=== PATIENT | male | born 1945 | race Caucasian/White ===

== ENCOUNTER 2022-04-01 12:40 | Outpatient (CLI) | payer MEDICARE, BC, SELFPAY ==
--- NOTE | 2022-04-01 13:00 | CRLHL7_ITS ---
For Patients: As a result of the Century Cures Act, medical imaging exams and procedure reports are released immediately into your electronic medical record. You may view this report before your referring provider. If you have questions, please contact your health care provider. 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 Coronary artery calcification. Heart size normal no pericardial effusion calcified mediastinal hilar lymph nodes. Numerous predominantly small mediastinal lymph nodes could be reactive. Lungs appear clear. No effusion. Anterior left upper lobe and basilar mild atelectasis. The gallbladder appears slightly distended there may be some wall thickening The adrenal glands are unremarkable. Splenic granulomas. Fatty appearance of the liver. No suspicious bony lesions. Impression: 1. No acute pulmonary findings. Prominent predominantly small mediastinal nodes could be reactive. 2. Gallbladder appears slightly distended with some possible wall thickening. If the patient has right upper quadrant pain could consider right upper quadrant ultrasound. Please note that all CT scans at this facility use dose modulation, iterative reconstruction, and/or weight-based dosing when appropriate to reduce radiation dose to as low as reasonably achievable. Dictated by Patria Cervantes MD @ 04/01/2022 2:42:25 PM (Electronically Signed)
--- NOTE | 2022-04-01 13:15 | CRLHL7_ITS ---
For Patients: As a result of the Cures Act, medical imaging exams and procedure reports are released immediately into your electronic medical record. You may view this report before your referring provider. If you have questions, please contact your health care provider. Indication: Abnormal weight loss Technique: Contrast and noncontrast head CT Comparison: No comparison neck is Findings: Axial noncontrast images through the brain parenchyma demonstrates generalized parenchymal volume loss. No acute intracranial hemorrhage or mass. No midline shift. No acute extra-axial air or fluid collections are seen. Polypoid soft tissue densities in mucosal thickening of both maxillary sinuses these could represent mucous retention cysts or polyps. Partial opacification of ethmoid air cells. Mucosal thickening of sphenoid sinuses. Mucosal thickening of the frontal sinuses. Skull and scalp otherwise appears unremarkable. No abnormal enhancement visualized. Hence may intracranial vessels are unremarkable Impression: 1. No acute intracranial hemorrhage or mass 2. Pansinus disease with possible polyps or mucous retention cyst in the maxillary sinuses. Please note that all CT scans at this facility use dose modulation, iterative reconstruction, and/or weight-based dosing when appropriate to reduce radiation dose to as low as reasonably achievable. Dictated by Patria Cervantes MD @ 04/01/2022 2:21:53 PM (Electronically Signed)
== END 2022-04-01 12:41 | disposition home or self-care (01) ==
LOC: CT 12:41
PROVIDERS: PCP Physician Assistant Medical; Visit Provider Physician Assistant Medical
DX: R63.4 Abnormal weight loss (principal); J32.0 Chronic maxillary sinusitis
CPT/HCPCS: 70470; 71260; Q9967

== ENCOUNTER 2022-05-03 07:23 | Outpatient (CLI) | payer MEDICARE, BC, SELFPAY ==
--- NOTE | 2022-05-03 07:15 | CRLHL7_ITS ---
For Patients: As a result of the Century Cures Act, medical imaging exams and procedure reports are released immediately into your electronic medical record. You may view this report before your referring provider. If you have questions, please contact your health care provider. INDICATION: GB wall thickening on CT COMPARISON: CT 04/01/2022 TECHNIQUE: Real time dominguez scale imaging and color Doppler analysis was performed of the right upper quadrant. FINDINGS: The patient`s liver is of normal size and has coarsened/increased echogenicity. There is a normal appearance of the hepatic IVC and proximal abdominal aorta. There is no evidence of ascites. The gallbladder is of normal size and there are echogenic and shadowing gallstones within the gallbladder lumen measuring 1.6 cm and 1.8 cm. Echogenic foci are also associated with the nondependent gallbladder wall with dirty acoustic shadowing. The gallbladder wall measures 5 mm in thickness. The common bile duct is of normal size and measures 6 mm in diameter at the level of the pernell hepatis. The pancreas is not well-visualized. There is no evidence of a stone or hydronephrosis within the right kidney. The right kidney measures 14.2 cm in length. Exophytic simple cyst arises from the lower pole of the right kidney measuring 8.9 x 4.8 x 8.6 cm. IMPRESSION: Diffuse gallbladder wall thickening with non dependent echogenic foci likely representing adenomyomatosis. Associated gallstones measuring up to 1.8 cm consistent with cholelithiasis. Correlate with LFTs. Fatty infiltration of the liver. Large simple cyst lower pole right kidney. Dictated by Júnior Austin MD @ 05/03/2022 8:27:44 AM (Electronically Signed)
== END 2022-05-03 07:24 | disposition home or self-care (01) ==
PROVIDERS: PCP Physician Assistant Medical; Visit Provider Physician Assistant Medical
DX: R93.2 Abnormal findings on diagnostic imaging of liver and biliary tract (principal); K80.20 Calculus of gallbladder without cholecystitis without obstruction; K76.0 Fatty (change of) liver, not elsewhere classified; N28.1 Cyst of kidney, acquired
CPT/HCPCS: 76705

== ENCOUNTER 2022-05-10 06:19 | Day surgery (SDC) | payer MEDICARE, BC, SELFPAY ==
[2022-05-10] VITALS (11 sets, daily range): BP systolic 136–179; BP diastolic 78–95; PULSE 62–83; RESP 15–16; TEMP 36.7–36.8; O2SAT 95–98; BMI 30.7
--- NOTE | 2022-05-10 07:01 | SUR.PREOP ---
Patient checked blood glucose at 0530 at home, result 260. Pt states it's been getting higher and higher this past week, and I don't know why.
[2022-05-10] MEDS: LIDOCAINE 1% 20 ML VIAL 3 ML INJECTION (07:51)
[2022-05-10] MEDS: BUPIVACAINE 0.25% 30 ML INJECTION (07:51)
--- NOTE | 2022-05-10 07:55 | SUR.OPER ---
PATIENT QUESTIONS ANSWERED SATISFACTORILY PREOPERATIVELY.? PATIENT BROUGHT TO OR #4 PER WHEELCHAIR.? Patient positioned supine on OR #4 bed.?The perioperative?team supported arms bilaterally on arm boards.? Final approval of positioning by surgeon.?
--- NOTE | 2022-05-10 08:54 | PM.GSPRC ---
Operative Note Date of procedure: 05/10/22 Type of Procedure: Right temporal artery biopsy Procedure Description: After discussing the risks and benefits of the procedure, the patient signed informed consent.? The operative site was marked and the patient was brought to the operating room and placed on the operating table in supine position.? Care was taken to pad the patient's pressure points.??The operative site was then prepped and draped in the usual sterile fashion.? A time-out was then performed. Local anesthetic was injected into the skin and subcutaneous tissue overlying the temporal artery on the right. An incision was then created. Dissection was taken down into the subcutaneous fat using cautery. The artery was encountered and confirmed using the Doppler. This was carefully dissected out circumferentially for segment of 2 cm. This was ligated proximally and distally with Vicryl suture and a segment was removed and sent to pathology. Hemostasis appeared excellent. The wound was then closed in layers with 3 0 Vicryl dermal and 5 0 Monocryl running subcuticular suture. ? Sterile dressings were then applied. ? The patient was then transported to the recovery area in stable condition. ? The patient tolerated the procedure well. Anesthesia: local Surgeon: Pari Davies MD Estimated blood loss (mL): 1 Condition: stable Disposition: same day
--- NOTE | 2022-05-17 09:46 | ONC.NURNOTE ---
Addendum entered by Ann Lovelace RN 06/04/22 15:21: Dr. Lino went through all the information: peripheral smear, and notes from surgery and primary care. She notes that she would not see patient as a consult unless the pathology from colon surgery came back malignant. This was looked at and found to be negative, therefore patient and spouse were notified that appointment will be cancelled. LM with front end mechanic staff at [facility] of the cancellation, and to call with any questions about this. Addendum entered and electronically signed by Paige Lutz, JOLLY 05/19/22 13:51: Addendum: Clarification, Mr. Retana was seen by Dr. Smyth, Surgeon with plan for cholecystectomy, possible hemicolectomy in the near future. He is on the schedule for the [facility] for new consult with Dr. Swati Lino on 06/17/22. Pt's will call to confirm with Stephanie Clark if he should still be seen in consult here at the [facility]. Peripheral blood smear result is pending and may influence this determination as well. He remains on the [facility] schedule for 06/17/22 at this time. Addendum entered and electronically signed by Paige Lutz, JOLLY 05/19/22 13:43: Mr. Retana's called to report that he is going to have surgery per Dr. Smyth on his colon. She wonders if he needs to still be seen here in the [facility] with Dr. Swati Lino on 05/17/22 - 2 days prior to surgery. Director Of Academic recommended that she call Stephanie Clark, PCP, to ask this question about the urgency to be seen. It appears that there is also a request for a peripheral smear on his blood to help determine cause for his blood dyscrasia before seen by hematology at the [facility] Ms. Retana agreed to this plan and will call us back at the [facility] after speaking with PCP team. Mr. Retana remains on our schedule at this time. Original Note: Received referral for patient to be seen by hem/onc. Clinic nurse talked with provider last week and it was determined that patient is appropriate to be seen, but request the primary care order a CBC smear first. Director Of Academic checked with clinic and the messageis back with provider. Once this is ordered, patient to be scheduled with Dr. Lino.
== END 2022-05-10 15:41 | disposition home or self-care (01) ==
PROVIDERS: PCP Physician Assistant Medical; Visit Provider Surgery
PROC: (CPT 37609; principal; 2022-05-10 07:30)
DX: R51.9 Headache, unspecified (principal); R70.0 Elevated erythrocyte sedimentation rate
CPT/HCPCS: 37609; 88305; J3490

== ENCOUNTER 2022-05-19 11:22 | Outpatient (CLI) | payer MEDICARE, BC, SELFPAY | END 2022-05-19 11:23 | disposition home or self-care (01) | LOC: NFLDREF 05-21 14:07 | PROVIDERS: PCP Physician Assistant Medical; Visit Provider Surgery | DX: R58 Hemorrhage, not elsewhere classified (principal) | CPT/HCPCS: 82040 ==

== ENCOUNTER 2022-05-27 09:43 | Outpatient (CLI) | payer MEDICARE, BC, SELFPAY ==
[2022-05-27 13:29] LABS: Chloride* 107 mmol/L (96-114); Sodium* 141 mmol/L (135-149)
[2022-05-27 13:29] LABS: Albumin* 3.6 g/dL (3.3-5.0)
[2022-05-27 13:30] LABS: Potassium* 4.8 mmol/L (3.6-5.1)
[2022-05-27 13:32] LABS: Estimated Glomerular Filt Rate 78 ml/min
[2022-05-27 13:33] LABS: Blood Urea Nitrogen* 28 mg/dL (7-30); Calcium* 8.8 mg/dL (8.4-10.6); Carbon Dioxide* 23 mmol/L (20-32); Glucose* 173 mg/dL (60-115)
== END 2022-05-27 09:44 | disposition home or self-care (01) ==
PROVIDERS: PCP Physician Assistant Medical; Visit Provider Emergency Medicine
DX: Z01.818 Encounter for other preprocedural examination (principal); R77.0 Abnormality of albumin; E78.5 Hyperlipidemia, unspecified
CPT/HCPCS: 80048; 82040

== ENCOUNTER 2022-05-31 06:06 | Inpatient (IN) | payer MEDICARE, BC, SELFPAY ==
[2022-05-31] VITALS (24 sets, daily range): BP systolic 103–133; BP diastolic 52–80; PULSE 69–92; RESP 14–18; TEMP 36.2–37.3; O2SAT 90–99; BMI 29.9
[2022-05-31] MEDS: LACTATED RINGERS 1000 ML 1,000 ML 100 ML IV ×3 (06:30→23:04)
[2022-05-31] MEDS: SODIUM CHLORIDE 0.9 % (FLUSH) 10 ML SYRINGE IVF (06:55)
[2022-05-31] MEDS: ERTAPENEM 1 GM inj IVPB (07:40)
--- NOTE | 2022-05-31 07:53 | W.PM.NB ---
Nerve Block Nerve Block Time Seen by Provider: 07:30 Date Seen: 05/31/22 Type of block requested by surgeon for post-operative analgesia: TAP Side: bilateral Time out performed: Yes Verification of patient name: Yes Verification of date of : Yes Site marking: site marked Name of person performing procedure: Maciej Continuous monitoring Was continuous monitoring of O2 sat, B/P, residential monitor, recorded every 15 minutes?: Yes Procedure Checklist: sterile prep, needles and gloves Ultrasound guided. Images saved: Yes Medications given in 5ml increments after negative aspiration: Marcaine %: 0.25 mL: 30 Needle gauge: 20 and Exparel mL: 10 Patient tolerated procedure well: Yes Additional comments: Needle noted adjacent to nerve Block Charges Block Charge (with Pro Fee): TAP Bilateral Use of Ultrasound Machine for Block: Yes- US Guidance/pain block
--- NOTE | 2022-05-31 12:26 | PM.GSPRC ---
Operative Note Date of procedure: 06/01/22 Type of Procedure: Laparoscopic right hemicolectomy Procedure Description: I arrived to the OR after Dr. Smyth had removed the patient's gallbladder. The ports were already in place and the patient was in slight Trendelenburg with the right side up. I grasped the omentum and retracted out of the way well Dr. Smyth identified the ileocolic pedicle in the mesentery by lifting the cecum. She then dissected out the pedicle using Harmonic scalpel and once the vessels were identified divided them with a vascular load Endo-SYDNEY stapler. The staple line was examined and no bleeding was noted. I then retracted the mesentery and right colon while Dr. Smyth dissected the retroperitoneum in the avascular plane in a medial to lateral approach. Once she reached the lateral abdominal wall, she took her dissection cephalad toward the hepatic flexure. Once this was done the omentum was grasped and the transverse colon was pulled inferiorly. I retracted the omentum superiorly and Dr. Smyth retracted the transverse colon inferiorly and then began to divide the omentum using the Harmonic scalpel. There were some adhesions here, however the correct plane was identified and she mobilized the hepatic flexure, joining with her retroperitoneal dissection. The duodenum was identified deep to our dissection plane during this process and care was taken to avoid injuring it. The colon on the right side was adherent to the abdominal wall and there were some adhesions here. Dr. Smyth then took these adhesions down using Harmonic scalpel. I then provided lateral retraction and she completed the lateral peritoneal dissection, dividing the white line of Toldt with the Harmonic scalpel. This was taken down to the terminal ileum. I then retracted the colon by grasping the appendix and pulling it cephalad. Dr. Smyth then divided the retroperitoneal attachments using the Harmonic scalpel thereby allowing the cecum and terminal ileum to be freely mobilized. Once this was done we examined the wound wound bed for hemostasis. This appeared adequate. We then ensured that the colon and terminal ileum were completely mobilized. There was some mesenteric peritoneum medially which Dr. Smyth divided as I provided retraction of the colon. Care was taken to of avoid the duodenum during this process. Now that the specimen was completely mobilized, Dr. Smyth grasped the appendix with a locking grasper and identified an area on the abdominal wall to make an incision. Dr. Smyth then created a right upper quadrant transverse incision using her right upper quadrant port site. Dissection was taken down to the subcutaneous tissue. She then incised the fascia. I help provide retraction during this process. I retracted the rectus muscle fibers medially and laterally well she then incised the posterior rectus fascia. We were able to avoid dividing any rectus muscle fibers. An Chase wound retractor was then brought into the field and placed in the wound. The specimen was then extracorporealized. It was freely mobile. Dr. Smyth then, using clamps and ties cleared the fat off of the transverse colon in the area of the planned anastomosis. She identified a well perfused section and ensure that there was mesenteric flow. She then divided a small area of mesentery that was providing flow to the specimen side. She then identified a well perfused area of the distal ileum and created a mesenteric window. She then divided the mesentery up to the area of planned resection. She then fired to blue load Endo-SYDNEY staplers across each end of the colon and small bowel. She sent the specimen to pathology after confirming that the lesion was contained within the specimen. She then created an enterotomy and a colotomy just away from the staple line on each end of bowel and through this passed a blue load Endo-SYDNEY stapler and fired, creating the anastomosis. No bleeding was seen on the staple line. I then provided retraction while she closed the common enterotomy with interrupted Lembert sutures. Once this was done she placed the anastomosis back into the abdomen. We then changed our gloves and instruments for a clean closure. I provided retraction while she closed the layers of the fascia. The abdomen was then insufflated in a he briefly surveyed for hemostasis. It appeared excellent. Dr. Smyth then closed the right lower quadrant 12 mm port site with a Xu-Mario stitch with 0 Vicryl. At this point I left the OR and left Dr. Smyth to finish the skin closure. Findings: Unresectable ascending colon polyp Anesthesia: GETA Surgeon: Gualberto Smyth MD Co-Surgeon: Pari Davies MD Estimated blood loss (mL): 40 Condition: stable Disposition: PACU
--- NOTE | 2022-05-31 12:56 | W.ANESCHARGE ---
Anesthesia Charges Start Date/Time Anesthesia Start Date: 05/31/22 Anesthesia Start Time: 07:29 Stop Date/Time Anesthesia Stop Date: 05/31/22 Anesthesia Stop Time: 12:45 Summary Emergency: No Extremes of Age: Over 71-CPT 59502
--- NOTE | 2022-05-31 13:41 | PM.GSPRC ---
Operative Note Date of procedure: 05/31/22 Type of Procedure: 1. Laparoscopically cholecystectomy. 2. Laparoscopic lysis of adhesions. 3. Laparoscopic right hemicolectomy with primary anastomosis. Procedure Description: After discussing the risks and benefits of the procedure, the patient signed informed consent.? The operative site was marked and the patient was brought to the operating room and placed on the operating table in supine position.? Care was taken to pad the patient's pressure points.?? The patient was then intubated by anesthesia.? A TAP block was administered by anesthesia. Petty catheter was placed under sterile conditions.? The operative site was then prepped and draped in the usual sterile fashion.? A time-out was then performed. A 5-mm laparoscopy port was placed in the left upper quadrant guided by a 5-mm laparoscope placed into a translucent trochar.~ Passage through the layers of the abdominal wall was visualized with the laparoscope.~ A pneumoperitoneum was established. A 0-degree 5-mm laparoscope was advanced into the abdomen. The abdomen was briefly surveyed, and omental adhesions to the umbilical abdominal wall were noted. A 5-mm port were placed supraumbilically superior to patient's prior umbilical hernia repair. And two more 5 mm ports were placed on the right under direct visualization by laparoscope. The camera was then changed to 10 mm 30-degree scope and placed into the abdomen through the 10 mm port. The left upper quadrant port entrance was examined and no injury to intra-abdominal organs was identified. The gallbladder was identified. Omentum was adherent to the fundus and it was difficult to grasp the gallbladder due to gallbladder wall thickening. The adhesions were taken down with hook cautery and Harmonic scalpel. The fundus grasped and retracted cephalad. I continued with taking down omentum from the anterior surface of the gallbladder with care taken to avoid injury to the duodenum. The infundibulum was grasped and retracted laterally, exposing the peritoneum overlying the triangle of Calot. This was then divided and exposed in a blunt fashion and with hook cautery. Common bile duct was not identified but care was taken not to injure it. Small veins were identified in the triangle of Calot and those were clipped with 5 mm clips to avoid bleeding during the dissection. The cystic duct was clearly identified and bluntly dissected circumferentially. A small cystic artery was identified posterior medial to the cystic duct and tissues around it were dissected off. The cystic artery and the cystic duct were clearly going into the gallbladder. The cystic duct was then doubly ligated with surgical clips on the patient's side and singly clipped on the gallbladder side and divided. The 5 mm clips didn't go all the way across the cystic duct most likely because we were high up on the infundibulum. I used 0-0 PDS Endoloop to tie the cystic duct stump just proximal to the clips. The cystic artery was then similarly ligated with clips and divided as well. The gallbladder was dissected from the liver bed in retrograde fashion using hookcautery. This dissection was difficult because of the thickness of the gallbladder wall and the gallbladder being intrahepatic. During this dissection, the gallbladder was entered and clear bile was spilled into the abdomen. When the gallbladder was free, it was placed into an Endo-Catch bag. I placed a 12 mm port in the LLQ under direct visualization. Omental adhesions to the umbilical hernia repair were taken down with Harmonic scalpel. There was evidence of hernia recurrence. The gallbladder in the endocatch bag was then removed through the Left lower quadrant incision. Surgical site was examined for bleeding. No bleeding was seen in the surgical field. I then proceeded with right hemicolectomy. The patient was placed in the Trendelenburg position with the right side up. Peritoneum near the appendix was divided with Harmonic scalpel and appendix was mobilized off of the abdominal wall. I then proceeded with a medial to lateral dissection of the right colon mesentery. There ascending colon was adherent to the anterior abdominal wall with adhesions. This was helpful for visualization and retraction. I then identified the location of the vascular pedicle and dissected the ileocolic vasculature circumferentially with a Harmonic scalpel. The vascular pedicle was easily visualized. This was divided with a vascular staple load. The staple line was examined and no bleeding was noted from the staple line. Dissection was carried further towards the hepatic flexure. The colon mesentery was divided with Harmonic scalpel laterally and towards the hepatic flexure. The duodenum was not visualized in this field of dissection. Once the posterior wall of the ascending colon was freely mobile, we proceeded with mobilization of the omentum of the proximal transverse colon. This was done with the Harmonic scalpel. The omentum was retracted cephalad and the transverse colon was retracted caudad. This dissection was carried towards the lateral abdominal wall to make the hepatic flexure mobile. The duodenum was visualized in this field of dissection and care was taken not to injure it. The colonic mesentery was mobilized posteriorly and inferiorly in a relatively avascular plane between the Gerota's fascia and the colon mesentery. We then proceeded with taking down the adhesions of the ascending colon from the lateral abdominal wall. This was taken down with Harmonic scalpel. Our dissection then was carried down further along the lateral abdominal wall by dividing the White line of Toldt with Harmonic scalpel. The colonic mesentery was freely mobile and the right colon was mobile as well. Minimal dissection of peritoneum was done near the terminal ileum. The gonadal vessels were identified but were not divided since they were not in the field of dissection. At this time since the right colon and terminal ileum were mobile, we proceeded with extracorporeal portion of this procedure. A right paramedian / right upper quadrant horizontal skin incision was made with a scalpel incorporating one of the 5 mm port skin incisions into this new incision afterh the 5 mm port was removed. Subcutaneous fat and anterior fascia were divided with cautery. Rectus muscles were retracted with Any clamps and posterior fascia and peritoneum were incised with cautery. This incision was then extended medially and laterally. A small Chase retractor was placed into the incision. A previously grasped appendix was then exteriorized and the right colon was eviscerated. A well-perfused segment of proximal transverse colon was identified. Epiploic fat was excised with cautery to have the antimesenteric wall of the colon ready for anastomosis. A small segment of omentum was clamped, tied with Vicryl, and excised. This was sent to pathology with the right colon specimen. The small intestine was examined and terminal ileal mesentery was divided with clamps and Vicryl ties near the IC valve. The terminal ileum was then divided with a blue load of the SYDNEY stapler. The transverse colon was also divided with a blue load of SYDNEY stapler in the proximal transverse colon. We then proceeded with ileocolic [id number] functional end-to-end anastomosis. A colotomy was made 1 cm away from the staple line with cautery. An enterotomy was made with cautery approximately 1 cm from the newly created staple line in the terminal ileum. The hands of SYDNEY stapler were inserted into the colotomy and enterotomy, and the transverse colon and terminal ileum were lined up to create a staple line on the antimesenteric side. The stapler was then fired and removed. The staple line was examined intraluminally and no bleeding was seen. The common enterotomy was then closed with interrupted Lembert sutures using 3-0 silk pop-offs. A crotch stitch was placed with 3-0 silk suture. The anastomosis was palpated and was patent. The anastomosis was well-perfused. The mesenteric defect was examined and I was not able to see the most inferior portion of the mesenteric defect. This was left not closed. The anastomosis was placed into the abdomen. At this time all previously placed green towels and dirty instruments were removed. The surgeons and assistants changed gloves. The Chase retractor was also removed. The specimen was opened on the back table and I was able to identify cecal polyp. We proceeded with closure of the paramedian incision. The peritoneum and posterior sheath of the paramedian incision were closed with running 0-0 Vicryl sutures. Hemostasis was achieved with cautery. The anterior fascia was then closed with 2 running 0-0 Maxon sutures. The abdomen was insufflated with carbon dioxide again and surgical field was examined. No bleeding was identified in the right paracolic gutter or subhepatic space. Anastomosis appeared perfused. Omentum was placed over the anastomosis. The left lower quadrant port was removed. The anterior fascia at the site of this incision was closed with an interrupted 0-0 Vicryl suture using Xu-Mario. All other ports were removed under direct visualization after the carbon dioxide was evacuated. The dermis of paramedian incision was reapproximated with interrupted 3-0 Vicryl sutures. Additional local anesthetic was injected at all incisions. Skin of all incisions was closed with 4-0 Monocryl stitch. Steri-Strips and sterile dressings were placed over all incisions. Instrument, sponge, and needle counts were correct at closure and at the conclusion of the case. The patient was transferred to PACU in stable condition. ? Findings: Hydrops gallbladder. The cecal polyp was identified in the specimen. Anesthesia: GETA Surgeon: Gualberto Smyth MD Co-Surgeon: Pari Davies MD Estimated blood loss (mL): 40 Condition: stable Disposition: PACU
--- NOTE | 2022-05-31 13:50 | SUR.PHASEI ---
patient met anesthesia criteria for discharge
--- NOTE | 2022-05-31 14:01 | W.ANESCHARGE ---
Anesthesia Charges Start Date/Time Anesthesia Start Date: 05/31/22 Anesthesia Start Time: 07:29 Stop Date/Time Anesthesia Stop Date: 05/31/22 Anesthesia Stop Time: 12:45 Summary Emergency: No Extremes of Age: Over 71-CPT 84165
--- NOTE | 2022-05-31 14:51 | PC.NURSE ---
End of Shift Note: Patient arrived to the floor around 1400 from PACU. He was pretty sleepy upon arrival did check his BS 203. Asked patient how often he checks his BS at home and his response was just once a day. Asked if he can tell when his blood sugar gets low his response was no. Has not complained of any nausea or pain since his arrival to the floor only complaint is the blanco cath. Says it feels like he needs to urinate. Explain that just maybe pressure from the tube in his bladder as he is putting out urine as evidence by urine in blanco bag. Have offered him clear liquids ex: jello, broth but at this time is declining. Is drinking some water without ice. Will continue to monitor.
--- NOTE | 2022-05-31 15:59 | P.IMCN_ITS ---
Date of Consult Consult date: 05/31/22 Primary Care Provider: Stephanie Clark PA-C Consult Narrative Reason for consult: Perioperative management of chronic medical conditions Narrative: HOSPITALIST CONSULT Hospital Day #1 Postop day 0 Date of procedure: 05/31/22 Type of Procedure: 1.? Laparoscopically cholecystectomy. 2.? Laparoscopic lysis of adhesions. 3.? Laparoscopic right hemicolectomy with primary anastomosis. The hospital medicine team was asked by general surgery team team to manage the patient's type 2 insulin-requiring diabetes. Alfredo underwent a successful laparoscopic cholecystectomy and right hemicolectomy this morning. Pathology is pending. He is evaluated postoperatively in his hospital room. Bedside is his significant other. He is on 2 L of nasal cannula oxygen. He reports his pain is well controlled. He is taking ice chips without nausea. He is alert and making jokes. There have been no perioperative concerns or complications. PAST MEDICAL HISTORY: COVID January 2022 - chronic cough noted. Previously vaccinated x4 B12 deficiency Type 2 diabetes, insulin dependent Hyperlipidemia Gout History of acalculous cholecystitis History of segmental colonic wall thickening, hemicolectomy recommended Recent pelvic lymphadenopathy, concern for prostate cancer spurred PSA, prostate MRI and biopsy. 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 PHYSICAL EXAM: CODE STATUS: Full code CONSTITUTIONAL: Conversive, good historian. A/O. Knows setting and context. VITAL SIGNS: see record. HEENT: Normocephalic, atraumatic. PERRL, EOMI, conjunctivae pink, no scleral icterus. Ears and nose externally normal. Pharynx normal. NECK: No JVD. No carotid bruit, no thyromegaly, no adenopathy. CHEST: Clear to auscultation bilaterally HEART: No harsh murmurs. S1/S2. ABDOMEN: Surgical wounds are dry, intact. No seepage. Moderately obese. EXTREMITIES: No edema. NEURO: Cranial nerves intact. Normal affect. No gross deficits. Speech intelligible. SKIN: No rashes, petechiae, concerning changes PSYCHIATRIC: Euthymic. INVESTIGATIONS: EMR Reviewed DISPOSITION: DVT: Per surgery team, SCDs in place GI: Ice chips, ppi, advance diet when appropriate [facility] Medical History (Updated 05/31/22 @ 18:40 by Nicole Law MD) Anemia (01/2022) Asthma B12 deficiency Basal cell carcinoma COVID-19 (~01/27/22) Elevated erythrocyte sedimentation rate Elevated PSA Gallbladder disease Gout History of basal cell carcinoma (BCC) Hyperlipidemia Insulin dependent diabetes mellitus Insulin dependent type 2 diabetes mellitus Lymphadenopathy Never smoker Polyp of ascending colon Pre-op exam Prostate cancer Right temporal headache Tubular adenoma Surgical History (Updated 05/31/22 @ 18:22 by Nicole Law MD) History of hernia repair Status post laparoscopic cholecystectomy Status post left hemicolectomy Social History (Updated 04/21/22 @ 08:20 by Chase Shaw) Narrative: non-smoker Highest level of school completed/degree received: high school graduate Smoking Status: Never smoker How often do you have a drink containing alcohol: never How often do you have six or more drinks on one occasion: Never AUDIT-C Alcohol total score: 0 Non-prescribed substance use: denies use Caffeine: No service: Yes Meds Home Medications and Allergies Home Medications Medication Instructions Recorded Confirmed Type albuterol sulfate 90 mcg/actuation 2 inh inhalation Q4H PRN 04/27/22 05/31/22 History aerosol inhaler diabetic supplies, miscellan. 04/27/22 05/27/22 History fluticasone propionate [24 Hour intranasal 04/27/22 05/27/22 History Allergy Relief] indomethacin 50 mg capsule 50 mg PO PRN 04/27/22 05/27/22 History insulin glargine 100 unit/mL (3 22 unit subcut HS 04/27/22 05/31/22 History mL) subcutaneous pen metformin 1,000 mg tablet 1,000 mg PO BID 04/27/22 05/31/22 History pravastatin 10 mg tablet 10 mg PO HS 04/27/22 05/31/22 History Allergies Allergy/AdvReac Type Severity Reaction Status Date / Time pollen extracts Allergy Intermediate Congested Verified 05/27/22 08:59 Exam Const: Vital Signs, click to edit/add: Vital Signs - 24 hr 05/31/22 06:50 05/31/22 12:59 05/31/22 12:42 Temperature 98.9 F 99 F Pulse Rate 69 92 92 Pulse Rate [Pulse Oximeter] Respiratory Rate 16 14 14 Blood Pressure 124/76 120/71 122/71 Blood Pressure [Ri ght Arm] Pulse Oximetry 94 99 99 Oxygen Delivery Me thod Room Air OxyMask OxyMask Oxygen Flow Rate 10 10 05/31/22 12:45 05/31/22 12:50 05/31/22 12:55 Temperature Pulse Rate 72 81 92 Pulse Rate [Pulse Oximeter] Respiratory Rate 14 14 14 Blood Pressure 114/55 L 117/65 104/58 L Blood Pressure [Ri ght Arm] Pulse Oximetry 99 99 99 Oxygen Delivery Me thod OxyMask OxyMask OxyMask Oxygen Flow Rate 10 10 10 05/31/22 13:00 05/31/22 13:05 05/31/22 13:10 Temperature Pulse Rate 92 92 92 Pulse Rate [Pulse Oximeter] Respiratory Rate 14 14 14 Blood Pressure 107/63 108/66 105/58 L Blood Pressure [Ri ght Arm] Pulse Oximetry 99 99 99 Oxygen Delivery Me thod OxyMask OxyMask OxyMask Oxygen Flow Rate 10 10 10 05/31/22 13:15 05/31/22 13:25 05/31/22 13:20 Temperature Pulse Rate 71 85 81 Pulse Rate [Pulse Oximeter] Respiratory Rate 16 16 14 Blood Pressure 106/63 117/67 115/71 Blood Pressure [Ri ght Arm] Pulse Oximetry 90 92 91 Oxygen Delivery Me thod OxyMask Nasal Cannula Nasal Cannula Oxygen Flow Rate 6 2 2 05/31/22 13:46 05/31/22 13:30 05/31/22 14:05 Temperature 97.2 F L 97.8 F Pulse Rate 77 70 Pulse Rate [Pulse Oximeter] 77 Respiratory Rate 16 15 18 Blood Pressure 115/66 Blood Pressure [Ri ght Arm] 103/52 L 111/68 Pulse Oximetry 91 92 Oxygen Delivery Me thod Nasal Cannula Nasal Cannula Nasal Cannula Oxygen Flow Rate 2 2 2 05/31/22 14:16 05/31/22 14:30 Temperature 97.6 F 97.8 F Pulse Rate Pulse Rate [Pulse Oximeter] 77 81 Respiratory Rate 18 18 Blood Pressure Blood Pressure [Ri ght Arm] 110/71 118/71 Pulse Oximetry 92 94 Oxygen Delivery Me thod Nasal Cannula Nasal Cannula Oxygen Flow Rate 2 2 Assessment and Plan Assessment and plan (1) Status post left hemicolectomy: Status: Acute Assessment and Plan: Postop day 0. Petty in. IV running. Patient is awake and alert. Pain is well controlled. Hospital medicine team is happy to follow this patient through to discharge. Routine postoperative course is expected. There have been no perioperative complications. (2) Status post laparoscopic cholecystectomy: Status: Acute Assessment and Plan: As above (3) Colon wall thickening: Problem comment: colonoscopy 02/25/2022 consulted with General surgery 03/03/2022 Status: Acute Assessment and Plan: Awaiting pathology (4) Insulin dependent type 2 diabetes mellitus: Status: Acute Assessment and Plan: While he is not eating I will hold on his Lantus and metformin. Will cover him with sliding scale insulin as needed. (5) Gout: Status: Acute Assessment and Plan: No current symptoms (6) B12 deficiency: Problem comment: 02/05/2022- started B12 supplement Status: Acute Assessment and Plan: Replaced. Following. (7) Hyperlipidemia: Status: Acute Assessment and Plan: Noted. I will hold his statin until he is tolerating p.o. diet (8) Tubular adenoma: Problem comment: right colon Status: Acute Assessment and Plan: Noted. Colonoscopy pathology reviewed (9) Asthma: Problem comment: stopped using Advair 2020 Status: Acute Assessment and Plan: Never smoked. Uses prednisone and or Advair intermittently based on seasonal symptoms. (10) Prostate cancer: Status: Acute Assessment and Plan: Seems to be some discrepancy in with the patient understands the diagnosis and what I see in the notes. Patient thinks his biopsy was negative and will see the urologist in 1 year. I see documentation to the contrary. Will discuss further with patient
--- NOTE | 2022-05-31 19:36 | PC.NURSE ---
shift note: pt denies pain. pt denies passing flatus. pt has active BS x4 and is tolerating clear diet. LS clr. IS to 1500. IV patent.
[2022-06-01] VITALS (7 sets, daily range): BP systolic 121–153; BP diastolic 66–82; PULSE 71–87; RESP 16–18; TEMP 36.8–37.6; O2SAT 92–96
[2022-06-01] MEDS: HYDROmorphone 0.5 mg/0.5 ml inj IVP (03:01)
[2022-06-01] MEDS: ACETAMINOPHEN 325 MG TABLET 650 MG PO (03:01)
--- NOTE | 2022-06-01 05:46 | PC.NURSE ---
Shift 7p-7a: Pt. AOx4 but intermittently forgetful, following commands, VSS on RA. Pt. has Petty catheter in place with adequate output. Pt. dangled on side of bed, stood up, and walked to room sink during shift, denies N/V, headaches, or dizziness. Pt. tolerating clear liquids with no episodes of N/V. Abdominal lap sites x3 covered with steri strips, RT upper abdominal dressing C/D/I, bowel sounds active but no BM during shift. Pt. c/o of pain around surgical site, PRN dilauded administered x1. Pt. receiving LR infusion at 100mL/hr. SCD's in place, pt. doing incentive spirometer independently. Plan for mobility today, sitting up in recliner and ambulating as tolerated
[2022-06-01 06:46] LABS: Ionized Calcium* 1.11 mmol/L (1.11-1.30); Lactate* 0.8 mmol/L (0.5-1.9)
[2022-06-01 06:47] LABS: Hemoglobin* 11.5 gm/dL (13.5-17.5)
[2022-06-01 07:15] LABS: Chloride* 105 mmol/L (96-114); Potassium* 4.7 mmol/L (3.6-5.1); Sodium* 135 mmol/L (135-149)
[2022-06-01 07:17] LABS: Creatinine* 1.1 mg/dL (0.5-1.5); Est. Creatinine Clearance* 59.91; Estimated Glomerular Filt Rate 70 ml/min
[2022-06-01 07:18] LABS: Blood Urea Nitrogen* 19 mg/dL (7-30); Calcium* 7.8 mg/dL (8.4-10.6); Carbon Dioxide* 24 mmol/L (20-32); Glucose* 161 mg/dL (60-115)
[2022-06-01 07:19] LABS: Magnesium* 1.9 mg/dL (1.5-2.6)
[2022-06-01 07:20] LABS: Hemoglobin A1C* 8.53 % (0-5.6)
[2022-06-01 07:26] LABS: NT Pro B Type NatriureticPept* 405 PG/mL (0-450)
--- NOTE | 2022-06-01 08:43 | PM.GSPN ---
Subjective Subjective Date Seen: 06/01/22 Interval history: Patient is doing well postoperatively. He denies any nausea vomiting. He is not passing gas. He did not ambulate because it was painful when he tried. He had good urine output overnight. Exam Narrative: Exam Narrative: Abdomen: Soft, not distended, tender to palpation in epigastrium and right paramedian incision, surgical incisions are covered with clean dressings. Const: Vital Signs, click to edit/add: Vital Signs - 24 hr 05/31/22 12:59 05/31/22 12:42 05/31/22 12:45 Temperature 99 F Pulse Rate 92 92 72 Pulse Rate [Pulse Oximeter] Respiratory Rate 14 14 14 Blood Pressure 120/71 122/71 114/55 L Blood Pressure [Ri ght Arm] Pulse Oximetry 99 99 99 Oxygen Delivery Me thod OxyMask OxyMask OxyMask Oxygen Flow Rate 10 10 10 05/31/22 12:50 05/31/22 12:55 05/31/22 13:00 Temperature Pulse Rate 81 92 92 Pulse Rate [Pulse Oximeter] Respiratory Rate 14 14 14 Blood Pressure 117/65 104/58 L 107/63 Blood Pressure [Ri ght Arm] Pulse Oximetry 99 99 99 Oxygen Delivery Me thod OxyMask OxyMask OxyMask Oxygen Flow Rate 10 10 10 05/31/22 13:05 05/31/22 13:10 05/31/22 13:15 Temperature Pulse Rate 92 92 71 Pulse Rate [Pulse Oximeter] Respiratory Rate 14 14 16 Blood Pressure 108/66 105/58 L 106/63 Blood Pressure [Ri ght Arm] Pulse Oximetry 99 99 90 Oxygen Delivery Me thod OxyMask OxyMask OxyMask Oxygen Flow Rate 10 10 6 05/31/22 13:25 05/31/22 13:20 05/31/22 13:46 Temperature 97.2 F L Pulse Rate 85 81 77 Pulse Rate [Pulse Oximeter] Respiratory Rate 16 14 16 Blood Pressure 117/67 115/71 Blood Pressure [Ri ght Arm] 103/52 L Pulse Oximetry 92 91 Oxygen Delivery Me thod Nasal Cannula Nasal Cannula Nasal Cannula Oxygen Flow Rate 2 2 2 05/31/22 13:30 05/31/22 14:05 05/31/22 14:16 Temperature 97.8 F 97.6 F Pulse Rate 70 Pulse Rate [Pulse Oximeter] 77 77 Respiratory Rate 15 18 18 Blood Pressure 115/66 Blood Pressure [Ri ght Arm] 111/68 110/71 Pulse Oximetry 91 92 92 Oxygen Delivery Me thod Nasal Cannula Nasal Cannula Nasal Cannula Oxygen Flow Rate 2 2 2 05/31/22 14:30 05/31/22 15:00 05/31/22 16:30 Temperature 97.8 F 98.4 F 98.4 F Pulse Rate Pulse Rate [Pulse Oximeter] 81 82 83 Respiratory Rate 18 18 18 Blood Pressure Blood Pressure [Ri ght Arm] 118/71 124/75 119/70 Pulse Oximetry 94 96 96 Oxygen Delivery Me thod Nasal Cannula Nasal Cannula Nasal Cannula Oxygen Flow Rate 2 2 2 05/31/22 15:30 05/31/22 17:30 05/31/22 18:30 Temperature 98.4 F 98.2 F 98.2 F Pulse Rate Pulse Rate [Pulse Oximeter] 83 87 87 Respiratory Rate 18 18 18 Blood Pressure Blood Pressure [Ri ght Arm] 127/77 127/71 133/80 Pulse Oximetry 96 96 95 Oxygen Delivery Me thod Nasal Cannula Nasal Cannula Nasal Cannula Oxygen Flow Rate 2 2 2 05/31/22 19:30 05/31/22 19:30 05/31/22 23:00 Temperature 99 F 99 F Pulse Rate Pulse Rate [Pulse Oximeter] 87 87 88 Respiratory Rate 18 18 18 Blood Pressure Blood Pressure [Ri ght Arm] 130/70 130/70 Pulse Oximetry 97 97 Oxygen Delivery Me thod Nasal Cannula Nasal Cannula Oxygen Flow Rate 1 1 05/31/22 23:00 06/01/22 03:01 06/01/22 03:00 Temperature 99.2 F 98.7 F 99.7 F H Pulse Rate Pulse Rate [Pulse Oximeter] 88 76 Respiratory Rate 18 18 Blood Pressure Blood Pressure [Ri ght Arm] 130/69 135/70 Pulse Oximetry 95 96 Oxygen Delivery Me thod Room Air Room Air Oxygen Flow Rate 06/01/22 08:22 Temperature 98.2 F Pulse Rate Pulse Rate [Pulse Oximeter] 71 Respiratory Rate 16 Blood Pressure Blood Pressure [Ri ght Arm] 121/66 Pulse Oximetry 92 Oxygen Delivery Me thod Room Air Oxygen Flow Rate Progress Note: A&P Assessment and plan (1) Status post laparoscopic cholecystectomy: Status: Acute (2) S/P right hemicolectomy: Problem details: Patient will remain on clear liquid diet until he is passing gas. Will remove his Petty today. I discussed with the patient's nurse to ambulate several times today. Patient's hemoglobin went down by 2 g today. This is most likely because he came in hemoconcentrated due to colonoscopy prep. Patient had minimal blood loss intraoperatively and is vitally stable so I do not think that he has an active intra-abdominal bleeding. However I will hold his Lovenox for today. Status: Acute
[2022-06-01] MEDS: LACTATED RINGERS 1000 ML 1,000 ML 100 ML IV ×2 (09:21→19:25)
--- NOTE | 2022-06-01 09:35 | PM.GSPN ---
Exam Narrative: Exam Narrative: Abdomen: Soft, not distended, not tender to palpation, surgical incisions are covered with dry sterile dressings. Const: Vital Signs, click to edit/add: Vital Signs - 24 hr 05/31/22 12:59 05/31/22 12:42 05/31/22 12:45 Temperature 99 F Pulse Rate 92 92 72 Pulse Rate [Pulse Oximeter] Respiratory Rate 14 14 14 Blood Pressure 120/71 122/71 114/55 L Blood Pressure [Ri ght Arm] Pulse Oximetry 99 99 99 Oxygen Delivery Me thod OxyMask OxyMask OxyMask Oxygen Flow Rate 10 10 10 05/31/22 12:50 05/31/22 12:55 05/31/22 13:00 Temperature Pulse Rate 81 92 92 Pulse Rate [Pulse Oximeter] Respiratory Rate 14 14 14 Blood Pressure 117/65 104/58 L 107/63 Blood Pressure [Ri ght Arm] Pulse Oximetry 99 99 99 Oxygen Delivery Me thod OxyMask OxyMask OxyMask Oxygen Flow Rate 10 10 10 05/31/22 13:05 05/31/22 13:10 05/31/22 13:15 Temperature Pulse Rate 92 92 71 Pulse Rate [Pulse Oximeter] Respiratory Rate 14 14 16 Blood Pressure 108/66 105/58 L 106/63 Blood Pressure [Ri ght Arm] Pulse Oximetry 99 99 90 Oxygen Delivery Me thod OxyMask OxyMask OxyMask Oxygen Flow Rate 10 10 6 05/31/22 13:25 05/31/22 13:20 05/31/22 13:46 Temperature 97.2 F L Pulse Rate 85 81 77 Pulse Rate [Pulse Oximeter] Respiratory Rate 16 14 16 Blood Pressure 117/67 115/71 Blood Pressure [Ri ght Arm] 103/52 L Pulse Oximetry 92 91 Oxygen Delivery Me thod Nasal Cannula Nasal Cannula Nasal Cannula Oxygen Flow Rate 2 2 2 05/31/22 13:30 05/31/22 14:05 05/31/22 14:16 Temperature 97.8 F 97.6 F Pulse Rate 70 Pulse Rate [Pulse Oximeter] 77 77 Respiratory Rate 15 18 18 Blood Pressure 115/66 Blood Pressure [Ri ght Arm] 111/68 110/71 Pulse Oximetry 91 92 92 Oxygen Delivery Me thod Nasal Cannula Nasal Cannula Nasal Cannula Oxygen Flow Rate 2 2 2 05/31/22 14:30 05/31/22 15:00 08/29/22 16:30 Temperature 97.8 F 98.4 F 98.4 F Pulse Rate Pulse Rate [Pulse Oximeter] 81 82 83 Respiratory Rate 18 18 18 Blood Pressure Blood Pressure [Ri ght Arm] 118/71 124/75 119/70 Pulse Oximetry 94 96 96 Oxygen Delivery Me thod Nasal Cannula Nasal Cannula Nasal Cannula Oxygen Flow Rate 2 2 2 05/31/22 15:30 05/31/22 17:30 05/31/22 18:30 Temperature 98.4 F 98.2 F 98.2 F Pulse Rate Pulse Rate [Pulse Oximeter] 83 87 87 Respiratory Rate 18 18 18 Blood Pressure Blood Pressure [Ri ght Arm] 127/77 127/71 133/80 Pulse Oximetry 96 96 95 Oxygen Delivery Me thod Nasal Cannula Nasal Cannula Nasal Cannula Oxygen Flow Rate 2 2 2 05/31/22 19:30 05/31/22 19:30 05/31/22 23:00 Temperature 99 F 99 F Pulse Rate Pulse Rate [Pulse Oximeter] 87 87 88 Respiratory Rate 18 18 18 Blood Pressure Blood Pressure [Ri ght Arm] 130/70 130/70 Pulse Oximetry 97 97 Oxygen Delivery Me thod Nasal Cannula Nasal Cannula Oxygen Flow Rate 1 1 05/31/22 23:00 06/01/22 03:01 06/01/22 03:00 Temperature 99.2 F 98.7 F 99.7 F H Pulse Rate Pulse Rate [Pulse Oximeter] 88 76 Respiratory Rate 18 18 Blood Pressure Blood Pressure [Ri ght Arm] 130/69 135/70 Pulse Oximetry 95 96 Oxygen Delivery Me thod Room Air Room Air Oxygen Flow Rate 06/01/22 08:22 Temperature 98.2 F Pulse Rate Pulse Rate [Pulse Oximeter] 71 Respiratory Rate 16 Blood Pressure Blood Pressure [Ri ght Arm] 121/66 Pulse Oximetry 92 Oxygen Delivery Me thod Room Air Oxygen Flow Rate
[2022-06-01] MEDS: HYDROCODONE-ACETAMIN 5-325 MG 1 TAB PO ×2 (11:54→17:38)
--- NOTE | 2022-06-01 18:01 | PC.NURSE ---
Shift Summary: Patient pleasant and cooperative, some forgetfulness this AM, has improved throughout day. Continues on clears, tolerating well, denies nausea. Pain well controlled with PRN medication. Encouraged to ambulate in halls, has walked with staff x4 with SBA. Using call light appropriately. Incision sites C/D/I with steristrips intact. No BM however is passing gas.
--- NOTE | 2022-06-01 18:06 | PM.IMPN1 ---
Progress Note: A&P Assessment and plan (1) S/P right hemicolectomy: Problem details: Patient will remain on clear liquid diet until he is passing gas. Will remove his Petty today. I discussed with the patient's nurse to ambulate several times today. Patient's hemoglobin went down by 2 g today. This is most likely because he came in hemoconcentrated due to colonoscopy prep. Patient had minimal blood loss intraoperatively and is vitally stable so I do not think that he has an active intra-abdominal bleeding. However I will hold his Lovenox for today. Status: Acute (2) Status post laparoscopic cholecystectomy: Status: Acute (3) Insulin dependent diabetes mellitus: Problem details: Lantus metformin Status: Acute (4) Gout: Status: Acute (5) Asthma: Problem details: stopped using Advair 2020 Status: Acute Plan 1. Blood sugars are well controlled. Continue with sliding scale. 2. Will continue to follow with surgery for now. Time Spent With Patient Total time spent: 15 minutes Subjective Time Seen by Provider: 11:00 Date Seen: 06/01/22 Interval history: Postop day 1 for a 76-year-old man status post elective laparoscopic right hemicolectomy and laparoscopic cholecystectomy. He states he generally feeling well. Tolerating increased activities. Tolerating clear liquids. Still not passing flatus or stool. Denies nausea or vomiting. Denies chest heaviness, pressure, tightness, or pain. Denies dyspnea at rest, paroxysmal nocturnal dyspnea or orthopnea. Denies dyspnea with exertion. Denies orthostasis. Denies palpitations or fluttering. Exam Narrative: Exam Narrative: Alert, oriented to self, place, time, situation. Articulate, cooperative, friendly. Mood and affect are congruent. Lungs are clear to auscultation. Heart tones with regular rhythm. Abdomen with occasional bowel sounds. Extremities with out edema. Independent transfer, station, and gait. Const: Vital Signs, click to edit/add: Vital Signs - 24 hr 05/31/22 18:30 05/31/22 19:30 05/31/22 19:30 Temperature 98.2 F 99 F 99 F Pulse Rate [Pulse Oximeter] 87 87 87 Respiratory Rate 18 18 18 Blood Pressure [Ri ght Arm] 133/80 130/70 130/70 Pulse Oximetry 95 97 97 Oxygen Delivery Me thod Nasal Cannula Nasal Cannula Nasal Cannula Oxygen Flow Rate 2 1 1 05/31/22 23:00 05/31/22 23:00 06/01/22 03:01 Temperature 99.2 F 98.7 F Pulse Rate [Pulse Oximeter] 88 88 Respiratory Rate 18 18 Blood Pressure [La ght Arm] 130/69 Pulse Oximetry 95 Oxygen Delivery Me thod Room Air Oxygen Flow Rate 06/01/22 03:00 06/01/22 08:22 06/01/22 11:32 Temperature 99.7 F H 98.2 F 98.3 F Pulse Rate [Pulse Oximeter] 76 71 72 Respiratory Rate 18 16 18 Blood Pressure [La ght Arm] 135/70 121/66 133/75 Pulse Oximetry 96 92 94 Oxygen Delivery Me thod Room Air Room Air Room Air Oxygen Flow Rate 06/01/22 15:13 Temperature 98.5 F Pulse Rate [Pulse Oximeter] 73 Respiratory Rate 16 [facility] 126/70 Pulse Oximetry 95 Oxygen Delivery Me thod Room Air Oxygen Flow Rate Documenting provider has reviewed patient's vital signs: yes Labs Labs: Laboratory Results - last 24 hr 06/01/22 06/01/22 06/01/22 06:28 06:28 06:28 Hgb 11.5 L Sodium 135 Potassium 4.7 Chloride 105 Carbon Dioxide 24 BUN 19 Creatinine 1.1 Estimated Creat Clear 59.91 Estimated GFR 70 Glucose 161 H Hemoglobin A1c Lactate 0.8 Calcium 7.8 L Ionized Calcium Erick 1.11 Magnesium 1.9 NT-Pro-B Natriuret Pep 405 06/01/22 06:28 Hgb Sodium Potassium Chloride Carbon Dioxide BUN Creatinine Estimated Creat Clear Estimated GFR Glucose Hemoglobin A1c 8.53 H Lactate Calcium Ionized Calcium Erick Magnesium NT-Pro-B Natriuret Pep
[2022-06-02] MEDS: HYDROCODONE-ACETAMIN 5-325 MG 1 TAB PO ×3 (02:39→15:29)
[2022-06-02 02:52] VITALS: BP 150/88; PULSE 84; RESP 16; TEMP 37; O2SAT 94
[2022-06-02] MEDS: LACTATED RINGERS 1000 ML 1,000 ML 100 ML IV ×2 (05:19→15:30)
--- NOTE | 2022-06-02 05:29 | PC.NURSE ---
Shift 7p-7a: Pt. AOx4, following commands, VSS on RA. Pt. ambulating to toilet independently, voiding w/o difficulty. Pt.'s abdomen soft but tender, lap sites x3 steri strips intact, and RT upper Abd dressing C/D/I. Pt. receiving LR at 100mL/hr, advance diet as tolerated per Dr. Smyth. Pt. reports passing gas but no BM during shift. PRN norco administered x1 for pain 03/12. Pt. stated he will wait to eat food later today
[2022-06-02 07:30] VITALS: BP 132/74; PULSE 77; RESP 18; TEMP 37.1; O2SAT 95
--- NOTE | 2022-06-02 09:48 | PM.DS1 ---
DS: Providers Provider Date Seen: 06/02/22 Date of admission: 05/31/22 06:06 Primary care physician: Stephanie Clark PA-C Admitting Clinician: Gualberto Smyth MD Attending Physician on discharge: Gualberto Smyth MD DS: Diagnosis Discharge Diagnosis (1) S/P right hemicolectomy: Status: Acute (2) Status post laparoscopic cholecystectomy: Status: Acute DS: Summary Hospital Course Hospital Course: Patient was admitted after laparoscopic cholecystectomy and laparoscopic right hemicolectomy. Patient was doing great postoperatively. He was passing gas. His diet was advanced to regular diet. His pain was controlled with pain medication. He was ambulating and urinating with no trouble. Time Spent with Patient Time attestation: Total time spent providing and/or coordinating discharge services: Exam Narrative: Exam Narrative: Had: In the right superior inner lip there is a small ulceration with no drainage. This is suspicious for trauma from the ET tube. Abdomen: Soft, not distended, not tender to palpation, surgical incisions are healing well with no erythema. Const: Vital Signs, click to edit/add: Vital Signs - 24 hr 06/01/22 11:32 06/01/22 15:13 06/01/22 19:00 Temperature 98.3 F 98.5 F 98.5 F Pulse Rate [Pulse Oximeter] 72 73 87 Respiratory Rate 18 16 16 Blood Pressure [Ri ght Arm] 133/75 126/70 129/72 Pulse Oximetry 94 95 95 Oxygen Delivery Me thod Room Air Room Air Room Air 06/01/22 23:00 06/01/22 23:00 06/02/22 02:52 Temperature 98.5 F 98.6 F Pulse Rate [Pulse Oximeter] 83 83 84 Respiratory Rate 16 16 16 Blood Pressure [Ri ght Arm] 153/82 H 150/88 H Pulse Oximetry 94 94 Oxygen Delivery Me thod Room Air Room Air Discharge Plan Discharge Disposition: Home, Self-Care Date of Admission: 05/31/22 06:06 Attending Provider on Discharge: Gualberto Smyth Primary Care Provider: Stephanie Clark Condition: Stable Anticipated Discharge Date/Time: 06/02/22 18:34 Discharge Medications: New hydrocodone-acetaminophen 5-325 mg tablet 1 tab PO Q6H PRN (Reason: pain) Qty: 20 0RF Continued albuterol sulfate 90 mcg/actuation HFA aerosol inhaler 2 inh inhalation Q4H PRN metformin 1,000 mg tablet 1,000 mg PO BID pravastatin 10 mg tablet 10 mg PO HS cyanocobalamin (vitamin B-12) 1,000 mcg tablet extended release 1,000 mcg PO DAILY Qty: 90 3RF Held insulin glargine 100 unit/mL (3 mL) insulin pen 22 unit subcut HS Hold Instructions: Resume on 06/05/22. Hold until oral intake is closer to normal. Discharge Orders: Discharge Order (Routine); Ordered 06/02/22 Ordered By: Gualberto Smyth Patient Education: Hydrocodone/Acetaminophen (By mouth), General Anesthesia (DC), Laparoscopic Cholecystectomy (DC), Post-Operative Instructions: Laparoscopic Cholecystectomy Activity Level: No strenuous activity Activity Detail: No lifting more than 15-20 lbs for 6 weeks. Discharge Diet: Regular Follow Up Appointments: Catalina Muñoz MD [Staff Physician] - 06/16/22 1:30 pm Gualberto Smyth MD [Staff Physician] - Stephanie Clark PA-C [Primary Care Provider] - Forms: MyHealth Info Instructions Discharge Comments: d/c in the evening if doing well
[2022-06-02 12:38] VITALS: BP 126/79; PULSE 68; RESP 18; TEMP 37.1; O2SAT 95
--- NOTE | 2022-06-02 15:59 | PC.NURSE ---
Pt evaluated by Dr. Smyth this morning after Full Liquid bkfst. No worsening pain or nausea. UAL in room and hallway. Pt advanced to regular diet for lunch. No increase in pain or nausea. Pt states he is having very little discomfort, passing flatus. [place] one tab given for pain 3 out of 10 with am med pass. Carmen supportive at bedside. Eupneic and in NAD. IS 2500 times 6 Qhr while awake. Maintenance IVF continues. BG 144 at bkfst no SS insulin required. BG 214 at lunch time, 2 units of SS insulin given. Plan possible d/c later this evening if pt continues to tolerate regular diet and meet post op goals. Pt took 560 cc in orally and 5 voids on day shift. (one incontinent pad included). Report to Yary Jose RN for evening shift.
[2022-06-02 16:10] VITALS: BP 133/73; PULSE 72; RESP 16; TEMP 37.3; O2SAT 94
--- NOTE | 2022-06-02 18:29 | PC.NURSE ---
Dishcharge: Patient tolerates diet without increased pain or nausea. Bowel sounds are active. Steri strips with scant old blood. He is ambulating independently. IV removed with catheter intact. Discharge instructions given verbally and in print and all questions answered. Patient leaves via wheelchair with all belongings with at 1820.
--- NOTE | 2022-06-08 08:47 | P.DS_ITS ---
DS: Providers Provider Time Seen by Provider: 11:00 Date Seen: 06/02/22 Date of admission: 05/31/22 06:06 Primary care physician: Stephanie Clark PA-C Admitting Clinician: Gualberto Smyth MD Attending Physician on discharge: Gualberto Smyth MD Date of Discharge: 06/02/22 DS: Diagnosis Discharge Diagnosis (1) Polyp of ascending colon: Status: Acute (2) Gallbladder disease: Status: Acute (3) Status post right hemicolectomy: Status: Acute (4) Status post laparoscopic cholecystectomy: Status: Acute (5) Insulin dependent type 2 diabetes mellitus: Status: Acute (6) Asthma: Status: Acute Problem details: stopped using Advair 2020 (7) B12 deficiency: Status: Acute Problem details: 02/05/2022- started B12 supplement (8) Anemia: Status: Acute (9) Hyperlipidemia: Status: Acute DS: Summary Hospital Course Hospital Course: Patient was admitted after laparoscopic cholecystectomy and laparoscopic right hemicolectomy. Patient was doing great postoperatively. He was passing gas. His diet was advanced to regular diet. His pain was controlled with pain medic ation. He was ambulating and urinating with no trouble. Status at Discharge Functional status at discharge: independent ambulation Overall status at discharge: patient is progressing back to baseline Time Spent with Patient Time attestation: Total time spent providing and/or coordinating discharge services: Time spent: Less than 30 minutes Exam Narrative: Exam Narrative: Alert, oriented to self, place, time, situation.? Articulate, cooperative, friendly.? Mood and affect are congruent.? Lungs are clear to auscultation.? Heart tones with regular rhythm.? Abdomen with occasional bowel sounds. Extremities with out edema. Independent transfer, station, and gait. Const: Documenting provider has reviewed patient's vital signs: yes Discharge Plan Discharge Disposition: Home, Self-Care Date of Admission: 05/31/22 06:06 Attending Provider on Discharge: Gualberto Smyth Primary Care Provider: Stephanie Clark Condition: Stable Anticipated Discharge Date/Time: 06/02/22 18:34 Discharge Medications: New hydrocodone-acetaminophen 5-325 mg tablet 1 tab PO Q6H PRN (Reason: pain) Qty: 20 0RF Continued albuterol sulfate 90 mcg/actuation HFA aerosol inhaler 2 inh inhalation Q4H PRN metformin 1,000 mg tablet 1,000 mg PO BID pravastatin 10 mg tablet 10 mg PO HS cyanocobalamin (vitamin B-12) 1,000 mcg tablet extended release 1,000 mcg PO DAILY Qty: 90 3RF Held insulin glargine 100 unit/mL (3 mL) insulin pen 22 unit subcut HS Hold Instructions: Resume on 06/05/22. Hold until oral intake is closer to normal. Discharge Orders: Discharge Order (Routine); Ordered 06/02/22 Ordered By: Gualberto Smyth Patient Education: Hydrocodone/Acetaminophen (By mouth) (Vicodin, [place], Lortab), Hydrocodone/Acetaminophen (By mouth), General Anesthesia (DC), Laparoscopic Cholecystectomy (DC), Post-Operative Instructions: Laparoscopic Cholecystectomy Activity Level: No strenuous activity Activity Detail: No lifting more than 15-20 lbs for 6 weeks. Discharge Diet: Regular Follow Up Appointments: Catalina Muñoz MD [Staff Physician] - 06/16/22 1:30 pm Gualberto Smyth MD [Staff Physician] - Stephanie Clark PA-C [Primary Care Provider] - Forms: MyHealth Info Instructions Discharge Comments: d/c in the evening if doing well
== END 2022-06-02 18:20 | disposition home or self-care (01) | DRG 418 ==
PROVIDERS: Family Medicine; Admitting Provider Surgery; PCP Physician Assistant Medical; Visit Provider Surgery
PROC: 0FT44ZZ Resection of Gallbladder, Percutaneous Endoscopic Approach (ICD-10-PCS; principal; 2022-05-31 07:30)
PROC: 0FT44ZZ Resection of Gallbladder, Percutaneous Endoscopic Approach (ICD-10-PCS; CPT 47562; 2022-05-31 07:30)
DX: K80.10 Calculus of gallbladder with chronic cholecystitis without obstruction (principal); K82.1 Hydrops of gallbladder; K82.8 Other specified diseases of gallbladder; D12.2 Benign neoplasm of ascending colon; K66.0 Peritoneal adhesions (postprocedural) (postinfection); E11.9 Type 2 diabetes mellitus without complications; Z79.4 Long term (current) use of insulin; J45.909 Unspecified asthma, uncomplicated; D51.9 Vitamin B12 deficiency anemia, unspecified; E78.5 Hyperlipidemia, unspecified; M10.9 Gout, unspecified
CPT/HCPCS: 00790; 00840; 36415; 64488; 76942; 80048; 82330; 82947; 83036; 83605; 83735; 83880; 85018; 88304; 88309; 99100; A9270; C9290; J0131; J0330; J1100; J1170; J1335; J2405; J2704; J2710; J3010; J3490; J7120

== ENCOUNTER 2022-06-21 14:05 | Outpatient (CLI) | payer MEDICARE, BC, SELFPAY ==
--- OUTSIDE RECORDS SUMMARY | 2022-06-21 14:18 | XMS_ITS ---
:1945 Author Care Team Providers Name Role Phone LORNA RYAN Referring Provider [phone] LORNA RYAN Primary Care Provider [phone] Allergies Code Code System Name Reaction Severity Status Onset NKDA ? Medications Name Status Start Date Stop Date ? ? Accu-Chek Fastclix Lancet Drum Active ? N ot available USE 1 TO CHECK GLUCOSE TWICE DAILY Accu-Chek Guide test strips Active ? Not available USE 1 TO 3 STRIPS TO CHECK GLUCOSE DAILY amoxicillin 875 mg-potassium clavulanate 125 mg tablet Active ? Not available TAKE 1 TABLET BY MOUTH TWICE DAILY FOR 10 DAYS azithromycin 250 mg tablet Active ? Not a vailable TAKE 2 TABLETS BY MOUTH ON DAY 1, AND T HEN TAKE 1 TABLET BY MOUTH ONCE A DAY ON DAY 2 THROUGH DAY 5 ceftriaxone 1 gram solution for injection Active ? Not available 1gram injected prior to procedure ciprofloxacin 500 mg tablet Active ? Not available cyanocobalamin (vit B-12) ER 1,000 mcg tablet,extended release A ctive ? Not available TAKE 1 TABLET BY MOUTH ONCE DAILY fluticasone 250 mcg-salmeterol 50 mcg/dose blistr powdr Complete d ? 11/10/2021 for inhalation indomethacin 50 mg capsule Completed ? 01/12 Lantus Solostar U-100 Insulin 100 unit/mL (3 mL) subcutaneous pe n Active ? Not available INJECT 22 UNITS SUBCUTANEOUSLY AT BEDTIME lidocaine (PF) 10 mg/mL (1 %) injection solution Active ? Not available 2.1mL reconstituted with ceftriaxone metformin 1,000 mg tablet Active ? Not av ailable TAKE 1 TABLET BY MOUTH TWICE DAILY WITH MEALS metformin 500 mg tablet Active ? Not avai lable pravastatin 10 mg tablet Active ? Not melinda ilable TAKE 1 TABLET BY MOUTH AT BEDTIME prednisone 20 mg tablet Active ? Not avai lable TAKE 2 TABLETS BY MOUTH ONCE DAILY TAKE WITH FOOD Ventolin HFA 90 mcg/actuation aerosol inhaler Active ? Not available INHALE 2 PUFFS BY MOUTH EVERY 4 HOURS NEEDED Problems Name Status Onset Date Source ? Type 2 Diabetes Mellitus Active ? ? Procedures Date Name Performed by ? 01/05/2012 Diagnostic Colonoscopy Information not a vailable Notes: Colonoscopy ? Hernia Repair W/mesh Information not melinda ilable Notes: Hernia Repair ? Removal of Sperm Duct(s) Information not available Notes: vasectomy ? Vasectomy Information not avai lable ? Hernia Repair Information not avai lable 11/10/2021 MRI, Prostate, W/wo Contrast [facility] [address] [place], [place] [address] (Work Place) Notes: Other surgeries: Cancer on nose and and skin moles Results Lab Results Date Name Specimen Result Interpretation Description Value Range Status Address ? 03/11/2022 Biopsy, Prostateuronav ? No ? ? ? [place] Prostate observation Uro logy - recorded. [place] [facility]: [address] [place] [address] 11/10/2021 Urinalysi UR ? Color yellow yellow Final [place], -[facility]: [address] ? ? UR ABNORMA Appearance cloudy clear Final [place] -[facility]: [address] [place] [address] ? ? UR ? Glucose negativ negati Final [place] [facility] mg/dL ve Urolog y - mg/dL [facility]: [address] ? ? UR ? Bilirubin negativ negati Final [place] [facility] - [facility]: [address] ? ? UR ? Ketones negativ negati Final [place] [facility] mg/dL ve Urolog y - mg/dL [facility]: [address] ? ? UR ? Sp. [place] >=1.030 1.010- Final [place] [facility]025 [facility]: [address] [place] [address] ? ? UR ? pH -[facility] 5.0 5.0-8. Final [place] 0 [facility] - [facility]: [address] [place] [address] ? ? UR ? Protein negativ negati Final [place] [facility] mg/dL ve Urolog y - mg/dL [facility]: [address] [address], [place] ? ? UR ? Urobilinogen 0.2 normal Final [place] -[facility]: 60[address] [facility] 200, [place] ? ? UR ? Nitrites negativ negati Final [place] -[facility] - [facility]: [address] [address], [place] ? ? UR ? Blood negativ negati Final [place] [facility] - [facility]: [address] [facility] 200, [place] ? ? UR ? Leukocytes negativ negati Final [place] [facility]: [address] [address], [place] ? ? UR ? Performed by va X ? Final [place] [facility]: [address] [address], [place] ? ? UR ? Total Urine 35 /mL ? Final [place] Volume (mL) Urolo gy - [facility]: [address] [address], [place] Past Encounters 03/11/2022 Raised Prostate Specific Antigen Kemar Lujan MD: [address] [address], Ph. 03/11/2022 Raised Prostate Specific Antigen Kemar Lujan MD: [address] [address], Ph. 11/10/2021 Raised Prostate Specific Antigen Kemar Lujan MD: [id number] [place] [address], Ph. Social History Tobacco Smoking Status Never Smoker Vaccine List Vaccine Type COVID-19 (SARS-COV-2) vaccine, unspecifi ed 07/16/2021 influenza, unspecified formulation 07/20/2021 Plan of Care Reminders Provider Appointments None recorded. ? ? Lab None recorded. ? ? Referral None recorded. ? ? Procedures None recorded. ? ? Surgeries None recorded. ? ? Imaging None recorded. ? ? Vitals Blood Pressure 158/87 mm[Hg]
[2022-06-21 22:07] LABS: Albumin* 3.6 g/dL (3.3-5.0); Chloride* 104 mmol/L (96-114); Potassium* 5.2 mmol/L (3.6-5.1); Sodium* 141 mmol/L (135-149)
[2022-06-21 22:09] LABS: Bilirubin Total* 0.3 mg/dL (0.1-1.5); Carbon Dioxide* 26 mmol/L (20-32); Creatinine* 1.2 mg/dL (0.5-1.5); Estimated Glomerular Filt Rate 63 ml/min
[2022-06-21 22:10] LABS: Alanine Aminotransferase* 19 U/L (4-50); Alkaline Phosphatase* 127 U/L (40-150); Aspartate Amino Transferase* 26 U/L (12-35); Blood Urea Nitrogen* 24 mg/dL (7-30); Calcium* 8.8 mg/dL (8.4-10.6); Glucose* 153 mg/dL (60-115); Lipase* 27 U/L (23-300); Total Protein* 8.3 g/dL (6.0-8.3)
[2022-06-21 23:01] LABS: Vitamin B12* 626 pg/mL (243-894)
[2022-06-22 00:20] LABS: Iron* 40 ug/dL (49-181)
[2022-06-22 00:29] LABS: Percent Iron Saturation 17 % (20-50); Total Iron Binding Capacity 234 ug/dL (261-462)
== END 2022-06-21 14:06 | disposition home or self-care (01) ==
PROVIDERS: PCP Physician Assistant Medical; Visit Provider Physician Assistant Medical
DX: D64.9 Anemia, unspecified (principal); E53.8 Deficiency of other specified B group vitamins; R10.9 Unspecified abdominal pain; Z90.49 Acquired absence of other specified parts of digestive tract
CPT/HCPCS: 80053; 82607; 83540; 83550; 83690; 84443

== ENCOUNTER 2022-07-15 12:50 | Outpatient (CLI) | payer MEDICARE, BC, SELFPAY ==
--- OUTSIDE RECORDS SUMMARY | 2022-07-15 13:00 | XMS_ITS ---
:1945 Author Care Team Providers Name Role Phone LORNA RYAN Referring Provider [phone] LORNA RYAN Primary Care Provider [phone] Allergies Code Code System Name Reaction Severity [...] lable 11/10/2021 MRI, Prostate, W/wo Contrast [facility] [address] [place], [place] [address] (Work Place) Notes: Other surgeries: Cancer on nose and and skin moles Results Lab Results Date Name Specimen Result Interpretation Description Value Range Status Address ? 03/11/2022 Biopsy, Prostateuronav ? No ? ? ? [place] Prostate observation Uro logy - recorded. [place] [facility]: [address] [place] [address] 11/10/2021 Urinalysi UR ? Color yellow yellow Final [place], -[facility]: [address] ? ? UR ABNORMA Appearance cloudy clear Final [place] -[facility]: [address] [place] [address] ? ? UR ? Glucose negativ negati Final [place] [facility] mg/dL ve Urolog y - mg/dL [facility]: [address] ? ? UR ? Bilirubin negativ negati Final [place] [facility] - [facility]: [address] ? ? UR ? Ketones negativ negati Final [place] [facility] mg/dL ve Urolog y - mg/dL [facility]: [address] ? ? UR ? Sp. [place] >=1.030 1.010- Final [place] [facility] 1.025 [facility]: [address] [place] [address] ? ? UR ? pH -[facility] 5.0 5.0-8. Final [place] 0 [facility] - [facility]: [address] [place] [address] ? ? UR ? Protein negativ negati Final [place] -[facility] mg/dL ve Urolog y - mg/dL [facility]: [address] [address], [place] ? ? UR ? Urobilinogen 0.2 normal Final [place] -[facility]: [address] [facility] 200, [place] ? ? UR ? Nitrites negativ negati Final [place] -[facility] - [facility]: [address] [address], [place] ? ? UR ? Blood negativ negati Final [place] -[facility] - [facility]: [address] [facility] 200, [place] ? ? UR ? Leukocytes negativ negati Final [place] -[facility] - [facility]: [address] [address], [place] ? ? UR ? Performed by va X ? Final [place] [facility]: [address] [address], [place] ? ? UR ? Total Urine 35 /mL ? Final [place] Volume (mL) Urolo [facility] - [facility]: [address] [address], [place] Past Encounters 03/11/2022 Raised Prostate Specific Antigen Kemar Lujan MD: [address] [address], Ph. 03/11/2022 Raised Prostate Specific Antigen Kemar Lujan MD: [address] [address], Ph. 11/10/2021 Raised Prostate Specific Antigen Kemar Lujan MD: [id number] [place] [address], Ph. Social History Tobacco Smoking Status Never [...]
--- NOTE | 2022-07-15 14:00 | CRLHL7_ITS ---
For Patients: As a result of the Century Cures Act, medical imaging exams and procedure reports are released immediately into your electronic medical record. You may view this report before your referring provider. If you have questions, please contact your health care provider. Indication: ASTHMA, ABNORMAL CXR, EVAL FOR MASS Eosinophilia Technique: Noncontrast CT chest Please note that all CT scans at this facility use dose modulation, iterative reconstruction, and/or weight-based dosing when appropriate to reduce radiation dose to as low as reasonably achievable. Comparison: Chest x-ray June 21, [address] chest April 01, 2022 Findings: Developing area curvilinear density in the periphery of the right middle lobe accounts for the recent radiographic findings, series 3, images 70-72. Stable linear subsegmental scarring in both lower lobes. Stable pleural-based scarring associated with the right-sided fissure. Stable appearance of the thyroid with small subcentimeter nodules. Mild right subareolar gynecomastia stable. Stable calcified left hilar and precarinal lymph nodes representing sequela of granulomatous disease. Mildly prominent mediastinal lymph nodes also noted measuring up to 1.3 cm are similar. Dense calcifications in the coronary arteries. Calcified splenic granulomas. Partial visualization of a cyst arising from the posterior right kidney. The gallbladder is absent. No hiatal hernia. No fracture. The ribcage is intact. Impression: Developing peripheral density within the right middle lobe has the appearance of round atelectasis, however, recommend follow-up CT scan in 3 months for further assessment. Stable linear subsegmental scarring in both lower lobes. No pulmonary fibrosis. Stable mildly prominent mediastinal lymph nodes. Sequela of old granulomatous disease. Please note that all CT scans at this facility use dose modulation, iterative reconstruction, and/or weight-based dosing when appropriate to reduce radiation dose to as low as reasonably achievable. Dictated by Júnior Austin MD @ 07/16/2022 9:00:59 AM (Electronically Signed)
== END 2022-07-15 12:51 | disposition home or self-care (01) ==
LOC: CT 12:51
PROVIDERS: PCP Physician Assistant Medical; Visit Provider Physician Assistant Medical
DX: J45.909 Unspecified asthma, uncomplicated (principal); D72.10 Eosinophilia, unspecified
CPT/HCPCS: 71250; 87338

== ENCOUNTER 2022-08-23 08:46 | Outpatient (CLI) | payer MEDICARE, BC, SELFPAY ==
--- OUTSIDE RECORDS SUMMARY | 2022-08-23 08:48 | XMS_ITS ---
:1945 Author Care Team Providers Name Role Phone LORNA RYAN Referring Provider [phone] LORNA RYAN Primary Care Provider [phone] Allergies Code Code System Name Reaction Severity [...] lable 11/10/2021 MRI, Prostate, W/wo Contrast [facility] [address] [place], [place] [address] (Work Place) Notes: Other surgeries: Cancer on nose and and skin moles Results Lab Results Date Name Specimen Result Interpretation Description Value Range Status Address ? 03/11/2022 Biopsy, Prostateuronav ? No ? ? ? [place] Prostate observation Uro logy - recorded. [place] [facility]: [address] [place] [address] 11/10/2021 Urinalysi UR ? Color yellow yellow Final [place], -[facility]: [address] ? ? UR ABNORMA Appearance cloudy clear Final [place] -[facility]: [address] [place] [address] ? ? UR ? Glucose negativ negati Final [place] -[facility] mg/dL ve Urolog y - mg/dL [facility]: [address] ? ? UR ? Bilirubin negativ negati Final [place] [facility]: [address] ? ? UR ? Ketones negativ negati Final [place] [facility] mg/dL ve Urolog y - mg/dL [facility]: [address] ? ? UR ? Sp. [place] >=1.030 1.010- Final [place] -[facility] 1.025 [facility]: [address] [place] [address] ? ? UR ? pH -[facility] 5.0 5.0-8. Final [place] 0 [facility] - [facility]: [address] [place] [address] ? ? UR ? Protein negativ negati Final [place] -[facility] mg/dL ve Urolog y - mg/dL [facility]: [address] [address], [place] ? ? UR ? Urobilinogen 0.2 normal Final [place] -[facility]: 60[address] [facility] 200, [place] ? ? UR ? Nitrites negativ negati Final [place] machine [place] -[facility] - [facility]: [address] [address], [place] ? ? UR ? Blood negativ negati Final [place] -[facility] - [facility]: [address] [facility] 200, [place] ? ? UR ? Leukocytes negativ negati Final [place] -[facility]: [address] [address], [place] ? ? UR ? Performed by va X ? Final [place] [facility]: [address] [address], [place] ? ? UR ? Total Urine 35 /mL ? Final [place] Volume (mL) Urolo gy - [facility]: [address] [address], [place] Past Encounters 03/11/2022 Raised Prostate Specific Antigen Kemar Lujan MD: [address] [address], Ph. 03/11/2022 Raised Prostate Specific Antigen Kemar Lujan MD: [address] [address], Ph. 11/10/2021 Raised Prostate Specific Antigen Kemar Lujan MD: [address] [place] [address], Ph. Social History Tobacco Smoking Status Never [...]
[2022-08-23 22:05] LABS: Iron* 67 ug/dL (49-181)
[2022-08-23 22:58] LABS: Vitamin B12* 772 pg/mL (243-894)
== END 2022-08-23 08:47 | disposition home or self-care (01) ==
PROVIDERS: PCP Physician Assistant Medical; Visit Provider Physician Assistant Medical
DX: D64.9 Anemia, unspecified (principal); E53.8 Deficiency of other specified B group vitamins
CPT/HCPCS: 82607; 83540

== ENCOUNTER 2022-10-08 13:32 | Outpatient (CLI) | payer MEDICARE, BC, SELFPAY ==
--- NOTE | 2022-10-08 14:00 | CRLHL7_ITS ---
For Patients: As a result of the Century Cures Act, medical imaging exams and procedure reports are released immediately into your electronic medical record. You may view this report before your referring provider. If you have questions, please contact your health care provider. Indication: Follow-up nodular density Technique: Noncontrast CT chest Please note that all CT scans at this facility use dose modulation, iterative reconstruction, and/or weight-based dosing when appropriate to reduce radiation dose to as low as reasonably achievable. Comparison: 07/15/2022 Findings: Peripheral atelectasis noted at the right middle lobe with associated mild linear subsegmental scarring. Similar scarring adjacent to the minor fissure, series 3, image 55. No suspicious pulmonary nodule. Mild dependent linear subsegmental scarring within the left lower lobe. No acute infiltrate. Chronic calcified subcarinal lymph nodes. Dense calcifications in the coronary arteries. Similar mildly prominent noncalcified mediastinal lymph nodes. No pleural effusion. Calcified granulomas in the spleen. Adrenal glands normal. Gallbladder absent. No fracture. Impression: Bilateral areas of atelectasis/scarring. No suspicious pulmonary nodule. Please note that all CT scans at this facility use dose modulation, iterative reconstruction, and/or weight-based dosing when appropriate to reduce radiation dose to as low as reasonably achievable. Dictated by Júnior Austin MD @ 10/10/2022 10:03:50 AM (Electronically Signed)
== END 2022-10-08 13:33 | disposition home or self-care (01) ==
LOC: CT 13:35
PROVIDERS: PCP Physician Assistant Medical; Visit Provider Physician Assistant Medical
DX: R91.1 Solitary pulmonary nodule (principal); R70.0 Elevated erythrocyte sedimentation rate
CPT/HCPCS: 71250

== ENCOUNTER 2022-10-28 09:27 | Outpatient (CLI) | payer MEDICARE, BC, SELFPAY | END 2022-10-28 09:28 | disposition home or self-care (01) | LOC: OP CLINIC 09:29 | PROVIDERS: PCP Physician Assistant Medical; Visit Provider Surgery | DX: R58 Hemorrhage, not elsewhere classified (principal) | CPT/HCPCS: 43239; 88305; J2250; J3010 ==

== ENCOUNTER 2022-11-17 09:06 | Outpatient (CLI) | payer MEDICARE, BC, SELFPAY ==
[2022-11-17 21:35] LABS: Albumin* 3.5 g/dL (3.3-5.0)
[2022-11-17 21:36] LABS: Chloride* 108 mmol/L (96-114); Potassium* 5.2 mmol/L (3.6-5.1); Sodium* 140 mmol/L (135-149)
[2022-11-17 21:38] LABS: Aspartate Amino Transferase* 27 U/L (12-35); Bilirubin Total* 0.6 mg/dL (0.1-1.5); Carbon Dioxide* 26 mmol/L (20-32); Cholesterol* 144 mg/dL (90-199); Creatinine* 1.1 mg/dL (0.5-1.5); Estimated Glomerular Filt Rate 70 ml/min
[2022-11-17 21:39] LABS: Alanine Aminotransferase* 20 U/L (4-50); Alkaline Phosphatase* 65 U/L (40-150); Blood Urea Nitrogen* 19 mg/dL (7-30); Calcium* 8.5 mg/dL (8.4-10.6); Glucose* 88 mg/dL (60-115); HDL Cholesterol* 50 mg/dL (>=40); LDL Cholesterol Calculated 73 mg/dL (<100); Triglycerides* 106 mg/dL (40-149)
[2022-11-17 21:41] LABS: Creatinine Urine 102.8 mg/dL
[2022-11-17 21:46] LABS: Microalbumin Creatinine Ratio 0 mg/g (0-30); Microalbumin Urine 1 mg/dL
[2022-11-17 22:07] LABS: PSA Screen* 2.66 ng/mL (0.10-4.00)
== END 2022-11-17 09:07 | disposition home or self-care (01) ==
PROVIDERS: PCP Physician Assistant Medical; Visit Provider Physician Assistant Medical
DX: D64.9 Anemia, unspecified (principal); D72.10 Eosinophilia, unspecified; E11.9 Type 2 diabetes mellitus without complications; E53.8 Deficiency of other specified B group vitamins; E78.5 Hyperlipidemia, unspecified; K21.9 Gastro-esophageal reflux disease without esophagitis; R70.0 Elevated erythrocyte sedimentation rate; R91.1 Solitary pulmonary nodule; Z79.4 Long term (current) use of insulin; Z12.9 Encounter for screening for malignant neoplasm, site unspecified
CPT/HCPCS: 80053; 80061; 82043; 82570; 84153

== ENCOUNTER 2023-04-18 13:15 | Outpatient (CLI) | payer MEDICARE, BC, SELFPAY | END 2023-04-18 13:16 | disposition home or self-care (01) | PROVIDERS: PCP Physician Assistant Medical; Visit Provider Physician Assistant Medical | DX: Z01.818 Encounter for other preprocedural examination (principal); E87.5 Hyperkalemia; R79.89 Other specified abnormal findings of blood chemistry | CPT/HCPCS: 83735 ==

== ENCOUNTER 2023-04-20 08:34 | Outpatient (CLI) | payer MEDICARE, BC, SELFPAY | END 2023-04-20 08:35 | disposition home or self-care (01) | LOC: NFLDREF 04-21 07:35 | PROVIDERS: PCP Physician Assistant Medical; Referring Provider Physician Assistant Medical; Visit Provider Physician Assistant Medical | DX: D47.2 Monoclonal gammopathy (principal); E87.5 Hyperkalemia; R79.89 Other specified abnormal findings of blood chemistry; D64.9 Anemia, unspecified; E11.9 Type 2 diabetes mellitus without complications; Z79.4 Long term (current) use of insulin; M10.9 Gout, unspecified; M54.50 Low back pain, unspecified; C90.00 Multiple myeloma not having achieved remission; R80.9 Proteinuria, unspecified | CPT/HCPCS: 82570; 84156; 87086 ==

== ENCOUNTER 2023-04-21 14:45 | Outpatient (CLI) | payer MEDICARE, BC, SELFPAY ==
--- NOTE | 2023-04-21 15:30 | CRLHL7_ITS ---
For Patients: As a result of the 21st Century Cures Act, medical imaging exams and procedure reports are released immediately into your electronic medical record. You may view this report before your referring provider. If you have questions, please contact your health care provider. EXAM: PET-CT Vertex to feet CLINICAL INFORMATION: 77-yo male with multiple myeloma. Patient is referred for further characterization. TECHNIQUE: Radiopharmaceutical: 14.15 mCi of 18F-FDG Intravenous injection site: LAC Uptake time: 63 minutes Blood glucose level at the time of injection: 95 mg/dL Field of view: Skull vertex to feet Intravenous contrast: Not administered Oral contrast: Not administered CT protocol: The low-dose, free-breathing, noncontrast CT performed as part of this study is designed for the purposes of attenuation correction and lesion localization, and it is neither sufficient, nor it should be substituted for diagnostic purposes. COMPARISON: CT chest 10/08/2022. CT abdomen pelvis 02/17/2022 FINDINGS: Physiologic background liver standardized uptake value (SUV mean and SUV max) reported for comparison between PET studies: 2.4 and 3.3. Visualized head and neck: Motion artifact with misregistration in the head and neck. Physiologic uptake in the visualized portions of the brain and salivary glands. Mild paranasal sinus inflammatory change. Small retention cyst or polyp right maxillary sinus. -small low-density cysts/nodules in the superior and inferior pole of the left thyroid lobe with uptake. For example: Lower pole low-density cyst/nodule, 1.0 cm, SUV max 3.2 (fused image 107). Tiny focus of uptake upper pole without a discrete nodule, SUV max 4.2 (fused image 101). Head and neck lymph nodes: No abnormal uptake. Lungs: No hypermetabolic lung nodules or abnormal pulmonary uptake. Strand-like areas of atelectasis or scarring in the periphery of the right middle lobe, annular inferior lingula and both lung bases. No consolidation. Right lung micro nodules without change or suspicious uptake considered too small to definitively characterize. Thoracic lymph nodes: Calcified mediastinal and hilar nodes. No enlarged mediastinal lymph nodes. Variable uptake within small multi station mediastinal and hilar lymph nodes is nonspecific. No suspicious axillary lymphadenopathy. For example: Lower left paratracheal lymph node, 0.8 cm, SUV max 2.7 (fused image 132). Right subcarinal lymph node, 0.6 cm short axis, SUV max 2.8 (fused image 142). Left anterior perihilar nery uptake, not measurable, SUV max 3.8 (fused image 132). Right anterior perihilar nery uptake, not measurable, SUV max 3.2 (fused image 141). Other chest findings: Diffuse coronary vascular calcifications. Nodular right chest subareolar density may represent asymmetric gynecomastia. Attention on exam. Hepatobiliary: No abnormal uptake. Hepatic steatosis. Prior cholecystectomy. Spleen: No abnormal uptake. Benign parenchymal calcifications. Pancreas: No abnormal uptake. Adrenals: No abnormal uptake. Kidneys and bladder: Bilateral perinephric stranding. No abnormal uptake or obstruction. Similar hypodense lesion posterior cortical margin right kidney without suspicious uptake. Likely a cyst. Tracer activity within a partially distended urinary bladder. Prostate mass effect. Bowel and peritoneum: Relatively decompressed body and fundus of the stomach with generalized uptake is nonspecific, possibly reactive/inflammatory or related to gastritis, SUV max 4.9. No suspicious small bowel uptake. Prior right-sided partial colectomy with a patent anastomosis. Scattered areas of uptake throughout the length of the colon without obvious noncontrast CT abnormality. Colonic diverticulosis without inflammatory change. Pelvic organs: Similar moderate prostate enlargement. No abnormal uptake. Abdominopelvic lymph nodes: Variable uptake within small to mildly enlarged upper abdominal, retroperitoneal and pelvic lymph nodes. For example: -periportal lymph node, 1.0 cm short axis, SUV max 3.8 (fused image 192). -precaval lymph node, 0.5 cm short axis, SUV max 3.6 (fused image 195). -right common iliac lymph node, 0.7 cm short axis, SUV max 3.7 (fused image 262). -right pelvic sidewall lymph node, 0.6 cm short axis, SUV max 3.1 (fused image 287). -left external iliac lymph node, 0.8 cm short axis, SUV max 3.6 (fused image 279). Musculoskeletal, soft tissues, skin: Heterogeneous background marrow activity in the spine and pelvis. No aggressive, lytic or expansile osseous lesions with uptake. Degenerative type uptake within the spine. Other: Scattered aortoiliac atherosclerotic vascular calcifications. Bilateral fat containing inguinal hernias or lipomas of the spermatic cord. IMPRESSION: 1. Background heterogeneous marrow activity in the spine and pelvis with no aggressive, lytic or expansile osseous lesions with uptake suspicious for active multiple myeloma or solitary osseous plasmacytoma. 2. Variable uptake within small to mildly enlarged thoracic, abdominal, retroperitoneal and pelvic lymph nodes as detailed in the findings. Overall considered nonspecific, possibly reactive/ inflammatory. Evolving lymphoproliferative process or lymphoma not entirely excluded. 3. Misregistration in the head and neck. Low-density left thyroid lobe cysts/nodules with variable uptake. Attention on follow-up or further characterization with ultrasound. 4. No abnormal pulmonary or solid organ uptake in the upper abdomen. Scattered areas of uptake throughout the colon demonstrate no obvious noncontrast CT abnormality. Findings are nonspecific though possibly reactive/inflammatory or related to medication use (i.e. Metformin). 5. Small subareolar nodular density right chest soft tissues without suspicious uptake. Possibly asymmetric gynecomastia. Attention on exam. 6. Other nonacute findings as detailed in the body of the report. Dictated by Terrence Orta MD @ 04/26/2023 8:29:42 AM (Electronically Signed)
== END 2023-04-21 14:46 | disposition home or self-care (01) ==
LOC: RAD 14:46
PROVIDERS: PCP Physician Assistant Medical; Visit Provider Internal Medicine Hematology & Oncology
DX: D47.2 Monoclonal gammopathy (principal); E04.1 Nontoxic single thyroid nodule
CPT/HCPCS: 78816; A9552

== ENCOUNTER 2023-04-26 12:00 | Outpatient (CLI) | payer MEDICARE, BC, SELFPAY ==
[2023-04-26 12:21] VITALS: BMI 29.4
[2023-04-26 12:50] VITALS: BP 127/77; PULSE 59; RESP 18; O2SAT 97
--- NOTE | 2023-04-26 13:07 | W.ANESCHARGE ---
Anesthesia Charges Start Date/Time Anesthesia Start Date: 04/26/23 Anesthesia Start Time: 13:10 Stop Date/Time Anesthesia Stop Date: 04/26/23 Anesthesia Stop Time: 13:32 Summary Extremes of Age - Over 70 or under 1: MDA
[2023-04-26 13:35] VITALS: BP 114/71; PULSE 58; RESP 16; O2SAT 98
--- NOTE | 2023-04-26 13:35 | W.ANESCHARGE ---
Anesthesia Charges Start Date/Time Anesthesia Start Date: 04/26/23 Anesthesia Start Time: 13:10 Stop Date/Time Anesthesia Stop Date: 04/26/23 Anesthesia Stop Time: 13:32
[2023-04-26 13:45] VITALS: BP 146/81; PULSE 61; RESP 16; O2SAT 98
[2023-04-26 13:48] LABS: Basophils Absolute Auto 0.04 K/uL (0.00-0.30); Basophils Percent Auto 0.6 % (0.0-3.0); Eosinophils Absolute Auto 0.24 K/uL (0.00-0.50); Eosinophils Percent Auto 3.3 % (0.0-7.0); Hematocrit 42.2 % (37.0-53.0); Hemoglobin* 13.6 gm/dL (13.5-17.5); Immature Granulocytes Abs Auto 0.02 K/uL (0.00-0.30); Immature Granulocytes Pct Auto 0.3 %; Immature Reticulocyte Fraction 5.3 % (2.3-13.4); Lymphocytes Absolute Auto 2.54 K/uL (0.90-2.90); Lymphocytes Percent Auto 35.1 % (20-44); Mean Corpuscular HGB Conc 32 gm/dL (32-36); Mean Corpuscular Hemoglobin 28 pg (26-34); Mean Corpuscular Volume 86 fL (80-100); Monocytes Percent Auto 7.7 % (0.0-11.0); Neutrophils Absolute Auto 3.83 K/uL (1.7-7.0); Platelet Count* 165 K/uL (140-440); RDW Coefficient of Variation % 14.4 % (11.5-15.5); Reticulocyte Hemoglobin Equivi 27.4 pg (29.0-35.0); Reticulocyte Percent 0.5 % (0.5-2.0); Reticulocytes Absolute 0.02 # (0.03-0.08); White Blood Count* 7.23 K/uL (4.50-11.00)
[2023-04-26 13:52] LABS: Slide Review Reflex No
[2023-04-26 13:55] VITALS: BP 146/86; PULSE 59; RESP 16; O2SAT 98
== END 2023-04-26 14:12 | disposition home or self-care (01) ==
LOC: OP CLINIC 12:00
PROVIDERS: PCP Physician Assistant Medical; Visit Provider Internal Medicine Hematology & Oncology
DX: D64.9 Anemia, unspecified (principal)
CPT/HCPCS: 1112; 36415; 38222; 81261; 85025; 85045; 88184; 88185; 88237; 88264; 88271; 88275; 88299; 88305; 88311; 88313; 88341; 88342; 88360; 99100; J1644; J2001; J2704

== ENCOUNTER 2023-05-04 09:16 | Outpatient (CLI) | payer MEDICARE, BC, SELFPAY | END 2023-05-04 09:17 | disposition home or self-care (01) | LOC: NFLDREF 05-08 06:04 | PROVIDERS: PCP Physician Assistant Medical; Referring Provider Physician Assistant Medical; Visit Provider Physician Assistant Medical | DX: D47.2 Monoclonal gammopathy (principal) | CPT/HCPCS: 83520; 84156; 86335 ==

== ENCOUNTER 2023-09-19 12:30 | Outpatient (RCR) | payer MEDICARE, BC, SELFPAY ==
[2023-03-29 14:01] LABS: Appearance Urine Clear (Clear); Bilirubin Urine Negative (Negative); Blood Urine Trace-intact (Negative); Color Urine Yellow (Yellow); Glucose Urine Trace (Negative); Ketones Urine Negative (Negative); Leukocyte Esterase Urine Negative (Negative); Nitrite Urine Negative (Negative); Protein Urine 1+ (Negative); Specific Gravity Urine 1.025 (1.000-1.030)
[2023-03-29 14:14] LABS: Bacteria Urine Few; RBC Urine 0-2 (0-2); WBC Urine 0-2 (0-5)
[2023-03-31 10:01] LABS: Hours Collected Random hr; Total Volume Random mL
[2023-04-01 03:16] LABS: Albumin 2.97 g/dL (3.75-5.01); Alpha 1 Globulin 0.26 g/dL (0.19-0.46); Alpha 2 Globulin 0.63 g/dL (0.48-1.05); Monoclonal Protein 4.46 g/dL; Total Protein, Serum 9.2 g/dL (6.3-8.2)
[2023-04-15 09:01] LABS: Eosinophils Percent Auto 0.1 % (0.0-7.0); Hematocrit 45.1 % (37.0-53.0); Hemoglobin* 14.7 gm/dL (13.5-17.5); Immature Granulocytes Pct Auto 1.3 %; Lymphocytes Percent Auto 14.5 % (20-44); Mean Corpuscular HGB Conc 33 gm/dL (32-36); Mean Corpuscular Hemoglobin 28 pg (26-34); Mean Corpuscular Volume 86 fL (80-100); Monocytes Percent Auto 4.4 % (0.0-11.0); Neutrophils Percent Auto 79.7 % (42.0-72.0); Platelet Count* 197 K/uL (140-440); RDW Coefficient of Variation % 14.2 % (11.5-15.5); Red Blood Count 5.25 m/uL (4.30-5.90)
[2023-04-15 09:06] LABS: Slide Review Reflex No
[2023-04-15 09:14] LABS: Albumin* 3.3 g/dL (3.3-5.0); Chloride* 99 mmol/L (96-114); Potassium* 5.6 mmol/L (3.6-5.1); Sodium* 135 mmol/L (135-149)
[2023-04-15 09:17] LABS: Alanine Aminotransferase* 27 U/L (4-50); Alkaline Phosphatase* 86 U/L (40-150); Aspartate Amino Transferase* 20 U/L (12-35); Bilirubin Total* 0.5 mg/dL (0.1-1.5); Blood Urea Nitrogen* 38 mg/dL (7-30); Carbon Dioxide* 26 mmol/L (20-32); Creatinine* 1.2 mg/dL (0.5-1.5); Est. Creatinine Clearance* 52.37; Estimated Glomerular Filt Rate 63 ml/min; Total Protein* 7.5 g/dL (6.0-8.3)
[2023-04-15 09:18] LABS: Calcium* 8.5 mg/dL (8.4-10.6)
[2023-04-15 09:28] LABS: Glucose* 410 mg/dL (60-115)
[2023-04-15 10:25] LABS: Lactate Dehydrogenase* 155 U/L (120-246); Uric Acid* 6.2 mg/dL (2.2-8.4)
[2023-04-16 12:00] LABS: Beta-2-Microglob Serum/Plasma 2.8 mg/L (<=3.0)
[2023-04-16 23:41] LABS: Immunoglobulin A 100 mg/dL (68-408); Immunoglobulin G 2402 mg/dL (768-1632); Immunoglobulin M 35 mg/dL (35-263)
[2023-05-02 14:55] LABS: Basophils Absolute Auto 0.03 K/uL (0.00-0.30); Basophils Percent Auto 0.6 % (0.0-3.0); Eosinophils Absolute Auto 0.18 K/uL (0.00-0.50); Eosinophils Percent Auto 3.6 % (0.0-7.0); Hematocrit 40.8 % (37.0-53.0); Hemoglobin* 13.2 gm/dL (13.5-17.5); Immature Granulocytes Abs Auto 0.01 K/uL (0.00-0.30); Immature Granulocytes Pct Auto 0.2 %; Lymphocytes Percent Auto 30.1 % (20-44); Mean Corpuscular HGB Conc 32 gm/dL (32-36); Mean Corpuscular Hemoglobin 28 pg (26-34); Mean Corpuscular Volume 86 fL (80-100); Neutrophils Absolute Auto 2.87 K/uL (1.7-7.0); Neutrophils Percent Auto 57.5 % (42.0-72.0); Platelet Count* 175 K/uL (140-440); RDW Coefficient of Variation % 14.2 % (11.5-15.5); Red Blood Count 4.74 m/uL (4.30-5.90); White Blood Count* 4.99 K/uL (4.50-11.00)
[2023-05-02 15:03] LABS: Slide Review Reflex No
[2023-05-02 15:13] LABS: Albumin* 3.2 g/dL (3.3-5.0); Chloride* 106 mmol/L (96-114)
[2023-05-02 15:14] LABS: Potassium* 4.9 mmol/L (3.6-5.1); Sodium* 139 mmol/L (135-149)
[2023-05-02 15:16] LABS: Alkaline Phosphatase* 63 U/L (40-150); Aspartate Amino Transferase* 25 U/L (12-35); Bilirubin Total* 0.3 mg/dL (0.1-1.5); Carbon Dioxide* 28 mmol/L (20-32); Creatinine* 1.3 mg/dL (0.5-1.5); Est. Creatinine Clearance* 49.91; Estimated Glomerular Filt Rate 57 ml/min; Total Protein* 7.2 g/dL (6.0-8.3)
[2023-05-02 15:17] LABS: Alanine Aminotransferase* 24 U/L (4-50); Blood Urea Nitrogen* 21 mg/dL (7-30); Calcium* 8.1 mg/dL (8.4-10.6); Glucose* 305 mg/dL (60-115); Lactate Dehydrogenase* 142 U/L (120-246)
[2023-05-04 18:55] LABS: Beta-2-Microglob Serum/Plasma 4.1 mg/L (<=3.0)
[2023-05-05 21:45] LABS: Alpha 1 Globulin 0.28 g/dL (0.19-0.46); Immunofixation IFE Done; Immunoglobulin A 98 mg/dL (68-408); Immunoglobulin G 1992 mg/dL (768-1632); Immunoglobulin M 34 mg/dL (35-263); Kappa Qnt Free Light Chains 140.03 mg/L (3.30-19.40); Kappa/Lambda Light Chain Ratio 0.96 (0.26-1.65); Lambda Qnt Free Light Chains 146.54 mg/L (5.71-26.30); Total Protein, Serum 6.9 g/dL (6.3-8.2)
[2023-06-02 15:54] LABS: Albumin* 3.7 g/dL (3.3-5.0); Chloride* 106 mmol/L (96-114); Sodium* 140 mmol/L (135-149)
[2023-06-02 15:55] LABS: Potassium* 4.6 mmol/L (3.6-5.1)
[2023-06-02 15:56] LABS: Creatinine* 1.2 mg/dL (0.5-1.5); Est. Creatinine Clearance* 54.07; Estimated Glomerular Filt Rate 63 ml/min
[2023-06-02 15:57] LABS: Alanine Aminotransferase* 22 U/L (4-50); Alkaline Phosphatase* 62 U/L (40-150); Anion Gap 7 mEq/L (7-15); Aspartate Amino Transferase* 28 U/L (12-35); Bilirubin Total* 0.6 mg/dL (0.1-1.5); Blood Urea Nitrogen* 24 mg/dL (7-30); Carbon Dioxide* 27 mmol/L (20-32); Glucose* 154 mg/dL (60-115); Lactate Dehydrogenase* 136 U/L (120-246); Total Protein* 8.9 g/dL (6.0-8.3)
[2023-06-02 15:58] LABS: Calcium* 8.8 mg/dL (8.4-10.6)
[2023-06-02 16:16] LABS: Hematocrit 40.9 % (37.0-53.0); Hemoglobin* 13.1 gm/dL (13.5-17.5); Lymphocytes Percent Auto 33.4 % (20-44); Mean Corpuscular HGB Conc 32 gm/dL (32-36); Mean Corpuscular Hemoglobin 28 pg (26-34); Mean Corpuscular Volume 87 fL (80-100); Monocytes Percent Auto 9.1 % (0.0-11.0); Neutrophils Percent Auto 45.9 % (42.0-72.0); Platelet Count* 225 K/uL (140-440); RDW Coefficient of Variation % 14.7 % (11.5-15.5); Red Blood Count 4.69 m/uL (4.30-5.90); White Blood Count* 6.58 K/uL (4.50-11.00)
[2023-06-02 16:17] LABS: Basophils Absolute Auto 0.05 K/uL (0.00-0.30); Basophils Percent Auto 0.8 % (0.0-3.0); Eosinophils Percent Auto 10.8 % (0.0-7.0); Neutrophils Absolute Auto 3.02 K/uL (1.7-7.0)
[2023-06-02 16:18] LABS: Slide Review Reflex No
[2023-06-06 10:44] LABS: Albumin 3.17 g/dL (3.75-5.01); Alpha 1 Globulin 0.26 g/dL (0.19-0.46); Alpha 2 Globulin 0.67 g/dL (0.48-1.05); Immunofixation IFE Done; Immunoglobulin A 87 mg/dL (68-408); Immunoglobulin G 3278 mg/dL (768-1632); Immunoglobulin M 40 mg/dL (35-263); Kappa Qnt Free Light Chains 201.09 mg/L (3.30-19.40); Kappa/Lambda Light Chain Ratio 0.98 (0.26-1.65); Lambda Qnt Free Light Chains 205.38 mg/L (5.71-26.30); Total Protein, Serum 8.5 g/dL (6.3-8.2)
[2023-07-04 11:44] LABS: Basophils Absolute Auto 0.05 K/uL (0.00-0.30); Basophils Percent Auto 0.8 % (0.0-3.0); Eosinophils Percent Auto 9.8 % (0.0-7.0); Hematocrit 40.5 % (37.0-53.0); Hemoglobin* 13.1 gm/dL (13.5-17.5); Immature Granulocytes Abs Auto 0.01 K/uL (0.00-0.30); Immature Granulocytes Pct Auto 0.2 %; Lymphocytes Absolute Auto 1.75 K/uL (0.90-2.90); Lymphocytes Percent Auto 29.7 % (20-44); Mean Corpuscular HGB Conc 32 gm/dL (32-36); Mean Corpuscular Hemoglobin 28 pg (26-34); Mean Corpuscular Volume 88 fL (80-100); Monocytes Percent Auto 8.3 % (0.0-11.0); Neutrophils Absolute Auto 3.02 K/uL (1.7-7.0); Neutrophils Percent Auto 51.2 % (42.0-72.0); Platelet Count* 207 K/uL (140-440); Red Blood Count 4.62 m/uL (4.30-5.90)
[2023-07-04 11:45] LABS: Slide Review Reflex No
[2023-07-04 12:07] LABS: Albumin* 3.5 g/dL (3.3-5.0); Chloride* 108 mmol/L (96-114); Potassium* 4.7 mmol/L (3.6-5.1); Sodium* 139 mmol/L (135-149)
[2023-07-04 12:09] LABS: Creatinine* 1.2 mg/dL (0.5-1.5); Est. Creatinine Clearance* 54.07; Estimated Glomerular Filt Rate 63 ml/min
[2023-07-04 12:10] LABS: Alanine Aminotransferase* 48 U/L (4-50); Alkaline Phosphatase* 121 U/L (40-150); Anion Gap 8 mEq/L (7-15); Aspartate Amino Transferase* 67 U/L (12-35); Bilirubin Total* 0.5 mg/dL (0.1-1.5); Blood Urea Nitrogen* 17 mg/dL (7-30); Calcium* 8.7 mg/dL (8.4-10.6); Carbon Dioxide* 23 mmol/L (20-32); Glucose* 237 mg/dL (60-115); Lactate Dehydrogenase* 165 U/L (120-246); Total Protein* 8.8 g/dL (6.0-8.3)
[2023-07-06 10:42] LABS: Beta-2-Microglob Serum/Plasma 4.5 mg/L (<=3.0)
[2023-07-07 03:42] LABS: Albumin 3.04 g/dL (3.75-5.01); Alpha 1 Globulin 0.27 g/dL (0.19-0.46); Alpha 2 Globulin 0.63 g/dL (0.48-1.05); Immunofixation IFE Done; Immunoglobulin A 83 mg/dL (68-408); Immunoglobulin G 3569 mg/dL (768-1632); Immunoglobulin M 42 mg/dL (35-263); Kappa Qnt Free Light Chains 238.89 mg/L (3.30-19.40); Kappa/Lambda Light Chain Ratio 0.83 (0.26-1.65); Lambda Qnt Free Light Chains 287.93 mg/L (5.71-26.30); Total Protein, Serum 8.6 g/dL (6.3-8.2)
--- NOTE | 2023-07-18 16:43 | URNOTE ---
Request received for authorization for Velcade ([id number]). Prior authorization is not required as services are based on medical necessity and follow Medicare guidelines.
--- NOTE | 2023-07-19 12:09 | ONC.NURNOTE ---
Addendum entered by Milana Vela RN 07/21/23 11:09: SHELBY approved for cyclophosphomide through 10/02/2024 [employer] [phone] [facility] at [facility] $18.43 Original Note: New RX Cytoxan ERx to Dorian RYAN initiated via covermymeds
--- NOTE | 2023-07-19 12:10 | ONC.NURNOTE ---
New treatment start planned patient handouts given on Cytoxan, and Velcade with information about PA and possible specialty pharmacy dispensing cytoxan plan for teaching on start date appts pending when cytoxan is received
--- NOTE | 2023-07-21 11:04 | ONC.NURNOTE ---
Addendum entered and electronically signed by Paige Lutz APRN 07/22/23 13:06: Received call from Josy Alonzo, life friend of Mr. Retana. They would like to come into the infusion center on Tuesday and review lab work, and talk with Milana Vela. Mr. Retana is still not agreeable to treatment, but willing to see labs and hear about his treatment information. I have put him back on the schedule for 1pm per their request. Addendum entered by Milana Vela RN 07/21/23 15:42: Juan phoned back He has canceled all appts and states he does not wish to start these medications will let Dr Pruitt know Original Note: [employer] phoned patient to set up appts to start treatment patient states he has decided to forego treatment after reading the information about possible side effects communications writer offered chemo teaching appointment as an opportunity to address concerns and further discuss possible side effects of treatment and then he let us know what he wants to do life partner supportive of patient getting treatment patient agreeable to teaching appt appt made for 07/25/23
--- NOTE | 2023-07-25 15:57 | ONC.NURNOTE ---
Informational teaching for patient and today reviewed most common side effects of treatment, after hours management, management of temp over 100.4, self care at home, calling with any concerns or changes, reviewed patient treatment binder, reviewed drug handouts, questions and concerns expressed, questions addressed by this advertising writer patient plans to proceed with treatment, wants to start next week after he finishes osvaldo, consents and PARTH reviewed and signed treatments, labs and appt with Dr Pruitt all set up
--- NOTE | 2023-07-25 16:02 | ONC.NURNOTE ---
PSDS = 0 no problems checked no referral to SS indicated
[2023-08-01 13:15] LABS: Basophils Absolute Auto 0.04 K/uL (0.00-0.30); Basophils Percent Auto 0.6 % (0.0-3.0); Eosinophils Percent Auto 1.6 % (0.0-7.0); Hematocrit 43.7 % (37.0-53.0); Hemoglobin* 13.7 gm/dL (13.5-17.5); Immature Granulocytes Abs Auto 0.01 K/uL (0.00-0.30); Immature Granulocytes Pct Auto 0.2 %; Lymphocytes Percent Auto 16.6 % (20-44); Mean Corpuscular HGB Conc 31 gm/dL (32-36); Mean Corpuscular Hemoglobin 29 pg (26-34); Mean Corpuscular Volume 91 fL (80-100); Monocytes Percent Auto 2.3 % (0.0-11.0); Neutrophils Percent Auto 78.7 % (42.0-72.0); Platelet Count* 232 K/uL (140-440); RDW Coefficient of Variation % 14.5 % (11.5-15.5); White Blood Count* 6.16 K/uL (4.50-11.00)
[2023-08-01 13:17] VITALS: BP 144/86; PULSE 72; RESP 17; TEMP 36.8; O2SAT 97
[2023-08-01 13:34] LABS: Albumin* 3.8 g/dL (3.3-5.0); Chloride* 103 mmol/L (96-114)
[2023-08-01 13:35] LABS: Potassium* 5.2 mmol/L (3.6-5.1); Slide Review Reflex No; Sodium* 141 mmol/L (135-149)
[2023-08-01 13:37] LABS: Anion Gap 13 mEq/L (7-15); Aspartate Amino Transferase* 71 U/L (12-35); Bilirubin Total* 0.5 mg/dL (0.1-1.5); Blood Urea Nitrogen* 19 mg/dL (7-30); Carbon Dioxide* 25 mmol/L (20-32); Creatinine* 1.2 mg/dL (0.5-1.5); Est. Creatinine Clearance* 54.07; Estimated Glomerular Filt Rate 63 ml/min; Total Protein* 9.4 g/dL (6.0-8.3)
[2023-08-01 13:38] LABS: Alanine Aminotransferase* 46 U/L (4-50); Alkaline Phosphatase* 191 U/L (40-150); Calcium* 8.6 mg/dL (8.4-10.6); Glucose* 198 mg/dL (60-115)
[2023-08-01] MEDS: BORTEZOMIB SUBQ 2.5 mg/ml 2.9 MG SUBCUT (14:25)
--- NOTE | 2023-08-02 10:03 | PC.NURSE ---
Called pt today to check in after his first Velcade injection yesterday. Pt's answered and shared that Juan was outside shoveling. She states that he is doing fine and had no complaints that she is aware of. Asked that Juan call should any concerns arise. Wished him a happy birthday. He's back next week.
--- NOTE | 2023-08-04 14:51 | ONC.NURNOTE ---
Follow up of new medication start: per phone call- reports no nausea, sleeping well, no site reaction from his injection feeling well, offers no concerns has next appts set up
[2023-08-05 02:36] LABS: Albumin 3.14 g/dL (3.75-5.01); Alpha 1 Globulin 0.29 g/dL (0.19-0.46); Alpha 2 Globulin 0.71 g/dL (0.48-1.05); Immunofixation IFE Done; Immunoglobulin A 91 mg/dL (68-408); Immunoglobulin G 4068 mg/dL (768-1632); Immunoglobulin M 41 mg/dL (35-263); Kappa/Lambda Light Chain Ratio 0.83 (0.26-1.65); Lambda Qnt Free Light Chains 282.12 mg/L (5.71-26.30); Monoclonal Protein 3.85 g/dL; Total Protein, Serum 9.2 g/dL (6.3-8.2)
[2023-08-08 13:03] VITALS: BP 143/84; PULSE 72; RESP 18; TEMP 36.8; O2SAT 95
[2023-08-08 13:08] LABS: Basophils Absolute Auto 0.02 K/uL (0.00-0.30); Basophils Percent Auto 0.2 % (0.0-3.0); Eosinophils Absolute Auto 0.02 K/uL (0.00-0.50); Eosinophils Percent Auto 0.2 % (0.0-7.0); Hematocrit 44.1 % (37.0-53.0); Hemoglobin* 14.2 gm/dL (13.5-17.5); Immature Granulocytes Abs Auto 0.04 K/uL (0.00-0.30); Immature Granulocytes Pct Auto 0.4 %; Lymphocytes Percent Auto 13.1 % (20-44); Mean Corpuscular HGB Conc 32 gm/dL (32-36); Mean Corpuscular Hemoglobin 29 pg (26-34); Mean Corpuscular Volume 89 fL (80-100); Monocytes Percent Auto 3.5 % (0.0-11.0); Neutrophils Percent Auto 82.6 % (42.0-72.0); Platelet Count* 248 K/uL (140-440); Red Blood Count 4.95 m/uL (4.30-5.90); White Blood Count* 9.94 K/uL (4.50-11.00)
[2023-08-08 13:17] LABS: Slide Review Reflex No
[2023-08-08 13:19] LABS: Albumin* 3.7 g/dL (3.3-5.0)
[2023-08-08 13:20] LABS: Chloride* 102 mmol/L (96-114); Potassium* 5.7 mmol/L (3.6-5.1); Sodium* 135 mmol/L (135-149)
[2023-08-08 13:22] LABS: Anion Gap 9 mEq/L (7-15); Aspartate Amino Transferase* 55 U/L (12-35); Bilirubin Total* 0.4 mg/dL (0.1-1.5); Carbon Dioxide* 24 mmol/L (20-32); Creatinine* 1.2 mg/dL (0.5-1.5); Est. Creatinine Clearance* 53.23; Estimated Glomerular Filt Rate 62 ml/min; Total Protein* 8.6 g/dL (6.0-8.3)
[2023-08-08 13:23] LABS: Alanine Aminotransferase* 53 U/L (4-50); Alkaline Phosphatase* 130 U/L (40-150); Blood Urea Nitrogen* 31 mg/dL (7-30); Calcium* 8.7 mg/dL (8.4-10.6)
[2023-08-08 13:33] LABS: Glucose* 411 mg/dL (60-115)
[2023-08-08] MEDS: 0.9 % SODIUM CHLORIDE 1000 ml 1,000 ML IV (15:00)
[2023-08-08 15:53] LABS: SARS PCR* Negative SARS-CoV-2 (Negative)
[2023-08-08] MEDS: BORTEZOMIB SUBQ 2.5 mg/ml 2.9 MG SUBCUT (16:08)
--- NOTE | 2023-08-08 16:56 | ONC.NURNOTE ---
Addendum entered by Marge Trevino RN 08/08/23 17:02: ok to give Velcade today per Paige Saab APRN Original Note: states had diarrhea for 2-3 days. none today. states decrease appetite. denies N/V. states taking po. and voiding in good amt. vague with answers. denies pain. labs show elevated blood sugar and potassium. Paige Saab APRN saw pt and !L NS given. Pt apt made to he his primary Stephanie at [facility] to manage his insulin and blood sugars. Pt. returning wedn am for CMP. then seeing his primary this wedn 2pm. pt denies fever. productive cough. covid neg.
[2023-08-10 11:07] LABS: Chloride* 107 mmol/L (96-114); Potassium* 4.5 mmol/L (3.6-5.1); Sodium* 139 mmol/L (135-149)
[2023-08-10 11:10] LABS: Anion Gap 4 mEq/L (7-15); Blood Urea Nitrogen* 31 mg/dL (7-30); Calcium* 8.8 mg/dL (8.4-10.6); Carbon Dioxide* 28 mmol/L (20-32); Creatinine* 1.1 mg/dL (0.5-1.5); Est. Creatinine Clearance* 58.07; Estimated Glomerular Filt Rate 69 ml/min; Glucose* 198 mg/dL (60-115)
--- NOTE | 2023-08-10 11:28 | ONC.NURNOTE ---
BMP results reviewed and called to Josy- noted normal K, and blood sugar under 200 no further action needed today patient is seeing his PCP at 2 pm today for diabetes management Juan to continue with daily Dex and Cytoxan Discussed option of using 1-2 imodium after loose stool- they have some at home which Josy uses no loose stools today, 1 yesterday- reported as large reminded to drink 8-10 cups of non sugared drinks/day appts for next week
[2023-08-10 22:58] LABS: Hemoglobin A1C* 8.3 % (0-5.6)
[2023-08-15 12:59] VITALS: BP 117/72; PULSE 61; RESP 16; TEMP 36.8; O2SAT 99
[2023-08-15 13:20] LABS: Basophils Absolute Auto 0.01 K/uL (0.00-0.30); Basophils Percent Auto 0.1 % (0.0-3.0); Eosinophils Absolute Auto 0.01 K/uL (0.00-0.50); Eosinophils Percent Auto 0.1 % (0.0-7.0); Hematocrit 41.8 % (37.0-53.0); Hemoglobin* 13.6 gm/dL (13.5-17.5); Immature Granulocytes Abs Auto 0.04 K/uL (0.00-0.30); Immature Granulocytes Pct Auto 0.4 %; Lymphocytes Percent Auto 15.3 % (20-44); Mean Corpuscular HGB Conc 33 gm/dL (32-36); Mean Corpuscular Hemoglobin 29 pg (26-34); Mean Corpuscular Volume 88 fL (80-100); Monocytes Percent Auto 3.2 % (0.0-11.0); Neutrophils Percent Auto 80.9 % (42.0-72.0); Platelet Count* 218 K/uL (140-440); RDW Coefficient of Variation % 14.1 % (11.5-15.5); Red Blood Count 4.75 m/uL (4.30-5.90); White Blood Count* 10.09 K/uL (4.50-11.00)
[2023-08-15 13:22] LABS: Slide Review Reflex No
[2023-08-15 13:32] LABS: Albumin* 3.4 g/dL (3.3-5.0); Chloride* 102 mmol/L (96-114); Potassium* 5.1 mmol/L (3.6-5.1); Sodium* 138 mmol/L (135-149)
[2023-08-15 13:34] LABS: Bilirubin Total* 0.3 mg/dL (0.1-1.5); Creatinine* 1.1 mg/dL (0.5-1.5); Est. Creatinine Clearance* 58.07; Estimated Glomerular Filt Rate 69 ml/min
[2023-08-15 13:35] LABS: Alanine Aminotransferase* 32 U/L (4-50); Alkaline Phosphatase* 87 U/L (40-150); Anion Gap 8 mEq/L (7-15); Aspartate Amino Transferase* 39 U/L (12-35); Blood Urea Nitrogen* 25 mg/dL (7-30); Calcium* 8.5 mg/dL (8.4-10.6); Carbon Dioxide* 28 mmol/L (20-32); Glucose* 261 mg/dL (60-115); Total Protein* 7.4 g/dL (6.0-8.3)
[2023-08-15] MEDS: BORTEZOMIB SUBQ 2.5 mg/ml 2.9 MG SUBCUT (14:36)
[2023-08-22 12:44] LABS: Basophils Absolute Auto 0.02 K/uL (0.00-0.30); Basophils Percent Auto 0.3 % (0.0-3.0); Eosinophils Absolute Auto 0.01 K/uL (0.00-0.50); Eosinophils Percent Auto 0.1 % (0.0-7.0); Hemoglobin* 13.5 gm/dL (13.5-17.5); Immature Granulocytes Abs Auto 0.01 K/uL (0.00-0.30); Immature Granulocytes Pct Auto 0.1 %; Lymphocytes Percent Auto 16.8 % (20-44); Mean Corpuscular HGB Conc 32 gm/dL (32-36); Mean Corpuscular Hemoglobin 29 pg (26-34); Mean Corpuscular Volume 90 fL (80-100); Monocytes Percent Auto 2.6 % (0.0-11.0); Neutrophils Percent Auto 80.1 % (42.0-72.0); Platelet Count* 193 K/uL (140-440); RDW Coefficient of Variation % 14.7 % (11.5-15.5); Red Blood Count 4.66 m/uL (4.30-5.90); White Blood Count* 7.57 K/uL (4.50-11.00)
[2023-08-22 12:46] LABS: Slide Review Reflex No
[2023-08-22 12:58] LABS: Albumin* 3.7 g/dL (3.3-5.0); Chloride* 104 mmol/L (96-114)
[2023-08-22 12:59] LABS: Potassium* 5.5 mmol/L (3.6-5.1); Sodium* 137 mmol/L (135-149)
[2023-08-22 13:01] LABS: Alkaline Phosphatase* 77 U/L (40-150); Anion Gap 7 mEq/L (7-15); Aspartate Amino Transferase* 27 U/L (12-35); Bilirubin Total* 0.3 mg/dL (0.1-1.5); Blood Urea Nitrogen* 25 mg/dL (7-30); Carbon Dioxide* 26 mmol/L (20-32); Est. Creatinine Clearance* 63.88; Estimated Glomerular Filt Rate 78 ml/min; Total Protein* 7.4 g/dL (6.0-8.3)
[2023-08-22 13:02] LABS: Alanine Aminotransferase* 31 U/L (4-50); Calcium* 8.6 mg/dL (8.4-10.6); Glucose* 183 mg/dL (60-115)
[2023-08-22 14:05] VITALS: BP 154/84; PULSE 68; RESP 16; TEMP 36.8; O2SAT 98
[2023-08-22] MEDS: BORTEZOMIB SUBQ 2.5 mg/ml 2.9 MG SUBCUT (15:03)
[2023-08-29 13:16] LABS: Basophils Absolute Auto 0.01 K/uL (0.00-0.30); Basophils Percent Auto 0.1 % (0.0-3.0); Eosinophils Absolute Auto 0.03 K/uL (0.00-0.50); Eosinophils Percent Auto 0.3 % (0.0-7.0); Hematocrit 43.6 % (37.0-53.0); Immature Granulocytes Abs Auto 0.03 K/uL (0.00-0.30); Immature Granulocytes Pct Auto 0.3 %; Lymphocytes Percent Auto 15.4 % (20-44); Mean Corpuscular HGB Conc 32 gm/dL (32-36); Mean Corpuscular Hemoglobin 29 pg (26-34); Mean Corpuscular Volume 91 fL (80-100); Monocytes Percent Auto 4.6 % (0.0-11.0); Neutrophils Percent Auto 79.3 % (42.0-72.0); Platelet Count* 171 K/uL (140-440); RDW Coefficient of Variation % 14.8 % (11.5-15.5); White Blood Count* 9.18 K/uL (4.50-11.00)
[2023-08-29 13:18] LABS: Slide Review Reflex No
[2023-08-29 13:40] LABS: Chloride* 105 mmol/L (96-114)
[2023-08-29 13:41] LABS: Albumin* 3.8 g/dL (3.3-5.0); Potassium* 5.1 mmol/L (3.6-5.1); Sodium* 141 mmol/L (135-149)
[2023-08-29 13:43] LABS: Aspartate Amino Transferase* 27 U/L (12-35); Bilirubin Total* 0.3 mg/dL (0.1-1.5); Creatinine* 1.1 mg/dL (0.5-1.5); Est. Creatinine Clearance* 58.07; Estimated Glomerular Filt Rate 69 ml/min
[2023-08-29 13:44] LABS: Alanine Aminotransferase* 33 U/L (4-50); Alkaline Phosphatase* 69 U/L (40-150); Anion Gap 10 mEq/L (7-15); Blood Urea Nitrogen* 32 mg/dL (7-30); Calcium* 8.9 mg/dL (8.4-10.6); Carbon Dioxide* 26 mmol/L (20-32); Glucose* 124 mg/dL (60-115); Total Protein* 7.3 g/dL (6.0-8.3)
[2023-08-29 14:48] VITALS: BP 129/80; PULSE 83; RESP 16; TEMP 36.8; O2SAT 95
[2023-08-29] MEDS: BORTEZOMIB SUBQ 2.5 mg/ml 2.9 MG SUBCUT (15:24)
[2023-09-05 13:27] LABS: Eosinophils Absolute Auto 0.01 K/uL (0.00-0.50); Eosinophils Percent Auto 0.1 % (0.0-7.0); Hematocrit 42.7 % (37.0-53.0); Hemoglobin* 13.7 gm/dL (13.5-17.5); Immature Granulocytes Abs Auto 0.04 K/uL (0.00-0.30); Immature Granulocytes Pct Auto 0.5 %; Lymphocytes Percent Auto 12.4 % (20-44); Mean Corpuscular HGB Conc 32 gm/dL (32-36); Mean Corpuscular Hemoglobin 29 pg (26-34); Mean Corpuscular Volume 91 fL (80-100); Monocytes Percent Auto 3.1 % (0.0-11.0); Neutrophils Percent Auto 83.9 % (42.0-72.0); Platelet Count* 186 K/uL (140-440); RDW Coefficient of Variation % 15.2 % (11.5-15.5); Red Blood Count 4.72 m/uL (4.30-5.90); White Blood Count* 8.14 K/uL (4.50-11.00)
[2023-09-05 13:32] LABS: Slide Review Reflex No
[2023-09-05 13:37] LABS: Albumin* 3.8 g/dL (3.3-5.0); Chloride* 104 mmol/L (96-114)
[2023-09-05 13:38] LABS: Sodium* 136 mmol/L (135-149)
[2023-09-05 13:40] LABS: Anion Gap 5 mEq/L (7-15); Aspartate Amino Transferase* 31 U/L (12-35); Bilirubin Total* 0.4 mg/dL (0.1-1.5); Carbon Dioxide* 27 mmol/L (20-32); Creatinine* 1.1 mg/dL (0.5-1.5); Est. Creatinine Clearance* 58.07; Estimated Glomerular Filt Rate 69 ml/min; Potassium* 5.2 mmol/L (3.6-5.1)
[2023-09-05 13:41] LABS: Alanine Aminotransferase* 33 U/L (4-50); Alkaline Phosphatase* 72 U/L (40-150); Blood Urea Nitrogen* 31 mg/dL (7-30); Calcium* 8.5 mg/dL (8.4-10.6); Glucose* 259 mg/dL (60-115)
[2023-09-05 14:41] VITALS: BP 152/84; PULSE 75; RESP 16; TEMP 36.8; O2SAT 96
[2023-09-05] MEDS: BORTEZOMIB SUBQ 2.5 mg/ml 2.9 MG SUBCUT (15:13)
[2023-09-07 12:10] LABS: Beta-2-Microglob Serum/Plasma 2.6 mg/L (<=3.0)
[2023-09-08 10:54] LABS: Albumin 3.43 g/dL (3.75-5.01); Alpha 1 Globulin 0.27 g/dL (0.19-0.46); Alpha 2 Globulin 0.69 g/dL (0.48-1.05); Immunofixation IFE Done; Immunoglobulin A 85 mg/dL (68-408); Immunoglobulin G 1371 mg/dL (768-1632); Immunoglobulin M 30 mg/dL (35-263); Kappa Qnt Free Light Chains 41.15 mg/L (3.30-19.40); Kappa/Lambda Light Chain Ratio 1.01 (0.26-1.65); Lambda Qnt Free Light Chains 40.89 mg/L (5.71-26.30); Total Protein, Serum 6.6 g/dL (6.3-8.2)
[2023-09-12 12:21] LABS: Basophils Absolute Auto 0.01 K/uL (0.00-0.30); Basophils Percent Auto 0.1 % (0.0-3.0); Eosinophils Absolute Auto 0.05 K/uL (0.00-0.50); Eosinophils Percent Auto 0.5 % (0.0-7.0); Hematocrit 43.2 % (37.0-53.0); Hemoglobin* 13.7 gm/dL (13.5-17.5); Immature Granulocytes Abs Auto 0.07 K/uL (0.00-0.30); Immature Granulocytes Pct Auto 0.8 %; Lymphocytes Percent Auto 19.6 % (20-44); Mean Corpuscular HGB Conc 32 gm/dL (32-36); Mean Corpuscular Hemoglobin 29 pg (26-34); Mean Corpuscular Volume 91 fL (80-100); Monocytes Percent Auto 5.2 % (0.0-11.0); Neutrophils Percent Auto 73.8 % (42.0-72.0); Platelet Count* 177 K/uL (140-440); RDW Coefficient of Variation % 15.4 % (11.5-15.5); Red Blood Count 4.73 m/uL (4.30-5.90); White Blood Count* 9.32 K/uL (4.50-11.00)
[2023-09-12 12:23] LABS: Slide Review Reflex No
[2023-09-12 12:30] LABS: Albumin* 3.7 g/dL (3.3-5.0); Chloride* 106 mmol/L (96-114)
[2023-09-12 12:31] LABS: Potassium* 4.9 mmol/L (3.6-5.1); Sodium* 139 mmol/L (135-149)
[2023-09-12 12:33] LABS: Alkaline Phosphatase* 59 U/L (40-150); Anion Gap 7 mEq/L (7-15); Aspartate Amino Transferase* 26 U/L (12-35); Bilirubin Total* 0.4 mg/dL (0.1-1.5); Blood Urea Nitrogen* 26 mg/dL (7-30); Carbon Dioxide* 26 mmol/L (20-32); Creatinine* 1.1 mg/dL (0.5-1.5); Est. Creatinine Clearance* 58.07; Estimated Glomerular Filt Rate 69 ml/min; Total Protein* 6.9 g/dL (6.0-8.3)
[2023-09-12 12:34] LABS: Alanine Aminotransferase* 31 U/L (4-50); Calcium* 8.5 mg/dL (8.4-10.6); Glucose* 213 mg/dL (60-115)
[2023-09-12] MEDS: BORTEZOMIB SUBQ 2.5 mg/ml 2.9 MG SUBCUT (14:37)
--- NOTE | 2023-09-15 10:06 | ONC.NURNOTE ---
Juan thinks he will need cataract surgery- although this may now be delayed for [address] Pruitt- treatment may be held the week of the surgery- patient/ aware
[2023-09-19 12:49] LABS: Basophils Absolute Auto 0.01 K/uL (0.00-0.30); Basophils Percent Auto 0.1 % (0.0-3.0); Eosinophils Absolute Auto 0.01 K/uL (0.00-0.50); Eosinophils Percent Auto 0.1 % (0.0-7.0); Hematocrit 43.6 % (37.0-53.0); Hemoglobin* 14.1 gm/dL (13.5-17.5); Immature Granulocytes Abs Auto 0.13 K/uL (0.00-0.30); Immature Granulocytes Pct Auto 1.4 %; Lymphocytes Percent Auto 13.4 % (20-44); Mean Corpuscular HGB Conc 32 gm/dL (32-36); Mean Corpuscular Hemoglobin 29 pg (26-34); Mean Corpuscular Volume 90 fL (80-100); Monocytes Percent Auto 3.2 % (0.0-11.0); Neutrophils Percent Auto 81.8 % (42.0-72.0); Platelet Count* 171 K/uL (140-440); RDW Coefficient of Variation % 15.3 % (11.5-15.5); Red Blood Count 4.85 m/uL (4.30-5.90); White Blood Count* 9.15 K/uL (4.50-11.00)
[2023-09-19 12:50] LABS: Slide Review Reflex No
[2023-09-19 13:03] LABS: Albumin* 3.8 g/dL (3.3-5.0); Chloride* 99 mmol/L (96-114); Sodium* 135 mmol/L (135-149)
[2023-09-19 13:05] LABS: Creatinine* 1.1 mg/dL (0.5-1.5); Est. Creatinine Clearance* 58.07; Estimated Glomerular Filt Rate 69 ml/min
[2023-09-19 13:06] LABS: Alanine Aminotransferase* 34 U/L (4-50); Alkaline Phosphatase* 76 U/L (40-150); Anion Gap 10 mEq/L (7-15); Aspartate Amino Transferase* 29 U/L (12-35); Bilirubin Total* 0.3 mg/dL (0.1-1.5); Blood Urea Nitrogen* 33 mg/dL (7-30); Carbon Dioxide* 26 mmol/L (20-32); Glucose* 278 mg/dL (60-115); Total Protein* 6.8 g/dL (6.0-8.3)
[2023-09-19 13:07] LABS: Calcium* 9.2 mg/dL (8.4-10.6)
[2023-09-19 14:04] VITALS: BP 138/76; PULSE 60; RESP 16; TEMP 37; O2SAT 94
[2023-09-19] MEDS: BORTEZOMIB SUBQ 2.5 mg/ml 2.9 MG SUBCUT (14:40)
[2023-09-19 15:31] LABS: PSA Diagnostic* 0.84 ng/mL (0.10-4.00)
[2023-09-20 20:03] LABS: Beta-2-Microglob Serum/Plasma 2.6 mg/L (<=3.0)
[2023-09-21 21:35] LABS: Albumin 3.41 g/dL (3.75-5.01); Alpha 1 Globulin 0.26 g/dL (0.19-0.46); Alpha 2 Globulin 0.81 g/dL (0.48-1.05); Immunofixation IFE Done; Immunoglobulin A 78 mg/dL (68-408); Immunoglobulin G 1000 mg/dL (768-1632); Immunoglobulin M 25 mg/dL (35-263); Kappa Qnt Free Light Chains 34.35 mg/L (3.30-19.40); Lambda Qnt Free Light Chains 31.23 mg/L (5.71-26.30); Total Protein, Serum 6.4 g/dL (6.3-8.2)
== END 2023-09-25 23:59 | disposition home or self-care (01) ==
LOC: CCIC 12:30
PROVIDERS: Clinical Nurse Specialist; PCP Physician Assistant Medical; Referring Provider Physician Assistant Medical; Visit Provider Internal Medicine Hematology & Oncology
DX: Z51.11 Encounter for antineoplastic chemotherapy (principal); D47.2 Monoclonal gammopathy; R77.9 Abnormality of plasma protein, unspecified; R97.21 Rising PSA following treatment for malignant neoplasm of prostate
CPT/HCPCS: 36415; 80048; 80053; 81003; 81015; 82232; 82784; 83036; 83520; 83615; 84153; 84155; 84156; 84165; 84550; 85025; 86334; 86335; 87086; 87635; 96360; 96401; 99202; 99205; 99211; 99212; 99213; 99214; 99215; J7030; J9041

== ENCOUNTER 2023-10-19 10:25 | Outpatient (CLI) | payer MEDICARE, BC, SELFPAY ==
--- OUTSIDE RECORDS SUMMARY | 2023-10-19 10:28 | XMS_ITS | Data Portability ---
Author Name Unknown Address [address] [place] [address] Phone [phone] Organization [facility], [facility] Address [address] [place] [address] Care Team Providers Care Paper Rewinder Operator Name Role Phone STANLEY CARDOSO Primary Care Provider [phone] Assessment Encounter Date Assessment Date Assessment LastModified by Organization Details LastModified Time 11/10/2021 11/10/2021 76 year old male with an elevated PSA Not available 11/10/2021 11:27:12 03/11/2022 03/11/2022 76 male with an elevated prostate specific antigen here for Uronav biopsy Not available 03/11/2022 14:05:23 Plan of Treatment Reminders Order Date Submit Date Provider Last Modified By Organization Details Last Modified Time Details Appointments None recorded. Lab biopsy, prostate 2021 [facility], [address], [place] [address], [address], 15:36:13 urinalysis, dipstick 2021 022 [facility], [address], [address], [place], [address], 16:57:47 Referral None recorded. Procedures None recorded. Surgeries None recorded. Imaging MRI, prostate, w/wo contrast - Please call patient to schedule 2021 022 [facility], [address] [place], [address], 18:08:46 Medication Orders finasteride 5 mg tablet [facility] [address] [place], [address], 3 12:07:55 ceftriaxone 1 gram solution for injection 2021 022 [email or web address] 9 Count Includes [facility] [address], [address] [place], [address], 4 10:47:48 lidocaine (PF) 10 mg/mL (1 %) injection solution 2021 022 [email or web address] 9 Count Includes [facility] [address], [address] [place], [address], 4 10:47:45 Patient TargetsNo targets recorded. Patient Instructions Encounter Date Encounter Id Patient Instructions Last Modified By Organization Details Last Modified Time 10/11/2023 [id number] continue on finasteride and plan rtc in April with PSA for PARKER and med refill. [email or web address] Not available 10/11/2023 10:54:16 04/07/2023 [id number] will start on finasteride and plan get PSA done in about 6 months at PCP clinic. [email or web address] Not available 04/07/2023 12:06:55 03/11/2022 [id number] The patient tolerated the procedure well. We discussed that he can expect to have blood coating the stool for a few days, pink or reddish urine which may be normal, and rust colored ejaculate for up to one month. We discussed important warning signs such as fevers >100.4 which may be indicative of sepsis, worsening blood in the urine with clots and urinary retention, or worsening blood per rectum. In each other these circumstances he should contact the office immediately or go to the Emergency Department. He will be contacted with the results of his biopsy. If he does not receive these results within 5-7 business days he should contact our office. Not available 03/11/2022 14:05:30 Reason for Referral None Reported. Results Created Date Observation Date Name Description Value Unit Range Abnormal Flag LastModifiedBy Organization Detail LastModifiedTime 11/10/19 22 11/10/2021 UA DIP CS ADVAN TUS color -advantus yellow yellow Not Available [facility] [address] [facility] [address], [place], [address], 11/10/2021 16:57:47 11/10/19 22 11/10/2021 UA DIP CS ADVAN TUS appearance -advantus cloudy clear abnormal Not Available [facility] [address] [facility] [address], [place], [address], 11/10/2021 16:57:47 11/10/19 22 11/10/2021 UA DIP CS ADVAN TUS glucose -advantus negati ve mg/dL negati ve Not Available [facility] [address] [place] [address], [place], [address], 11/10/2021 16:57:47 11/10/19 22 11/10/2021 UA DIP CS ADVAN TUS bilirubin -advantus negati ve negati ve Not Available [facility] [address] [place] [address] [address], [place], [address], 11/10/2021 16:57:47 11/10/19 22 11/10/2021 UA DIP CS ADVAN TUS ketones -advantus negati ve mg/dL negati ve Not Available [facility] [address] [facility] [address], [place], [address], 11/10/2021 16:57:47 11/10/19 22 11/10/2021 UA DIP CS ADVAN TUS sp. gravity -advantus >=1.03 0 1.010- 1.025 Not Available [facility] [address] [place] [address] [address], [place], [address], 11/10/2021 16:57:47 11/10/19 22 11/10/2021 UA DIP CS ADVAN TUS pH -advantus 5.0 5.0-8. 0 Not Available [facility] [address] [facility] [address], [place], [address], 11/10/2021 16:57:47 11/10/19 22 11/10/2021 UA DIP CS ADVAN TUS protein -advantus negati ve mg/dL negati ve Not Available [facility] [address] [place] [address] [address], [place], [address], 11/10/2021 16:57:47 11/10/19 22 11/10/2021 UA DIP CS ADVAN TUS urobilinogen -advantus 0.2 normal Not Available [facility] [address] [place] [address] [address], [place], [address], 11/10/2021 16:57:47 11/10/19 22 11/10/2021 UA DIP CS ADVAN TUS nitrites -advantus negati ve negati ve Not Available [facility] [address] [place] [address] [address], [place], [address], 11/10/2021 16:57:47 11/10/19 22 11/10/2021 UA DIP CS ADVAN TUS blood -advantus negati ve negati ve Not Available [facility] [address] [place] [address] [address], [place], [address], 11/10/2021 16:57:47 11/10/19 22 11/10/2021 UA DIP CS ADVAN TUS leukocytes -advantus negati ve negati ve Not Available [facility] [address] [place] [address] [address], [place], [address], 11/10/2021 16:57:47 11/10/19 22 11/10/2021 UA DIP CS ADVAN TUS performed by va X Not Available [facility] [address] [place] [address] [address], [place], [address], 11/10/2021 16:57:47 11/10/19 22 11/10/2021 UA DIP CS ADVAN TUS total urine volume (mL) 35 /mL Not Available [facility] [address] [facility] [address], [place], [address], 11/10/2021 16:57:47 11/10/19 22 11/10/2021 PSA, total , serum or plasm a PSA 1.94 Not Available [facility] [address] [place], [address], 11/12/2021 09:12:23 11/20/19 22 11/20/2021 MRI, prost ate, w/wo contr ast No observ ation record ed. Jamshid Ramírez MD [address] [place], [address], 11/20/2021 18:19:36 11/24/19 22 11/20/2021 MRI, abdom en + pelvi s, w/wo contr ast No observ ation record ed. Not Available 11/24/2021 12:08:20 04/22/20 23 04/07/2023 bladd er scan (PROC ) No observ ation record ed. BARCODE Not Available 04/22/2023 12:26:10 Result Notes None recorded. Problems Name Status Onset Date Resolution Date Notes Provider Name and Address Organization Details Recorded Time Type 2 diabetes mellitus Active Ele marie [facility] 11/10/2021 10:51:10 Prostate specific antigen above reference range Active 3 Jamshid Mann MD [address] [place] [address],[address] [place] [address], [address], [facility] 04/07/2023 12:06:20 Problem Notes None recorded. Procedures Surgical History Date Name Laterality Status Provider Name and Address Organization Details Recorded Time 04/07/20 23 Bladder Scan completed Jamshid Mann MD [address] [place] [address],[address], [address], [facility] 04/07/2023 11:53:31 03/11/20 22 Prostate Biopsy Procedure completed Kemar Lujan MD [address] [place] [address],[address], [place], [address], [facility] 03/11/2022 14:05:02 03/11/20 22 URONAV completed Kemar Lujan MD [address] [facility],[address], [place], [address], [facility] 03/11/2022 14:04:59 03/11/20 22 Rocephin/Ceftri axone completed Meena Fontaine null, [facility] 03/11/2022 12:50:39 11/10/19 22 Bladder Scan completed Ele Mcclelland null, [facility] 11/10/2021 10:54:52 01/05/20 12 Diagnostic colonoscopy completed Not Available Health Note 01/11/2022 11:59:25 Hernia Repair completed Not Available Health Not e 01/11/2022 11:59:25 vasectomy completed Not Available Health Note 11:59:25 Removal of sperm duct(s) completed Not Available Health Note 01/11/2022 11:59:25 Hernia repair w/mesh completed Not Available Health Note 01/11/2022 11:59:25 Imaging Results Imaging Date Name Status LastModified by Organiz ation Details LastModified Time 11/20/2021 MRI, prostate, w/wo contrast completed Jamshid Ramírez MD [address] [place] [address], [address], 11/20/2021 18:19:36 11/20/2021 MRI, abdomen + pelvis, w/wo contrast completed Information not available 11/24/2021 12:08:20 04/07/2023 bladder scan (PROC) completed BARCODE Information not available 04/22/2023 12:26:10 Procedure Notes None recorded. Medical Equipment None Reported. Allergies No known drug allergies Medications Name Sig Start Date Stop Date Status Note LastModified by Organization Details LastModified Time vitamin b12 1000mcg tr tab TAKE 1 TABLET BY MOUTH ONCE DAILY active Not Available Not Available No t Available metformin 500 mg tablet 10/11 completed Not Available Not Available Not Available cyanocobala min (vit B-12) ER 1,000 mcg tablet,exte nded release TAKE 1 TABLET BY MOUTH ONCE DAILY 10/11 completed Not Available Not Available Not Available fluticasone 250 mcg-salmete rol 50 mcg/dose blistr powdr for inhalation 11/10 completed Not Available Not Available Not Available prednisone 10 mg tablet TAKE 4 TABLETS BY MOUTH ONCE DAILY FOR 2 DAYS AND THEN 3 ONCE DAILY FOR 3 DAYS AND THEN 2 ONCE DAILY FOR 3 DAYS AND THEN 1 ONCE DAILY FOR 2 DAYS 10/11 completed Not Available Not Available Not Available cyclophosph amide 50 mg tablet TAKE 1 TABLET BY MOUTH ONCE DAILY active Not Available Not Available No t Available sildenafil 50 mg tablet TAKE 1 TABLET BY MOUTH ONCE DAILY NEEDED FOR SEXUAL ACTIVITY, ADMINISTE R 30 MINUTES TO 4 HOURS BEFORE ACTIVITY. 10/11 completed Not Available Not Available Not Available azithromyci n 250 mg tablet TAKE 2 TABLETS BY MOUTH ON DAY 1, AND THEN TAKE 1 TABLET BY MOUTH ONCE A DAY ON DAY 2 THROUGH DAY 5 10/11 completed Not Available Not Available Not Available benzonatate 200 mg capsule TAKE 1 CAPSULE BY MOUTH 2-3 TIMES DAILY NEEDED FOR COUGH. 10/11 completed Not Available Not Available Not Available sulfamethox azole 400 mg-trimetho prim 80 mg tablet TAKE 1 TABLET BY MOUTH THREE TIMES A WEEK ON Tuesday AND TUESDAY active Not Available Not Available No t Available hydrocodone 5 mg-acetamin ophen 325 mg tablet TAKE 1 TABLET BY MOUTH EVERY 6 HOURS NEEDED FOR PAIN 10/11 completed Not Available Not Available Not Available prednisone 20 mg tablet TAKE 2 TABLETS BY MOUTH EVERY DAY 10/11 completed Not Available Not Available Not Available amlodipine 5 mg tablet TAKE 1 TABLET BY MOUTH ONCE DAILY FOR BLOOD PRESSURE 10/11 completed Not Available Not Available Not Available acyclovir 400 mg tablet TAKE 1 TABLET BY MOUTH TWICE DAILY active Not Available Not Available No t Available ciprofloxac in 500 mg tablet Take 1 tablet as needed by oral route. 10/11 completed Not Available Not Available Not Available sildenafil 100 mg tablet TAKE 1 TABLET BY MOUTH ONCE DAILY NEEDED FOR SEXUAL ACTIVITY. ADMINISTE R 30 MINUTES TO 4 HOURS BEFORE SEXUAL ACTIVITY. 10/11 completed Not Available Not Available Not Available ceftriaxone 1 gram solution for injection 1gram injected prior to procedure 10/11 completed Not Available Not Available Not Available pravastatin 10 mg tablet TAKE 1 TABLET BY MOUTH ONCE DAILY AT BEDTIME FOR CHOLESTER OL active Not Available Not Available No t Available benzonatate 100 mg capsule TAKE 1 CAPSULE BY MOUTH 2 TO 3 TIMES DAILY NEEDED FOR COUGH 10/11 completed Not Available Not Available Not Available ferrous sulfate 325 mg (65 mg iron) tablet TAKE 1 TABLET BY MOUTH ONCE DAILY FOR ANEMIA 10/11 completed Not Available Not Available Not Available metformin 1,000 mg tablet TAKE 1 TABLET BY MOUTH ONCE DAILY active Not Available Not Available No t Available dexamethaso ne 4 mg tablet TAKE 1 TABLET BY MOUTH IN THE MORNING active Not Available Not Available No t Available fluorometho lone 0.1 % eye drops,suspe nsion INSTILL 1 DROP INTO EACH EYE THREE TIMES DAILY 10/11 completed Not Available Not Available Not Available indomethaci n 50 mg capsule 10/11 completed Not Available Not Available Not Available omeprazole 20 mg capsule,del ayed release TAKE 1 CAPSULE BY MOUTH ONCE DAILY ABOUT 30 MINUTES PRIOR TO BREAKFAST 10/11 completed Not Available Not Available Not Available aspirin 81 mg chewable tablet CHEW AND SWALLOW 1 TABLET BY MOUTH EVERY DAY 10/11 completed Not Available Not Available Not Available finasteride 5 mg tablet TAKE 1 TABLET BY MOUTH ONCE DAILY FOR 90 DAYS active Not Available Not Available No t Available amoxicillin 875 mg-potassiu m clavulanate 125 mg tablet TAKE 1 TABLET BY MOUTH TWICE DAILY FOR 10 DAYS 10/11 completed Not Available Not Available Not Available Ventolin HFA 90 mcg/actuati on aerosol inhaler INHALE 2 PUFFS BY MOUTH EVERY 4 HOURS NEEDED 10/11 completed Not Available Not Available Not Available tobramycin 0.3 %-dexametha sone 0.1 % eye drops,suspe nsion INSTILL 1 DROP INTO EACH EYE 4 TIMES DAILY 10/11 completed Not Available Not Available Not Available lidocaine (PF) 10 mg/mL (1 %) injection solution 2.1mL reconstit uted with ceftriaxo ne 10/11 completed Not Available Not Available Not Available calcium carb-vit D3-minerals 600 mg calcium-400 unit tablet TAKE 1 TABLET BY MOUTH TWICE A DAY. active Not Available Not Available No t Available olopatadine 0.2 % eye drops INSTILL 1 DROP INTO EACH EYE ONCE DAILY 10/11 completed Not Available Not Available Not Available Lantus Solostar U-100 Insulin 100 unit/mL (3 mL) subcutaneou s pen INJECT 25 UNITS SUBCUTANE OUSLY ONCE DAILY AT BEDTIME active Not Available Not Available No t Available Ferretts 325 mg (106 mg iron) tablet TAKE 1 TABLET BY MOUTH ONCE DAILY FOR ANEMIA active Not Available Not Available No t Available Accu-Chek Guide test strips USE 1 TO 3 STRIPS TO CHECK GLUCOSE DAILY active Not Available Not Available No t Available BD Ultra-Fine Micro Pen Needle 32 gauge x 1/4 USE DIRECTED THREE TIMES DAILY WITH MEAL TIME INSULIN active Not Available Not Available No t Available Dexcom G6 Sensor device DIRECTED CONTINUOU S FOR DIABETES active Not Available Not Available No t Available Dexcom G6 Fire Protection Designer DIRECTED FOR CONTINUOU S GLUCOSE MONITORIN G. active Not Available Not Available No t Available Dexcom G6 Transmitter device DIRECTED CONTINUOS FOR DIABETES. active Not Available Not Available No t Available Accu-Chek Fastclix Lancet Drum USE 1 TO CHECK GLUCOSE TWICE DAILY active Not Available Not Available No t Available Novolin R FlexPen 100 unit/mL (3 mL) subcutaneou s insulin pen INJECT 3 UNITS SUBCUTANE OUSLY THREE TIMES DAILY 15-30 MINUTES BEFORE A MEAL IF BLOOD SUGAR IS >70 active Not Available Not Available No t Available BinaxNOW COVID-19 Ag Self Test kit Use as Directed on the Package 10/11 completed Not Available Not Available Not Available Paxlovid 300 mg (150 mg x 2)-100 mg tablets in a dose pack TAKE 3 TABLETS TOGETHER (TWO 150 MG NIRMATREL VIR TABLETS AND ONE 100 MG RITONAVIR TABLET) BY MOUTH TWICE DAILY FOR 5 DAYS. 10/11 completed Not Available Not Available Not Available Vitals Date Recorded Body height Body mass index (BMI) Body weight Provider Name and Address Organization Details Last Updated DateTime 04/07/2023 177.8 cm 33 kg/m2 793420.25 g Jamshid Mann MD [address] [place] [address],[address], [address], [place] [facility] 04/07/2023 11:54:14 Date Recorded Body height Body mass index (BMI) Body weight Provider Name and Address Organization Details Last Updated DateTime 10/11/2023 177.8 cm 21.5 kg/m2 66402.86 g Jamshid Mann MD [address] [place] [address],[address], [address] 10/11/2023 10:44:48 Date Recorded Body weight Body height Body mass index (BMI) Provider Name and Address Organization Details Last Updated DateTime 01/12/2022 22472.47489 15232 g 180.34 cm 29.3 kg/m2 Not Available Health Note 01/12/2022 09:05:37 Date Recorded Heart rate Systolic blood pressure Diastolic blood pressure Provider Name and Address Organization Details Last Updated DateTime 03/11/2022 63 /min 158 mm[Hg] 87 mm[Hg] Meena Zhen [facility] 03/11/2022 12:50:55 Social History Question Answer Notes LastModified by Organizat ion Details LastModified Time Tobacco Smoking Status Never Smoker Not Available Health Note 01/11/2022 11:59:26 What Is Your Level Of Alcohol Consumption? None Information not available 01/12/2022 What Is Your Level Of Caffeine Consumption? None [email or web address] Information not available 01/11/2022 How Much Tobacco Do You Chew? None [email or web address] Information not available 01/11/2022 Are You Currently Employed? No Information not available 11/10/2021 Do You Or Have You Ever Used E-cigarettes Or Vape? Never Used Electronic Cigarettes [email or web address] Information not available 01/11/2022 What Was The Date Of Your Most Recent Tobacco Screening? 01/12/2022 [email or web address] Information not available 01/11/2022 What Is Your Relationship Status? Domestic Partner Information not available 11/10/2021 Do You Or Have You Ever Used Smokeless Tobacco? Never Used Smokeless Tobacco [email or web address] Information not available 01/11/2022 Do You Use Any Illicit Or Recreational Drugs? No [email or web address] Information not available 01/11/2022 Has Tobacco Cessation Counseling Been Provided? Yes Information not available 01/12/2022 On What Date Was Tobacco Cessation Counseling Provided? 01/12/2022 Information not available 01/12/2022 Do You Or Have You Ever Used Any Other Forms Of Tobacco Or Nicotine? No Information not available 11/10/2021 Sex: Male Functional Status None recorded. Mental Status None recorded. Family History Nothing Reported. Medical History Condition Response Other N High Blood Pressure N Kidney Stones N Lung Disease N Depression N GERD/Acid Reflux N Sexually Transmitted Infection N Cancer N High Cholesterol N Diabetes Y Bleeding Disorder N Heart Disease N Immunizations Vaccine Type Date Status Provider Name and Address Organization Details Recorded Time SARS-COV-2 (COVID-19) vaccine, UNSPECIFIED 07/16/2021 completed Not Available Health Note 01/11/2022 11:59:30 influenza, unspecified formulation 07/20/2021 completed Not Available Health Note 01/11/2022 11:59:30 Past Encounters Encounter ID Performer Location Encounter Start Date Encounter Closed Date Diagnosis/Indication [id number] Kemar Lujan MD [facility] [address] [place] [address] 11/10/2021 08:36:50 11/10/2021 14:42:58 Prostate specific antigen above reference range [id number] Kemar Lujan MD [facility] [address] [place] [address] 03/11/2022 12:25:57 03/11/2022 14:23:20 Prostate specific antigen above reference range [id number] Meena Zhen [facility] [address] [place] [address] 03/11/2022 12:25:27 03/11/2022 13:27:03 Prostate specific antigen above reference range [id number] Jamshid Mann MD [address] [address] 04/07/2023 11:15:57 04/13/2023 09:44:11 Prostate specific antigen above reference range [id number] Jamshid Mann MD [address] [address] 10/11/2023 10:09:12 10/11/2023 10:56:49 Prostate specific antigen above reference range High grade prostatic intraepithelial neoplasia Health Concerns Section Related Observation LastModified by Organization Detai ls LastModified Time None Recorded Concern Status LastModified by Organization Details LastModified Time None Recorded Advance Directives Directive None Recorded Payers Encounter Date Sequence Insurance Name Policy Number Policy Mancuso Covered Member ID Mancuso Member ID Guarantor Name 10/11/2023 1 [place] [employer] Juan R Retana [id number] Juan R Retana 10/11/2023 2 [place] [id number] Juan R Retana [id number] Juan R Retana 04/07/2023 1 [place] [employer] Juan R Retana [id number] Juan R Retana 04/07/2023 2 [place] [id number] Juan R Retana [id number] Juan R Retana 03/11/2022 1 [place] [employer] Juan R Retana [id number] Juan R Retana 03/11/2022 2 [place] [id number] Juan R Retana [id number] Juan R Retana 03/11/2022 1 [place] [employer] Juan R Retana [id number] Juan R Retana 03/11/2022 2 [place] [id number] Juan R Retana [id number] Juan R Retana 11/10/2021 1 [place] [employer] Juan R Retana [id number] Juan R Retana 11/10/2021 2 [place] [id number] Juan Retana [id number] Juan Retana Notes Date Note Type Note Provider Name and Address Organization Details Recorded Time 11/10/2021 text/html HPI Notes: This is a 76 year old male who is referred by SHELBY Adrian for the evaluation and management of an elevated PSA. He recently underwent screening PSA as part of routine prostate cancer screening. This was noted to be elevated to 7 ng/mL. He has a prior history of PSA elevations. His PSA was 5.01 ng/mL on 10/22/2020. There is no family history of prostate cancer. Kemar Lujan MD [address] [place] [address],[address], [address], [facility] 11/10/2021 11:29:24 03/11/2022 text/html HPI Notes: This is a 76 year old male with an elevated prostate specific antigen here for Uronav prostate biopsy. He was noted to have an elevated prostate specific antigen of 7 ng/mL. He has a prior history of PSA elevations. His PSA was 5.01 ng/mL on 10/22/2020. There is no family history of prostate cancer. He underwent an MRI of the prostate with and without intravenous contrast on 11/20/2021 which revealed a PI-RADS 3 lesion in the left anterolateral transition zone. Volume: 84 mL He is here today for Uronav prostate biopsy. Kemar Lujan MD [address] [place] [address],[address], [place], [address], [facility] 03/11/2022 14:18:53 04/07/2023 text/html HPI Notes: 3: seeing for follow up had negative biopsy done last year. feels like voiding OK, no heme/dysuria. PVR 81ml today. has not had repeat PSA done. 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 did have MRI done before that showing a Pirad 3 lesion and 84g prostate. recent dx'ed with multiple myeloma. seeing oncology next week. not had PSA since the biopsy. Jamshid Mann MD [address] 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 recent PSA was down to 1.01. taking finasteride and voiding well. no heme/dysuria. rx good until April. Jamshid Mann MD [address] [place] [address],[address], [place], [address], [facility] 10/11/2023 10:56:46
--- OUTSIDE RECORDS SUMMARY | 2023-10-19 10:28 | XMS_ITS | Continuity of Care Document ---
Author Name Unknown Address [address] [place] [address] Phone [phone] Organization [facility], [facility] Address [address] [place] [address] Care Team Providers Care Mail Inserter Name Role Phone STANLEY CARDOSO Primary Care Provider [phone] Assessment No assessment recorded. Plan of Treatment Reminders Order Date Submit Date Provider Last Modified By Organization Details Last Modified Time Details Appointments None record ed. Lab None record ed. Referral None record ed. Procedures None record ed. Surgeries None record ed. Imaging None record ed. Medication Orders None record ed. Patient TargetsNo targets recorded. Patient Instructions Encounter Date Encounter Id Patient Instructions Last Modified By Organization Details Last Modified Time 10/11/2023 [id number] continue on finasteride and plan rtc in April with PSA for PARKER and med refill. [email or web address] Not available 10/11/2023 10:54:16 Reason for Referral None Reported. Problems Name Status Onset Date Resolution Date Notes Provider Name and Address Organization Details Recorded Time Type 2 diabetes mellitus Active Ele marie [facility] 11/10/2021 10:51:10 Prostate specific antigen above reference range Active 3 Jamshid Mann MD [address], [address], [facility] 04/07/2023 12:06:20 Problem Notes None recorded. Procedures Surgical History Date Name Laterality Status Provider Name and Address Organization Details Recorded Time 04/07/20 23 Bladder Scan completed Jamshid Mann MD [address] [facility], [place], [address], [facility] 04/07/2023 11:53:31 03/11/20 22 Prostate Biopsy Procedure completed Kemar Lujan MD [address], [place], [address], [facility] 03/11/2022 14:05:02 03/11/20 22 URONAV completed Kemar Lujan MD [address], [place], [address], [facility] 03/11/2022 14:04:59 03/11/20 22 Rocephin/Antoniettai axone completed Meena Fontaine null, [facility] 03/11/2022 12:50:39 11/10/19 22 Bladder Scan completed Eleanne Mcclelland null, [facility] 11/10/2021 10:54:52 01/05/20 12 Diagnostic colonoscopy completed Not Available Health Note 01/11/2022 11:59:25 Hernia Repair completed Not Available Health Not e 01/11/2022 11:59:25 vasectomy completed Not Available Health Note 11:59:25 Removal of sperm duct(s) completed Not Available Health Note 01/11/2022 11:59:25 Hernia repair w/mesh completed Not Available Health Note 01/11/2022 11:59:25 Imaging Results None recorded. Procedure Notes None recorded. Medical Equipment None [...] Not Available No t Available Dexcom G6 Metal Ceiling Hanger DIRECTED FOR CONTINUOU S GLUCOSE MONITORIN G. [...] Updated DateTime 10/11/2023 177.8 cm 21.5 kg/m2 33564.86 g Jamshid Mann MD [address] [place] [address], [id number] 10/11/2023 10:44:48 Social History Question Answer Notes LastModified by [...] History Nothing Reported. Medical History Condition Response Sexually Transmitted Infection N Diabetes Y Other N Bleeding Disorder N High Blood Pressure N Kidney Stones N High Cholesterol N GERD/Acid Reflux N Heart Disease N Cancer N Lung Disease N Depression N Immunizations Vaccine Type Date Status Provider Name and Address Organization Details Recorded Time SARS-COV-2 (COVID-19) vaccine, UNSPECIFIED 07/16/2021 completed Not Available Health Note 01/11/2022 11:59:30 influenza, unspecified formulation 07/20/2021 completed Not Available Health Note 01/11/2022 11:59:30 Past Encounters Encounter ID Performer Location Encounter Start Date Encounter Closed Date Diagnosis/Indication [id number] Jamshid Mann MD [place] [address] [place] [address] 10/11/2023 10:09:12 10/11/2023 10:56:49 Prostate specific antigen above reference range High grade prostatic intraepithelial neoplasia Health Concerns Section Related Observation LastModified by Organization Detai ls LastModified Time None Recorded Concern Status LastModified by Organization Details LastModified Time None Recorded Payers Encounter Date Sequence Insurance Name Policy Number Policy Mancuso Covered Member ID Mancuso Member ID Guarantor Name 10/11/2023 1 [place] [employer] Juan Retana [id number] Juan Retana 10/11/2023 2 [place] [id number] Juan Retana [id number] Juan Retana Notes Date Note Type Note Provider Name and Address Organization Details Recorded Time 10/11/2023 text/html HPI Notes: follo w up PSA check, had [facility] on biopsy done 03/2022 when PSA was 1.94. recent PSA was down to 1.01. taking finasteride and voiding well. no heme/dysuria. rx good until April. Jamshid Mann MD [address] [place] [address],[address], [place], [address], [facility] 10/11/2023 10:56:46
== END 2023-10-19 10:26 | disposition home or self-care (01) ==
LOC: LKVREF 10:26
PROVIDERS: PCP Physician Assistant Medical; Visit Provider Physician Assistant Medical
DX: R60.0 Localized edema (principal); I10 Essential (primary) hypertension; E11.9 Type 2 diabetes mellitus without complications
CPT/HCPCS: 83880

== ENCOUNTER 2023-11-25 09:45 | Emergency (ER) | payer MEDICARE, BC, SELFPAY ==
[2023-11-25 09:56] VITALS: BP 100/68; PULSE 101; RESP 16; TEMP 36.2; O2SAT 95; BMI 32.3
--- NOTE | 2023-11-25 10:56 | US_ITS ---
Patient: FRANNY ISRAEL Facility:?[facility] Patient ID:?[id number] Site Patient ID:?[id number]. Site :?[id number] Study:?US-Extremity -11/25/2023 11:55:43 AM Ordering Physician:?Pasquale Nunes Final Report: INDICATION: Bilateral swelling COMPARISON: 10/17/2023 TECHNIQUE: A compression venous ultrasound exam was performed of both lower extremities using dominguez scale imaging, color Doppler and spectral Doppler analysis. FINDINGS: Sonographic imaging of the lower extremities demonstrates normal compressibility and color Doppler venous blood flow within the common femoral, deep femoral, and proximal greater saphenous veins. Within the thighs the femoral veins are patent and compressible. At a lower level the popliteal and posterior tibial veins also show normal compressibility and color Doppler venous blood flow. IMPRESSION: Normal venous ultrasound exam. No evidence of deep vein thrombosis within either the left or right lower extremity. Dictated by Júnior Austin MD @ 11/25/2023 11:59:45 AM Signed by:?Júnior Austin MD @11/25/2023 11:59:45 AM (Electronic Signature)
--- NOTE | 2023-11-25 11:17 | ED_ITS ---
HPI - General Adult General Chief complaint: Lower Extremity Swelling Stated complaint: Legs swelling, lump on L leg Time Seen by Provider: 11/25/23 10:49 Source: patient and family Mode of arrival: ambulatory Limitations: no limitations History of Present Illness HPI narrative: Patient is a 78-year-old male presenting to the emergency department for bilateral lower extremity swelling and cramping. he is here with his . His is giving most of the history. He received another round of chemotherapy on Tuesday and since then they have noticed increased swelling to his lower extremities along with muscle cramping. He had similar symptoms a month ago but then they went away. They also noticed what appeared to be a lump on his left leg that has since gone away. Patient has not been complaining a.m. of anything else. Denies chest pain, shortness of breath, headache, lightheadedness, dizziness, weakness, numbness, abdominal pain test fevers, chills. He has no history of blood clots. Is currently on Eliquis. He is being treated for multiple myeloma. Related Data Home Medications Medication Instructions Recorded Confirmed finasteride 5 mg tablet 5 mg PO DAILY 04/07/23 11/25/23 diphenhydramine 25 2 tab PO QHS PRN 08/01/23 11/21/23 mg-acetaminophen 500 mg tablet (Tylenol PM Extra Strength) insulin glargine 100 unit/mL (3 33 unit subcut HS 08/08/23 11/21/23 mL) subcutaneous pen fluticasone 250 mcg-salmeterol 50 1 inh inhalation BID 11/07/23 11/25/23 mcg/dose blistr powdr for inhalation (Advair Diskus) metformin 1,000 mg tablet 1,000 mg PO QDAY 11/07/23 11/25/23 dexamethasone 4 mg tablet 4 mg PO QAM 11/17/23 11/25/23 furosemide 40 mg tablet 40 mg PO QAM swelling 11/25/23 11/25/23 Previous Rx's Medication Instructions Recorded insulin regular human 100 unit/mL 3 unit (0.03 mL) subcut TID #15 mL 08/09/23 (3 mL) subcutaneous pen (Novolin R FlexPen) pen needle, diabetic 31 gauge x #100 ea 08/09/2310/06 (CareFine Pen Needle) blood-glucose sensor (Dexcom G6 #9 ea 09/01/23 Sensor device) blood-glucose transmitter (Dexcom #1 ea 09/01/23 G6 Transmitter device) pravastatin 10 mg tablet 10 mg PO HS #90 tabs 09/01/23 acyclovir 400 mg tablet 400 mg PO BID #120 tabs 09/12/23 aspirin 81 mg chewable tablet 81 mg PO QDAY #90 tabs 09/12/23 (Rk Chewable Low Dose Aspirin) calcium carb-vit D3-minerals 600 1 tab PO BID #120 tabs 09/12/23 mg calcium-400 unit tablet cyclophosphamide 50 mg tablet 50 mg PO QDAY #60 tabs 09/12/23 insulin glargine-yfgn 100 unit/mL 33 unit (0.33 mL) subcut QDAY #15 09/21/23 (3 mL) subcutaneous pen (Semglee mL (insulin glargine-yfgn) Pen) blood-glucose meter,continuous #1 ea 10/05/23 (Dexcom G6 Security Infrastructure Engineer) apixaban 2.5 mg tablet 2.5 mg PO BID #60 tabs 10/24/23 albuterol sulfate 90 mcg/actuation 2 puff inhalation Q4-6H PRN 10/31/23 aerosol inhaler shortness of breath or wheezing #8.5 grams mometasone-formoterol HFA 100 2 puff inhalation BID #13 grams 11/03/23 mcg-5 mcg/actuation aerosol inhaler (Dulera) cyanocobalamin (vitamin B-12) 1,000 mcg PO DAILY #90 tabs 11/09/23 1,000 mcg tablet,extended release dulaglutide 0.75 mg/0.5 mL 0.75 mg (0.5 mL) subcut QWEEK #2 mL 11/09/23 subcutaneous pen injector ([facility]) omeprazole 20 mg capsule,delayed 20 mg PO QDAY #30 caps 11/09/23 release peg 3350-electrolytes 236 240 ml PO Q10M #4,000 mL 11/11/23 gram-22.74 gram-6.74 gram-5.86 gram solution (Golytely) levofloxacin 500 mg tablet 500 mg PO Q24H #7 tabs 11/15/23 sulfamethoxazole 400 1 tab PO 3XW #12 tabs 11/16/23 mg-trimethoprim 80 mg tablet (Bactrim) Allergies Allergy/AdvReac Type Severity Reaction Status Date / Time pollen extracts Allergy Intermediate Congested Verified 11/21/23 09:20 house dust Allergy Verified 11/21/23 09:20 iron AdvReac Intermediate diarrhea Verified 11/21/23 09:20 [facility] Medical History COVID ?U07.1 - COVID-19 (ICD-10) Hoarseness of voice (~06/2022) ?R49.0 - Dysphonia (ICD-10) Tubular adenoma ?D36.9 - Benign neoplasm, unspecified site (ICD-10) Gallbladder disease ?K82.9 - Disease of gallbladder, unspecified (ICD-10) Right temporal headache ?R51.9 - Headache, unspecified (ICD-10) Lymphadenopathy ?R59.1 - Generalized enlarged lymph nodes (ICD-10) Insulin dependent type 2 diabetes mellitus ?E11.9 - Type 2 diabetes mellitus without complications (ICD-10) ?Z79.4 - manager terminal (current) use of insulin (ICD-10) Hyperlipidemia ?E78.5 - Hyperlipidemia, unspecified (ICD-10) History of basal cell carcinoma (BCC) ?Z85.828 - Personal history of other malignant neoplasm of skin (ICD-10) Anemia (01/2022) ?D64.9 - Anemia, unspecified (ICD-10) B12 deficiency ?E53.8 - Deficiency of other specified B group vitamins (ICD-10) Never smoker COVID-19 (~01/27/22) ?U07.1 - COVID-19 (ICD-10) Gout ?M10.9 - Gout, unspecified (ICD-10) Elevated PSA ?R97.20 - Elevated prostate specific antigen [PSA] (ICD-10) Basal cell carcinoma ?C44.91 - Basal cell carcinoma of skin, unspecified (ICD-10) Asthma ?J45.909 - Unspecified asthma, uncomplicated (ICD-10) Surgical History History of cholecystectomy (~2021) ?Z90.49 - Acquired absence of other specified parts of digestive tract (ICD- 10) Status post right hemicolectomy ?Z90.49 - Acquired absence of other specified parts of digestive tract (ICD- 10) History of hernia repair ?Z98.890 - Other specified postprocedural states (ICD-10) ?Z87.19 - Personal history of other diseases of the digestive system (ICD-10) Social History Narrative: non-smoker Highest level of school completed/degree received: high school graduate Smoking Status: Never smoker How often do you have a drink containing alcohol: never How often do you have six or more drinks on one occasion: Never AUDIT-C Alcohol total score: 0 Non-prescribed substance use: denies use Caffeine: No Little interest or pleasure in doing things: more than half the days Feeling down, depressed, or hopeless: not at all service: Yes Exam Narrative: Exam Narrative: Const: Well-nourished, Well-developed, in mild distress Eyes: PERRL, no conjunctival injection, and symmetrical lids HENT: Atraumatic external nose and ears. Moist mucous membranes. Neck: Symmetric, trachea midline, No thyromegaly. CVS: RRR, No murmurs or gallops. Peripheral pulses 2+ and equal in all extremities, +2 bilateral lower extremity pitting edema slightly worse on the left up to mid lower leg RESP: Unlabored respiratory effort. Clear to auscultation bilaterally. GI: Nontender/Nondistended, No rebound or guarding. MSK:Extremities w/o deformity, Normal Active ROM Skin: Warm, Dry. No rashes or lesions. Neuro: Normal Muscle tone, No focal neurological deficits. Psych: Awake, Alert, & Oriented x3. Appropriate mood and affect. Const: Vital Signs, click to edit/add: Vital Signs - 24 hr 11/25/23 09:56 Temperature 97.1 F L Pulse Rate [Pulse Oximeter] 101 H Respiratory Rate 16 Blood Pressure [Ri ght Upper Arm] 100/68 Pulse Oximetry 95 Oxygen Delivery Me thod Room Air Course Vital Signs Vital signs: Initial Vital Signs Temperature 97.1 F L 11/25/23 09:56 Temperature Source Temporal Artery Scan 11/25/23 09:56 Pulse Rate 101 H 11/25/23 09:56 Respiratory Rate 16 11/25/23 09:56 Blood Pressure 100/68 11/25/23 09:56 Blood Pressure Mean 78 11/25/23 09:56 Blood Pressure Position Sitting 11/25/23 09:56 Pulse Oximetry 95 11/25/23 09:56 Oxygen Delivery Method Room Air 11/25/23 09:56 Vital Signs Temperature 97.1 F L 11/25/23 09:56 Pulse Rate 101 H 11/25/23 09:56 Respiratory Rate 16 11/25/23 09:56 Blood Pressure 100/68 11/25/23 09:56 Pulse Oximetry 95 11/25/23 09:56 Oxygen Delivery Method Room Air 11/25/23 09:56 Temperature 97.1 F L 11/25/23 09:56 Pulse Rate 101 H 11/25/23 09:56 Respiratory Rate 16 11/25/23 09:56 Blood Pressure 100/68 11/25/23 09:56 Pulse Oximetry 95 11/25/23 09:56 Oxygen Delivery Method Room Air 11/25/23 09:56 Medical Decision Making MDM Narrative Medical decision making narrative: Patient is a 78-year-old male presenting for lower extremity edema. He is not having any other associated symptoms. 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 Since he is on cancer medication nephrotic disease causing this is on the differential and urinalysis was ordered. Also ordered a CBC, CMP, magnesium. EKG done EKG returned showing no concerning abnormalities. His ultrasound showed no signs of a DVT. CBC shows no concerning findings. Urinalysis shows no signs of nephrotic or nephritic syndrome. His creatinine is slightly elevated compared to previous lab work. This time does not meet criteria for acute kidney injury but I did inform him and his to have close follow-up with her providers. They state they have an appointment on Tuesday and I major they knew to talk to them about his kidney function. They state they understand. At this time I cannot say definitively what is causing all of his symptoms but nothing emergent appears to be going on. Patient will be discharged home Lab Data Labs: Lab Results 11/25/23 11/25/23 Range/Units 11:25 11:47 WBC 8.58 (4.50-11.00) K/uL RBC 4.63 (4.30-5.90) m/uL Hgb 13.9 (13.5-17.5) gm/dL Hct 41.6 (37.0-53.0) % MCV 90 (80-100) fL MCH 30 (26-34) pg MCHC 33 (32-36) gm/dL RDW Coeff of Radha 16.4 H (11.5-15.5) % Plt Count 175 (140-440) K/uL Neut % (Auto) 62.3 (42.0-72.0) % Lymph % (Auto) 28.6 (20-44) % Scott % (Auto) 6.2 (0.0-11.0) % Eos % (Auto) 0.9 (0.0-7.0) % Baso % (Auto) 0.1 (0.0-3.0) % Neut # (Auto) 5.35 (1.7-7.0) K/uL Lymph # (Auto) 2.45 (0.90-2.90) K/uL Scott # (Auto) 0.50 (0.00-0.90) K/UL Eos # (Auto) 0.08 (0.00-0.50) K/uL Baso # (Auto) 0.01 (0.00-0.30) K/uL Abs Immat Gran (auto) 0.16 (0.00-0.30) K/uL Imm/Tot Granulo (auto) 1.9 % Sodium 136 (135-149) mmol/L Potassium 3.7 (3.6-5.1) mmol/L Chloride 96 (96-114) mmol/L Carbon Dioxide 28 (20-32) mmol/L Anion Gap 12 (7-15) mEq/L BUN 54 H (7-30) mg/dL Creatinine 1.6 H (0.5-1.5) mg/dL Estimated Creat Clear 39.92 Estimated GFR 44 ml/min Glucose 94 (60-115) mg/dL Calcium 9.1 (8.4-10.6) mg/dL Magnesium 1.6 (1.5-2.6) mg/dL Total Bilirubin 0.8 (0.1-1.5) mg/dL AST 21 (12-35) U/L ALT 19 (4-50) U/L Alkaline Phosphatase 58 (40-150) U/L Total Protein 6.9 (6.0-8.3) g/dL Albumin 4.0 (3.3-5.0) g/dL Urine Color Yellow (Yellow) Urine Appearance Clear (Clear) Urine pH 5.0 (5.0-8.5) Ur Specific [place] 1.015 (1.000-1.030) Urine Protein Negative (Negative) Urine Glucose (UA) Negative (Negative) Urine Ketones Negative (Negative) Urine Blood Negative (Negative) Urine Nitrite Negative (Negative) Urine Bilirubin Negative (Negative) Urine Urobilinogen 0.2 (0.2-1.0) Ur Leukocyte Esterase Negative (Negative) Urine RBC 0-2 (0-2) Urine WBC 0-2 (0-5) Ur Squamous Epith Cells Few (None-Few) Urine Bacteria None (None) Imaging Data Venous US: Radiologist's impression: Normal venous ultrasound exam. No evidence of deep vein thrombosis within either the left or right lower extremity. Dictated by Júnior Austin MD @ 11/25/2023 11:59:45 AM ECG Data Prior ECG tracings: available for review Interpretation: Normal sinus rhythm with rate 96 beats per minute, normal intervals, normal axis, no ST or T-wave abnormalities. Does appear to be a new right bundle branch block compared to previous EKG on 04/25/2023 Discharge Plan Discharge Clinical Impression: Leg edema Patient Disposition: Home, Self-Care Condition: Stable Instructions: Leg Edema (ED) Additional Instructions: You appear to have slightly worsening kidney function. Your previous lab work. This is not something we need to stay in the hospital for at this time but I do recommend close follow-up with either your oncologist or primary care provider. Return to emergency department for new worsening symptoms. Stay well hydrated as this will help with your kidney function Prescriptions: No Action cyclophosphamide 50 mg tablet 50 mg PO QDAY Qty: 60 2RF acyclovir 400 mg tablet 400 mg PO BID Qty: 120 2RF aspirin [Rk Chewable Aspirin] 81 mg tablet,chewable 81 mg PO QDAY Qty: 90 3RF calcium carbonate-vit D3-min 600 mg calcium- 400 unit tablet 1 tab PO BID Qty: 120 2RF omeprazole 20 mg capsule,delayed release(DR/EC) 20 mg PO QDAY Qty: 30 0RF Rx Instructions: take one capsule daily for stomach ache HOLD famotidine Trulicity 0.75 mg/0.5 mL pen injector 0.75 mg subcut QWEEK Qty: 2 0RF Rx Instructions: once weekly for diabetes albuterol sulfate 90 mcg/actuation HFA aerosol inhaler 2 puff inhalation Q4-6H PRN (Reason: shortness of breath or wheezing) Qty: 8.5 0RF Rx Instructions: 1 puff every 4 hours as needed for wheezing fluticasone propion-salmeterol [Advair Diskus] 250-50 mcg/dose blister with device 1 inh inhalation BID metformin 1,000 mg tablet 1,000 mg PO QDAY Rx Instructions: for diabetes finasteride 5 mg tablet 5 mg PO DAILY apixaban 2.5 mg tablet 2.5 mg PO BID Qty: 60 3RF (DME) Dexcom G6 Security Infrastructure Engineer Misc See Rx Instructions .MEDSUPPLY Qty: 1 0RF Rx Instructions: As directed for coninuous glucose monitoring levofloxacin 500 mg tablet 500 mg PO Q24H Qty: 7 0RF Patient Comments: done 11/22 sulfamethoxazole-trimethoprim [Bactrim] 400-80 mg tablet 1 tab PO 3XW Qty: 12 3RF Rx Instructions: on Sxuydx-Cfzenxsdh-Iyafxe furosemide 40 mg tablet 40 mg PO QAM diphenhydramine-acetaminophen [Tylenol PM Extra Strength] 25-500 mg tablet 2 tab PO QHS PRN dexamethasone 4 mg tablet 4 mg PO QAM Rx Instructions: DO NOT take on injection days insulin glargine 100 unit/mL (3 mL) insulin pen 33 unit subcut HS Hold Instructions: Resume on 06/05/22. Hold until oral intake is closer to normal. Rx Instructions: 33 units nightly Novolin R FlexPen 100 unit/mL (3 mL) insulin pen 3 unit subcut TID Qty: 15 0RF Rx Instructions: take 3 units, three times daily 15-30minutes before meal (if BS is greater than 70) (DME) pen needle, diabetic [CareFine Pen Needle] 31 gauge x 1/4 needle See Rx Instructions .Route Qty: 100 3RF Rx Instructions: As directed- 3 x daily with meal time insulin pravastatin 10 mg tablet 10 mg PO HS Qty: 90 0RF Rx Instructions: once daily for cholesterol (DME) Dexcom G6 Sensor Device See Rx Instructions .MEDSUPPLY Qty: 9 3RF Rx Instructions: As directed- continuous for diabetes (DME) Dexcom G6 Transmitter Device See Rx Instructions .MEDSUPPLY Qty: 1 3RF Rx Instructions: As directed continuous for diabetes insulin glargine-yfgn [Semglee(insulin glarg-yfgn)Pen] 100 unit/mL (3 mL) insulin pen 33 unit subcut QDAY Qty: 15 3RF Rx Instructions: 33 units once daily Dulera 100-5 mcg/actuation HFA aerosol inhaler 2 puff inhalation BID Qty: 13 6RF Rx Instructions: 2 puffs twice daily for asthma maintenance cyanocobalamin (vitamin B-12) 1,000 mcg tablet extended release 1,000 mcg PO DAILY Qty: 90 3RF peg 3350-electrolytes [Golytely] 236-22.74-6.74 -5.86 gram recon soln 240 ml PO Q10M Qty: 4000 0RF Rx Instructions: until fecal effluent is clear Follow Up/Referrals: Stephanie Clark PA-C [Primary Care Provider] - [facility]
[2023-11-25 11:44] LABS: Basophils Absolute Auto 0.01 K/uL (0.00-0.30); Basophils Percent Auto 0.1 % (0.0-3.0); Eosinophils Absolute Auto 0.08 K/uL (0.00-0.50); Eosinophils Percent Auto 0.9 % (0.0-7.0); Hematocrit 41.6 % (37.0-53.0); Hemoglobin* 13.9 gm/dL (13.5-17.5); Immature Granulocytes Abs Auto 0.16 K/uL (0.00-0.30); Immature Granulocytes Pct Auto 1.9 %; Lymphocytes Absolute Auto 2.45 K/uL (0.90-2.90); Lymphocytes Percent Auto 28.6 % (20-44); Mean Corpuscular HGB Conc 33 gm/dL (32-36); Mean Corpuscular Hemoglobin 30 pg (26-34); Mean Corpuscular Volume 90 fL (80-100); Monocytes Percent Auto 6.2 % (0.0-11.0); Neutrophils Absolute Auto 5.35 K/uL (1.7-7.0); Neutrophils Percent Auto 62.3 % (42.0-72.0); Platelet Count* 175 K/uL (140-440); RDW Coefficient of Variation % 16.4 % (11.5-15.5); Red Blood Count 4.63 m/uL (4.30-5.90); White Blood Count* 8.58 K/uL (4.50-11.00)
[2023-11-25 11:45] LABS: Slide Review Reflex No
[2023-11-25 11:56] LABS: Chloride* 96 mmol/L (96-114)
[2023-11-25 11:57] LABS: Appearance Urine Clear (Clear); Bilirubin Urine Negative (Negative); Blood Urine Negative (Negative); Color Urine Yellow (Yellow); Glucose Urine Negative (Negative); Ketones Urine Negative (Negative); Leukocyte Esterase Urine Negative (Negative); Nitrite Urine Negative (Negative); Protein Urine Negative (Negative); Specific Gravity Urine 1.015 (1.000-1.030); Urobilinogen Urine 0.2 (0.2-1.0)
[2023-11-25 11:57] LABS: Sodium* 136 mmol/L (135-149)
[2023-11-25 11:59] LABS: Anion Gap 12 mEq/L (7-15); Aspartate Amino Transferase* 21 U/L (12-35); Bilirubin Total* 0.8 mg/dL (0.1-1.5); Blood Urea Nitrogen* 54 mg/dL (7-30); Carbon Dioxide* 28 mmol/L (20-32); Creatinine* 1.6 mg/dL (0.5-1.5); Est. Creatinine Clearance* 39.92; Estimated Glomerular Filt Rate 44 ml/min; Potassium* 3.7 mmol/L (3.6-5.1); Total Protein* 6.9 g/dL (6.0-8.3)
[2023-11-25 12:00] LABS: Alanine Aminotransferase* 19 U/L (4-50); Alkaline Phosphatase* 58 U/L (40-150); Calcium* 9.1 mg/dL (8.4-10.6); Glucose* 94 mg/dL (60-115); Magnesium* 1.6 mg/dL (1.5-2.6)
[2023-11-25 12:01] LABS: RBC Urine 0-2 (0-2); Squamous Epithelial Cell Urine Few (None-Few); WBC Urine 0-2 (0-5)
[2023-11-25 12:10] VITALS: BP 138/90; PULSE 96; RESP 16; O2SAT 95
== END 2023-11-25 12:14 | disposition home or self-care (01) ==
PROVIDERS: Emergency Provider Student in an Organized Health Care Education/Training Program; PCP Physician Assistant Medical
DX: R60.0 Localized edema (principal)
CPT/HCPCS: 36415; 80053; 81001; 83735; 85025; 93005; 93970; 99283; 99284

== ENCOUNTER 2024-02-10 11:30 | Emergency (ER) | payer MEDICARE, BC, SELFPAY ==
[2024-02-10 11:40] VITALS: BP 158/97; PULSE 92; RESP 20; TEMP 37.3; O2SAT 95
--- NOTE | 2024-02-10 11:56 | XR_ITS ---
Patient: FRANNY ISRAEL Facility:?[facility] Patient ID:?[id number] Site Patient ID:?[id number]. Site :?[id number] Study:?XRay-Knee BI-02/10/2024 12:18:51 PM Ordering Physician:HARI Final Report: INDICATION: Left knee pain with weight-bearing. TECHNIQUE: Bilateral standing knee radiograph one view. COMPARISON: None. FINDINGS: Mild bilateral degenerative changes greatest in the medial compartments with mild medial compartment narrowing. Single view shows no acute or other osseous abnormality. Soft tissues as imaged are unremarkable. IMPRESSION: Knee osteoarthritis. Dictated by Herrera Mercado MD @ 02/10/2024 12:34:10 PM Signed by:?Herrera Mercado MD @02/10/2024 12:34:10 PM (Electronic Signature)
--- NOTE | 2024-02-10 11:57 | ED.GENADULT ---
HPI - General Adult General Chief complaint: Extremity Pain/Injury, Lower Stated complaint: leg pain Time Seen by Provider: 02/10/24 11:41 History of Present Illness HPI narrative: This 78-year-old male comes in reporting pain in his left knee over the past few days. He actually states that he has been having some joint aches and pains but it became much worse recently. He does not report any injury event or strenuous activity to trigger this. He does have a history of multiple myeloma and is in ongoing treatment with improved blood results according to the patient's . He states that the pain is distinctly worse in his left knee when bearing weight. He has been taking Tylenol on occasion for the pain. Related Data Home Medications Medication Instructions Recorded Confirmed finasteride 5 mg tablet 5 mg PO DAILY 04/07/23 02/10/24 metformin 1,000 mg tablet 1,000 mg PO QDAY 11/07/23 02/10/24 famotidine 20 mg tablet 20 mg PO BID 01/23/24 02/10/24 bortezomib 3.5 mg injection powder 2.9 mg subcut QWEEK 02/10/24 02/10/24 for solution (Velcade) sfphhachyvy-yhrtwutreslun-bzub subcut Q2W 02/10/24 Previous Rx's Medication Instructions Recorded pen needle, diabetic 31 gauge x #100 ea 08/09/2310/06 (CareFine Pen Needle) acyclovir 400 mg tablet 400 mg PO BID #120 tabs 09/12/23 aspirin 81 mg chewable tablet 81 mg PO QDAY #90 tabs 09/12/23 (Rk Chewable Low Dose Aspirin) calcium carb-vit D3-minerals 600 1 tab PO BID #120 tabs 09/12/23 mg calcium-400 unit tablet apixaban 2.5 mg tablet 2.5 mg PO BID #60 tabs 10/24/23 cyanocobalamin (vitamin B-12) 1,000 mcg PO DAILY #90 tabs 11/09/23 1,000 mcg tablet,extended release sulfamethoxazole 400 1 tab PO 3XW #12 tabs 11/16/23 mg-trimethoprim 80 mg tablet (Bactrim) pravastatin 10 mg tablet 10 mg PO HS #90 tabs 11/28/23 insulin glargine-yfgn 100 unit/mL 31 unit (0.31 mL) subcut QDAY #15 02/29/24 (3 mL) subcutaneous pen (Semglee mL (insulin glargine-yfgn) Pen) insulin regular human 100 unit/mL 3 unit (0.03 mL) subcut TID #15 mL 12/01/23 (3 mL) subcutaneous pen (Novolin R FlexPen) hydrocodone 5 mg-acetaminophen 325 1 tab PO Q4-6H PRN pain #20 tabs 02/10/24 mg tablet Allergies Allergy/AdvReac Type Severity Reaction Status Date / Time pollen extracts Allergy Intermediate Congested Verified 02/10/24 11:40 house dust Allergy Verified 02/10/24 11:40 iron AdvReac Intermediate diarrhea Verified 02/10/24 11:40 Review of Systems Status of ROS: Reports: 10 or more systems reviewed and unremarkable except as noted in History and below Narrative: Constitutional: No fevers, no weight gain or loss. Eyes: No discharge. No vision changes. HENT: No congestion, no sore throat, no ear pain. Cardiovascular: No chest pain, no palpitations. Respiratory: No shortness of breath, no wheezes, no cough. Gastrointestinal: No abdominal pain, no vomiting, no diarrhea. Genitourinary: No dysuria, no hematuria. Musculoskeletal: Normal range of motion. Left knee pain as described above. Skin: No rashes, no pruritis. Neurological: No dizziness, weakness, sensory change, speech change. Endo/Heme/Allergies: No bruising or bleeding. No polydipsia. Pysch: no suicidality, no anxiety, no insomnia. All other systems reviewed and are negative. 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 - Type 2 diabetes mellitus without complications (ICD-10) ?Z79.4 - terminal supervisor (current) use of insulin (ICD-10) Hyperlipidemia ?E78.5 - Hyperlipidemia, unspecified (ICD-10) History of basal cell carcinoma (BCC) ?Z85.828 - Personal history of other malignant neoplasm of skin (ICD-10) Anemia (01/2022) ?D64.9 - Anemia, unspecified (ICD-10) B12 deficiency ?E53.8 - Deficiency of other specified B group vitamins (ICD-10) Never smoker COVID-19 (~01/27/22) ?U07.1 - COVID-19 (ICD-10) Gout ?M10.9 - Gout, unspecified (ICD-10) Elevated PSA ?R97.20 - Elevated prostate specific antigen [PSA] (ICD-10) Basal cell carcinoma ?C44.91 - Basal cell carcinoma of skin, unspecified (ICD-10) Asthma ?J45.909 - Unspecified asthma, uncomplicated (ICD-10) Surgical History History of cholecystectomy (~2021) ?Z90.49 - Acquired absence of other specified parts of digestive tract (ICD-10) Status post right hemicolectomy ?Z90.49 - Acquired absence of other specified parts of digestive tract (ICD-10) History of hernia repair ?Z98.890 - Other specified postprocedural states (ICD-10) ?Z87.19 - Personal history of other diseases of the digestive system (ICD-10) Social History Narrative: non-smoker Highest level of school completed/degree received: high school graduate Smoking Status: Never smoker How often do you have a drink containing alcohol: never How often do you have six or more drinks on one occasion: Never AUDIT-C Alcohol total score: 0 Non-prescribed substance use: denies use Caffeine: No Little interest or pleasure in doing things: more than half the days Feeling down, depressed, or hopeless: not at all service: Yes Exam Narrative: Exam Narrative: Constitutional: Well-developed, well-nourished, no acute distress. HEENT: Normocephalic, atraumatic. Neck: Normal range of motion. Nontender. Supple. Heart: Intact distal pulses. Lungs: No chest discomfort. No wheezes, rhonchi, or rales. Abdomen: Nontender. Back: Normal range of motion. Extremities: Normal range of motion. No sign of injury. No joint effusion or swelling. Skin: Intact. No rash. Warm. No erythema or pallor. Neurologic: No altered sensation. No weakness. Alert and oriented. Psychiatric: No suicidality. No anxiety or depression. No insomnia. Nursing notes and vitals signs are reviewed. Const: Vital Signs, click to edit/add: Vital Signs - 24 hr 02/10/24 11:40 Temperature 99.2 F Pulse Rate [Pulse Oximeter] 92 Respiratory Rate 20 Blood Pressure [Ri ght Upper Arm] 158/97 H Pulse Oximetry 95 Oxygen Delivery Me thod Room Air Course Vital Signs Vital signs: Initial Vital Signs Temperature 99.2 F 02/10/24 11:40 Temperature Source Temporal Artery Scan 02/10/24 11:40 Pulse Rate 92 02/10/24 11:40 Respiratory Rate 20 02/10/24 11:40 Blood Pressure 158/97 H 02/10/24 11:40 Blood Pressure Mean 117 H 02/10/24 11:40 Blood Pressure Position Sitting 02/10/24 11:40 Pulse Oximetry 95 02/10/24 11:40 Oxygen Delivery Method Room Air 02/10/24 11:40 Vital Signs Temperature 99.2 F 02/10/24 11:40 Pulse Rate 92 02/10/24 11:40 Respiratory Rate 20 02/10/24 11:40 Blood Pressure 158/97 H 02/10/24 11:40 Pulse Oximetry 95 02/10/24 11:40 Oxygen Delivery Method Room Air 02/10/24 11:40 Temperature 99.2 F 02/10/24 11:40 Pulse Rate 92 02/10/24 11:40 Respiratory Rate 20 02/10/24 11:40 Blood Pressure 158/97 H 02/10/24 11:40 Pulse Oximetry 95 02/10/24 11:40 Oxygen Delivery Method Room Air 02/10/24 11:40 Medical Decision Making MDM Narrative Medical decision making narrative: This 78-year-old male comes in reporting pain in his left knee that began without any injury event that he is aware of. The pain seems to be worse when ambulating and weight-bearing. I did obtain bilateral knee x-ray while weight-bearing in this does not show any significant evidence of degenerative joint disease. His medial compartment is a bit narrower but actually looks quite good. 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 He has been taking dexamethasone 4 mg daily and then was decreased to 20 mg once a week. Now he is at 20 mg every other week. He does have follow-up appointment with his doctors next week. I did review his recent labs and notes from other visits. I advised him to follow up next week as scheduled. He did receive a prescription for some tablets of [place]. Imaging Data XR Knees Terry: Radiologist's impression: Mild bilateral degenerative changes greatest in the medial compartments with mild medial compartment narrowing. Single view shows no acute or other osseous abnormality. Soft tissues as imaged are unremarkable. Discharge Plan Discharge Clinical Impression: Knee pain, left Patient Disposition: Home, Self-Care Condition: Stable Additional Instructions: Take medication as needed and indicated. Follow up with MD as scheduled next week. Return if worsening. Prescriptions: New hydrocodone-acetaminophen 5-325 mg tablet 1 tab PO Q4-6H PRN (Reason: pain) Qty: 20 0RF No Action acyclovir 400 mg tablet 400 mg PO BID Qty: 120 2RF aspirin [Rk Chewable Aspirin] 81 mg tablet,chewable 81 mg PO QDAY Qty: 90 3RF calcium carbonate-vit D3-min 600 mg calcium- 400 unit tablet 1 tab PO BID Qty: 120 2RF metformin 1,000 mg tablet 1,000 mg PO QDAY Rx Instructions: for diabetes Novolin R FlexPen 100 unit/mL (3 mL) insulin pen 3 unit subcut TID Qty: 15 0RF Rx Instructions: take 3 units, three times daily 15-30minutes before meal (if BS is greater than 70) MEAL insulin insulin glargine-yfgn [Semglee(insulin glarg-yfgn)Pen] 100 unit/mL (3 mL) insulin pen 31 unit subcut QDAY Qty: 15 3RF Rx Instructions: 31 units once nightly finasteride 5 mg tablet 5 mg PO DAILY apixaban 2.5 mg tablet 2.5 mg PO BID Qty: 60 3RF sulfamethoxazole-trimethoprim [Bactrim] 400-80 mg tablet 1 tab PO 3XW Qty: 12 3RF Rx Instructions: on Zappyj-Sopbczrqc-Eueavy famotidine 20 mg tablet 20 mg PO BID bortezomib [Velcade] 3.5 mg recon soln 2.9 mg subcut QWEEK Rx Instructions: administer as 2.5 mg/mL final concentration dyssjbfaxwz-oycnxgteznyhk-bncx [Darzalex Faspro] subcut Q2W (DME) pen needle, diabetic [CareFine Pen Needle] 31 gauge x 1/4 needle See Rx Instructions .Route Qty: 100 3RF Rx Instructions: As directed- 3 x daily with meal time insulin cyanocobalamin (vitamin B-12) 1,000 mcg tablet extended release 1,000 mcg PO DAILY Qty: 90 3RF pravastatin 10 mg tablet 10 mg PO HS Qty: 90 0RF Rx Instructions: once daily for cholesterol Follow Up/Referrals: Stephanie Clark PA-C [Primary Care Provider] - Stand Alone Forms: MyHealth Info Instructions
--- OUTSIDE RECORDS SUMMARY | 2024-02-10 12:12 | XMS_ITS | Continuity of Care Document ---
Author Name Unknown Organization [facility] Address [address] [address] [place] [address] Phone Care Team Providers Care Sexual Abuse Counsellor Name Role Phone Brad Jean MD Unavailable Unavailabl e Advance Directives Directive Yes / No Effective Date File Name No Information Encounters Encounter Description Practice Location Reason(s) For Visit Diagnoses Date Provider Providers Copied on Encounter [facility], [address] [address], [place], [place], [id number], [place] tel:[phone] [facility] No Information Steve Salinas. [address] [facility], [facility] [address], [place], [place], [id number], [place]. tel:[phone] Family History Family Member Type Diagnosis Age At Onset No Information Immunizations Vaccine Date Status Comments SARS-COV-2 (COVID-19) vaccin e, mRNA, spike protein, LNP, preservative free, beatriz-sucrose, 30 mcg/0.3 mL dose administered Note: [facility] bi-direct ional interface ; Source: Other Registry influenza, high-dose seasona l, quadrivalent, 0.7mL dose, preservative free administered Note: [facility] bi-direct ional interface ; Source: Other Registry Pneumococcal conjugate vacci ne 20-valent (PCV20), polysaccharide [id number] conjugate, adjuvant, preservative free administered Note: [facility] bi-direct ional interface ; Source: Other Registry SARS-COV-2 (COVID-19) vaccin e, mRNA, spike protein, LNP, bivalent, preservative free, 30 mcg/0.3 mL dose, beatriz-sucrose formulation administered Note: [facility] bi-direct ional interface ; Source: Other Registry influenza, high-dose seasona l, quadrivalent, 0.7mL dose, preservative free administered Note: [facility] bi-direct ional interface ; Source: Other Registry SARS-COV-2 (COVID-19) vaccin e, mRNA, spike protein, LNP, preservative free, 30 mcg/0.3mL dose, beatriz-sucrose formulation administered Note: [facility] C bi- directional interface ; Source: Other Registry influenza, high-dose seasona l, quadrivalent, 0.7mL dose, preservative free administered Note: [facility] bi-direct ional interface ; Source: Other Registry SARS-COV-2 (COVID-19) vaccin e, mRNA, spike protein, LNP, preservative free, 30 mcg/0.3mL dose administered Note: [facility] bi-direct ional interface ; Source: Other Registry SARS-COV-2 (COVID-19) vaccin e, mRNA, spike protein, LNP, preservative free, 30 mcg/0.3mL dose administered Note: [facility] bi-direct ional interface ; Source: Other Registry SARS-COV-2 (COVID-19) vaccin e, mRNA, spike protein, LNP, preservative free, 30 mcg/0.3mL dose administered Note: [facility] bi-direct ional interface ; Source: Other Registry zoster vaccine recombinant administered N ote: [facility] bi-directional interface ; Source: Other Registry zoster vaccine recombinant administered N ote: [facility] bi-directional interface ; Source: Other Registry Seasonal, quadrivalent, recombinant, injectable influenza vaccine, preservative free administered Note: [facility] bi -directional interface ; Source: Other Registry influenza, high dose seasona l, preservative-free administered Note: [facility] bi-direct ional interface ; Source: Other Registry influenza, high dose seasona l, preservative-free administered Note: [facility] bi-direct ional interface ; Source: Other Registry influenza, high dose seasona l, preservative-free administered Note: [facility] bi-direct ional interface ; Source: Other Registry Prevnar 13 administered Note: [facility] bi-d irectional interface ; Source: Other Registry tetanus toxoid, reduced diphtheria toxoid, and acellular pertussis vaccine, adsorbed administered Note: [facility] b i-directional interface ; Source: Other Registry zoster vaccine, live administered Note: [facility] bi-directional interface ; Source: Other Registry zoster vaccine, live administered Note: [facility] bi-directional interface ; Source: Other Registry Pneumovax administered Note: [facility] bi-d irectional interface ; Source: Other Registry tetanus toxoid, reduced diphtheria toxoid, and acellular pertussis vaccine, adsorbed administered Note: [facility] b i-directional interface ; Source: Other Registry Pneumovax administered Note: [facility] bi-d irectional interface ; Source: Other Registry Payers Payer name Insurance type Covered constitution party ID Authoriza tion(s) No Information Social History Type Description Quantity Date Captured Comments Sex Male Smoking Status No Information Chief Complaint And Reason For Visit No Information Reason For Referral Reason For Referral No Information Plan Of Treatment Date Type Action Status Appointment Juan Retana BOOKED History Of Present Illness Encounter Date Complaint History Of Prese nt Illness No Information Functional Status Date Functional Assessmen t No Information Instructions Date Instruction Additional Infor mation No Information Assessments Type Assessment Date No Information Patient Care Teams Name Effective Dates (start - stop) Status Members No Information
--- OUTSIDE RECORDS SUMMARY | 2024-02-10 12:13 | XMS_ITS | Data Portability ---
Author Name Unknown Address [address] [place] [address] Phone [phone] Organization [facility] Address [address] [place] [address] Care Team Providers Care Motor Vehicle License Clerk Name Role Phone STANLEY CARDOSO Primary Care Provider [phone] Assessment Encounter Date Assessment Date Assessment LastModified by Organization Details LastModified Time 11/10/2021 11/10/2021 76 year old male with an elevated PSA Not available 11/10/2021 11:27:12 03/11/2022 03/11/2022 76 male with an elevated prostate specific antigen here for Uronav biopsy Not available 03/11/2022 14:05:23 Plan of Treatment Reminders Order Date Submit Date Provider Last Modified By Organization Details Last Modified Time Details Appointments ESTABLISH ED 10 2023 10:20A Sal Mann MD Not available Not available Not available Lab biopsy, prostate 2021 [facility], [address], [place], [address], 03/14/2022 15:36:13 urinalysi s, dipstick 2021 [facility], [address], [address], [place], [address], 11/10/2021 16:57:47 Referral None recorded. Procedures None recorded. Surgeries None recorded. Imaging MRI, prostate, w/wo contrast - Please call patient to schedule 2021 [facility], [address], [place], [address], 11/20/2021 18:08:46 Medication Orders finasteri de 5 mg tablet 2022 023 [facility], [address] [place], [address], 04/07/2023 12:07:55 ceftriaxo ne 1 gram solution for injection 2021 022 [email or web address] [facility], [address] [place], [address], 10/11/2023 10:47:48 lidocaine (PF) 10 mg/mL (1 %) injection solution 2021 [email or web address] [facility], [address] [place], [address], 10/11/2023 10:47:45 Patient TargetsNo targets recorded. Patient Instructions Encounter Date Encounter Id Patient Instructions Last Modified By Organization Details Last Modified Time 10/11/2023 [id number] continue on finasteride and plan rtc in April with PSA for PARKER and med refill. [email or web address] Not available 10/11/2023 10:54:16 04/07/2023 [id number] will start on finasteride and plan get PSA done in about 6 months at PCP clinic. [email or web address] Not available 04/07/2023 12:06:55 03/11/2022 [id number] The patient tolerated the procedure well. We [...] business days he should contact our office. [email or web address] Not available 03/11/2022 14:05:30 Reason for Referral None Reported. Results Created Date Observation Date Name Description Value Unit Range Abnormal Flag LastModifiedBy Organization Detail LastModifiedTime 11/10/19 22 11/10/2021 UA DIP CS ADVAN TUS color -advantus yellow yellow Not Available [facility] [address], [place], [address], 11/10/2021 16:57:47 11/10/19 22 11/10/2021 UA DIP CS ADVAN TUS appearance -advantus cloudy clear abnormal Not Available [facility] [address] [place] [address] [address], [place], [address], 11/10/2021 16:57:47 11/10/19 22 11/10/2021 UA DIP CS ADVAN TUS glucose -advantus negati ve mg/dL negati ve Not Available [facility] [address], [place], [address], 11/10/2021 16:57:47 11/10/19 22 11/10/2021 UA DIP CS ADVAN TUS bilirubin -advantus negati ve negati ve Not Available [facility] [address] [place] [address] [address], [place], [address], 11/10/2021 16:57:47 11/10/19 22 11/10/2021 UA DIP CS ADVAN TUS ketones -advantus negati ve mg/dL negati ve Not Available [facility] [address], [place], [address], 11/10/2021 16:57:47 11/10/19 22 11/10/2021 UA DIP CS ADVAN TUS sp. gravity -advantus >=1.03 0 1.010- 1.025 Not Available [facility] [address] [place] [address] [address], [place], [address], 11/10/2021 16:57:47 11/10/19 22 11/10/2021 UA DIP CS ADVAN TUS pH -advantus 5.0 5.0-8. 0 Not Available [facility] [address] [place] [address] [address], [place], [address], 11/10/2021 16:57:47 11/10/19 22 11/10/2021 UA DIP CS ADVAN TUS protein -advantus negati ve mg/dL negati ve Not Available [facility] [address] [place] [address] [address], [place], [address], 11/10/2021 16:57:47 11/10/19 22 11/10/2021 UA DIP CS ADVAN TUS urobilinogen -advantus 0.2 normal Not Available [facility] [address] [place] [address] [address], [place], [address], 11/10/2021 16:57:47 11/10/19 22 11/10/2021 UA DIP CS ADVAN TUS nitrites -advantus negati ve negati ve Not Available [facility] [address] [place] [address] [address], [place], [address], 11/10/2021 16:57:47 11/10/19 22 11/10/2021 UA DIP CS ADVAN TUS blood -advantus negati ve negati ve Not Available [facility] [address] [place] [address] [address], [place], [address], 11/10/2021 16:57:47 11/10/19 22 11/10/2021 UA DIP CS ADVAN TUS leukocytes -advantus negati ve negati ve Not Available [facility] [address] [place] [address] [address], [place], [address], 11/10/2021 16:57:47 11/10/19 22 11/10/2021 UA DIP CS ADVAN TUS performed by va X Not Available [facility] [address] [place] [address] [address], [place], [address], 11/10/2021 16:57:47 11/10/19 22 11/10/2021 UA DIP CS ADVAN TUS total urine volume (mL) 35 /mL Not Available [facility] [address] [facility] [address], [place], [address], 11/10/2021 16:57:47 11/10/19 22 11/10/2021 PSA, total , serum or plasm a PSA 1.94 Not Available [facility] [address] [place], [address], 11/12/2021 09:12:23 11/20/19 22 11/20/2021 MRI, prost ate, w/wo contr ast No observ ation record ed. Jamshid Ramírez MD [address] [place], [address], 11/20/2021 18:19:36 11/24/19 22 11/20/2021 MRI, abdom [...] 2 diabetes mellitus Active Ele marie [facility] 11/10/2021 10:51:10 Prostate specific antigen above reference range Active 3 Jamshid Mann MD [address] [facility],[address], [place], [address], [place] [facility] 04/07/2023 12:06:20 Problem Notes None recorded. Procedures Surgical History Date Name Laterality Status Provider Name and Address Organization Details Recorded Time 04/07/20 23 Bladder Scan completed Jamshid Mann MD [address] [facility] [address] [address] [facility],[address], [place], [address], [place] [facility] 04/07/2023 11:53:31 03/11/20 22 Prostate Biopsy Procedure completed Kemar Lujan MD [address], [place], [address], [facility] 03/11/2022 14:05:02 03/11/20 22 URONAV completed Kemar Lujan MD [address] [place] [address],[address], [place], [address], [facility] 03/11/2022 14:04:59 03/11/20 22 Rocephin/Ceftri axone completed Meena Fontaine null, [facility] 03/11/2022 12:50:39 11/10/19 22 Bladder Scan completed Ele Mcclelland null, [facility] 11/10/2021 10:54:52 01/05/20 12 Diagnostic [...] prostate, w/wo contrast completed Jamshid Ramírez MD [address] [place] [address], [address], 11/20/2021 18:19:36 11/20/2021 MRI, abdomen + pelvis, [...] Not Available No t Available [employer] G6 Coverage Specialist Rn DIRECTED FOR CONTINUOU S GLUCOSE MONITORIN G. [...] Updated DateTime 04/07/2023 177.8 cm 33 kg/m2 060240.25 g Jamshid Mann MD [address] [facility] [address], [place], [address], [place] [facility] 04/07/2023 11:54:14 Date Recorded Body height Body mass index (BMI) Body weight Provider Name and Address Organization Details Last Updated DateTime 10/11/2023 177.8 cm 21.5 kg/m2 88202.86 g Jamshid Mann MD [address] [facility] [address], [place], [address], [facility] 10/11/2023 10:44:48 Date Recorded Body weight Body height Body mass index (BMI) Provider Name and Address Organization Details Last Updated DateTime 01/12/2022 31346.68923 64573 g 180.34 cm 29.3 kg/m2 Not Available Health Note 01/12/2022 09:05:37 Date Recorded Heart rate Systolic blood pressure Diastolic blood pressure Provider Name and Address Organization Details Last Updated DateTime 03/11/2022 63 /min 158 mm[Hg] 87 mm[Hg] Meena Fontaine [facility] 03/11/2022 12:50:55 Social History Question [...] History Nothing Reported. Medical History Condition Response Diabetes Y Sexually Transmitted Infection N Other N Bleeding Disorder N High Blood [...] Encounter Start Date Encounter Closed Date Diagnosis/Indication Diagnosis SNOMED-CT Code [id number] Kemar Lujan MD [facility] [address] [place] [address] 11/10/2021 08:36:50 11/10/2021 14:42:58 Prostate specific antigen above reference range [id number] Kemar Lujan MD [address] [address] 03/11/2022 12:25:57 03/11/2022 14:23:20 Prostate specific antigen above reference range [id number] Meena Zhen [address] [address] 03/11/2022 12:25:27 03/11/2022 13:27:03 Prostate specific antigen above reference range [id number] Jamshid Mann MD [address] [address] 04/07/2023 11:15:57 04/13/2023 09:44:11 Prostate specific antigen above reference range 309442184 [id number] Jamshid Mann MD [address] [address] 10/11/2023 10:09:12 10/20/2023 17:05:23 Prostate specific antigen above reference range 529879626 High grade prostatic intraepithelial neoplasia [id number] Health Concerns Section Related Observation LastModified by Organization Detai ls LastModified Time None Recorded Concern Status LastModified by Organization Details LastModified Time None Recorded Advance Directives Directive None Recorded Payers Encounter Date Sequence Insurance Name Policy Number Policy Mancuso Covered Member ID Mancuso Member ID Guarantor Name 10/11/2023 1 [place] [employer] Juan R Retana [id number] Juan R Retana 10/11/2023 2 [place] [id number] Juan Retana [id number] Juan Retana 04/07/2023 1 [place] [email or web address] Juan R Retana [id number] Juan R Retana 04/07/2023 2 [place] [id number] Juan [id number] Juan Retana 03/11/2022 1 [place] [employer] Juan R Retana [id number] Juan R Retana 03/11/2022 2 [place] [id number] Juan Retana [id number] Juan Retana 03/11/2022 1 [place] [employer] Juan R Retana [id number] Juan R Retana 03/11/2022 2 [place] [id number] Juan Retana [id number] Juan Retana 11/10/2021 1 [place] [employer] Juan R Retana [id number] Juan Retana 11/10/2021 2 [place] [id number] Juan Retana [id number] Juan Retana Notes Date Note Type Note [...] history of prostate cancer. Kemar Lujan MD [address] [place] [address],[address], [place], [address], [facility] 11/10/2021 11:29:24 03/11/2022 text/html HPI Notes: [...] for Uronav prostate biopsy. Kemar Lujan MD [address] [place] [address],[address], [address], [facility] 03/11/2022 14:18:53 04/07/2023 text/html HPI Notes: 3: [...] PSA since the biopsy. 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 recent PSA was down to 1.01. taking finasteride and voiding well. no heme/dysuria. rx good until April. Jamshid Mann MD [address] [place] [address],[address], [place], [address], [facility] 10/11/2023 10:56:46
[2024-02-10 13:45] VITALS: BP 145/95; PULSE 80; RESP 16; O2SAT 97
== END 2024-02-10 13:50 | disposition home or self-care (01) ==
PROVIDERS: Emergency Provider Emergency Medicine Emergency Medical Services; PCP Physician Assistant Medical
DX: M25.562 Pain in left knee (principal)
CPT/HCPCS: 73565; 99283; 99284

== ENCOUNTER 2024-02-13 15:01 | Emergency (ER) | payer MEDICARE, BC, SELFPAY ==
[2024-02-13] VITALS (12 sets, daily range): BP systolic 125–150; BP diastolic 84–92; PULSE 88–104; RESP 18; TEMP 36.8; O2SAT 94–99; BMI 51.6
--- NOTE | 2024-02-13 17:33 | ED.GENADULT ---
HPI - General Adult General Date Seen: 02/13/24 Chief complaint: Altered Mental Status Stated complaint: Confusion Time Seen by Provider: 02/13/24 17:32 History of Present Illness HPI narrative: 78-year-old gentleman presenting to the ER today with concern for altered mental status and confusion. 1st noted some increasing confusion that began 6 days ago, last Tuesday. He has been more forgetful. Today he went to sweet pickle maker a pizza and apparently folded 3 pizzas and put them all in 1 box. He is currently on chemo for multiple myeloma and he had chemo injection as well as labs as part of his treatment for that. He has a history of taking pain killers and narcotics but has not had any since yesterday. Past medical history includes multiple myeloma, chronic asthma, diabetes (metformin, insulin), hyperlipidemia, coronary disease, gout. According to medical records he sees Dr. Pruitt for his Oncology. Most recent note from her was November 28. It looks like according to those records he is on Darzalex and Velcade, as well as Cytoxan, dexamethasone (previously on 4 mg today but caused a lot of foot swelling so now is on 20 mg every other week when he receives 1 of his chemo meds), and acyclovir. He is also on Eliquis. Unclear why. Possibly prophylactic. He has been having pain in his left knee or possibly his left distal thigh for the past several days, perhaps since last week. It sounds like it is painful when he bears weight on it. No known fall or injury. He was here in the ER on Tuesday for that and had x-rays that were normal. He had a temperature of 99.2?. Pulse 92. Blood pressure 158/97. Given prescription for [place]. says that the doctor told that his knee and leg looks good on Tuesday. He did take a couple of [place] on Tuesday and several [place] on Tuesday but only 1 yesterday on Tuesday morning and none today. He says his leg tends to hurt more at night when he is lying in bed. He says actually got into the bathtub and soaked it in the warm water and that helped to get better The real reason why his brought him back to the ER today is that he is confused. is noted that he is generally pretty mentally sharp. However since last week he has been having episodes of confusion. This became most prominent today at lunch. They were apparently out for pizza and had some ordered some pizza as with her friend. However it turns out that there was no client delivery manager today. The patient told his that he was going to go sweet pickle maker the pizzas. However instead of going to the pizza place to sweet pickle maker a pizza he went home and baked 3 frozen pizza in the oven. He then loaded all 3 Spaulding into 1 box and brought them back to wear his and friends were waiting. They discovered that all 3 Spaulding were mixed together in the same box. Subsequently another person went to the pizza place to sweet pickle maker the previously ordered pizzas. He does not know the day of the week or who the president is. has not noted any other focal symptoms such as facial droop, slurred speech. No known falls Related Data Home Medications Medication Instructions Recorded Confirmed finasteride 5 mg tablet 5 mg PO DAILY 04/07/23 02/10/24 metformin 1,000 mg tablet 1,000 mg PO QDAY 11/07/23 02/10/24 famotidine 20 mg tablet 20 mg PO BID 01/23/24 02/10/24 bortezomib 3.5 mg injection powder 2.9 mg subcut QWEEK 02/10/24 02/10/24 for solution (Velcade) queypkvvxfa-yyqszjzgirntb-igbe subcut Q2W 02/10/24 Previous Rx's Medication Instructions Recorded pen needle, diabetic 31 gauge x #100 ea 08/09/2310/06 (CareFine Pen Needle) acyclovir 400 mg tablet 400 mg PO BID #120 tabs 09/12/23 aspirin 81 mg chewable tablet 81 mg PO QDAY #90 tabs 09/12/23 (Rk Chewable Low Dose Aspirin) calcium carb-vit D3-minerals 600 1 tab PO BID #120 tabs 09/12/23 mg calcium-400 unit tablet apixaban 2.5 mg tablet 2.5 mg PO BID #60 tabs 10/24/23 cyanocobalamin (vitamin B-12) 1,000 mcg PO DAILY #90 tabs 11/09/23 1,000 mcg tablet,extended release sulfamethoxazole 400 1 tab PO 3XW #12 tabs 11/16/23 mg-trimethoprim 80 mg tablet (Bactrim) pravastatin 10 mg tablet 10 mg PO HS #90 tabs 11/28/23 insulin glargine-yfgn 100 unit/mL 31 unit (0.31 mL) subcut QDAY #15 12/01/23 (3 mL) subcutaneous pen (Semglee mL (insulin glargine-yfgn) Pen) insulin regular human 100 unit/mL 3 unit (0.03 mL) subcut TID #15 mL 12/01/23 (3 mL) subcutaneous pen (Novolin R FlexPen) Allergies Allergy/AdvReac Type Severity Reaction Status Date / Time pollen extracts Allergy Intermediate Congested Verified 02/10/24 11:40 house dust Allergy Verified 02/10/24 11:40 iron AdvReac Intermediate diarrhea Verified 02/10/24 11:40 [facility] Medical History COVID ?U07.1 - COVID-19 (ICD-10) Hoarseness of voice (~06/2022) ?R49.0 - Dysphonia (ICD-10) Tubular adenoma ?D36.9 - Benign neoplasm, unspecified site (ICD-10) Gallbladder disease ?K82.9 - Disease of gallbladder, unspecified (ICD-10) Right temporal headache ?R51.9 - Headache, unspecified (ICD-10) Lymphadenopathy ?R59.1 - Generalized enlarged lymph nodes (ICD-10) Insulin dependent type 2 diabetes mellitus ?E11.9 - Type 2 diabetes mellitus without complications (ICD-10) ?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 (ICD-10) Hyperlipidemia ?E78.5 - Hyperlipidemia, unspecified (ICD-10) History of basal cell carcinoma (BCC) ?Z85.828 - Personal history of other malignant neoplasm of skin (ICD-10) Anemia (01/2022) ?D64.9 - Anemia, unspecified (ICD-10) B12 deficiency ?E53.8 - Deficiency of other specified B group vitamins (ICD-10) Never smoker COVID-19 (~01/27/22) ?U07.1 - COVID-19 (ICD-10) Gout ?M10.9 - Gout, unspecified (ICD-10) Elevated PSA ?R97.20 - Elevated prostate specific antigen [PSA] (ICD-10) Basal cell carcinoma ?C44.91 - Basal cell carcinoma of skin, unspecified (ICD-10) Asthma ?J45.909 - Unspecified asthma, uncomplicated (ICD-10) Surgical History History of cholecystectomy (~2021) ?Z90.49 - Acquired absence of other specified parts of digestive tract (ICD-10) Status post right hemicolectomy ?Z90.49 - Acquired absence of other specified parts of digestive tract (ICD-10) History of hernia repair ?Z98.890 - Other specified postprocedural states (ICD-10) ?Z87.19 - Personal history of other diseases of the digestive system (ICD-10) Social History Narrative: non-smoker Highest level of school completed/degree received: high school graduate Smoking Status: Never smoker Do you use any of these nicotine containing products: None How often do you have a drink containing alcohol: never How often do you have six or more drinks on one occasion: Never AUDIT-C Alcohol total score: 0 Non-prescribed substance use: denies use Caffeine: No Little interest or pleasure in doing things: more than half the days Feeling down, depressed, or hopeless: not at all service: Yes Exam Narrative: Exam Narrative: Constitutional: Appears well-developed and well-nourished. Alert. Conversant, polite and cooperative, but says he really does not know what is going on. He does not know the day of the week or the month or the president.. Non toxic. HENT: Head: Atraumatic. Nose: Nose normal. Mouth/Throat: Oral mucosa is clear and moist. no trismus. Pharynx normal. Tonsils symmetric. No tonsillar enlargement, erythema, or exudate. Eyes: Conjunctivae normal. EOM normal. Pupils equal, round, and reactive to light. No scleral icterus. Neck: Normal range of motion. Neck supple. No tracheal deviation present. Cardiovascular: Normal rate, regular rhythm. No gallop. No friction rub. No murmur heard. Symmetric radial and DP/PT artery pulses Pulmonary/Chest: Effort normal. No stridor. No respiratory distress. No wheezes. No rales. No rhonchi . No tenderness. Abdominal: Soft. Bowel sounds normal. No distension. No mass. No tenderness. No rebound. No guarding. Musculoskeletal: No thoracic or lumbar spine tenderness. Pelvis stable. Hips nontender. RUE: Normal range of motion. No tenderness. No deformity LUE: Normal range of motion. No tenderness. No deformity RLE: Normal range of motion. No edema. 2+ pitting tenderness. No deformity LLE: Normal range of motion. No edema. 2+ tenderness. No deformity. Although he endorses that he has episodes of pain affecting his distal femur just proximal to the not actually having any pain right now. No tenderness. No swelling. No redness. No bruising. Normal range of motion in the knee. Normal gait. No limping. No redness. No rash. Lymph: No ascending lymphangitis or inguinal adenopathy. Neurological: Alert and oriented to person, place, but not date. Attention normal. GCS 15. Memory for recent events is impaired.. Speech fluent. Cranial Nerves intact II-XII except I did not formally test gag or visual acuity. EOMI. Palate elevates symmetrically and tongue protrudes in the midline. 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 Finger to nose and coordination normal. Gait normal. No limping. Skin: Skin is warm and dry. No rash noted. No pallor. Normal capillary refill. Psychiatric: Normal mood. Normal affect. Const: Vital Signs, click to edit/add: Vital Signs - 24 hr 02/13/24 15:21 02/13/24 19:21 02/13/24 19:22 Temperature 98.2 F Pulse Rate 90 Pulse Rate [Pulse Oximeter] 99 90 Respiratory Rate 18 18 Blood Pressure 150/84 H Blood Pressure [Ri ght Upper Arm] 125/87 150/84 H Pulse Oximetry 96 97 97 Oxygen Delivery Me thod Room Air Room Air 02/13/24 19:23 02/13/24 19:30 02/13/24 19:32 Temperature Pulse Rate 91 90 88 Pulse Rate [Pulse Oximeter] Respiratory Rate Blood Pressure 137/85 Blood Pressure [Ri ght Upper Arm] Pulse Oximetry 94 98 94 Oxygen Delivery Me thod 02/13/24 19:45 02/13/24 20:00 02/13/24 20:02 Temperature Pulse Rate 90 92 94 Pulse Rate [Pulse Oximeter] Respiratory Rate Blood Pressure 132/92 H Blood Pressure [Ri ght Upper Arm] Pulse Oximetry 96 97 99 Oxygen Delivery Me thod 02/13/24 20:03 02/13/24 20:17 02/13/24 20:30 Temperature Pulse Rate 92 104 H 101 H Pulse Rate [Pulse Oximeter] Respiratory Rate Blood Pressure Blood Pressure [Ri ght Upper Arm] Pulse Oximetry 98 97 96 Oxygen Delivery Me thod Course Vital Signs Vital signs: Initial Vital Signs Temperature 98.2 F 02/13/24 15:21 Temperature Source Temporal Artery Scan 02/13/24 15:21 Pulse Rate 99 02/13/24 15:21 Respiratory Rate 18 02/13/24 15:21 Blood Pressure 125/87 02/13/24 15:21 Blood Pressure Mean 99 02/13/24 15:21 Blood Pressure Position Sitting 02/13/24 15:21 Pulse Oximetry 96 02/13/24 15:21 Oxygen Delivery Method Room Air 02/13/24 15:21 Vital Signs Temperature 98.2 F 02/13/24 15:21 Pulse Rate 99 02/13/24 15:21 Respiratory Rate 18 02/13/24 15:21 Blood Pressure 125/87 02/13/24 15:21 Pulse Oximetry 96 02/13/24 15:21 Oxygen Delivery Method Room Air 02/13/24 15:21 Temperature 98.2 F 02/13/24 15:21 Pulse Rate 101 H 02/13/24 20:30 Respiratory Rate 18 02/13/24 19:21 Blood Pressure 132/92 H 02/13/24 20:02 Pulse Oximetry 96 02/13/24 20:30 Oxygen Delivery Method Room Air 02/13/24 19:21 Medications Administered Medications: Discontinued Medications Generic Name Dose Route Start Last Admin Trade Name Yao PRN Reason Stop Dose Admin Sodium Chloride 1,000 mls @ 1,000 mls/hr 02/13/24 18:30 02/13/24 20:59 0.9 % Sodium Chloride 1000 Ml IV 02/13/24 19:29 Infused .Q1H DEVYN Infusion Medical Decision Making [facility] Narrative Medical decision making narrative: Very pleasant 78-year-old gentleman with a complex past history most notable for multiple myeloma on immuno modular Vander[place] therapy presenting to the ER today with concern for progressively worsening generalized confusion that is been present for the past week or so but has become more prominent today. As a secondary issue he has also been having pain in his left distal thigh, just proximal to the knee, for the past several days without any known injury pain Differential for his confusion is broad Head CT is negative for intracranial hemorrhage or any obvious intracranial edema or mass effect or hydrocephalus. He is not having any headache, fever, or neck stiffness to suggest meningitis or encephalitis. At this point laboratory workup does not show any evidence for hyponatremia or other electrolyte disturbance causing confusion. Kidney function normal. Blood sugar normal. Consider possible infection causing sepsis or confusion. However no recent cough, respiratory symptoms. Lung sounds are clear. Urinalysis normal. Abdomen pelvis CT negative for intra-abdominal infection. No evidence for any hip fracture on the CT/abdomen pelvis to give him referred pain down into the distal thigh. He does have pain in his left distal thigh. No evidence for any cellulitis, shingles or external signs of infection but we did obtain CT scan to look for some sort of occult fracture or other deep-seated infection such as pyomyositis. CT scan is negative. He is not having any redness or warmth of the knee joint to suggest a septic arthritis in that area. I had a detailed discussion with the patient as well as his and son that we are concerned about his altered mental status and at this point workup in the ER is not revealing. I think further workup is indicated with labs to check liver function and pneumonia. I recommended hospitalization for observation and further workup in-house. However the patient adamantly wants to go home. His is comfortable taking him home feels the although he is intermittently confused that he is safe at home. She would prefer that they do outpatient workup through his clinic. He has an appointment to see his primary care provider in 2 days, on Tuesday and to see his oncologist in 7 days, next Tuesday. We discussed precautions for return to the ER and the likelihood that his mental status will have the potential to worsen until proper diagnosis can be achieved. Nonetheless they prefer outpatient workup. Lab Data Labs: Lab Results 02/13/24 02/13/24 02/13/24 Range/Units 18:24 18:24 18:24 WBC 6.71 (4.50-11.00) K/uL RBC 3.71 L (4.30-5.90) m/uL Hgb 12.2 L (13.5-17.5) gm/dL Hct 37.0 (37.0-53.0) % MCV 100 (80-100) fL MCH 33 (26-34) pg MCHC 33 (32-36) gm/dL RDW Coeff of Radha 14.2 (11.5-15.5) % Plt Count 212 (140-440) K/uL Neut % (Auto) 64.2 (42.0-72.0) % Lymph % (Auto) 17.9 L (20-44) % [place] % (Auto) 13.3 H (0.0-11.0) % Eos % (Auto) 2.7 (0.0-7.0) % Baso % (Auto) 0.3 (0.0-3.0) % Neut # (Auto) 4.31 (1.7-7.0) K/uL Lymph # (Auto) 1.20 (0.90-2.90) K/uL [place] # (Auto) 0.90 (0.00-0.90) K/UL Eos # (Auto) 0.18 (0.00-0.50) K/uL Baso # (Auto) 0.02 (0.00-0.30) K/uL Abs Immat Gran (auto) 0.11 (0.00-0.30) K/uL Imm/Tot Granulo (auto) 1.6 % Sodium 139 (135-149) mmol/L Potassium 3.9 (3.6-5.1) mmol/L Chloride 110 (96-114) mmol/L Carbon Dioxide 22 (20-32) mmol/L Anion Gap 7 (7-15) mEq/L BUN 17 (7-30) mg/dL Creatinine 1.2 (0.5-1.5) mg/dL Estimated Creat Clear 44.84 Estimated GFR 62 ml/min Glucose 115 (60-115) mg/dL Lactate 1.8 (0.5-1.9) mmol/L Calcium 8.8 (8.4-10.6) mg/dL Troponin I < 0.01 L Cancelled (0.01-0.04) ng/mL C-Reactive Protein < 0.5 L Cancelled (0.5-1.0) mg/dL Urine Color (Yellow) Urine Appearance (Clear) Urine pH (5.0-8.5) Ur Specific [place] (1.000-1.030) Urine Protein (Negative) Urine Glucose (UA) (Negative) Urine Ketones (Negative) Urine Blood (Negative) Urine Nitrite (Negative) Urine Bilirubin (Negative) Urine Urobilinogen (0.2-1.0) Ur Leukocyte Esterase (Negative) Urine RBC (0-2) Urine WBC (0-5) Ur Squamous Epith Cells (None-Few) Urine Bacteria (None) 02/13/24 Range/Units 19:50 WBC (4.50-11.00) K/uL RBC (4.30-5.90) m/uL Hgb (13.5-17.5) gm/dL Hct (37.0-53.0) % MCV (80-100) fL MCH (26-34) pg MCHC (32-36) gm/dL RDW Coeff of Radha (11.5-15.5) % Plt Count (140-440) K/uL Neut % (Auto) (42.0-72.0) % Lymph % (Auto) (20-44) % [place] % (Auto) (0.0-11.0) % Eos % (Auto) (0.0-7.0) % Baso % (Auto) (0.0-3.0) % Neut # (Auto) (1.7-7.0) K/uL Lymph # (Auto) (0.90-2.90) K/uL [place] # (Auto) (0.00-0.90) K/UL Eos # (Auto) (0.00-0.50) K/uL Baso # (Auto) (0.00-0.30) K/uL Abs Immat Gran (auto) (0.00-0.30) K/uL Imm/Tot Granulo (auto) % Sodium (135-149) mmol/L Potassium (3.6-5.1) mmol/L Chloride (96-114) mmol/L Carbon Dioxide (20-32) mmol/L Anion Gap (7-15) mEq/L BUN (7-30) mg/dL Creatinine (0.5-1.5) mg/dL Estimated Creat Clear Estimated GFR ml/min Glucose (60-115) mg/dL Lactate (0.5-1.9) mmol/L Calcium (8.4-10.6) mg/dL Troponin I (0.01-0.04) ng/mL C-Reactive Protein (0.5-1.0) mg/dL Urine Color Yellow (Yellow) Urine Appearance Clear (Clear) Urine pH 5.0 (5.0-8.5) Ur Specific [place] <= 1.005 (1.000-1.030) Urine Protein Negative (Negative) Urine Glucose (UA) Negative (Negative) Urine Ketones Negative (Negative) Urine Blood Negative (Negative) Urine Nitrite Negative (Negative) Urine Bilirubin Negative (Negative) Urine Urobilinogen 0.2 (0.2-1.0) Ur Leukocyte Esterase Negative (Negative) Urine RBC 0-2 (0-2) Urine WBC 0-2 (0-5) Ur Squamous Epith Cells None (None-Few) Urine Bacteria None (None) Imaging Data CT left thigh: Attestation: I have reviewed the pertinent imaging results. Radiologist's impression: Impression: No specific finding to explain lower thigh pain. CT scan - abdomen: Attestation: I have reviewed the pertinent imaging results. Radiologist's impression: IMPRESSION: No acute or specific finding to explain abdominal pain. CT scan - head: Attestation: I have reviewed the pertinent imaging results. Radiologist's impression: Impression: 1. No acute intracranial process. 2. Mild chronic ischemic microvascular disease. Discharge Plan Discharge Clinical Impression: Acute alteration in mental status, Acute pain of left thigh Patient Disposition: Home, Self-Care Condition: Stable Instructions: Altered Mental Status (ED), Leg Pain (ED) Additional Instructions: As we discussed, please follow-up with his regular doctor on Tuesday for a recheck and with his oncologist next Tuesday for recheck. However, if he changes his mind, or If he has any new symptoms or if his confusion gets any worse, please bring him back to the ER immediately for a recheck. Prescriptions: No Action acyclovir 400 mg tablet 400 mg PO BID Qty: 120 2RF aspirin [Rk Chewable Aspirin] 81 mg tablet,chewable 81 mg PO QDAY Qty: 90 3RF calcium carbonate-vit D3-min 600 mg calcium- 400 unit tablet 1 tab PO BID Qty: 120 2RF metformin 1,000 mg tablet 1,000 mg PO QDAY Rx Instructions: for diabetes Novolin R FlexPen 100 unit/mL (3 mL) insulin pen 3 unit subcut TID Qty: 15 0RF Rx Instructions: take 3 units, three times daily 15-30minutes before meal (if BS is greater than 70) MEAL insulin insulin glargine-yfgn [Semglee(insulin glarg-yfgn)Pen] 100 unit/mL (3 mL) insulin pen 31 unit subcut QDAY Qty: 15 3RF Rx Instructions: 31 units once nightly finasteride 5 mg tablet 5 mg PO DAILY apixaban 2.5 mg tablet 2.5 mg PO BID Qty: 60 3RF sulfamethoxazole-trimethoprim [Bactrim] 400-80 mg tablet 1 tab PO 3XW Qty: 12 3RF Rx Instructions: on Vjrwnz-Hgnbfoben-Timvgl famotidine 20 mg tablet 20 mg PO BID bortezomib [Velcade] 3.5 mg recon soln 2.9 mg subcut QWEEK Rx Instructions: administer as 2.5 mg/mL final concentration oxnenxpqhqj-fnwgightzacwe-tmqy [Darzalex Faspro] subcut Q2W (DME) pen needle, diabetic [CareFine Pen Needle] 31 gauge x 1/4 needle See Rx Instructions .Route Qty: 100 3RF Rx Instructions: As directed- 3 x daily with meal time insulin cyanocobalamin (vitamin B-12) 1,000 mcg tablet extended release 1,000 mcg PO DAILY Qty: 90 3RF pravastatin 10 mg tablet 10 mg PO HS Qty: 90 0RF Rx Instructions: once daily for cholesterol Follow Up/Referrals: Stephanie Clark PA-C [Primary Care Provider] - Stand Alone Forms: [facility] Info Instructions
--- NOTE | 2024-02-13 18:16 | CT_ITS ---
Patient: FRANNY ISRAEL Facility:?[facility] Patient ID:?[id number] Site Patient ID:?[id number]. Site :?[id number] Study:?CT-Abdomen/Pelvis 150CC ISOVUE 370-02/13/2024 7:28:27 PM Ordering Physician:?DR. TELLEZ Final Report: INDICATION: Abdominal pain. TECHNIQUE: CT abdomen and pelvis acquired with 150 cc Isovue 370 IV contrast. COMPARISON: February 17, 2022. FINDINGS: Lower chest: Unremarkable. Liver: Fatty infiltration. No focal lesion. Gallbladder and bile ducts: Cholecystectomy. Pancreas: Unremarkable. No mass or inflammation. Spleen: Unremarkable. Normal in size. No masses. Adrenal glands: Unremarkable. No nodules. Kidneys: An approximately 6 cm pedunculated benign-appearing cysts emanating from the posterior cortex of the right kidney. Kidneys otherwise unremarkable. GI tract: Unremarkable. Normal in caliber. No sign of mass or inflammation. Post appendectomy. Vasculature: Abdominal aorta is normal in caliber. Mesenteric arteries are patent. Lymph nodes: No lymphadenopathy. Peritoneum/Abdominal Wall: Unremarkable. No sign of mass or infiltration. No free air or significant free fluid. Pelvis: Enlarged prostate gland. Unremarkable bladder. Bones: Unremarkable for age. IMPRESSION: No acute or specific finding to explain abdominal pain. Please note that all CT scans at this facility use dose modulation, iterative reconstruction, and/or weight-based dosing when appropriate to reduce radiation dose to as low as reasonably achievable. Dictated by Ventura Tracey MD @ 02/13/2024 8:39:16 PM Signed by:?Ventura Tracey MD @02/13/2024 8:39:16 PM (Electronic Signature)
--- NOTE | 2024-02-13 18:16 | CT_ITS ---
Patient: FRANNY ISRAEL Facility:?[facility] Patient ID:?[id number] Site Patient ID:?[id number]. Site :?1945 Study:?CT-Extremity Left FEMUR W 150CC ISOVUE 370-02/13/2024 7:29:25 PM Ordering Physician:?DR. TELLEZ Final Report: Indication: Multiple myeloma. Lower thigh pain. Technique: CT left femur with 150 cc Isovue 370 IV contrast. Comparison: None. Findings: No osseous abnormality. No suspicious bone lesion or fracture. There is atherosclerosis in the femoral artery. Soft tissues otherwise unremarkable. Impression: No specific finding to explain lower thigh pain. Please note that all CT scans at this facility use dose modulation, iterative reconstruction, and/or weight-based dosing when appropriate to reduce radiation dose to as low as reasonably achievable. Dictated by Ventura Tracey MD @ 02/13/2024 8:44:42 PM Signed by:?Ventura Tracey MD @02/13/2024 8:44:42 PM (Electronic Signature)
--- NOTE | 2024-02-13 18:17 | CT_ITS ---
Patient: FRANNY ISRAEL Facility:?[facility] RIS Patient ID:?[id number] Site Patient ID:?[id number]. Site :?[id number] Study:?CT-Head WITHOUT-02/13/2024 7:26:55 PM Ordering Physician:?DR. TELLEZ Final Report: Indication : Confusion. Altered mental status. Technique : CT of the brain without intravenous contrast. Comparison: CT head 04/01/2022. Findings: No acute blurring of the dominguez-white differentiation. There is no intracranial hemorrhage. The ventricles are proportionate to the cerebral sulci. The 4th ventricle is midline. Basal cisterns appear patent. No abnormal extra-axial fluid collection identified. Mild parenchymal volume loss. There is mild patchy periventricular hypodensity, favored to represent chronic ischemic microvascular disease. There is no intracranial mass, mass effect or midline shift identified. No depressed calvarial fracture. Moderate paranasal sinus mucosal disease. Impression: 1. No acute intracranial process. 2. Mild chronic ischemic microvascular disease. Please note that all CT scans at this facility use dose modulation, iterative reconstruction, and/or weight-based dosing when appropriate to reduce radiation dose to as low as reasonably achievable. Dictated by Timoteo Acosta MD @ 02/13/2024 8:04:03 PM Signed by:?Timoteo Acosta MD @02/13/2024 8:04:03 PM (Electronic Signature)
[2024-02-13 18:32] LABS: Lactate* 1.8 mmol/L (0.5-1.9)
--- OUTSIDE RECORDS SUMMARY | 2024-02-13 18:37 | XMS_ITS | Data Portability ---
Author Name Unknown Address [address] [place] [address] Phone [phone] Organization [facility] Address [address] [place] [address] Care Team Providers Care Line Maintenance Supervisor Name Role Phone STANLEY CARDOSO Primary Care Provider Assessment Encounter Date Assessment Date Assessment LastModified [...] available Not available Lab biopsy, prostate 2021 [facility], [address], [place], [address], 03/14/2022 15:36:13 urinalysi s, dipstick 2021 [facility], [address], [address], [place], [address], 11/10/2021 16:57:47 Referral None recorded. Procedures None recorded. Surgeries None recorded. Imaging MRI, prostate, w/wo contrast - Please call patient to schedule 2021 [facility], [address], [place], [address], 11/20/2021 18:08:46 Medication Orders finasteri de 5 mg tablet 2022 023 [facility] [address], [address] [place], [address], 04/07/2023 12:07:55 ceftriaxo ne 1 gram solution for injection 2021 022 [email or web address] [facility] [address], [address] [place], [address], 10/11/2023 10:47:48 lidocaine (PF) 10 mg/mL (1 %) injection solution 2021 [email or web address] [facility] [address], [address] [place], [address], 10/11/2023 10:47:45 Patient TargetsNo targets recorded. Patient Instructions Encounter Date Encounter Id Patient Instructions Last Modified By Organization Details Last Modified Time 10/11/2023 [id number] continue on finasteride and plan rtc in April with PSA for PARKER and med refill. [email or web address] Not available 10/11/2023 10:54:16 04/07/2023 [id number] will start on finasteride and plan get PSA done in about 6 months at PCP clinic. [email or web address] Not available 04/07/2023 12:06:55 03/11/2022 [id number] The patient tolerated the procedure well. We [...] TUS color -advantus yellow yellow Not Available [facility] [address] [facility] [address], [place], [address], 11/10/2021 16:57:47 11/10/19 22 11/10/2021 UA DIP CS ADVAN TUS appearance -advantus cloudy clear abnormal Not Available [facility] [address] [place] [address] [address], [place], [address], 11/10/2021 16:57:47 11/10/19 22 11/10/2021 UA DIP CS ADVAN TUS glucose -advantus negati ve mg/dL negati ve Not Available [facility] [address] [facility] [address], [place], [address], 11/10/2021 16:57:47 11/10/19 22 11/10/2021 UA DIP CS ADVAN TUS bilirubin -advantus negati ve negati ve Not Available [facility] [address] [place] [address] [address], [place], [address], 11/10/2021 16:57:47 11/10/19 22 11/10/2021 UA DIP CS ADVAN TUS ketones -advantus negati ve mg/dL negati ve Not Available [facility] [address] [facility] [address], [place], [address], 11/10/2021 16:57:47 11/10/19 22 11/10/2021 UA DIP CS ADVAN TUS sp. gravity -advantus >=1.03 0 1.010- 1.025 Not Available [facility] [address] [place] [address] [address], [place], [address], 11/10/2021 16:57:47 11/10/19 22 11/10/2021 UA DIP CS ADVAN TUS pH -advantus 5.0 5.0-8. 0 Not Available [facility] [address] [place] [address] [address], [place], [address], 11/10/2021 16:57:47 11/10/19 22 11/10/2021 UA DIP CS ADVAN TUS protein -advantus negati ve mg/dL negati ve Not Available [facility] [address] [place] [address] [address], [place], [address], 11/10/2021 16:57:47 11/10/19 22 11/10/2021 UA DIP CS ADVAN TUS urobilinogen -advantus 0.2 normal Not Available [facility] [address] [place] [address] [address], [place], [address], 11/10/2021 16:57:47 11/10/19 22 11/10/2021 UA DIP CS ADVAN TUS nitrites -advantus negati ve negati ve Not Available [facility] [address] [place] [address] [address], [place], [address], 11/10/2021 16:57:47 11/10/19 22 11/10/2021 UA DIP CS ADVAN TUS blood -advantus negati ve negati ve Not Available [facility] [address] [place] [address] [address], [place], [address], 11/10/2021 16:57:47 11/10/19 22 11/10/2021 UA DIP CS ADVAN TUS leukocytes -advantus negati ve negati ve Not Available [facility] [address] [place] [address] [address], [place], [address], 11/10/2021 16:57:47 11/10/19 22 11/10/2021 UA DIP CS ADVAN TUS performed by va X Not Available [facility] [address] [place] [address] [address], [place], [address], 11/10/2021 16:57:47 11/10/19 22 11/10/2021 UA DIP CS ADVAN TUS total urine volume (mL) 35 /mL Not Available [facility] [address] [facility] [address], [place], [address], 11/10/2021 16:57:47 11/10/19 22 11/10/2021 PSA, total , serum or plasm a PSA 1.94 Not Available [facility] [address] [place], [address], 11/12/2021 09:12:23 11/20/19 22 11/20/2021 MRI, prost ate, w/wo contr ast No observ ation record ed. Jamshid Ramírez MD [address] [place], [address], 11/20/2021 18:19:36 11/24/19 22 11/20/2021 MRI, abdom [...] Type 2 diabetes mellitus Active Ele marie [facility] 11/10/2021 10:51:10 Prostate specific antigen above reference range Active 3 Jamshid Mann MD [address] [facility],[address], [place], [address], [place] [facility] 04/07/2023 12:06:20 Problem Notes None recorded. Procedures Surgical History Date Name Laterality Status Provider Name and Address Organization Details Recorded Time 04/07/20 23 Bladder Scan completed Jamshid Mann MD [address] [facility] [address], [place], [address], [place] [facility] 04/07/2023 11:53:31 03/11/20 22 Prostate Biopsy Procedure completed Kemar Lujan MD [address] [facility] [address], [place], [address], [facility] 03/11/2022 14:05:02 03/11/20 22 URONAV completed Kemar Lujan MD [address] [place] [address],[address], [place], [address], [facility] 03/11/2022 14:04:59 03/11/20 22 Rocephin/Ceftri axone completed Meena Fontaine null, [facility] 03/11/2022 12:50:39 11/10/19 22 Bladder Scan completed Ele Mcclelland null, [facility] 11/10/2021 10:54:52 01/05/20 12 Diagnostic [...] prostate, w/wo contrast completed Jamshid Ramírez MD [address] [place] [address], [address], 11/20/2021 18:19:36 11/20/2021 MRI, abdomen + pelvis, [...] Not Available No t Available Dexcom G6 Event Marketing Intern DIRECTED FOR CONTINUOU S GLUCOSE MONITORIN G. [...] Updated DateTime 04/07/2023 177.8 cm 33 kg/m2 705851.25 g Jamshid Mann MD [address] [facility] [address], [place], [address], [place] - [facility] 04/07/2023 11:54:14 Date Recorded Body height Body mass index (BMI) Body weight Provider Name and Address Organization Details Last Updated DateTime 10/11/2023 177.8 cm 21.5 kg/m2 13349.86 g Jamshid Mann MD [address] [facility],[address], [place], [address], [facility] 10/11/2023 10:44:48 Date Recorded Body weight Body height Body mass index (BMI) Provider Name and Address Organization Details Last Updated DateTime 01/12/2022 03621.85048 21484 g 180.34 cm 29.3 kg/m2 Not Available Health Note 01/12/2022 09:05:37 Date Recorded Heart rate Systolic blood pressure Diastolic blood pressure Provider Name and Address Organization Details Last Updated DateTime 03/11/2022 63 /min 158 mm[Hg] 87 mm[Hg] Meean Fontaine [facility] 03/11/2022 12:50:55 Social History Question [...] Reflux N Heart Disease N Cancer N Depression N Lung Disease N Immunizations Vaccine Type Date Status Provider Name and Address Organization Details Recorded Time SARS-COV-2 (COVID-19) vaccine, UNSPECIFIED 07/16/2021 completed Not Available Health Note 01/11/2022 11:59:30 influenza, unspecified formulation 07/20/2021 completed Not Available Health Note 01/11/2022 11:59:30 Past Encounters Encounter ID Performer Location Encounter Start Date Encounter Closed Date Diagnosis/Indication Diagnosis SNOMED-CT Code [id number] Kemar Lujan MD [facility] [address] [place] [address] 11/10/2021 08:36:50 11/10/2021 14:42:58 Prostate specific antigen above reference range [id number] Kemar Lujan MD [address] [address] 03/11/2022 12:25:57 03/11/2022 14:23:20 Prostate specific antigen above reference range [id number] Meena Zhen [address] [address] 03/11/2022 12:25:27 03/11/2022 13:27:03 Prostate specific antigen above reference range [id number] Jamshid Mann MD [address] [address] 04/07/2023 11:15:57 04/13/2023 09:44:11 Prostate specific antigen above reference range [id number] Jamshid Mann MD [address] [address] 10/11/2023 10:09:12 10/20/2023 17:05:23 Prostate specific antigen above reference range 073346769 High grade prostatic intraepithelial neoplasia 042740872 Health Concerns Section Related Observation LastModified by Organization Detai ls LastModified Time None Recorded Concern Status LastModified by Organization Details LastModified Time None Recorded Advance Directives Directive None Recorded Payers Encounter Date Sequence Insurance Name Policy Number Policy Mancuso Covered Member ID Mancuso Member ID Guarantor Name 10/11/2023 1 [place] [employer] Juan R Retana [id number] Juan R Retana 10/11/2023 2 [place] [id number] Juan Retana [id number] Juan Retana 04/07/2023 1 [place] [employer] Juan R Retana [id number] Juan R Retana 04/07/2023 2 [place] [id number] Juan [id number] Juan Retana 03/11/2022 1 [place] [employer] [employer] Juan R Retana [id number] Juan R Retana 03/11/2022 2 [place] [id number] Juan Retana [id number] Juan Retana 03/11/2022 1 [place] [employer] Juan R Retana [id number] Juan R Retana 03/11/2022 2 [place] [id number] Juan Retana [id number] Juan Retana 11/10/2021 1 [place] [employer] Juan R Retana [id number] Juan Retana 11/10/2021 2 [place] [id number] Juan Retaan [id number] Juan Retana Notes Date Note Type Note [...] history of prostate cancer. Kemar Lujan MD [address] [place] [address],[address], [place], [address], [facility] 11/10/2021 11:29:24 03/11/2022 text/html HPI Notes: [...] for Uronav prostate biopsy. Kemar Lujan MD [address] [place] [address],[address], [address], [facility] 03/11/2022 14:18:53 04/07/2023 text/html HPI Notes: [...] PSA since the biopsy. 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 recent PSA was down to 1.01. taking finasteride and voiding well. no heme/dysuria. rx good until April. Jamshid Mann MD [address] [place] [address],[address], [place], [address], [facility] 10/11/2023 10:56:46
--- OUTSIDE RECORDS SUMMARY | 2024-02-13 18:37 | XMS_ITS | Continuity of Care Document ---
Author Name Unknown Organization [facility] Address [address] [address] [place] [address] Phone Care Team Providers Care Progress Man Name Role Phone Brad Jean MD Unavailable Unavailabl e Advance Directives Directive Yes / No Effective Date File Name No Information Encounters Encounter Description Practice Location Reason(s) For Visit Diagnoses Date Provider Providers Copied on Encounter [facility], [address] [address], [place], [place], [id number], [place] tel:[phone] [facility] No Information Steve Salinas. [address] [facility] [address], [place], [place], [id number], [place]. tel:[phone] Family History Family Member Type Diagnosis Age [...] Pneumococcal conjugate vacci ne 20-valent (PCV20), polysaccharide [id number] conjugate, adjuvant, preservative free administered Note: [facility] [...] high dose seasona l, preservative-free administered Note: [facility] bi-direct ional interface ; Source: Other Registry Prevnar 13 administered Note: [facility] bi-d irectional interface ; Source: Other Registry tetanus toxoid, reduced diphtheria toxoid, and acellular pertussis vaccine, adsorbed administered Note: [facility] b i-directional interface ; Source: Other Registry zoster vaccine, live administered Note: [facility] bi-directional interface ; Source: Other Registry zoster vaccine, live administered Note: [facility] bi-directional interface ; Source: Other Registry Pneumovax administered Note: [facility] bi-d irectional interface ; Source: Other Registry tetanus toxoid, reduced diphtheria toxoid, and acellular pertussis vaccine, adsorbed administered Note: [facility] b i-directional interface ; Source: Other Registry Pneumovax administered Note: [facility] bi-d irectional interface ; Source: Other Registry Payers Payer name Insurance type Covered alliance party ID Authoriza tion(s) No Information Social History Type Description Quantity Date Captured Comments Sex Male Smoking Status No Information Chief Complaint And Reason For Visit No Information Reason For Referral Reason For Referral No Information History Of Present Illness Encounter Date Complaint History Of Prese nt Illness No Information Functional Status Date Functional Assessmen t No Information Instructions Date Instruction Additional Infor mation No Information Assessments Type Assessment Date No Information Patient Care Teams Name Effective Dates (start - stop) Status Members No Information
[2024-02-13 18:38] LABS: Basophils Absolute Auto 0.02 K/uL (0.00-0.30); Basophils Percent Auto 0.3 % (0.0-3.0); Eosinophils Absolute Auto 0.18 K/uL (0.00-0.50); Eosinophils Percent Auto 2.7 % (0.0-7.0); Hemoglobin* 12.2 gm/dL (13.5-17.5); Immature Granulocytes Abs Auto 0.11 K/uL (0.00-0.30); Immature Granulocytes Pct Auto 1.6 %; Lymphocytes Percent Auto 17.9 % (20-44); Mean Corpuscular HGB Conc 33 gm/dL (32-36); Mean Corpuscular Hemoglobin 33 pg (26-34); Mean Corpuscular Volume 100 fL (80-100); Monocytes Percent Auto 13.3 % (0.0-11.0); Neutrophils Absolute Auto 4.31 K/uL (1.7-7.0); Neutrophils Percent Auto 64.2 % (42.0-72.0); Platelet Count* 212 K/uL (140-440); RDW Coefficient of Variation % 14.2 % (11.5-15.5); Red Blood Count 3.71 m/uL (4.30-5.90); White Blood Count* 6.71 K/uL (4.50-11.00)
[2024-02-13 18:39] LABS: Slide Review Reflex No
[2024-02-13] MEDS: 0.9 % SODIUM CHLORIDE 1000 ml 1,000 ML IV (18:50)
[2024-02-13 19:24] LABS: Chloride* 110 mmol/L (96-114)
[2024-02-13 19:25] LABS: Potassium* 3.9 mmol/L (3.6-5.1); Sodium* 139 mmol/L (135-149)
[2024-02-13 19:27] LABS: Creatinine* 1.2 mg/dL (0.5-1.5); Est. Creatinine Clearance* 44.84; Estimated Glomerular Filt Rate 62 ml/min
[2024-02-13 19:28] LABS: Anion Gap 7 mEq/L (7-15); Blood Urea Nitrogen* 17 mg/dL (7-30); Calcium* 8.8 mg/dL (8.4-10.6); Carbon Dioxide* 22 mmol/L (20-32); Glucose* 115 mg/dL (60-115)
[2024-02-13 20:00] LABS: C Reactive Protein* < 0.5 mg/dL (0.5-1.0); Troponin I* < 0.01 ng/mL (0.01-0.04)
[2024-02-13 20:01] LABS: Appearance Urine Clear (Clear); Bilirubin Urine Negative (Negative); Blood Urine Negative (Negative); Color Urine Yellow (Yellow); Glucose Urine Negative (Negative); Ketones Urine Negative (Negative); Leukocyte Esterase Urine Negative (Negative); Nitrite Urine Negative (Negative); Protein Urine Negative (Negative); Specific Gravity Urine <= 1.005 (1.000-1.030); Urobilinogen Urine 0.2 (0.2-1.0)
[2024-02-13 20:18] LABS: RBC Urine 0-2 (0-2); WBC Urine 0-2 (0-5)
== END 2024-02-13 21:33 | disposition home or self-care (01) ==
PROVIDERS: Emergency Provider Emergency Medicine; PCP Physician Assistant Medical
DX: R41.82 Altered mental status, unspecified (principal); M79.652 Pain in left thigh
CPT/HCPCS: 36415; 70450; 73701; 74177; 80048; 81001; 83605; 84484; 85025; 86140; 93005; 99284; 99285; J7030; Q9967

== ENCOUNTER 2024-02-15 14:25 | Outpatient (CLI) | payer MEDICARE, BC, SELFPAY | END 2024-02-15 14:26 | disposition home or self-care (01) | PROVIDERS: PCP Physician Assistant Medical; Visit Provider Physician Assistant Medical | DX: D64.9 Anemia, unspecified (principal); E11.9 Type 2 diabetes mellitus without complications; R41.89 Other symptoms and signs involving cognitive functions and awareness | CPT/HCPCS: 80076; 82043; 82570; 82607; 82746; 83540; 83550; 84425; 84443 ==

== ENCOUNTER 2024-02-22 08:03 | Outpatient (CLI) | payer MEDICARE, BC, MEDICAID, SELFPAY ==
--- OUTSIDE RECORDS SUMMARY | 2024-02-22 08:08 | XMS_ITS | Data Portability ---
Author Organization [facility], [facility] Address [address] [place] [address] Care Team Providers Care Loss Control Representative Name Role Phone STANLEY CARDOSO Primary Care Provider [phone] Assessment Encounter Date Assessment Date Assessment LastModified [...] available Not available Lab biopsy, prostate 2021 [facility], [address], [address], [place], [address], 03/14/2022 15:36:13 urinalysi s, dipstick 2021 022 [facility], [address], [address], [place], [address], 11/10/2021 16:57:47 Referral None recorded. Procedures None recorded. Surgeries None recorded. Imaging MRI, prostate, w/wo contrast - Please call patient to schedule 2021 022 [facility], [address] [place], [address], 11/20/2021 18:08:46 Medication Orders finasteri de 5 mg tablet 2022 023 [facility], [address] [place], [address], 04/07/2023 12:07:55 ceftriaxo ne 1 gram solution for injection [address] [facility], [address] [place], [address], 10/11/2023 10:47:48 lidocaine (PF) 10 mg/mL (1 %) injection solution 2021 022 [email or web address] [facility], [address] [place], [address], 10/11/2023 10:47:45 Patient TargetsNo targets recorded. Patient Instructions Encounter Date Encounter Id Patient Instructions Last Modified By Organization Details Last Modified Time 10/11/2023 [id number] continue on finasteride and plan rtc in April with PSA for PARKER and med refill. [email or web address] Not available 10/11/2023 10:54:16 04/07/2023 [id number] will start on finasteride and plan get PSA done in about 6 months at PCP clinic. [email or web address] Not available 04/07/2023 12:06:55 03/11/2022 [id number] The patient tolerated the procedure well. We [...] UA DIP CS ADVAN TUS color -advantus YELLOW yellow Not Available [facility] [address] [facility] [address], [place], [address], 11/10/2021 16:57:47 11/10/19 22 11/10/2021 UA DIP CS ADVAN TUS appearance -advantus CLOUDY clear abnormal Not Available [facility] [address] [facility] [address], [place], [address], 11/10/2021 16:57:47 11/10/19 22 11/10/2021 UA DIP CS ADVAN TUS glucose -advantus NEGATI VE mg/dL negati ve Not Available [facility] [address] [place] [address] [address], [place], [address], 11/10/2021 16:57:47 11/10/19 22 11/10/2021 UA DIP CS ADVAN TUS bilirubin -advantus NEGATI VE negati ve Not Available [facility] [address] [facility] [address], [place], [address], 11/10/2021 16:57:47 11/10/19 22 11/10/2021 UA DIP CS ADVAN TUS ketones -advantus NEGATI VE mg/dL negati ve Not Available [facility] [address] [facility] [address], [place], [address], 11/10/2021 16:57:47 11/10/19 22 11/10/2021 UA DIP CS ADVAN TUS sp. gravity -advantus >=1.03 0 1.010- 1.025 Not Available [facility] [address] [place] [address] [address], [place], [address], 11/10/2021 16:57:47 11/10/19 22 11/10/2021 UA DIP CS ADVAN TUS pH -advantus 5.0 5.0-8. 0 Not Available [facility] [address] [facility] [address], [place], [address], 11/10/2021 16:57:47 11/10/19 22 11/10/2021 UA DIP CS ADVAN TUS protein -advantus NEGATI VE mg/dL negati ve Not Available [facility] [address] [place] [address] [address], [place], [address], 11/10/2021 16:57:47 11/10/19 22 11/10/2021 UA DIP CS ADVAN TUS urobilinogen -advantus 0.2 normal Not Available [facility] [address] [place] [address] [address], [place], [address], 11/10/2021 16:57:47 11/10/19 22 11/10/2021 UA DIP CS ADVAN TUS nitrites -advantus NEGATI VE negati ve Not Available [facility] [address] [place] [address] [address], [place], [address], 11/10/2021 16:57:47 11/10/19 22 11/10/2021 UA DIP CS ADVAN TUS blood -advantus NEGATI VE negati ve Not Available [facility] [address] [facility] [address], [place], [address], 11/10/2021 16:57:47 11/10/19 22 11/10/2021 UA DIP CS ADVAN TUS leukocytes -advantus NEGATI VE negati ve Not Available [facility] [address] [place] [address] [address], [place], [address], 11/10/2021 16:57:47 11/10/19 22 11/10/2021 UA DIP CS ADVAN TUS performed by Va X Not Available [facility] [address] [place] [address] [address], [place], [address], 11/10/2021 16:57:47 11/10/19 22 11/10/2021 UA DIP CS ADVAN TUS total urine volume (mL) 35 /mL Not Available [facility] [address] [place] [address] [address], [place], [address], 11/10/2021 16:57:47 11/10/19 22 11/10/2021 PSA, total , serum or plasm a PSA 1.94 Not Available [facility] [address] [place], [address], 11/12/2021 09:12:23 11/20/19 22 11/20/2021 MRI, prost ate, w/wo contr ast No observ ation record ed. Jamshid Ramírez MD [address] [place], [address], 11/20/2021 18:19:36 11/24/19 22 11/20/2021 MRI, abdom [...] Type 2 diabetes mellitus Active Ele marie [facility] 11/10/2021 10:51:10 Prostate specific antigen above reference range Active 3 Jamshid Mann MD [address] [place] [address],[address] [place] [address], [address], [facility] 04/07/2023 12:06:20 Problem Notes None recorded. Procedures Surgical History Date Name Laterality Status Provider Name and Address Organization Details Recorded Time 04/07/20 23 Bladder Scan completed Jamshid Mann MD [address] [place] [address],[address], [place], [address], [facility] 04/07/2023 11:53:31 03/11/20 22 Prostate Biopsy Procedure completed Kemar Lujan MD [address] [place] [address],[address], [place], [address], [facility] 03/11/2022 14:05:02 03/11/20 22 URONAV completed Kemar Lujan MD [address] [facility],[address], [place], [address], [facility] 03/11/2022 14:04:59 03/11/20 22 Rocephin/Ceftri axone completed Meena Fontaine null, [facility] 03/11/2022 12:50:39 11/10/19 22 Bladder Scan completed Ele Mcclelland null, [facility] 11/10/2021 10:54:52 01/05/20 12 Diagnostic [...] prostate, w/wo contrast completed Jamshid Ramírez MD [address] [place] [address], [address], 11/20/2021 18:19:36 11/20/2021 MRI, abdomen + pelvis, [...] Not Available No t Available Dexcom G6 [employer]icopter Rep[employer]r DIRECTED FOR CONTINUOU S GLUCOSE MONITORIN G. [...] Updated DateTime 04/07/2023 177.8 cm 33 kg/m2 747218.25 g Jamshid Mann MD [address] [place] [address],[address], [address] 04/07/2023 11:54:14 Date Recorded Body height Body mass index (BMI) Body weight Provider Name and Address Organization Details Last Updated DateTime 10/11/2023 177.8 cm 21.5 kg/m2 89494.86 g Jamshid Mann MD [address] [place] [address],[address], [address], [facility] 10/11/2023 10:44:48 Date Recorded Body weight Body height Body mass index (BMI) Provider Name and Address Organization Details Last Updated DateTime 01/12/2022 57239.20046 29981 g 180.34 cm 29.3 kg/m2 Not Available Health Note 01/12/2022 09:05:37 Date Recorded Heart rate Systolic blood pressure Diastolic blood pressure Provider Name and Address Organization Details Last Updated DateTime 03/11/2022 63 /min 158 mm[Hg] 87 mm[Hg] Meena Fontaine [facility] 03/11/2022 12:50:55 Social History Question [...] High Blood Pressure N Kidney Stones N Cancer N Lung Disease N Depression N High Cholesterol N GERD/Acid Reflux N Heart Disease N Immunizations Vaccine Type Date Status Provider Name and Address Organization Details Recorded Time SARS-COV-2 (COVID-19) vaccine, UNSPECIFIED 07/16/2021 completed Not Available Health Note 01/11/2022 11:59:30 influenza, unspecified formulation 07/20/2021 completed Not Available Health Note 01/11/2022 11:59:30 Past Encounters Encounter ID Performer Location Encounter Start Date Encounter Closed Date Diagnosis/Indication Diagnosis SNOMED-CT Code [id number] Kemar Lujan MD [facility] [address] [place] [address] 11/10/2021 08:36:50 11/10/2021 14:42:58 Prostate specific antigen above reference range [id number] Kemar Lujan MD [address] [address] 03/11/2022 12:25:57 03/11/2022 14:23:20 Prostate specific antigen above reference range [id number] Meena Zhen [address] [address] 03/11/2022 12:25:27 03/11/2022 13:27:03 Prostate specific antigen above reference range [id number] Jamshid Mann MD _[address] [address] 04/07/2023 11:15:57 04/13/2023 09:44:11 Prostate specific antigen above reference range [id number] Jamshid Mann MD [facility] [address] 10/11/2023 10:09:12 10/20/2023 17:05:23 Prostate specific antigen above reference range [id number] High grade prostatic intraepithelial neoplasia [id number] Health Concerns Section Related Observation LastModified by Organization Detai ls LastModified Time None Recorded Concern Status LastModified by Organization Details LastModified Time None Recorded Advance Directives Directive None Recorded Payers Encounter Date Sequence Insurance Name Policy Number Policy Mancuso Covered Member ID Mancuso Member ID Guarantor Name 10/11/2023 1 [place] [employer] Juan R Retana [id number] Juan R Retana 10/11/2023 2 [place] [id number] Juan Retana [id number] Juan R Retana 04/07/2023 1 [place] [employer] Juan R Retana [id number] Juan R Retana 04/07/2023 2 [place] [id number] Juan R Retana [id number] Juan R Retana 03/11/2022 1 [place] [employer] Juan R Retana [id number] Juan R Retana 03/11/2022 2 [place] [id number] Juan Retana [id number] Juan Alejandre Retana 03/11/2022 1 [place] [employer] Juan R Retana [id number] Juan R Retana 03/11/2022 2 [place] [id number] Juan Retana [id number] Juan R Retana 11/10/2021 1 [place] [employer] Juan R Retana [id number] Juan R Retana 11/10/2021 2 [place] [id number] Juan Retana [id number] Juan Retana Notes Date Note Type Note [...] history of prostate cancer. Kemar Lujan MD [address] [place] [address],[address], [place], [address], [facility] 11/10/2021 11:29:24 03/11/2022 text/html HPI Notes: [...] for Uronav prostate biopsy. Kemar Lujan MD [address] [place] [address],[address], [place], [address], [facility] 03/11/2022 14:18:53 04/07/2023 text/html HPI Notes: 3: [...] PSA since the biopsy. 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 recent PSA was down to 1.01. taking finasteride and voiding well. no heme/dysuria. rx good until April. Jamshid Mann MD [address] [place] [address],[address], [place], [address], [facility] 10/11/2023 10:56:46
--- NOTE | 2024-02-22 09:15 | MR_ITS ---
Patient: FRANNY ISRAEL Facility:?[facility] Patient ID:?[id number] Site Patient ID:?[id number]. Site :?[id number] Study:?MRI-Head W/ and W/O Cont 20 CC DOATERM-02/22/2024 9:44:22 AM Ordering Physician:RAQUEL TAFOYA Final Report: INDICATION: Monoclonal gammopathy. TECHNIQUE: Multiplanar multisequence MR imaging of the brain prior to and following intravenous contrast. COMPARISON: CT brain 02/13/2024. FINDINGS: Mild diffuse cerebral volume loss. No mass effect or midline shift. Scattered FLAIR hyperintensities in the supratentorial white matter and carlo, typical for mild chronic microvascular ischemic changes. No pathologic intracranial enhancement. No intracranial hemorrhage or pathologic extra-axial fluid collection. No diffusion restriction to suggest acute infarction. The major arterial flow voids at the skullbase are preserved. The globes are symmetric. Moderate maxillary sinus mucosal thickening. Mastoid air cells are clear. IMPRESSION: 1. No acute intracranial abnormality. 2. Mild chronic microvascular ischemic changes and diffuse cerebral volume loss. Dictated by Ru Hand MD @ 02/22/2024 8:04:35 PM Signed by:?Ru Hand MD @02/22/2024 8:04:35 PM (Electronic Signature)
--- NOTE | 2024-02-22 10:15 | US_ITS ---
Patient: FRANNY ISRAEL Facility:?[facility] Patient ID:?[id number] Site Patient ID:?[id number] Site :?1945 Study:?US-Extremity Left LEV-02/22/2024 9:55:11 AM Ordering Physician:HELENE ROBLES Final Report: INDICATION: Other specified soft tissue disorders COMPARISON: 11/25/2023 TECHNIQUE: A compression venous ultrasound exam was performed of the left lower extremity using dominguez-scale imaging, color Doppler and spectral Doppler analysis. FINDINGS: Sonographic imaging of the left lower extremity demonstrates normal compressibility and color Doppler venous blood flow within the common femoral vein, deep femoral vein, and the proximal greater saphenous vein. Within the thigh, the femoral vein is patent and compressible. At a lower level, the popliteal and posterior tibial veins also show normal compressibility and color Doppler venous blood flow. Limited imaging of the contralateral groin demonstrates a normal spectral waveform and color Doppler venous blood flow within the right common femoral vein. IMPRESSION: Normal venous ultrasound exam. No evidence of deep vein thrombosis within the left lower extremity. Dictated by Júnior Austin MD @ 02/22/2024 11:48:21 AM Signed by:?Júnior Austin MD @02/22/2024 11:48:21 AM (Electronic Signature)
== END 2024-02-22 08:04 | disposition home or self-care (01) ==
LOC: MRI 08:04
PROVIDERS: PCP Physician Assistant Medical; Visit Provider Internal Medicine Hematology & Oncology
DX: D47.2 Monoclonal gammopathy (principal); I67.82 Cerebral ischemia; M79.89 Other specified soft tissue disorders
CPT/HCPCS: 70553; 93971; A9575

== ENCOUNTER 2024-02-29 08:29 | Outpatient (RCR) | payer MEDICARE, BC, MEDICAID, SELFPAY ==
--- NOTE | 2024-02-29 09:57 | PT.OPE ---
PT [place] Outpatient Eval PT [facility] Outpatient Eval Start: 02/29/24 07:29 Freq: Status: Active Protocol: Document 02/29/24 09:55 CJT (Rec: 02/29/24 09:57 CJT [id number]) E-signed By Thony Jean PT Physical Therapy Outpatient Evaluation Insurance Information Recert Due Date 05/29/24 Insurance Name Medicare B Medical Diagnosis Weakness of L LE Treating Diagnosis L knee pain Referring Paul aCrlin MD Subjective Subjective Pt complains of a sore spot in his L leg. Points to L distal thigh and quad tendon. Has been going on for the past few months. Pt is unable to describe the quality of his pain as well as aggravating and alleviating factors. Pts reports that sitting in his hot tub seemed to help quite a bit. Went to the ED earlier this month and had CT of his L femur which was negative for fractures. Pt has also seen Ortho and was encouraged to do strengthening . Went to chiro who asked if anyone has checked his lumbar spine. Chiro has been completing adjustments to his low back and this did provide pt with about 3-4 hours of relief. Pt reports that he does not want to attend physical therapy and does not want to do any exercising. Pain Comments 05/12 Date of Last Physician Visit 02/23/24 Current Work Status Retired Preferred Name Alfredo Precautions Therapy Limitations/Systems Review Not Limited Objective Other/Pertinent Objective Lumbar ROM Extension - significant limitations noted, no pain Flexion - can reach to B knees but requires hands on knees for support R Hip ROM Flexion - 110 IR/ER - 25/25 Extension - 0 L Hip ROM Flexion - 110 IR/ER - 25/25 Extension - 0 R knee ROM - 0-120 L knee ROM - 0-120 R Hip Strength Flexion - 3/5 MMT Abduction - 3/5 MMT Adduction - 3/5 MMT IR - 4-/5 MMT ER - 4-/5 MMT Extension - 3/5 MMT L Hip Strength Flexion - 3/5 MMT Abduction - 3/5 MMT Adduction - 3/5 MMT IR - 3+/5 MMT ER - 3+/5 MMT Extension - 3/5 MMT R knee Extension - 4+/5 MMT R Knee Flexion - 3/5 MMT L knee Extension - 3/5 MMT L knee Flexion - 3/5 MMT R ankle DF - 3+/5 MMT L ankle DF - 4+/5 MMT Palpation: pt reports pain/ tenderness with palpation to L quad tendon, medial and lateral gastroc heads Gait: flat foot strike, shortened stride length Special Testing Slump: negative SLR: negative FADIR: negative MARGARITA: negative Marely's: positive B for shortened rectus femoris length Hamstring: positive B for shortened hamstring length Assessment Assessment/Impression Alfredo is a pleasant 78 year old male who presents to our clinic for evaluation and treatment of L LE weakness. He presents today with his , Josy. I was very clear with Alfredo and his that I am not 100% sure why Alfredo is experiencing his pain. Testing for spine involvement was negative this date. Pt did present however with significant strength and ROM deficits in B LEs. LE strength is grossly 3/5 MMT although it is unclear if pt understood directions with strength testing even with multiple attempts for each plane. Pts B hamstrings and quads/hip flexors are very tight and I do believe that this combination of tightness and weakness is contributing to his pain in his L distal quad. Pt was very clear with me today that he does not want to exercise and would rather go see his chiropractor instead. Today I asked Alfredo if he could try completing the two exercises I gave him today every day for the next week - he would not answer this question. While pt was adamant about not attending physical therapy, I would recommend he schedule twice weekly for 4-8 weeks, with reduction in visits when he begins to see progress in his level of pain and stregnth. If he reconsiders and decides he would like to attend therapy sessions, he may call us at any time to schedule. Primary Functional Limitations Transfers, walking Plan of Care Rehabilitation Potential Fair Physical Therapy Goals STG - To be completed in 4 weeks: 1. Pt will demo at least 4/5 MMT for all LE motions bilaterally to provide greater support to B knee with ambulation and transfers. LTG - To be completed in 8 weeks: 1. Pt to be I with HEP so that he may I manage progression of symptoms. 2. Pt will demo ability to perform 10 bnb-al-vckyl transfers in 13 seconds as indication of improved LE stregnth. Treatment Plan/Direct Interventions Joint Mobilization,Manual Therapy,Neuromuscular Re-ed, Self-Care/Home Management, Therapeutic Exercises Frequency/Duration 2/week for 4-8 weeks Patient Will Be Discharged From Therapy Completion of LTG(s),Skills Plateau,Independent w/HEP, Independently Progressing Evaluation Billing Untimed Code Treatment Minutes 50 PT Eval No Charge No Complexity Low Certification Information Initial Certification Date 02/29/24 Ending Certification Date 05/29/24 Provider Signature Shows Agreement With POC & Medical Necessity Physician Signature & Date Requested Please Sign/Date Here Physician Comment/Change : Physician NPI Number #
== END 2024-05-17 14:00 | disposition home or self-care (01) ==
PROVIDERS: PCP Physician Assistant Medical; Visit Provider Orthopaedic Surgery Sports Medicine
DX: R29.898 Other symptoms and signs involving the musculoskeletal system (principal); M25.562 Pain in left knee; Z51.89 Encounter for other specified aftercare
CPT/HCPCS: 97161

== ENCOUNTER 2024-03-08 09:40 | Outpatient (CLI) | payer MEDICARE, BC, SELFPAY ==
--- OUTSIDE RECORDS SUMMARY | 2024-03-12 17:10 | XMS_ITS | Data Portability ---
Author Organization [facility], [facility] Address [address] [place] [address] Care Team Providers Care Nursing Assistant Name Role Phone STANLEY CARDOSO Primary Care [...] available Not available Lab biopsy, prostate 2021 [facility], [address], [place] [address], [place], [address], 03/14/2022 15:36:13 urinalysi s, dipstick [address] [facility], [address], [address], [place], [address], 11/10/2021 16:57:47 Referral None recorded. Procedures None recorded. Surgeries None recorded. Imaging MRI, prostate, w/wo contrast - Please call patient to schedule 2021 022 [facility], [address] [address], [address], 11/20/2021 18:08:46 Medication Orders finasteri de 5 mg tablet 2022 023 [facility], [address] [place], [address], 04/07/2023 12:07:55 ceftriaxo ne 1 gram solution for injection [address] [facility], [address] [place], [address], 10/11/2023 10:47:48 lidocaine (PF) 10 mg/mL (1 %) injection solution 2021 022 [email or web address] [facility], [address] [place], [address], 10/11/2023 10:47:45 Patient TargetsNo targets recorded. Patient Instructions Encounter Date Encounter Id Patient Instructions Last Modified By Organization Details Last Modified Time 10/11/2023 [id number] continue on finasteride and plan rtc in April with PSA for PARKER and med refill. [email or web address] Not available 10/11/2023 10:54:16 04/07/2023 [id number] will start on finasteride and plan get PSA done in about 6 months at PCP clinic. [email or web address] Not available 04/07/2023 12:06:55 03/11/2022 [id number] The patient tolerated the procedure well. We [...] TUS color -advantus YELLOW yellow Not Available [facility] [address] [facility] [address], [place], [address], 11/10/2021 16:57:47 11/10/19 22 11/10/2021 UA DIP CS ADVAN TUS appearance -advantus CLOUDY clear abnormal Not Available [facility] [address] [facility] [address], [place], [address], 11/10/2021 16:57:47 11/10/19 22 11/10/2021 UA DIP CS ADVAN TUS glucose -advantus NEGATI VE mg/dL negati ve Not Available [facility] [address] [place] [address] [address], [place], [address], 11/10/2021 16:57:47 11/10/19 22 11/10/2021 UA DIP CS ADVAN TUS bilirubin -advantus NEGATI VE negati ve Not Available [facility] [address] [facility] [address], [place], [address], 11/10/2021 16:57:47 11/10/19 22 11/10/2021 UA DIP CS ADVAN TUS ketones -advantus NEGATI VE mg/dL negati ve Not Available [facility] [address] [facility] [address], [place], [address], 11/10/2021 16:57:47 11/10/19 22 11/10/2021 UA DIP CS ADVAN TUS sp. gravity -advantus >=1.03 0 1.010- 1.025 Not Available [facility] [address] [place] [address] [address], [place], [address], 11/10/2021 16:57:47 11/10/19 22 11/10/2021 UA DIP CS ADVAN TUS pH -advantus 5.0 5.0-8. 0 Not Available [facility] [address] [facility] [address], [place], [address], 11/10/2021 16:57:47 11/10/19 22 11/10/2021 UA DIP CS ADVAN TUS protein -advantus NEGATI VE mg/dL negati ve Not Available [facility] [address] [place] [address] [address], [place], [address], 11/10/2021 16:57:47 11/10/19 22 11/10/2021 UA DIP CS ADVAN TUS urobilinogen -advantus 0.2 normal Not Available [facility] [address] [place] [address] [address], [place], [address], 11/10/2021 16:57:47 11/10/19 22 11/10/2021 UA DIP CS ADVAN TUS nitrites -advantus NEGATI VE negati ve Not Available [facility] [address] [place] [address] [address], [place], [address], 11/10/2021 16:57:47 11/10/19 22 11/10/2021 UA DIP CS ADVAN TUS blood -advantus NEGATI VE negati ve Not Available [facility] [address] [facility] [address], [place], [address], 11/10/2021 16:57:47 11/10/19 22 11/10/2021 UA DIP CS ADVAN TUS leukocytes -advantus NEGATI VE negati ve Not Available [facility] [address] [place] [address] [address], [place], [address], 11/10/2021 16:57:47 11/10/19 22 11/10/2021 UA DIP CS ADVAN TUS performed by Va X Not Available [facility] [address] [place] [address] [address], [place], [address], 11/10/2021 16:57:47 11/10/19 22 11/10/2021 UA DIP CS ADVAN TUS total urine volume (mL) 35 /mL Not Available [facility] [address] [place] [address] [address], [place], [address], 11/10/2021 16:57:47 11/10/19 22 11/10/2021 PSA, total , serum or plasm a PSA 1.94 Not Available [facility] [address] [place], [address], 11/12/2021 09:12:23 11/20/19 22 11/20/2021 MRI, prost ate, w/wo contr ast No observ ation record ed. Jamshid Ramírez MD [address] [place], [address], 11/20/2021 18:19:36 11/24/19 22 11/20/2021 MRI, abdom [...] Type 2 diabetes mellitus Active Ele marie [facility] 11/10/2021 10:51:10 Prostate specific antigen above reference range Active 3 Jamshid Mann MD [address] [place] [address],[address] [place] [address], [address], [facility] 04/07/2023 12:06:20 Problem Notes None recorded. Procedures Surgical History Date Name Laterality Status Provider Name and Address Organization Details Recorded Time 04/07/20 23 Bladder Scan completed Jamshid Mann MD [address] [place] [address],[address], [place], [address], [facility] 04/07/2023 11:53:31 03/11/20 22 Prostate Biopsy Procedure completed Kemar Lujan MD [address] [place] [address],[address], [place], [address], [facility] 03/11/2022 14:05:02 03/11/20 22 URONAV completed Kemar Lujan MD [address] [facility],[address], [place], [address], [facility] 03/11/2022 14:04:59 03/11/20 22 Rocephin/Ceftri axone completed Meena Fontaine null, [facility] 03/11/2022 12:50:39 11/10/19 22 Bladder Scan completed Ele Mcclelland null, [facility] 11/10/2021 10:54:52 01/05/20 12 Diagnostic colonoscopy [...] prostate, w/wo contrast completed Jamshid Ramírez MD [address] [place] [address], [address], 11/20/2021 18:19:36 11/20/2021 MRI, abdomen + pelvis, [...] Available Not Available finasteride 5 mg tablet Take 1 tablet by mouth once daily for 90 days 2023 active Not Available Not Available Not Avai lable amoxicillin 875 mg-potassiu m clavulanate 125 mg [...] Not Available No t Available Dex[employer] DIRECTED FOR CONTINUOU S GLUCOSE MONITORIN G. [...] Updated DateTime 04/07/2023 177.8 cm 33 kg/m2 985255.25 g Jamshid Mann MD [address] [place] [address],[facility] [[email or web address] [address], [place], [address], [place] [facility] 04/07/2023 11:54:14 Date Recorded Body height Body mass index (BMI) Body weight Provider Name and Address Organization Details Last Updated DateTime 10/11/2023 177.8 cm 21.5 kg/m2 68373.86 g Jamshid Mann MD [address] [place] [address],[address], [place], [address], [facility] 10/11/2023 10:44:48 Date Recorded Body weight Body height Body mass index (BMI) Provider Name and Address Organization Details Last Updated DateTime 01/12/2022 13920.62535 14277 g 180.34 cm 29.3 kg/m2 Not Available Health Note 01/12/2022 09:05:37 Date Recorded Heart rate Systolic blood pressure Diastolic blood pressure Provider Name and Address Organization Details Last Updated DateTime 03/11/2022 63 /min 158 mm[Hg] 87 mm[Hg] Meena Zhen [facility] 03/11/2022 12:50:55 Social History Question Answer [...] Encounter Closed Date Diagnosis/Indication Diagnosis SNOMED-CT Code [id number] Kemar Lujan MD [facility] [address] [place] [address] 11/10/2021 08:36:50 11/10/2021 14:42:58 Prostate specific antigen above reference range [id number] Kemar Lujan MD [address] [address] 03/11/2022 12:25:57 03/11/2022 14:23:20 Prostate specific antigen above reference range [id number] Meena Zhen [address] [address] 03/11/2022 12:25:27 03/11/2022 13:27:03 Prostate specific antigen above reference range [id number] Jamshid Mann MD [address] [address] 04/07/2023 11:15:57 04/13/2023 09:44:11 Prostate specific antigen above reference range [id number] Jamshid Mann MD [address] [address] 10/11/2023 10:09:12 10/20/2023 17:05:23 Prostate specific antigen above reference range [id number] High grade prostatic intraepithelial neoplasia [id number] Health Concerns Section Related Observation LastModified by Organization Detai ls LastModified Time None Recorded Concern Status LastModified by Organization Details LastModified Time None Recorded Advance Directives Directive None Recorded Payers Encounter Date Sequence Insurance Name Policy Number Policy Mancuso Covered Member ID Mancuso Member ID Guarantor Name 10/11/2023 1 [place] [employer] Juan R Retana [id number] Juan R Retana 10/11/2023 2 [place] [id number] Juan Retana [id number] Juan Alejandre Retana 04/07/2023 1 [place] [employer] Juan R Retana [id number] Juan R Retana 04/07/2023 2 [place] [id number] Juan [id number] Juan Alejandre Retana 03/11/2022 1 [place] [employer] Juan R Retana [id number] Juan R Retana 03/11/2022 2 [place] [id number] Juan Retana [id number] Juan Retana 03/11/2022 1 [place] [employer] Juan R Retana [id number] Juan R Retana 03/11/2022 2 [place] [id number] Juan [id number] Juan Retana 11/10/2021 1 [place] [employer] Juan R Retana [id number] Juan R Retana 11/10/2021 2 [place] [id number] Juan Retana [id number] Juan Retana Notes Date Note Type Note [...] history of prostate cancer. Kemar Lujan MD [address] [place] [address], [address], [facility] 11/10/2021 11:29:24 03/11/2022 text/html HPI Notes: This [...] for Uronav prostate biopsy. Kemar Lujan MD [address] [place] [address],[address], [place], [address], [facility] 03/11/2022 14:18:53 04/07/2023 text/html HPI Notes: 3: [...] PSA since the biopsy. 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 recent PSA was down to 1.01. taking finasteride and voiding well. no heme/dysuria. rx good until April. Jamshid Mann MD [address] [place] [address],[address], [place], [address], [facility] 10/11/2023 10:56:46
== END 2024-03-08 09:41 | disposition home or self-care (01) ==
LOC: NFLDREF 03-12 17:08
PROVIDERS: PCP Physician Assistant Medical; Referring Provider Physician Assistant Medical; Visit Provider Physician Assistant Medical
DX: E78.5 Hyperlipidemia, unspecified (principal)
CPT/HCPCS: 80061

== ENCOUNTER 2024-03-15 08:33 | Outpatient (CLI) | payer MEDICARE, BC, SELFPAY ==
--- NOTE | 2024-03-15 09:15 | MR_ITS ---
[address] [address] Phone:?[phone] Fax:?[phone] Referring Physician Information: Paul Siu M.D. [address] [facility] [address] Phone:?[phone] Fax:?[phone] Patient:Rabia Retana Zak.B:?1945 Sex:?Male Phone:?[phone] [facility] MRN:?[id number] Exam Date:?03/15/2024 EXAM: MR LUMBAR SPINE WITHOUT CONTRAST 1.5T CLINICAL INFORMATION: Disc degeneration. TECHNICAL INFORMATION: T1, T2 and STIR sagittal sections through the lumbar spine with T1 and T2 FSE stacked axial sections and T2 FSE angled axial sections through L5-S1. COMPARISON IMAGES: No comparisons. INTERPRETATION:?Segmentation and Alignment: Lordotic alignment of five lumbar- type vertebrae. 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 Transitional S1-2: Normal-appearing hypoplastic disc and facet joints. No stenosis or impingement. L5-S1: Moderate to advanced disc degeneration with dorsal bulging/ retrolisthesis. Mild foraminal stenosis and mild facet arthropathy on the left. L4-5 and L3-4: Intervertebral discs unremarkable with mild facet arthrosis and no stenosis or impingement. L2-3: Mild disc degeneration and retrolisthesis with normal facet joints and no stenosis or impingement. L1-2 and T12-L1: Mild disc degeneration with a dorsal annular fissuring at each level, normal facet joints and no stenosis or impingement. Conus: Normal signal intensity within the conus medullaris. No intradural mass or arachnoidal adhesions. Osseous structures: Normal signal intensity within the vertebral marrow spaces. No fracture or avulsion. No osteolytic or destructive bone lesion. Paraspinous soft tissues:?Incidental 12 x 42 mm intramuscular lipoma within the right quadratus lumborum muscular compartment on axial image 9. There is incomplete visualization of a cyst within the right posterior pararenal space measuring greater than 5 cm in diameter. 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 2. Mild facet arthrosis at multiple levels. 3. No disc herniation, no significant stenosis and no neural impingement. Electronically signed on 03/16/2024 2:36:00 PM by Jason Willard M.D.
== END 2024-03-15 08:34 | disposition home or self-care (01) ==
LOC: MRI 08:33
PROVIDERS: PCP Physician Assistant Medical; Visit Provider Orthopaedic Surgery Sports Medicine
DX: R29.898 Other symptoms and signs involving the musculoskeletal system (principal); M51.37 Other intervertebral disc degeneration, lumbosacral region; M51.36 Other intervertebral disc degeneration, lumbar region; M51.34 Other intervertebral disc degeneration, thoracic region; M47.896 Other spondylosis, lumbar region; M47.897 Other spondylosis, lumbosacral region; M47.894 Other spondylosis, thoracic region
CPT/HCPCS: 72148

== ENCOUNTER 2024-03-15 10:15 | Outpatient (RCR) | payer MEDICARE, BC, MEDICAID, SELFPAY ==
[2023-09-27 13:44] LABS: Basophils Absolute Auto 0.01 K/uL (0.00-0.30); Basophils Percent Auto 0.1 % (0.0-3.0); Eosinophils Absolute Auto 0.01 K/uL (0.00-0.50); Eosinophils Percent Auto 0.1 % (0.0-7.0); Hematocrit 42.6 % (37.0-53.0); Immature Granulocytes Abs Auto 0.11 K/uL (0.00-0.30); Immature Granulocytes Pct Auto 1.1 %; Lymphocytes Percent Auto 11.7 % (20-44); Mean Corpuscular HGB Conc 33 gm/dL (32-36); Mean Corpuscular Hemoglobin 29 pg (26-34); Mean Corpuscular Volume 89 fL (80-100); Monocytes Percent Auto 2.6 % (0.0-11.0); Neutrophils Percent Auto 84.4 % (42.0-72.0); Platelet Count* 152 K/uL (140-440); RDW Coefficient of Variation % 15.5 % (11.5-15.5); Red Blood Count 4.78 m/uL (4.30-5.90); White Blood Count* 9.73 K/uL (4.50-11.00)
[2023-09-27 13:46] LABS: Slide Review Reflex No
[2023-09-27 13:58] VITALS: BP 134/81; PULSE 81; TEMP 36.8; O2SAT 94
[2023-09-27 14:04] LABS: Albumin* 3.7 g/dL (3.3-5.0); Chloride* 101 mmol/L (96-114)
[2023-09-27 14:05] LABS: Potassium* 5.5 mmol/L (3.6-5.1); Sodium* 133 mmol/L (135-149)
[2023-09-27 14:07] LABS: Anion Gap 11 mEq/L (7-15); Aspartate Amino Transferase* 26 U/L (12-35); Bilirubin Total* 0.4 mg/dL (0.1-1.5); Carbon Dioxide* 21 mmol/L (20-32); Creatinine* 1.2 mg/dL (0.5-1.5); Estimated Glomerular Filt Rate 62 ml/min; Total Protein* 6.7 g/dL (6.0-8.3)
[2023-09-27 14:08] LABS: Alanine Aminotransferase* 36 U/L (4-50); Alkaline Phosphatase* 71 U/L (40-150); Blood Urea Nitrogen* 33 mg/dL (7-30); Calcium* 8.7 mg/dL (8.4-10.6)
[2023-09-27 14:16] LABS: Glucose* 375 mg/dL (60-115)
[2023-09-27] MEDS: BORTEZOMIB SUBQ 2.5 mg/ml 2.9 MG SUBCUT (15:07)
--- NOTE | 2023-09-28 10:50 | ONC.NURNOTE ---
noted serum glucose and potassium called to PCP today Stephanie Clark yesterday patient was aware of abnormal lab results and was going home to take his scheduled insulin dose patient reports BS at 200 when he checked it at home, but also had a piece of pie prior to coming to the [facility] handouts given on foods that are high in potassium and that he should avoid these foods until his next lab draw states understanding
--- NOTE | 2023-09-28 10:54 | ONC.NURNOTE ---
PSA orders received from [facility] yesterday given to lab to place orders results faxed to [facility] today
[2023-10-04 12:51] LABS: Basophils Absolute Auto 0.01 K/uL (0.00-0.30); Basophils Percent Auto 0.1 % (0.0-3.0); Eosinophils Absolute Auto 0.05 K/uL (0.00-0.50); Eosinophils Percent Auto 0.5 % (0.0-7.0); Hematocrit 43.6 % (37.0-53.0); Immature Granulocytes Abs Auto 0.13 K/uL (0.00-0.30); Immature Granulocytes Pct Auto 1.3 %; Lymphocytes Percent Auto 19.7 % (20-44); Mean Corpuscular HGB Conc 32 gm/dL (32-36); Mean Corpuscular Hemoglobin 29 pg (26-34); Mean Corpuscular Volume 91 fL (80-100); Monocytes Percent Auto 6.1 % (0.0-11.0); Neutrophils Percent Auto 72.3 % (42.0-72.0); Platelet Count* 170 K/uL (140-440); RDW Coefficient of Variation % 16.2 % (11.5-15.5)
[2023-10-04 13:06] LABS: Slide Review Reflex No
[2023-10-04 13:08] LABS: Chloride* 105 mmol/L (96-114); Sodium* 139 mmol/L (135-149)
[2023-10-04 13:09] LABS: Potassium* 5.1 mmol/L (3.6-5.1)
[2023-10-04 13:11] LABS: Alkaline Phosphatase* 67 U/L (40-150); Anion Gap 7 mEq/L (7-15); Aspartate Amino Transferase* 30 U/L (12-35); Bilirubin Total* 0.5 mg/dL (0.1-1.5); Blood Urea Nitrogen* 30 mg/dL (7-30); Carbon Dioxide* 27 mmol/L (20-32); Creatinine* 1.2 mg/dL (0.5-1.5); Estimated Glomerular Filt Rate 62 ml/min; Total Protein* 6.9 g/dL (6.0-8.3)
[2023-10-04 13:12] LABS: Alanine Aminotransferase* 34 U/L (4-50); Glucose* 177 mg/dL (60-115)
[2023-10-04 13:48] VITALS: BP 171/83; PULSE 96; RESP 16; TEMP 36.9; O2SAT 95
[2023-10-04 14:00] VITALS: BP 149/79; PULSE 84
[2023-10-04] MEDS: BORTEZOMIB SUBQ 2.5 mg/ml 2.9 MG SUBCUT (14:14)
[2023-10-10 12:19] LABS: Basophils Absolute Auto 0.01 K/uL (0.00-0.30); Basophils Percent Auto 0.1 % (0.0-3.0); Eosinophils Absolute Auto 0.01 K/uL (0.00-0.50); Eosinophils Percent Auto 0.1 % (0.0-7.0); Hematocrit 40.7 % (37.0-53.0); Hemoglobin* 13.3 gm/dL (13.5-17.5); Immature Granulocytes Abs Auto 0.23 K/uL (0.00-0.30); Immature Granulocytes Pct Auto 2.3 %; Lymphocytes Percent Auto 13.9 % (20-44); Mean Corpuscular HGB Conc 33 gm/dL (32-36); Mean Corpuscular Hemoglobin 29 pg (26-34); Mean Corpuscular Volume 90 fL (80-100); Monocytes Percent Auto 4.2 % (0.0-11.0); Neutrophils Percent Auto 79.4 % (42.0-72.0); Platelet Count* 158 K/uL (140-440); RDW Coefficient of Variation % 15.8 % (11.5-15.5); Red Blood Count 4.52 m/uL (4.30-5.90); White Blood Count* 9.96 K/uL (4.50-11.00)
[2023-10-10 12:28] LABS: Slide Review Reflex No
[2023-10-10 12:35] LABS: Albumin* 3.7 g/dL (3.3-5.0); Chloride* 103 mmol/L (96-114); Sodium* 137 mmol/L (135-149)
[2023-10-10 12:38] LABS: Alanine Aminotransferase* 34 U/L (4-50); Alkaline Phosphatase* 60 U/L (40-150); Anion Gap 9 mEq/L (7-15); Aspartate Amino Transferase* 29 U/L (12-35); Bilirubin Total* 0.5 mg/dL (0.1-1.5); Blood Urea Nitrogen* 38 mg/dL (7-30); Carbon Dioxide* 25 mmol/L (20-32); Creatinine* 1.2 mg/dL (0.5-1.5); Estimated Glomerular Filt Rate 62 ml/min; Glucose* 220 mg/dL (60-115); Total Protein* 6.4 g/dL (6.0-8.3)
[2023-10-10 12:39] LABS: Calcium* 8.6 mg/dL (8.4-10.6)
[2023-10-10 13:00] VITALS: BP 145/88; PULSE 79; RESP 16; TEMP 36.1; O2SAT 96
[2023-10-10] MEDS: BORTEZOMIB SUBQ 2.5 mg/ml 2.9 MG SUBCUT (13:19)
[2023-10-17 12:21] LABS: Basophils Absolute Auto 0.02 K/uL (0.00-0.30); Basophils Percent Auto 0.3 % (0.0-3.0); Eosinophils Absolute Auto 0.06 K/uL (0.00-0.50); Eosinophils Percent Auto 0.9 % (0.0-7.0); Hemoglobin* 13.4 gm/dL (13.5-17.5); Immature Granulocytes Abs Auto 0.17 K/uL (0.00-0.30); Immature Granulocytes Pct Auto 2.6 %; Lymphocytes Absolute Auto 1.86 K/uL (0.90-2.90); Lymphocytes Percent Auto 28.8 % (20-44); Mean Corpuscular HGB Conc 33 gm/dL (32-36); Mean Corpuscular Hemoglobin 30 pg (26-34); Mean Corpuscular Volume 92 fL (80-100); Monocytes Percent Auto 8.2 % (0.0-11.0); Neutrophils Absolute Auto 3.82 K/uL (1.7-7.0); Neutrophils Percent Auto 59.2 % (42.0-72.0); Platelet Count* 133 K/uL (140-440); Red Blood Count 4.46 m/uL (4.30-5.90); White Blood Count* 6.46 K/uL (4.50-11.00)
[2023-10-17 12:25] LABS: Slide Review Reflex No
[2023-10-17 12:40] LABS: Albumin* 3.7 g/dL (3.3-5.0); Chloride* 106 mmol/L (96-114); Potassium* 4.5 mmol/L (3.6-5.1); Sodium* 138 mmol/L (135-149)
[2023-10-17 12:42] LABS: Creatinine* 1.1 mg/dL (0.5-1.5); Estimated Glomerular Filt Rate 69 ml/min
[2023-10-17 12:43] LABS: Alanine Aminotransferase* 29 U/L (4-50); Alkaline Phosphatase* 70 U/L (40-150); Anion Gap 5 mEq/L (7-15); Aspartate Amino Transferase* 29 U/L (12-35); Bilirubin Total* 0.3 mg/dL (0.1-1.5); Blood Urea Nitrogen* 26 mg/dL (7-30); Carbon Dioxide* 27 mmol/L (20-32); Glucose* 161 mg/dL (60-115); Total Protein* 6.4 g/dL (6.0-8.3)
[2023-10-17 12:44] LABS: Calcium* 8.6 mg/dL (8.4-10.6)
[2023-10-17 13:00] VITALS: BP 150/84; PULSE 85; RESP 16; TEMP 37.1; O2SAT 97
--- NOTE | 2023-10-17 15:53 | ONC.NURNOTE ---
pt. states geo 2+ pitting edema both feet and ankles. no reddness or open areas. states started day after last Velcade. denies leg pain. Per Dr. Pruitt no Valcade today. Pt having a geo U/s to r/o blood clot at 1500 today.
[2023-10-20 22:41] LABS: Albumin 3.37 g/dL (3.75-5.01); Alpha 1 Globulin 0.25 g/dL (0.19-0.46); Alpha 2 Globulin 0.76 g/dL (0.48-1.05); Immunofixation IFE Done; Immunoglobulin A 98 mg/dL (68-408); Immunoglobulin G 784 mg/dL (768-1632); Immunoglobulin M 15 mg/dL (35-263); Kappa Qnt Free Light Chains 32.06 mg/L (3.30-19.40); Lambda Qnt Free Light Chains 26.82 mg/L (5.71-26.30); Total Protein, Serum 5.9 g/dL (6.3-8.2)
[2023-10-24 11:55] LABS: Basophils Percent Auto 0.1 % (0.0-3.0); Hematocrit 39.7 % (37.0-53.0); Hemoglobin* 13.3 gm/dL (13.5-17.5); Immature Granulocytes Pct Auto 0.4 %; Lymphocytes Percent Auto 9.6 % (20-44); Mean Corpuscular HGB Conc 34 gm/dL (32-36); Mean Corpuscular Hemoglobin 30 pg (26-34); Mean Corpuscular Volume 89 fL (80-100); Monocytes Percent Auto 6.7 % (0.0-11.0); Neutrophils Percent Auto 83.2 % (42.0-72.0); Platelet Count* 219 K/uL (140-440); RDW Coefficient of Variation % 15.3 % (11.5-15.5); Red Blood Count 4.47 m/uL (4.30-5.90); White Blood Count* 11.22 K/uL (4.50-11.00)
[2023-10-24 12:01] LABS: Slide Review Reflex No
[2023-10-24 12:19] LABS: Chloride* 97 mmol/L (96-114); Sodium* 135 mmol/L (135-149)
[2023-10-24 12:20] LABS: Potassium* 4.4 mmol/L (3.6-5.1)
[2023-10-24 12:22] LABS: Alanine Aminotransferase* 40 U/L (4-50); Alkaline Phosphatase* 69 U/L (40-150); Anion Gap 10 mEq/L (7-15); Aspartate Amino Transferase* 26 U/L (12-35); Bilirubin Total* 0.5 mg/dL (0.1-1.5); Blood Urea Nitrogen* 47 mg/dL (7-30); Carbon Dioxide* 28 mmol/L (20-32); Creatinine* 1.3 mg/dL (0.5-1.5); Estimated Glomerular Filt Rate 57 ml/min; Total Protein* 6.9 g/dL (6.0-8.3)
[2023-10-24 12:23] LABS: Calcium* 8.6 mg/dL (8.4-10.6)
[2023-10-24 12:25] LABS: Glucose* 433 mg/dL (60-115)
--- NOTE | 2023-10-24 12:30 | ONC.NURNOTE ---
Notified patient that his glucose level was 433. Updated clinic nurse of this number as well. Encouraged patient to follow a low sugar diet and to call his PCP to see if medication adjustments are needed. Patient and his verbalized understanding.
[2023-10-24] MEDS: BORTEZOMIB SUBQ 2.5 mg/ml 2.9 MG SUBCUT (15:20)
--- NOTE | 2023-10-25 12:10 | URNOTE ---
Request received for authorization for Darzalex Faspro ([id number]). Prior authorization is not required as services are based on medical necessity and follow Medicare guidelines.
[2023-10-26 04:29] LABS: Immunoglobulin A 94 mg/dL (68-408); Immunoglobulin G 803 mg/dL (768-1632); Immunoglobulin M 24 mg/dL (35-263)
--- NOTE | 2023-11-01 11:39 | ONC.NURNOTE ---
Application process started for Eliquis- free drug coverage thru [employer]- patient understands he needs to bring his SS statement or front 2 pages of his [phone]
[2023-11-07 09:32] LABS: Basophils Absolute Auto 0.05 K/uL (0.00-0.30); Basophils Percent Auto 0.5 % (0.0-3.0); Eosinophils Absolute Auto 0.11 K/uL (0.00-0.50); Eosinophils Percent Auto 1.1 % (0.0-7.0); Hematocrit 42.8 % (37.0-53.0); Immature Granulocytes Abs Auto 0.38 K/uL (0.00-0.30); Immature Granulocytes Pct Auto 3.9 %; Lymphocytes Absolute Auto 2.11 K/uL (0.90-2.90); Lymphocytes Percent Auto 21.9 % (20-44); Mean Corpuscular HGB Conc 33 gm/dL (32-36); Mean Corpuscular Hemoglobin 29 pg (26-34); Mean Corpuscular Volume 90 fL (80-100); Monocytes Percent Auto 8.5 % (0.0-11.0); Neutrophils Absolute Auto 6.17 K/uL (1.7-7.0); Neutrophils Percent Auto 64.1 % (42.0-72.0); Platelet Count* 235 K/uL (140-440); RDW Coefficient of Variation % 16.4 % (11.5-15.5); Red Blood Count 4.78 m/uL (4.30-5.90); White Blood Count* 9.64 K/uL (4.50-11.00)
[2023-11-07 09:34] LABS: Slide Review Reflex No
[2023-11-07 09:38] LABS: Anion Gap 11 mEq/L (7-15); Carbon Dioxide* 24 mmol/L (20-32); Chloride* 105 mmol/L (96-114); Potassium* 4.4 mmol/L (3.6-5.1); Sodium* 140 mmol/L (135-149)
[2023-11-07 10:05] LABS: Albumin* 3.7 g/dL (3.3-5.0)
[2023-11-07 10:08] LABS: Alkaline Phosphatase* 77 U/L (40-150); Aspartate Amino Transferase* 28 U/L (12-35); Bilirubin Total* 0.7 mg/dL (0.1-1.5); Blood Urea Nitrogen* 24 mg/dL (7-30); Creatinine* 1.2 mg/dL (0.5-1.5); Estimated Glomerular Filt Rate 62 ml/min; Glucose* 219 mg/dL (60-115); Total Protein* 6.7 g/dL (6.0-8.3)
[2023-11-07 10:09] LABS: Alanine Aminotransferase* 32 U/L (4-50); Calcium* 8.7 mg/dL (8.4-10.6)
[2023-11-15 10:50] LABS: Basophils Percent Auto 0.3 % (0.0-3.0); Eosinophils Percent Auto 1.1 % (0.0-7.0); Hematocrit 40.3 % (37.0-53.0); Hemoglobin* 13.2 gm/dL (13.5-17.5); Immature Granulocytes Pct Auto 1.9 %; Lymphocytes Percent Auto 26.6 % (20-44); Mean Corpuscular HGB Conc 33 gm/dL (32-36); Mean Corpuscular Hemoglobin 30 pg (26-34); Mean Corpuscular Volume 91 fL (80-100); Monocytes Percent Auto 5.4 % (0.0-11.0); Neutrophils Percent Auto 64.7 % (42.0-72.0); Platelet Count* 173 K/uL (140-440); RDW Coefficient of Variation % 16.9 % (11.5-15.5); Red Blood Count 4.42 m/uL (4.30-5.90); White Blood Count* 11.35 K/uL (4.50-11.00)
[2023-11-15 11:07] LABS: Albumin* 3.8 g/dL (3.3-5.0); Chloride* 106 mmol/L (96-114)
[2023-11-15 11:08] LABS: Potassium* 5.1 mmol/L (3.6-5.1); Slide Review Reflex No; Sodium* 140 mmol/L (135-149)
[2023-11-15 11:10] LABS: Anion Gap 10 mEq/L (7-15); Aspartate Amino Transferase* 29 U/L (12-35); Bilirubin Total* 0.6 mg/dL (0.1-1.5); Carbon Dioxide* 24 mmol/L (20-32); Creatinine* 1.1 mg/dL (0.5-1.5); Estimated Glomerular Filt Rate 69 ml/min; Total Protein* 6.8 g/dL (6.0-8.3)
[2023-11-15 11:11] LABS: Alanine Aminotransferase* 26 U/L (4-50); Alkaline Phosphatase* 62 U/L (40-150); Blood Urea Nitrogen* 27 mg/dL (7-30); Calcium* 9.1 mg/dL (8.4-10.6); Glucose* 107 mg/dL (60-115)
[2023-11-15] MEDS: ACETAMINOPHEN 325 MG TABLET 650 MG PO (11:57)
[2023-11-15] MEDS: diphenhydrAMINE 25 MG CAPSULE 50 MG PO (11:59)
[2023-11-15] MEDS: dexAMETHasone 20 MG in 0.9 % SODIUM CHLORIDE 100 ml 100 ML 420 MG IVPB (12:31)
[2023-11-15] MEDS: DARATUMUMAB-HYALURONIDASE-FIHJ 15 ML SUBCUT (13:49)
[2023-11-15] MEDS: BORTEZOMIB SUBQ 2.5 mg/ml 2.9 MG SUBCUT (13:50)
[2023-11-15 13:58] VITALS: BP 120/69; PULSE 91; RESP 20; TEMP 36.7; O2SAT 94
--- NOTE | 2023-11-16 10:52 | PC.NURSE ---
Addendum entered by Lydia Delgado RN 11/16/23 11:00: Sandrine also shares that Juan is doing very well after his first Darzalex yesterday. She also states that he is barely coughing anymore. Invited them to call back any time with any follow-up questions. Original Note: Pt's called today to clarify medications. She states that Dr. Pruitt extended Juan's Levofloxacin and she picked that up from [facility]. Sandrine then states that she got a notification from [facility] of another script (Bactrim) to nut picker. RN removed [facility] from pt's pharmacy profile. RN instructed pt to call [facility] and request that the Bactrim script be pulled to [facility] from [facility]. Sandrine then asked about whether or not they should take Bactrim in the setting of continued Levofloxacin. RN spoke directly with Dr. Pruitt and ok'd starting Bactrim while on Levofloxicin. Gave clear instructions on Bactrim M-W- schedule. Sandrine is very overwhelmed with cost of drugs and keeping everything straight. RN offered support and listening.
[2023-11-21 09:09] LABS: Basophils Absolute Auto 0.01 K/uL (0.00-0.30); Basophils Percent Auto 0.1 % (0.0-3.0); Eosinophils Absolute Auto 0.11 K/uL (0.00-0.50); Eosinophils Percent Auto 1.3 % (0.0-7.0); Hematocrit 39.7 % (37.0-53.0); Hemoglobin* 13.1 gm/dL (13.5-17.5); Immature Granulocytes Abs Auto 0.06 K/uL (0.00-0.30); Immature Granulocytes Pct Auto 0.7 %; Lymphocytes Percent Auto 20.6 % (20-44); Mean Corpuscular HGB Conc 33 gm/dL (32-36); Mean Corpuscular Hemoglobin 30 pg (26-34); Mean Corpuscular Volume 91 fL (80-100); Neutrophils Absolute Auto 6.15 K/uL (1.7-7.0); Neutrophils Percent Auto 70.3 % (42.0-72.0); Platelet Count* 153 K/uL (140-440); RDW Coefficient of Variation % 16.3 % (11.5-15.5); Red Blood Count 4.38 m/uL (4.30-5.90); White Blood Count* 8.74 K/uL (4.50-11.00)
[2023-11-21 09:11] LABS: Slide Review Reflex No
[2023-11-21 09:21] LABS: Albumin* 3.5 g/dL (3.3-5.0); Chloride* 105 mmol/L (96-114)
[2023-11-21 09:22] LABS: Potassium* 4.4 mmol/L (3.6-5.1); Sodium* 139 mmol/L (135-149)
[2023-11-21 09:24] LABS: Alkaline Phosphatase* 57 U/L (40-150); Anion Gap 7 mEq/L (7-15); Aspartate Amino Transferase* 18 U/L (12-35); Bilirubin Total* 0.7 mg/dL (0.1-1.5); Blood Urea Nitrogen* 29 mg/dL (7-30); Carbon Dioxide* 27 mmol/L (20-32); Creatinine* 1.1 mg/dL (0.5-1.5); Estimated Glomerular Filt Rate 69 ml/min; Total Protein* 6.4 g/dL (6.0-8.3)
[2023-11-21 09:25] LABS: Alanine Aminotransferase* 18 U/L (4-50); Glucose* 98 mg/dL (60-115)
[2023-11-21 10:29] VITALS: BP 149/89; PULSE 100; RESP 16; TEMP 36.6; O2SAT 97
[2023-11-21] MEDS: ACETAMINOPHEN 325 MG TABLET 650 MG PO (11:13)
[2023-11-21] MEDS: diphenhydrAMINE 25 MG CAPSULE 50 MG PO (11:13)
[2023-11-21] MEDS: dexAMETHasone 20 MG in 0.9 % SODIUM CHLORIDE 100 ml 100 ML 420 MG IVPB (11:41)
[2023-11-21] MEDS: SODIUM CHLORIDE 0.9 % (FLUSH) 10 ML SYRINGE IVF (11:41)
[2023-11-21] MEDS: 0.9 % SODIUM CHLORIDE 250 ml IV (11:41)
--- NOTE | 2023-11-21 12:14 | PC.NURSE ---
Pt present at [facility]] today for treatment. See email below that was sent to pt's PCP, Dr. Roldan. I just wanted to send you a few updates from today's visit at [facility]3]: We cancelled Alfredo's colonoscopy for tomorrow and they would like to get that rescheduled once he is on monthly CCIC injections (MM tx). That will be about 14 weeks from now. Alfredo has some LE edema. He used to take Lasix 40 mg daily but it was stopped once his LE edema was gone. He has some at home left over and plans to take one tomorrow. Just wanted you to know that. I attempted to get them lined up with a co-pay assistance card for Trulicity but due to them having Medicare, they weren't eligible. Could someone from your office work with them on getting a lower co-pay through the instrumental music teacher? I also suggested that Carmen call Medicare to ask about a lower co-pay. I typed up a new med list for Alfredo and Carmen and attached it to this email so you have a copy.? We did the co-pay assistance for the Eliquis. Alfredo is currently NOT taking Eliquis OR Trulicity. Thank you. Lydia Med list will be copied and put into pt's paper chart.
[2023-11-21] MEDS: DARATUMUMAB-HYALURONIDASE-FIHJ 15 ML SUBCUT (13:06)
[2023-11-21] MEDS: BORTEZOMIB SUBQ 2.5 mg/ml 2.9 MG SUBCUT (13:07)
--- NOTE | 2023-11-23 13:48 | ONC.NURNOTE ---
Eliquis- Patient assistance application faxed to [facility] for coverage of eliquis- patient has a $400 copay which is out of an affordability range for Juan [phone] ph
--- NOTE | 2023-11-24 16:05 | ONC.NURNOTE ---
Free drug thru [employer] denied because patient first needs to apply for Medicare Extra Help- if denied then he can be enrolled in [employer] to assist patient: SS will come by after Mondays provider appt and assist patient with the application Carmen has been instructed to bring the following with her on Tuesday -[facility]2021 tax return -bank statement with routing number and account number email sent to Carmen that included an example of the Medicare Extra Help Application - so Carmen knows what will be needed email all included information about the Medicare Extra Help program and qualifications to enroll
--- NOTE | 2023-11-25 13:41 | ONC.NURNOTE ---
Addendum entered by Milana Vela RN 11/25/23 13:48: Patient seen in ER and Carmen called for follow up plan: Discussed with Paige Lutz APRN Instructed as follows: Hold Bactrim and furosemide until Mondays infusion visit work hard at hydration drinking at least 8 X 8oz/day try either OTC Magnesium once daily (they have at home) OR Therawox topical cream for cramping Original Note: Carmen called in this am reporting cncerns: Juan has had increasingly worsening LE cramping that interferes with sleep, and describes as very painful last night he also had cramping in his arms Carmen also reports LE swelling Left> Right with a swollen lump on the outer lateral portion of left leg Carmen thinks that Juan is reacting to his medication Juan recently restarted Bactrim and furosemide keno writer/runner recommended evaluation in the ER to rule out blood clot and to evaluate for worsening cramping patient is eating and drinking at home
[2023-11-28 08:18] LABS: Basophils Absolute Auto 0.03 K/uL (0.00-0.30); Basophils Percent Auto 0.4 % (0.0-3.0); Eosinophils Absolute Auto 0.09 K/uL (0.00-0.50); Eosinophils Percent Auto 1.3 % (0.0-7.0); Hematocrit 39.7 % (37.0-53.0); Hemoglobin* 13.1 gm/dL (13.5-17.5); Immature Granulocytes Abs Auto 0.05 K/uL (0.00-0.30); Immature Granulocytes Pct Auto 0.7 %; Lymphocytes Absolute Auto 1.63 K/uL (0.90-2.90); Lymphocytes Percent Auto 23.6 % (20-44); Mean Corpuscular HGB Conc 33 gm/dL (32-36); Mean Corpuscular Hemoglobin 30 pg (26-34); Mean Corpuscular Volume 92 fL (80-100); Monocytes Percent Auto 8.2 % (0.0-11.0); Neutrophils Absolute Auto 4.54 K/uL (1.7-7.0); Neutrophils Percent Auto 65.8 % (42.0-72.0); Platelet Count* 192 K/uL (140-440); RDW Coefficient of Variation % 16.3 % (11.5-15.5); Red Blood Count 4.32 m/uL (4.30-5.90); White Blood Count* 6.91 K/uL (4.50-11.00)
[2023-11-28 08:23] LABS: Slide Review Reflex No
[2023-11-28 08:36] LABS: Albumin* 3.6 g/dL (3.3-5.0); Chloride* 103 mmol/L (96-114)
[2023-11-28 08:37] LABS: Potassium* 4.2 mmol/L (3.6-5.1); Sodium* 140 mmol/L (135-149)
[2023-11-28 08:39] LABS: Anion Gap 5 mEq/L (7-15); Bilirubin Total* 0.8 mg/dL (0.1-1.5); Carbon Dioxide* 32 mmol/L (20-32); Creatinine* 1.2 mg/dL (0.5-1.5); Estimated Glomerular Filt Rate 62 ml/min; Total Protein* 6.4 g/dL (6.0-8.3)
[2023-11-28 08:40] LABS: Alanine Aminotransferase* 18 U/L (4-50); Alkaline Phosphatase* 56 U/L (40-150); Aspartate Amino Transferase* 24 U/L (12-35); Blood Urea Nitrogen* 46 mg/dL (7-30); Calcium* 8.8 mg/dL (8.4-10.6); Glucose* 55 mg/dL (60-115)
[2023-11-28] MEDS: ACETAMINOPHEN 325 MG TABLET 650 MG PO (09:39)
[2023-11-28] MEDS: diphenhydrAMINE 25 MG CAPSULE 50 MG PO (09:39)
[2023-11-28] MEDS: 0.9 % SODIUM CHLORIDE 250 ml IV (09:40)
[2023-11-28] MEDS: SODIUM CHLORIDE 0.9 % (FLUSH) 10 ML SYRINGE IVF (09:40)
[2023-11-28] MEDS: dexAMETHasone 20 MG in 0.9 % SODIUM CHLORIDE 100 ml 100 ML 420 MG IVPB (09:48)
[2023-11-28] MEDS: BORTEZOMIB SUBQ 2.5 mg/ml 2.9 MG SUBCUT (11:13)
[2023-11-28] MEDS: DARATUMUMAB-HYALURONIDASE-FIHJ 15 ML SUBCUT (11:13)
--- NOTE | 2023-11-28 12:14 | PC.SOCIAL ---
Social work: Met with pt and his partner during his visit, to complete the Extra Help with Medicare Prescription Drug Plan Costs application. Application was completed online and confirmation was printed. If application needs to be updated, the re-entry number to get back into the application is [id number]. Next steps are that pt will receive a decision on the application or a request for additional needed information by mail to his home. Pt's partner was put on the application as a contact for pt who can receive and communicate with Medicare about this application if needed. Copy of confirmation of submission of application was printed and provided to pt and copy was saved as PDF to pt's laptop computer used to submit the application. Met with pt and partner to explain the role if social science teacher and to offer any additional resources or information that would be helpful to them. Both state that things are going well at home and the only concern is the financial stress of the medications and having to come in for the [facility] treatments. Partner states it is not much longer that pt needs to come in for the shots and that after that everything will be easier to manage for them. Pt and are aware of how to contact social science teacher if there are any questions on next steps of the Medicare application submitted or need for additional resources.
[2023-12-05 09:51] LABS: Eosinophils Absolute Auto 0.03 K/uL (0.00-0.50); Eosinophils Percent Auto 0.4 % (0.0-7.0); Hematocrit 37.5 % (37.0-53.0); Hemoglobin* 12.5 gm/dL (13.5-17.5); Immature Granulocytes Abs Auto 0.08 K/uL (0.00-0.30); Lymphocytes Percent Auto 21.9 % (20-44); Mean Corpuscular HGB Conc 33 gm/dL (32-36); Mean Corpuscular Hemoglobin 31 pg (26-34); Mean Corpuscular Volume 92 fL (80-100); Monocytes Percent Auto 6.2 % (0.0-11.0); Neutrophils Absolute Auto 5.48 K/uL (1.7-7.0); Neutrophils Percent Auto 70.5 % (42.0-72.0); Platelet Count* 152 K/uL (140-440); RDW Coefficient of Variation % 15.9 % (11.5-15.5); Red Blood Count 4.07 m/uL (4.30-5.90); White Blood Count* 7.77 K/uL (4.50-11.00)
[2023-12-05 09:56] LABS: Slide Review Reflex No
[2023-12-05 10:12] LABS: Albumin* 3.6 g/dL (3.3-5.0); Chloride* 101 mmol/L (96-114); Potassium* 4.5 mmol/L (3.6-5.1); Sodium* 136 mmol/L (135-149)
[2023-12-05 10:15] LABS: Alkaline Phosphatase* 68 U/L (40-150); Anion Gap 7 mEq/L (7-15); Aspartate Amino Transferase* 21 U/L (12-35); Bilirubin Total* 0.9 mg/dL (0.1-1.5); Blood Urea Nitrogen* 39 mg/dL (7-30); Carbon Dioxide* 28 mmol/L (20-32); Creatinine* 1.3 mg/dL (0.5-1.5); Estimated Glomerular Filt Rate 57 ml/min; Glucose* 256 mg/dL (60-115); Total Protein* 6.2 g/dL (6.0-8.3)
[2023-12-05 10:16] LABS: Calcium* 8.9 mg/dL (8.4-10.6)
[2023-12-05 10:17] VITALS: BP 128/74; PULSE 87; RESP 16; TEMP 36.3; O2SAT 96
[2023-12-05 10:22] VITALS: BP 128/74; PULSE 87; RESP 16; TEMP 36.3; O2SAT 96
[2023-12-05 10:47] LABS: Alanine Aminotransferase* 24 U/L (4-50)
[2023-12-05] MEDS: ACETAMINOPHEN 325 MG TABLET 650 MG PO (11:05)
[2023-12-05] MEDS: diphenhydrAMINE 25 MG CAPSULE 50 MG PO (11:06)
[2023-12-05] MEDS: SODIUM CHLORIDE 0.9 % (FLUSH) 10 ML SYRINGE IVF (11:12)
[2023-12-05] MEDS: 0.9 % SODIUM CHLORIDE 250 ml IV (11:12)
[2023-12-05] MEDS: dexAMETHasone 20 MG in 0.9 % SODIUM CHLORIDE 100 ml 100 ML 420 MG IVPB (11:16)
[2023-12-05] MEDS: DARATUMUMAB-HYALURONIDASE-FIHJ 15 ML SUBCUT (12:45)
[2023-12-05] MEDS: BORTEZOMIB SUBQ 2.5 mg/ml 2.9 MG SUBCUT (12:45)
[2023-12-12 09:21] LABS: Basophils Absolute Auto 0.01 K/uL (0.00-0.30); Basophils Percent Auto 0.1 % (0.0-3.0); Eosinophils Absolute Auto 0.04 K/uL (0.00-0.50); Eosinophils Percent Auto 0.5 % (0.0-7.0); Hematocrit 38.8 % (37.0-53.0); Hemoglobin* 12.8 gm/dL (13.5-17.5); Immature Granulocytes Abs Auto 0.12 K/uL (0.00-0.30); Immature Granulocytes Pct Auto 1.5 %; Lymphocytes Absolute Auto 2.03 K/uL (0.90-2.90); Lymphocytes Percent Auto 24.8 % (20-44); Mean Corpuscular HGB Conc 33 gm/dL (32-36); Mean Corpuscular Hemoglobin 31 pg (26-34); Mean Corpuscular Volume 95 fL (80-100); Monocytes Percent Auto 6.9 % (0.0-11.0); Neutrophils Absolute Auto 5.41 K/uL (1.7-7.0); Neutrophils Percent Auto 66.2 % (42.0-72.0); Platelet Count* 133 K/uL (140-440); RDW Coefficient of Variation % 15.7 % (11.5-15.5); White Blood Count* 8.17 K/uL (4.50-11.00)
[2023-12-12 09:23] LABS: Slide Review Reflex No
[2023-12-12 09:29] LABS: Albumin* 3.7 g/dL (3.3-5.0); Chloride* 102 mmol/L (96-114); Sodium* 134 mmol/L (135-149)
[2023-12-12 09:30] LABS: Potassium* 4.6 mmol/L (3.6-5.1)
[2023-12-12 09:32] LABS: Alanine Aminotransferase* 33 U/L (4-50); Alkaline Phosphatase* 66 U/L (40-150); Anion Gap 4 mEq/L (7-15); Aspartate Amino Transferase* 26 U/L (12-35); Bilirubin Total* 0.7 mg/dL (0.1-1.5); Blood Urea Nitrogen* 36 mg/dL (7-30); Calcium* 8.8 mg/dL (8.4-10.6); Carbon Dioxide* 28 mmol/L (20-32); Creatinine* 1.2 mg/dL (0.5-1.5); Estimated Glomerular Filt Rate 62 ml/min; Glucose* 214 mg/dL (60-115); Total Protein* 6.3 g/dL (6.0-8.3)
[2023-12-12 10:20] VITALS: BP 127/77; PULSE 85; RESP 18; TEMP 37.3; O2SAT 95
[2023-12-12] MEDS: ACETAMINOPHEN 325 MG TABLET 650 MG PO (10:30)
[2023-12-12] MEDS: diphenhydrAMINE 25 MG CAPSULE 50 MG PO (10:30)
[2023-12-12] MEDS: 0.9 % SODIUM CHLORIDE 250 ml IV (10:37)
[2023-12-12] MEDS: SODIUM CHLORIDE 0.9 % (FLUSH) 10 ML SYRINGE IVF (10:37)
[2023-12-12] MEDS: dexAMETHasone 20 MG in 0.9 % SODIUM CHLORIDE 100 ml 100 ML 420 MG IVPB (10:43)
[2023-12-12] MEDS: BORTEZOMIB SUBQ 2.5 mg/ml 2.9 MG SUBCUT (12:00)
[2023-12-12] MEDS: DARATUMUMAB-HYALURONIDASE-FIHJ 15 ML SUBCUT (12:00)
--- NOTE | 2023-12-13 12:22 | PC.NURSE ---
Pt was present at [facility] yesterday for injections. RN sent the following message to Stephanie Clark PA-C 1. He is taking Trulicity - was able to get it at a lower cost 2. He is NOT taking Jardiance 3. He is NOT taking Dulera inhaler 4. He is finishing up an Advair inhaler that he currently had. I noted the Advair was off his list and Dulera was on the list. Maybe because Dulera got denied because he also had Advair ordered? 5. He is having significant edema. He is taking 20mg of Lasix every other day but the swelling is really bothering him. Her reply: Thank you. I heard he got the Trulicity :) . I am just waiting until the Advair is closer to gone and will retry the dulera script. please call to have the pt start taking his water pill furosemide every day instead of every other day. RN called and advised pt's to have Alfredo start taking Lasix every day. She verbalized understanding.
--- NOTE | 2023-12-13 13:37 | ONC.NURNOTE ---
Addendum entered by Milana Vela, RN 12/13/23 13:49: per phone call to [facility]- Juan will be enrolled for free drug from [facility] will call with in a few days to schedule deliver Carmen was called with this update Original Note: Yesterday Carmen brought in likely denial for Medicare extra help program application for free Eliquas resent to [facility] with letter from Medicare Extra Help faxed
[2023-12-14 13:25] LABS: Alpha 1 Globulin 0.26 g/dL (0.19-0.46); Alpha 2 Globulin 0.78 g/dL (0.48-1.05); Immunofixation IFE Done; Immunoglobulin A 50 mg/dL (68-408); Immunoglobulin G 587 mg/dL (768-1632); Immunoglobulin M 18 mg/dL (35-263); Kappa Qnt Free Light Chains 15.31 mg/L (3.30-19.40); Kappa/Lambda Light Chain Ratio 1.13 (0.26-1.65); Lambda Qnt Free Light Chains 13.53 mg/L (5.71-26.30); Total Protein, Serum 5.8 g/dL (6.3-8.2)
--- NOTE | 2023-12-19 10:01 | ONC.NURNOTE ---
Myeloma panel results noted as improved- patient sees Dr Pruitt in follow up next week
[2023-12-20 08:53] LABS: Basophils Absolute Auto 0.02 K/uL (0.00-0.30); Basophils Percent Auto 0.2 % (0.0-3.0); Eosinophils Absolute Auto 0.03 K/uL (0.00-0.50); Eosinophils Percent Auto 0.3 % (0.0-7.0); Hematocrit 38.4 % (37.0-53.0); Hemoglobin* 12.8 gm/dL (13.5-17.5); Immature Granulocytes Abs Auto 0.16 K/uL (0.00-0.30); Immature Granulocytes Pct Auto 1.8 %; Lymphocytes Percent Auto 20.2 % (20-44); Mean Corpuscular HGB Conc 33 gm/dL (32-36); Mean Corpuscular Hemoglobin 32 pg (26-34); Mean Corpuscular Volume 96 fL (80-100); Monocytes Percent Auto 6.6 % (0.0-11.0); Neutrophils Absolute Auto 6.29 K/uL (1.7-7.0); Neutrophils Percent Auto 70.9 % (42.0-72.0); Platelet Count* 176 K/uL (140-440); RDW Coefficient of Variation % 15.4 % (11.5-15.5); Red Blood Count 3.99 m/uL (4.30-5.90); White Blood Count* 8.89 K/uL (4.50-11.00)
[2023-12-20 08:54] LABS: Slide Review Reflex No
[2023-12-20 09:18] LABS: Albumin* 3.9 g/dL (3.3-5.0); Chloride* 101 mmol/L (96-114)
[2023-12-20 09:19] LABS: Potassium* 4.4 mmol/L (3.6-5.1); Sodium* 135 mmol/L (135-149)
[2023-12-20 09:21] LABS: Alkaline Phosphatase* 66 U/L (40-150); Anion Gap 6 mEq/L (7-15); Aspartate Amino Transferase* 23 U/L (12-35); Bilirubin Total* 0.7 mg/dL (0.1-1.5); Blood Urea Nitrogen* 34 mg/dL (7-30); Carbon Dioxide* 28 mmol/L (20-32); Estimated Glomerular Filt Rate 78 ml/min; Total Protein* 6.5 g/dL (6.0-8.3)
[2023-12-20 09:22] LABS: Alanine Aminotransferase* 29 U/L (4-50); Calcium* 9.1 mg/dL (8.4-10.6); Glucose* 211 mg/dL (60-115)
[2023-12-20 09:51] VITALS: BP 131/84; PULSE 94; RESP 16; TEMP 35.9; O2SAT 94
[2023-12-20] MEDS: dexAMETHasone 4 MG TABLET 20 MG PO (09:58)
[2023-12-20] MEDS: diphenhydrAMINE 25 MG CAPSULE 50 MG PO (09:58)
[2023-12-20] MEDS: ACETAMINOPHEN 325 MG TABLET 650 MG PO (09:58)
[2023-12-20] MEDS: BORTEZOMIB SUBQ 2.5 mg/ml 2.9 MG SUBCUT (10:59)
[2023-12-20] MEDS: DARATUMUMAB-HYALURONIDASE-FIHJ 15 ML SUBCUT (10:59)
[2023-12-27 08:19] LABS: Basophils Absolute Auto 0.01 K/uL (0.00-0.30); Basophils Percent Auto 0.1 % (0.0-3.0); Eosinophils Absolute Auto 0.02 K/uL (0.00-0.50); Eosinophils Percent Auto 0.3 % (0.0-7.0); Hematocrit 39.4 % (37.0-53.0); Hemoglobin* 13.1 gm/dL (13.5-17.5); Immature Granulocytes Abs Auto 0.18 K/uL (0.00-0.30); Immature Granulocytes Pct Auto 2.3 %; Lymphocytes Absolute Auto 1.72 K/uL (0.90-2.90); Lymphocytes Percent Auto 21.9 % (20-44); Mean Corpuscular HGB Conc 33 gm/dL (32-36); Mean Corpuscular Hemoglobin 32 pg (26-34); Mean Corpuscular Volume 97 fL (80-100); Monocytes Percent Auto 6.9 % (0.0-11.0); Neutrophils Percent Auto 68.5 % (42.0-72.0); Platelet Count* 149 K/uL (140-440); Red Blood Count 4.08 m/uL (4.30-5.90); White Blood Count* 7.87 K/uL (4.50-11.00)
[2023-12-27 08:20] LABS: Slide Review Reflex No
[2023-12-27 08:28] LABS: Albumin* 3.8 g/dL (3.3-5.0); Chloride* 102 mmol/L (96-114)
[2023-12-27 08:29] LABS: Potassium* 4.3 mmol/L (3.6-5.1); Sodium* 137 mmol/L (135-149)
[2023-12-27 08:31] LABS: Anion Gap 4 mEq/L (7-15); Bilirubin Total* 0.8 mg/dL (0.1-1.5); Carbon Dioxide* 31 mmol/L (20-32); Estimated Glomerular Filt Rate 78 ml/min
[2023-12-27 08:32] LABS: Alanine Aminotransferase* 34 U/L (4-50); Alkaline Phosphatase* 73 U/L (40-150); Aspartate Amino Transferase* 26 U/L (12-35); Blood Urea Nitrogen* 32 mg/dL (7-30); Calcium* 8.8 mg/dL (8.4-10.6); Glucose* 117 mg/dL (60-115); Total Protein* 6.5 g/dL (6.0-8.3)
[2023-12-27] MEDS: diphenhydrAMINE 25 MG CAPSULE 50 MG PO (09:49)
[2023-12-27] MEDS: ACETAMINOPHEN 325 MG TABLET 650 MG PO (09:49)
[2023-12-27] MEDS: dexAMETHasone 4 MG TABLET 20 MG PO (09:50)
[2023-12-27] MEDS: BORTEZOMIB SUBQ 2.5 mg/ml 2.9 MG SUBCUT (10:54)
[2023-12-27] MEDS: DARATUMUMAB-HYALURONIDASE-FIHJ 15 ML SUBCUT (10:55)
[2024-01-02 09:06] LABS: Basophils Absolute Auto 0.01 K/uL (0.00-0.30); Basophils Percent Auto 0.1 % (0.0-3.0); Eosinophils Absolute Auto 0.02 K/uL (0.00-0.50); Eosinophils Percent Auto 0.2 % (0.0-7.0); Hematocrit 38.8 % (37.0-53.0); Hemoglobin* 12.8 gm/dL (13.5-17.5); Immature Granulocytes Abs Auto 0.14 K/uL (0.00-0.30); Immature Granulocytes Pct Auto 1.7 %; Lymphocytes Absolute Auto 2.26 K/uL (0.90-2.90); Lymphocytes Percent Auto 26.8 % (20-44); Mean Corpuscular HGB Conc 33 gm/dL (32-36); Mean Corpuscular Hemoglobin 33 pg (26-34); Mean Corpuscular Volume 99 fL (80-100); Monocytes Percent Auto 5.8 % (0.0-11.0); Neutrophils Percent Auto 65.4 % (42.0-72.0); Platelet Count* 131 K/uL (140-440); RDW Coefficient of Variation % 15.1 % (11.5-15.5); Red Blood Count 3.91 m/uL (4.30-5.90); White Blood Count* 8.42 K/uL (4.50-11.00)
[2024-01-02 09:12] LABS: Slide Review Reflex No
[2024-01-02 09:28] LABS: Albumin* 3.8 g/dL (3.3-5.0); Chloride* 103 mmol/L (96-114); Potassium* 4.1 mmol/L (3.6-5.1); Sodium* 139 mmol/L (135-149)
[2024-01-02 09:31] LABS: Alanine Aminotransferase* 32 U/L (4-50); Alkaline Phosphatase* 74 U/L (40-150); Anion Gap 6 mEq/L (7-15); Aspartate Amino Transferase* 25 U/L (12-35); Bilirubin Total* 0.6 mg/dL (0.1-1.5); Blood Urea Nitrogen* 34 mg/dL (7-30); Carbon Dioxide* 30 mmol/L (20-32); Creatinine* 1.2 mg/dL (0.5-1.5); Estimated Glomerular Filt Rate 62 ml/min; Glucose* 173 mg/dL (60-115); Total Protein* 6.4 g/dL (6.0-8.3)
[2024-01-02 09:32] LABS: Calcium* 8.8 mg/dL (8.4-10.6)
[2024-01-02 10:00] VITALS: BP 140/90; PULSE 88; RESP 15; TEMP 36.6; O2SAT 95
[2024-01-02] MEDS: diphenhydrAMINE 25 MG CAPSULE 50 MG PO (10:04)
[2024-01-02] MEDS: ACETAMINOPHEN 325 MG TABLET 650 MG PO (10:04)
[2024-01-02] MEDS: dexAMETHasone 4 MG TABLET 20 MG PO (10:06)
[2024-01-02] MEDS: BORTEZOMIB SUBQ 2.5 mg/ml 2.9 MG SUBCUT (11:11)
[2024-01-02] MEDS: DARATUMUMAB-HYALURONIDASE-FIHJ 15 ML SUBCUT (11:12)
--- NOTE | 2024-01-03 12:58 | ONC.NURNOTE ---
Josy mentioned that Juan never received call about delivery for Eliquis from [facility] loan underwriter called today in followup to [facility] the application for free Eliquis is open and pending due to need for the FINAL DENIAL NOTICE from [facility] that Juan does not qualify for Medicare Extra Help, a predecisional letter of denial was faxed to [facility], but they do not accept the predecisional Once [facility] has copy of this denial letter (Josy to look for it and bring it in on Tuesday)- will fax to [facility] and his application can be expedited and he will be enrolled for no cost Eliquis iF Juan does qualify for Medicare Extra Help than he should be able to go to pharmacy 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
--- NOTE | 2024-01-06 13:38 | PC.NURSE ---
Howard's partner, Shauna, called today with some follow-up questions regarding Juan's drug assistance process. Shauna states that she [facility] who stated that they could get Eliquis, Jardiance, and Ozempic (Trulicity currently ordered) all at a very reduced rate. Shauna recalls talking to Milana about a different assistance program that would allow them to get drug for free. Shauna doesn't know what to do. Also of note, Angelina asked if Trulicity could be changed to Ozempic. RN advised the followin. Clarify with Stephanie Clark PA-C regarding diabetes medications. Does Juan need both Jardiance and Trulicity/Ozempic? Is Stephanie ok with changing Trulicity to Ozempic? 2. Wait to hear back from the Medicare Extra Help program that [employer] help them apply for to cover Eliquis. 3. Call SW re: human services paperwork they got in the mail. 4. Contact Angelina with updates as they come. Shauna voiced understanding although she is very overwhelmed with all of this medication prescription assistance business. Supportive listening provided.
[2024-01-09 09:36] LABS: Eosinophils Absolute Auto 0.02 K/uL (0.00-0.50); Eosinophils Percent Auto 0.3 % (0.0-7.0); Hematocrit 38.2 % (37.0-53.0); Hemoglobin* 12.6 gm/dL (13.5-17.5); Immature Granulocytes Pct Auto 1.3 %; Mean Corpuscular HGB Conc 33 gm/dL (32-36); Mean Corpuscular Hemoglobin 33 pg (26-34); Mean Corpuscular Volume 99 fL (80-100); Monocytes Percent Auto 7.4 % (0.0-11.0); Neutrophils Absolute Auto 5.02 K/uL (1.7-7.0); Platelet Count* 134 K/uL (140-440); Red Blood Count 3.85 m/uL (4.30-5.90)
[2024-01-09 09:40] LABS: Slide Review Reflex No
[2024-01-09 10:00] LABS: Chloride* 105 mmol/L (96-114)
[2024-01-09 10:01] LABS: Albumin* 3.6 g/dL (3.3-5.0); Potassium* 4.4 mmol/L (3.6-5.1); Sodium* 137 mmol/L (135-149)
[2024-01-09 10:04] LABS: Alanine Aminotransferase* 35 U/L (4-50); Alkaline Phosphatase* 65 U/L (40-150); Anion Gap 4 mEq/L (7-15); Aspartate Amino Transferase* 25 U/L (12-35); Bilirubin Total* 0.8 mg/dL (0.1-1.5); Blood Urea Nitrogen* 32 mg/dL (7-30); Carbon Dioxide* 28 mmol/L (20-32); Creatinine* 1.2 mg/dL (0.5-1.5); Estimated Glomerular Filt Rate 62 ml/min; Glucose* 139 mg/dL (60-115); Total Protein* 6.2 g/dL (6.0-8.3)
[2024-01-09 10:46] VITALS: BP 135/87; PULSE 78; RESP 16; TEMP 35.7; O2SAT 96
[2024-01-09] MEDS: dexAMETHasone 4 MG TABLET 20 MG PO (11:22)
[2024-01-09] MEDS: diphenhydrAMINE 25 MG CAPSULE 50 MG PO (11:22)
[2024-01-09] MEDS: ACETAMINOPHEN 325 MG TABLET 650 MG PO (11:23)
[2024-01-09] MEDS: BORTEZOMIB SUBQ 2.5 mg/ml 2.9 MG SUBCUT (12:27)
[2024-01-09] MEDS: DARATUMUMAB-HYALURONIDASE-FIHJ 15 ML SUBCUT (12:27)
[2024-01-11 08:25] LABS: Albumin 3.46 g/dL (3.75-5.01); Alpha 1 Globulin 0.27 g/dL (0.19-0.46); Alpha 2 Globulin 0.86 g/dL (0.48-1.05); Immunofixation IFE Done; Immunoglobulin A 40 mg/dL (68-408); Immunoglobulin G 516 mg/dL (768-1632); Immunoglobulin M 16 mg/dL (35-263); Kappa Qnt Free Light Chains 13.38 mg/L (3.30-19.40); Kappa/Lambda Light Chain Ratio 1.21 (0.26-1.65); Lambda Qnt Free Light Chains 11.07 mg/L (5.71-26.30); Monoclonal Protein 0.13 g/dL (<=0.00); Total Protein, Serum 5.8 g/dL (6.3-8.2)
[2024-01-16 09:17] LABS: Basophils Absolute Auto 0.02 K/uL (0.00-0.30); Basophils Percent Auto 0.3 % (0.0-3.0); Eosinophils Absolute Auto 0.02 K/uL (0.00-0.50); Eosinophils Percent Auto 0.3 % (0.0-7.0); Hematocrit 37.1 % (37.0-53.0); Hemoglobin* 12.4 gm/dL (13.5-17.5); Immature Granulocytes Abs Auto 0.19 K/uL (0.00-0.30); Immature Granulocytes Pct Auto 2.9 %; Lymphocytes Absolute Auto 1.88 K/uL (0.90-2.90); Lymphocytes Percent Auto 28.8 % (20-44); Mean Corpuscular HGB Conc 33 gm/dL (32-36); Mean Corpuscular Hemoglobin 33 pg (26-34); Mean Corpuscular Volume 100 fL (80-100); Monocytes Percent Auto 7.7 % (0.0-11.0); Neutrophils Absolute Auto 3.92 K/uL (1.7-7.0); Platelet Count* 150 K/uL (140-440); RDW Coefficient of Variation % 14.9 % (11.5-15.5); Red Blood Count 3.73 m/uL (4.30-5.90); White Blood Count* 6.53 K/uL (4.50-11.00)
[2024-01-16 09:18] LABS: Slide Review Reflex No
[2024-01-16 09:33] LABS: Chloride* 104 mmol/L (96-114)
[2024-01-16 09:34] LABS: Albumin* 3.8 g/dL (3.3-5.0); Potassium* 4.2 mmol/L (3.6-5.1); Sodium* 135 mmol/L (135-149)
[2024-01-16 09:36] LABS: Anion Gap 1 mEq/L (7-15); Aspartate Amino Transferase* 25 U/L (12-35); Bilirubin Total* 0.8 mg/dL (0.1-1.5); Carbon Dioxide* 30 mmol/L (20-32); Creatinine* 1.1 mg/dL (0.5-1.5); Estimated Glomerular Filt Rate 69 ml/min
[2024-01-16 09:37] LABS: Alanine Aminotransferase* 29 U/L (4-50); Alkaline Phosphatase* 64 U/L (40-150); Blood Urea Nitrogen* 32 mg/dL (7-30); Calcium* 8.5 mg/dL (8.4-10.6); Glucose* 263 mg/dL (60-115); Total Protein* 6.3 g/dL (6.0-8.3)
[2024-01-16 10:15] VITALS: BP 132/80; PULSE 102; RESP 18; TEMP 36.1; O2SAT 100
[2024-01-16] MEDS: BORTEZOMIB SUBQ 2.5 mg/ml 2.9 MG SUBCUT (11:05)
--- NOTE | 2024-01-19 12:41 | ONC.NURNOTE ---
Application refaxed in for free drug Kendall received denial letter from Medicare Extra Help patient should now qualify for free drug from the manufactorer
--- NOTE | 2024-01-19 14:04 | ONC.NURNOTE ---
Kendall- patient has been enrolled in [facility] for free drug thru 10/02/24 Case # [id number] ph # [phone] fax
[2024-01-23 09:18] LABS: Basophils Absolute Auto 0.01 K/uL (0.00-0.30); Basophils Percent Auto 0.1 % (0.0-3.0); Eosinophils Absolute Auto 0.02 K/uL (0.00-0.50); Eosinophils Percent Auto 0.3 % (0.0-7.0); Hematocrit 37.1 % (37.0-53.0); Hemoglobin* 12.3 gm/dL (13.5-17.5); Immature Granulocytes Abs Auto 0.18 K/uL (0.00-0.30); Immature Granulocytes Pct Auto 2.4 %; Lymphocytes Absolute Auto 1.74 K/uL (0.90-2.90); Lymphocytes Percent Auto 22.8 % (20-44); Mean Corpuscular HGB Conc 33 gm/dL (32-36); Mean Corpuscular Hemoglobin 33 pg (26-34); Mean Corpuscular Volume 100 fL (80-100); Monocytes Percent Auto 6.7 % (0.0-11.0); Neutrophils Absolute Auto 5.16 K/uL (1.7-7.0); Neutrophils Percent Auto 67.7 % (42.0-72.0); Platelet Count* 180 K/uL (140-440); RDW Coefficient of Variation % 14.5 % (11.5-15.5); Red Blood Count 3.72 m/uL (4.30-5.90); White Blood Count* 7.62 K/uL (4.50-11.00)
[2024-01-23 09:20] LABS: Slide Review Reflex No
[2024-01-23 09:31] LABS: Albumin* 3.7 g/dL (3.3-5.0)
[2024-01-23 09:32] LABS: Chloride* 106 mmol/L (96-114); Sodium* 138 mmol/L (135-149)
[2024-01-23 09:34] LABS: Anion Gap 4 mEq/L (7-15); Aspartate Amino Transferase* 23 U/L (12-35); Bilirubin Total* 0.5 mg/dL (0.1-1.5); Carbon Dioxide* 28 mmol/L (20-32); Estimated Glomerular Filt Rate 78 ml/min; Total Protein* 6.2 g/dL (6.0-8.3)
[2024-01-23 09:35] LABS: Alanine Aminotransferase* 32 U/L (4-50); Alkaline Phosphatase* 69 U/L (40-150); Blood Urea Nitrogen* 30 mg/dL (7-30); Calcium* 8.5 mg/dL (8.4-10.6); Glucose* 254 mg/dL (60-115)
[2024-01-23] MEDS: ACETAMINOPHEN 325 MG TABLET 650 MG PO (11:26)
[2024-01-23] MEDS: diphenhydrAMINE 25 MG CAPSULE 50 MG PO (11:26)
[2024-01-23] MEDS: dexAMETHasone 4 MG TABLET 20 MG PO (11:27)
[2024-01-23] MEDS: BORTEZOMIB SUBQ 2.5 mg/ml 2.9 MG SUBCUT (12:37)
[2024-01-23] MEDS: DARATUMUMAB-HYALURONIDASE-FIHJ 15 ML SUBCUT (12:38)
[2024-01-30 09:16] LABS: Basophils Absolute Auto 0.03 K/uL (0.00-0.30); Basophils Percent Auto 0.6 % (0.0-3.0); Eosinophils Absolute Auto 0.03 K/uL (0.00-0.50); Eosinophils Percent Auto 0.6 % (0.0-7.0); Hematocrit 36.7 % (37.0-53.0); Immature Granulocytes Abs Auto 0.04 K/uL (0.00-0.30); Immature Granulocytes Pct Auto 0.8 %; Lymphocytes Absolute Auto 1.25 K/uL (0.90-2.90); Lymphocytes Percent Auto 25.1 % (20-44); Mean Corpuscular HGB Conc 33 gm/dL (32-36); Mean Corpuscular Hemoglobin 33 pg (26-34); Mean Corpuscular Volume 101 fL (80-100); Monocytes Percent Auto 11.4 % (0.0-11.0); Neutrophils Absolute Auto 3.07 K/uL (1.7-7.0); Neutrophils Percent Auto 61.5 % (42.0-72.0); Platelet Count* 151 K/uL (140-440); RDW Coefficient of Variation % 14.4 % (11.5-15.5); Red Blood Count 3.64 m/uL (4.30-5.90); White Blood Count* 4.99 K/uL (4.50-11.00)
[2024-01-30 09:17] VITALS: BP 127/87; PULSE 111; RESP 15; TEMP 36.1; O2SAT 96
[2024-01-30 09:18] LABS: Slide Review Reflex No
[2024-01-30 09:34] LABS: Albumin* 3.6 g/dL (3.3-5.0); Chloride* 102 mmol/L (96-114); Sodium* 136 mmol/L (135-149)
[2024-01-30 09:35] LABS: Potassium* 4.1 mmol/L (3.6-5.1)
[2024-01-30 09:37] LABS: Alkaline Phosphatase* 67 U/L (40-150); Anion Gap 4 mEq/L (7-15); Aspartate Amino Transferase* 31 U/L (12-35); Bilirubin Total* 0.6 mg/dL (0.1-1.5); Blood Urea Nitrogen* 23 mg/dL (7-30); Carbon Dioxide* 30 mmol/L (20-32); Creatinine* 1.2 mg/dL (0.5-1.5); Estimated Glomerular Filt Rate 62 ml/min; Total Protein* 6.2 g/dL (6.0-8.3)
[2024-01-30 09:38] LABS: Alanine Aminotransferase* 28 U/L (4-50); Calcium* 8.7 mg/dL (8.4-10.6); Glucose* 160 mg/dL (60-115)
[2024-02-06 08:50] LABS: Basophils Percent Auto 0.7 % (0.0-3.0); Eosinophils Percent Auto 1.9 % (0.0-7.0); Hematocrit 37.1 % (37.0-53.0); Hemoglobin* 12.1 gm/dL (13.5-17.5); Immature Granulocytes Pct Auto 0.2 %; Lymphocytes Percent Auto 26.7 % (20-44); Mean Corpuscular HGB Conc 33 gm/dL (32-36); Mean Corpuscular Hemoglobin 33 pg (26-34); Mean Corpuscular Volume 101 fL (80-100); Monocytes Percent Auto 11.9 % (0.0-11.0); Neutrophils Percent Auto 58.6 % (42.0-72.0); Platelet Count* 197 K/uL (140-440); RDW Coefficient of Variation % 14.1 % (11.5-15.5); Red Blood Count 3.68 m/uL (4.30-5.90); White Blood Count* 4.12 K/uL (4.50-11.00)
[2024-02-06 08:52] LABS: Slide Review Reflex No
[2024-02-06 09:10] LABS: Albumin* 3.8 g/dL (3.3-5.0); Chloride* 108 mmol/L (96-114)
[2024-02-06 09:11] LABS: Sodium* 141 mmol/L (135-149)
[2024-02-06 09:13] LABS: Alkaline Phosphatase* 62 U/L (40-150); Anion Gap 6 mEq/L (7-15); Aspartate Amino Transferase* 30 U/L (12-35); Bilirubin Total* 0.5 mg/dL (0.1-1.5); Blood Urea Nitrogen* 22 mg/dL (7-30); Carbon Dioxide* 27 mmol/L (20-32); Creatinine* 1.4 mg/dL (0.5-1.5); Estimated Glomerular Filt Rate 52 ml/min; Total Protein* 6.3 g/dL (6.0-8.3)
[2024-02-06 09:14] LABS: Alanine Aminotransferase* 25 U/L (4-50); Calcium* 8.8 mg/dL (8.4-10.6); Glucose* 99 mg/dL (60-115)
[2024-02-06 09:40] LABS: Kappa Qnt Free Light Chains 13.38; Kappa-Lambda Qt FLC W/ Ratio 1.21; Lambda Qnt Free Light Chains 11.07
[2024-02-06 09:44] VITALS: BP 133/95; PULSE 102; RESP 16; TEMP 35.8; O2SAT 96
[2024-02-06] MEDS: diphenhydrAMINE 25 MG CAPSULE 50 MG PO (10:05)
[2024-02-06] MEDS: dexAMETHasone 4 MG TABLET 20 MG PO (10:05)
[2024-02-06] MEDS: ACETAMINOPHEN 325 MG TABLET 650 MG PO (10:05)
[2024-02-06] MEDS: DARATUMUMAB-HYALURONIDASE-FIHJ 15 ML SUBCUT (11:01)
[2024-02-06] MEDS: BORTEZOMIB SUBQ 2.5 mg/ml 2.9 MG SUBCUT (11:01)
--- NOTE | 2024-02-06 12:26 | ONC.NURNOTE ---
Juan states stopped taking his Lasix and insulin on his own. enc he follow up with his primary. note fasting bs this am. 99. small amt edema geo ankles.
[2024-02-13 07:50] LABS: Basophils Absolute Auto 0.02 K/uL (0.00-0.30); Basophils Percent Auto 0.4 % (0.0-3.0); Eosinophils Absolute Auto 0.14 K/uL (0.00-0.50); Hematocrit 37.4 % (37.0-53.0); Hemoglobin* 12.3 gm/dL (13.5-17.5); Immature Granulocytes Abs Auto 0.03 K/uL (0.00-0.30); Immature Granulocytes Pct Auto 0.6 %; Lymphocytes Absolute Auto 1.05 K/uL (0.90-2.90); Lymphocytes Percent Auto 22.7 % (20-44); Mean Corpuscular HGB Conc 33 gm/dL (32-36); Mean Corpuscular Hemoglobin 33 pg (26-34); Mean Corpuscular Volume 100 fL (80-100); Monocytes Percent Auto 13.4 % (0.0-11.0); Neutrophils Absolute Auto 2.77 K/uL (1.7-7.0); Neutrophils Percent Auto 59.9 % (42.0-72.0); Platelet Count* 209 K/uL (140-440); RDW Coefficient of Variation % 14.1 % (11.5-15.5); Red Blood Count 3.76 m/uL (4.30-5.90); White Blood Count* 4.63 K/uL (4.50-11.00)
[2024-02-13 07:52] LABS: Slide Review Reflex No
[2024-02-13 08:00] VITALS: BP 131/90; PULSE 93; RESP 16; TEMP 36.8; O2SAT 92
[2024-02-13 08:11] LABS: Albumin* 3.8 g/dL (3.3-5.0)
[2024-02-13 08:12] LABS: Chloride* 110 mmol/L (96-114); Sodium* 139 mmol/L (135-149)
[2024-02-13 08:14] LABS: Anion Gap 4 mEq/L (7-15); Aspartate Amino Transferase* 27 U/L (12-35); Bilirubin Total* 0.6 mg/dL (0.1-1.5); Carbon Dioxide* 25 mmol/L (20-32); Creatinine* 1.1 mg/dL (0.5-1.5); Estimated Glomerular Filt Rate 69 ml/min; Total Protein* 6.3 g/dL (6.0-8.3)
[2024-02-13 08:15] LABS: Alanine Aminotransferase* 21 U/L (4-50); Alkaline Phosphatase* 58 U/L (40-150); Blood Urea Nitrogen* 17 mg/dL (7-30); Calcium* 8.7 mg/dL (8.4-10.6); Glucose* 149 mg/dL (60-115)
[2024-02-13] MEDS: BORTEZOMIB SUBQ 2.5 mg/ml 2.9 MG SUBCUT (09:08)
--- NOTE | 2024-02-13 09:16 | ONC.NURNOTE ---
Pt here for Velcade injection today. His main complaint is persistent knee pain, describing it as snapping when he is up to the bathroom at night. Per recent notes, pt saw Dr. Andrea in ED on 02/09 and received [place] prn; has f/u with PCP Stephanie Clark PA-C on 02/14. Pt is unsure if he is taking the [place] Pigeon; his s/o manages his meds and is not available d/t having medical procedure currently. Reviewed with Paige Saab APRN. Recommend additional symptom mgt of icing, using Voltaren cream up to 4x/day and being consistent with White Pigeon these next 2 days until PCP appt. Wrote these instructions for pt; he verbalizes understanding.
--- NOTE | 2024-02-13 14:11 | ONC.NURNOTE ---
Josy phoned reporting Alfredo had an episode of confusion- where he was suppose to go hand picker pizzas for a friend gathering and ended up going home instead- Josy calling because she has concerns about behavior change Alfredo is not having and visual changes. MIGUEL's, nausea, vomiting eating very well today leg pain from last week has gotten better today- he had been taking pain medication that was received from an ER visit last week he has not had any pain medication today- [facility] It is unknown what his blood sugar is at this time, but he is eating pizza now with friends noted labs from this am recommend that it is ok to bring him back to the ER for mental status changes,
[2024-02-20 08:26] LABS: Basophils Absolute Auto 0.02 K/uL (0.00-0.30); Basophils Percent Auto 0.4 % (0.0-3.0); Eosinophils Absolute Auto 0.13 K/uL (0.00-0.50); Eosinophils Percent Auto 2.8 % (0.0-7.0); Hematocrit 38.4 % (37.0-53.0); Hemoglobin* 12.7 gm/dL (13.5-17.5); Immature Granulocytes Abs Auto 0.02 K/uL (0.00-0.30); Immature Granulocytes Pct Auto 0.4 %; Lymphocytes Absolute Auto 0.94 K/uL (0.90-2.90); Lymphocytes Percent Auto 20.5 % (20-44); Mean Corpuscular HGB Conc 33 gm/dL (32-36); Mean Corpuscular Hemoglobin 33 pg (26-34); Mean Corpuscular Volume 99 fL (80-100); Monocytes Percent Auto 10.5 % (0.0-11.0); Neutrophils Percent Auto 65.4 % (42.0-72.0); Platelet Count* 219 K/uL (140-440); White Blood Count* 4.59 K/uL (4.50-11.00)
[2024-02-20 08:27] LABS: Slide Review Reflex No
[2024-02-20 08:41] LABS: Albumin* 4.1 g/dL (3.3-5.0); Chloride* 108 mmol/L (96-114)
[2024-02-20 08:42] LABS: Potassium* 4.1 mmol/L (3.6-5.1); Sodium* 139 mmol/L (135-149)
[2024-02-20 08:44] LABS: Alkaline Phosphatase* 60 U/L (40-150); Anion Gap 7 mEq/L (7-15); Aspartate Amino Transferase* 27 U/L (12-35); Bilirubin Total* 0.8 mg/dL (0.1-1.5); Blood Urea Nitrogen* 19 mg/dL (7-30); Carbon Dioxide* 24 mmol/L (20-32); Creatinine* 1.1 mg/dL (0.5-1.5); Estimated Glomerular Filt Rate 69 ml/min; Total Protein* 6.8 g/dL (6.0-8.3)
[2024-02-20 08:45] LABS: Alanine Aminotransferase* 19 U/L (4-50); Calcium* 8.7 mg/dL (8.4-10.6); Glucose* 94 mg/dL (60-115)
[2024-02-20] MEDS: dexAMETHasone 4 MG TABLET 20 MG PO (10:58)
[2024-02-20] MEDS: ACETAMINOPHEN 325 MG TABLET 650 MG PO (10:59)
[2024-02-20] MEDS: diphenhydrAMINE 25 MG CAPSULE 50 MG PO (10:59)
[2024-02-20] MEDS: DARATUMUMAB-HYALURONIDASE-FIHJ 15 ML SUBCUT (12:07)
[2024-02-20] MEDS: BORTEZOMIB SUBQ 2.5 mg/ml 2.9 MG SUBCUT (12:07)
--- NOTE | 2024-02-22 15:59 | ONC.NURNOTE ---
Josy called to report more pain in left lower thigh- exactly where the pain has been reported that Juan took 650 mg Tylenol about an hour ago, and a warm soaking bath with minimal relief doppler results from today reviewed with Josy there has been question that the hydrocodone caused confusion- however rec that patient try 1/2 tab also advised that increase in pain would require an ER evaluation advised that they check in with primary care about a possible referral to ortho for evaluation
[2024-02-28 08:02] LABS: Basophils Absolute Auto 0.02 K/uL (0.00-0.30); Basophils Percent Auto 0.4 % (0.0-3.0); Eosinophils Absolute Auto 0.21 K/uL (0.00-0.50); Eosinophils Percent Auto 4.5 % (0.0-7.0); Hematocrit 41.1 % (37.0-53.0); Hemoglobin* 13.2 gm/dL (13.5-17.5); Immature Granulocytes Abs Auto 0.02 K/uL (0.00-0.30); Immature Granulocytes Pct Auto 0.4 %; Lymphocytes Absolute Auto 1.03 K/uL (0.90-2.90); Lymphocytes Percent Auto 22.2 % (20-44); Mean Corpuscular HGB Conc 32 gm/dL (32-36); Mean Corpuscular Hemoglobin 32 pg (26-34); Mean Corpuscular Volume 100 fL (80-100); Monocytes Percent Auto 13.8 % (0.0-11.0); Neutrophils Absolute Auto 2.73 K/uL (1.7-7.0); Neutrophils Percent Auto 58.7 % (42.0-72.0); Platelet Count* 182 K/uL (140-440); RDW Coefficient of Variation % 14.1 % (11.5-15.5); Red Blood Count 4.12 m/uL (4.30-5.90); White Blood Count* 4.65 K/uL (4.50-11.00)
[2024-02-28 08:07] LABS: Slide Review Reflex No
[2024-02-28 08:22] LABS: Albumin* 4.2 g/dL (3.3-5.0)
[2024-02-28 08:23] LABS: Chloride* 107 mmol/L (96-114); Potassium* 4.5 mmol/L (3.6-5.1); Sodium* 140 mmol/L (135-149)
[2024-02-28 08:25] LABS: Anion Gap 6 mEq/L (7-15); Aspartate Amino Transferase* 25 U/L (12-35); Bilirubin Total* 0.9 mg/dL (0.1-1.5); Carbon Dioxide* 27 mmol/L (20-32); Creatinine* 1.2 mg/dL (0.5-1.5); Estimated Glomerular Filt Rate 62 ml/min
[2024-02-28 08:26] LABS: Alanine Aminotransferase* 20 U/L (4-50); Alkaline Phosphatase* 55 U/L (40-150); Blood Urea Nitrogen* 24 mg/dL (7-30); Glucose* 132 mg/dL (60-115)
[2024-02-28 08:29] VITALS: BP 135/90; PULSE 103; RESP 18; TEMP 35.8; O2SAT 95
[2024-02-28] MEDS: BORTEZOMIB SUBQ 2.5 mg/ml 2.9 MG SUBCUT (09:06)
[2024-03-05 08:46] LABS: Basophils Absolute Auto 0.03 K/uL (0.00-0.30); Basophils Percent Auto 0.5 % (0.0-3.0); Eosinophils Absolute Auto 0.24 K/uL (0.00-0.50); Eosinophils Percent Auto 4.3 % (0.0-7.0); Hematocrit 40.4 % (37.0-53.0); Hemoglobin* 13.1 gm/dL (13.5-17.5); Immature Granulocytes Abs Auto 0.01 K/uL (0.00-0.30); Immature Granulocytes Pct Auto 0.2 %; Lymphocytes Percent Auto 16.3 % (20-44); Mean Corpuscular HGB Conc 32 gm/dL (32-36); Mean Corpuscular Hemoglobin 32 pg (26-34); Mean Corpuscular Volume 98 fL (80-100); Monocytes Percent Auto 11.3 % (0.0-11.0); Neutrophils Absolute Auto 3.77 K/uL (1.7-7.0); Neutrophils Percent Auto 67.4 % (42.0-72.0); Platelet Count* 181 K/uL (140-440); RDW Coefficient of Variation % 13.8 % (11.5-15.5); Red Blood Count 4.13 m/uL (4.30-5.90); White Blood Count* 5.59 K/uL (4.50-11.00)
[2024-03-05 08:53] LABS: Slide Review Reflex No
[2024-03-05 08:58] LABS: Chloride* 108 mmol/L (96-114)
[2024-03-05 08:59] LABS: Albumin* 4.4 g/dL (3.3-5.0); Potassium* 4.9 mmol/L (3.6-5.1); Sodium* 140 mmol/L (135-149)
[2024-03-05 09:01] LABS: Creatinine* 1.3 mg/dL (0.5-1.5)
[2024-03-05 09:02] LABS: Alanine Aminotransferase* 18 U/L (4-50); Alkaline Phosphatase* 55 U/L (40-150); Anion Gap 7 mEq/L (7-15); Aspartate Amino Transferase* 25 U/L (12-35); Bilirubin Total* 0.9 mg/dL (0.1-1.5); Blood Urea Nitrogen* 27 mg/dL (7-30); Calcium* 9.5 mg/dL (8.4-10.6); Carbon Dioxide* 25 mmol/L (20-32); Estimated Glomerular Filt Rate 57 ml/min; Glucose* 162 mg/dL (60-115); Total Protein* 7.4 g/dL (6.0-8.3)
[2024-03-05] MEDS: diphenhydrAMINE 25 MG CAPSULE 50 MG PO (09:59)
[2024-03-05] MEDS: dexAMETHasone 4 MG TABLET 20 MG PO (09:59)
--- NOTE | 2024-03-05 10:50 | ONC.NURNOTE ---
Sign other states Alfredo has a decreased appetite.. altho ate double order madden and hashbrown with lg glass of water this am. Seeing a doctor re RLE pain. having a MRI and Physical therapy.
[2024-03-05] MEDS: DARATUMUMAB-HYALURONIDASE-FIHJ 15 ML SUBCUT (10:54)
[2024-03-05] MEDS: BORTEZOMIB SUBQ 2.5 mg/ml 2.9 MG SUBCUT (10:55)
[2024-03-12 08:28] VITALS: BP 104/72; PULSE 84; RESP 20; TEMP 36.6; O2SAT 96
[2024-03-12 08:28] LABS: Basophils Absolute Auto 0.02 K/uL (0.00-0.30); Basophils Percent Auto 0.4 % (0.0-3.0); Eosinophils Absolute Auto 0.18 K/uL (0.00-0.50); Eosinophils Percent Auto 3.8 % (0.0-7.0); Hematocrit 40.2 % (37.0-53.0); Immature Granulocytes Abs Auto 0.02 K/uL (0.00-0.30); Immature Granulocytes Pct Auto 0.4 %; Lymphocytes Percent Auto 19.7 % (20-44); Mean Corpuscular HGB Conc 32 gm/dL (32-36); Mean Corpuscular Hemoglobin 32 pg (26-34); Mean Corpuscular Volume 98 fL (80-100); Monocytes Percent Auto 13.6 % (0.0-11.0); Neutrophils Absolute Auto 2.93 K/uL (1.7-7.0); Neutrophils Percent Auto 62.1 % (42.0-72.0); Platelet Count* 182 K/uL (140-440); RDW Coefficient of Variation % 13.6 % (11.5-15.5); Red Blood Count 4.09 m/uL (4.30-5.90); White Blood Count* 4.72 K/uL (4.50-11.00)
[2024-03-12 08:29] LABS: Slide Review Reflex No
[2024-03-12 08:45] LABS: Albumin* 4.2 g/dL (3.3-5.0); Chloride* 109 mmol/L (96-114); Potassium* 4.2 mmol/L (3.6-5.1); Sodium* 141 mmol/L (135-149)
[2024-03-12 08:47] LABS: Anion Gap 9 mEq/L (7-15); Carbon Dioxide* 23 mmol/L (20-32); Creatinine* 1.7 mg/dL (0.5-1.5); Estimated Glomerular Filt Rate 41 ml/min
[2024-03-12 08:48] LABS: Alanine Aminotransferase* 19 U/L (4-50); Alkaline Phosphatase* 52 U/L (40-150); Aspartate Amino Transferase* 26 U/L (12-35); Blood Urea Nitrogen* 31 mg/dL (7-30); Calcium* 8.8 mg/dL (8.4-10.6); Glucose* 90 mg/dL (60-115); Total Protein* 6.6 g/dL (6.0-8.3)
[2024-03-15 09:45] VITALS: BP 137/83; PULSE 82; RESP 16; TEMP 36.1; O2SAT 94
[2024-03-15 09:46] VITALS: BP 121/75; PULSE 92; O2SAT 95
[2024-03-15] MEDS: SODIUM CHLORIDE 0.9 % (FLUSH) 10 ML SYRINGE IVF (10:00)
[2024-03-15] MEDS: 0.9 % SODIUM CHLORIDE 1000 ml 1,000 ML IV (10:00)
--- NOTE | 2024-03-15 10:50 | ONC.NURNOTE ---
Patient and SO-Josy let know that Dr. Pruitt reviewed patients chart and is quite happy how his numbers have gotten and due to weakness/pain and decline-patient to take a break from chemo medications given in clinic but to continue all his home medications. Medication list reviewed and patient and SO understands at this time he can be managed by his primary MD until he is stronger and his pain is under control. Patient to keep appointment in April to be re-assessed
--- NOTE | 2024-03-22 11:50 | ONC.NURNOTE ---
Patient's significant other Josy called concerned about abruptly stopping the 20mg of IV dexamethasone with injections. Assured Josy that it is administered differently then oral prednisone and that patient should not have any side effects like they would from stopping prednisone without a taper
== END 2024-03-25 23:59 | disposition home or self-care (01) ==
LOC: CCIC 10:15
PROVIDERS: Clinical Nurse Specialist; PCP Physician Assistant Medical; Referring Provider Physician Assistant Medical; Visit Provider Internal Medicine Hematology & Oncology
DX: D47.2 Monoclonal gammopathy (principal); R53.83 Other fatigue; E11.9 Type 2 diabetes mellitus without complications; D64.9 Anemia, unspecified
CPT/HCPCS: 36415; 70450; 72148; 73701; 74177; 80048; 80053; 81001; 82533; 82784; 83520; 83605; 84153; 84155; 84165; 84484; 85025; 86140; 86334; 86850; 86900; 86901; 93005; 93970; 96360; 96361; 96374; 96376; 96401; 99211; 99214; 99215; 99284; 99285; G0463; J9144; A9270; J1100; J7030; J7050; J9041; Q9967

== ENCOUNTER 2024-03-26 09:40 | Observation (INO) | payer MEDICARE, BC, SELFPAY ==
[2024-03-26 09:43] VITALS: BP 118/79; PULSE 93; RESP 16; TEMP 35.9; O2SAT 93; BMI 29.3
--- NOTE | 2024-03-26 09:59 | ED.WEAKNESS ---
HPI - Weakness General Time Seen by Provider: 09:59 Date Seen: 03/26/24 Chief complaint: Weakness Stated complaint: weak and confused Time Seen by Provider: 03/26/24 09:59 Source: patient Mode of arrival: ambulatory Limitations: no limitations History of Present Illness HPI Narrative: Mr. Retana is a very pleasant 78-year-old gentleman with multiple medical problems including type 2 diabetes, hypertension, multiple myeloma and left leg pain who is brought to the emergency room by his for evaluation of increasing confusion, continued weakness. History is challenging as patient cannot elaborate on any questions I may pose. His provides history he jumping from different visits different specialties and different complaints and therefore I peers together this information with notes from previous visits with oncology ED and Orthopedics. Main complaints appear to be confusion that has increased as well as weakness that was more profound yesterday. Mr. Nichols has been undergoing chemotherapy for multiple myeloma but discontinued this on March 12 due to weakness and according to Oncology note acute kidney injury. They were hoping that this would improve his weakness. However, yesterday Josy noticed that Juan seem to be much more weak. They had actually gone into a shed to get a walker and he was unable to lift his leg over the staff and fell. She describes this more as a slow fall to the ground and there were no injuries because of this fall. Josy actually notes that Alfredo seems to be walking somewhat better today but still needs assistance with walking. She describing that he appears to be more confused today but I has not had fever or chills, complaints with urination and she adamantly denies any breathing problems or a cough. There have been no complaints of chest pain. Mr. Nichols is currently on gabapentin and tramadol for discomfort. Josy states that he had been taking tramadol morning and night and she occasionally adds a 3rd dose during the mid day as instructed. She notes that he had been having problems with his appetite but that has improved since being on prednisone and he is currently tapering that at this time. He has not yet eaten today however. When asked about his leg pain over the last 2 days she states that he has not been complaining. In regards to his leg pain he underwent CT of the pelvis, x-ray of the knee and femur and had an MRI of the lumbar spine within the last 8 weeks. Lumbar MRI did not show any acute nerve impingement and patient followed up with Dr. Colon, Orthopedics who recommended physical therapy. Josy states that Mr. Nichols is too weak to do physical therapy. She notes that she is really having a hard time caring for him given his current state. Related Data Home Medications ?Medication ?Instructions ?Recorded ?Confirmed finasteride 5 mg tablet 5 mg PO DAILY 04/07/23 03/26/24 metformin 1,000 mg tablet 1,000 mg PO DAILY 11/07/23 03/26/24 famotidine 20 mg tablet 20 mg PO BID 01/23/24 03/26/24 bortezomib 3.5 mg injection powder 2.9 mg subcut QWEEK 02/10/24 03/26/24 for solution (Velcade) isixhkulumx-oyjkdaikettds-utks 20 ml subcut Q2W 02/10/24 03/26/24 dexamethasone 20 mg tablet 20 mg PO .Q 14 Days 02/23/24 03/26/24 hydrocodone 5 mg-acetaminophen 325 0.5 tab PO Q4H PRN 02/23/24 03/26/24 mg tablet pen needle, diabetic 32 gauge x #100 ea 02/23/24 03/21/2410/06 (BD Ultra-Fine Micro Pen Needle) dulaglutide 0.75 mg/0.5 mL 0.75 mg subcut Q7D 03/21/24 03/26/24 subcutaneous pen injector (Trulicity) lancets (Fingerstix Lancets) 03/22/24 aspirin 81 mg chewable tablet 81 mg PO DAILY 03/26/24 03/26/24 (Rk Chewable Low Dose Aspirin) gabapentin 300 mg capsule 300 mg PO TID PRN 03/26/24 03/26/24 insulin glargine-yfgn 100 unit/mL 31 unit subcut HS 03/26/24 03/26/24 (3 mL) subcutaneous pen (Semglee (insulin glargine-yfgn) Pen) Previous Rx's ?Medication ?Instructions ?Recorded pen needle, diabetic 31 gauge x #100 ea 08/09/2310/06 (CareFine Pen Needle) acyclovir 400 mg tablet 400 mg PO BID #120 tabs 09/12/23 calcium carb-vit D3-minerals 600 1 tab PO BID #120 tabs 09/12/23 mg calcium-400 unit tablet apixaban 2.5 mg tablet 2.5 mg PO BID #60 tabs 10/24/23 cyanocobalamin (vitamin B-12) 1,000 mcg PO DAILY #90 tabs 11/09/23 1,000 mcg tablet,extended release sulfamethoxazole 400 1 tab PO 3XW #12 tabs 11/16/23 mg-trimethoprim 80 mg tablet (Bactrim) pravastatin 10 mg tablet 10 mg PO HS #90 tabs 03/06/24 prednisone 5 mg tablet See Rx Instructions PO QDAY #30 03/13/24 tabs tramadol 50 mg tablet 50 mg PO Q6H PRN pain #42 tabs 03/20/24 Allergies Allergy/AdvReac Type Severity Reaction Status Date / Time pollen extracts Allergy Intermediate Congested Verified 03/26/24 09:51 house dust Allergy Verified 03/26/24 09:51 iron AdvReac Intermediate diarrhea Verified 03/26/24 09:51 Review of Systems Status of ROS: Reports: unobtainable due to medical condition Narrative: Significant other Denies fever cough cold cough congestion, vomiting, diarrhea. [facility] Medical History (Updated 03/26/24 @ 16:38 by Jason Grady MD) Failure to thrive in adult ?R62.7 - Adult failure to thrive (ICD-10) Weight loss, non-intentional ?R63.4 - Abnormal weight loss (ICD-10) Eosinophilia ?D72.10 - Eosinophilia, unspecified (ICD-10) Elevated erythrocyte sedimentation rate ?R70.0 - Elevated erythrocyte sedimentation rate (ICD-10) Erectile dysfunction ?N52.9 - Male erectile dysfunction, unspecified (ICD-10) Chronic GERD ?K21.9 - Gastro-esophageal reflux disease without esophagitis (ICD-10) Colon polyps ?K63.5 - Polyp of colon (ICD-10) Acquired pes planus of left foot ?M21.42 - Flat foot [pes planus] (acquired), left foot (ICD-10) Disc degeneration, lumbar ?M51.36 - Other intervertebral disc degeneration, lumbar region (ICD-10) Facet arthritis of lumbar region ?M47.816 - Spondylosis without myelopathy or radiculopathy, lumbar region (ICD-10) HTN (hypertension) ?I10 - Essential (primary) hypertension (ICD-10) Hyperlipidemia ?E78.5 - Hyperlipidemia, unspecified (ICD-10) Monoclonal (M) protein disease, multiple 'M' protein ?D47.2 - Monoclonal gammopathy (ICD-10) Pulmonary nodule ?R91.1 - Solitary pulmonary nodule (ICD-10) Leg edema ?R60.0 - Localized edema (ICD-10) Tubular adenoma ?D36.9 - Benign neoplasm, unspecified site (ICD-10) History of basal cell carcinoma (BCC) ?Z85.828 - Personal history of other malignant neoplasm of skin (ICD-10) B12 deficiency ?E53.8 - Deficiency of other specified B group vitamins (ICD-10) COVID-19 (~01/27/22) ?U07.1 - COVID-19 (ICD-10) Gout ?M10.9 - Gout, unspecified (ICD-10) Elevated PSA ?R97.20 - Elevated prostate specific antigen [PSA] (ICD-10) Basal cell carcinoma ?C44.91 - Basal cell carcinoma of skin, unspecified (ICD-10) Surgical History History of cholecystectomy (~2021) ?Z90.49 - Acquired absence of other specified parts of digestive tract (ICD-10) Status post right hemicolectomy ?Z90.49 - Acquired absence of other specified parts of digestive tract (ICD-10) History of hernia repair ?Z98.890 - Other specified postprocedural states (ICD-10) ?Z87.19 - Personal history of other diseases of the digestive system (ICD-10) Social History (Updated 03/26/24 @ 16:29 by Jason Grady MD) Narrative: non-smoker, negative for drinking.? He is currently retired.? He used to work in [employer] in [place]. Lives with his significant other/partner of 40 years. What is your current living situation?: I presently have a place to live Problems where you live: no known problems Problems where you live details: none In the past 12 months, utilities in danger of being shut off: no In past 12 months, lack of transportation kept you from medical appts, meetings, work, or getting things needed for daily living: no In the past 12 mos, have been you worried that your food would run out before you had money to buy more?: never true In the past 12 mos, the food you bought just didn't last and you didn't have money to buy more?: never true Highest level of school completed/degree received: high school graduate Smoking Status: Unknown if ever smoked Do you use any of these nicotine containing products: None How often do you have a drink containing alcohol: never How often do you have six or more drinks on one occasion: Never AUDIT-C Alcohol total score: 0 Non-prescribed substance use: denies use Caffeine: No How often does anyone, including family, friends and others, physically hurt you: never How often does anyone, including family, friends and others, insult or talk down to you: never How often does anyone, including family, friends and others, threaten you with harm: never How often does anyone, including family, friends and others, scream or curse at you: never Little interest or pleasure in doing things: more than half the days Feeling down, depressed, or hopeless: not at all service: Yes Exam Narrative: Exam Narrative: Mr. Retana is very pleasant. Giving one-word answers. Unable to elaborate on those answers. Following commands. EOM is full. Head is atraumatic normocephalic. Face symmetrical with eyebrow raise smile and tongue is midline. Heart with regular rate and rhythm and lungs are clear bilaterally. Abdomen is obese soft nontender. Lower extremities with no peripheral edema. No CVA tenderness. No pain with palpation in buttocks or low back. Neuro exam shows strength to be intact with the exception of dorsiflexion of the left lower leg. DTRs are symmetrical at 1 at ankles and knees. Sensation appears to be intact. Const: Vital Signs, click to edit/add: Vital Signs - 24 hr 03/26/24 09:43 Temperature 96.6 F L Pulse Rate [Pulse Oximeter] 93 Respiratory Rate 16 Blood Pressure [Ri ght Upper Arm] 118/79 Pulse Oximetry 93 Oxygen Delivery Me thod Room Air Documenting provider has reviewed patient's vital signs: yes Course Course ED Course: Differential diagnosis is quite broad. At this time given neurological exam does not that does not indicate stroke and a recent MRI of the brain will not pursue acute stroke as the symptoms are not new. Leg symptoms are also not new. In review of previous notes patient has had reassuring lumbar MRI, femur and knee radiological evaluation. Rather, will check for COVID, acute coronary syndrome and electrolyte imbalances. Will also check urinalysis for possible UTI. CBC, comprehensive, CRP, troponin pending at this time. Reevaluation(s) Reevaluation #1: I did have time to speak with Josy, Mr. Retana's significant other in the hallway. At this time it is clear that she is not able to care for him and is very frustrated at multiple doctor's visits with what she feels are no answers and ?we have been horsing around with no answers?. I did try to explain is that I suspect that many of Mr. Retana's symptoms will not be reversed. I did state that I would do my best to try and find something that we could treat but I am worried that this it represents a gradual decline that is not reversible. We talked about intermediate briefly as well as hospitalization for OT consult. Vital Signs Vital signs: Initial Vital Signs Temperature 96.6 F L 03/26/24 09:43 Temperature Source Temporal Artery Scan 03/26/24 09:43 Pulse Rate 93 03/26/24 09:43 Respiratory Rate 16 03/26/24 09:43 Blood Pressure 118/79 03/26/24 09:43 Blood Pressure Mean 92 03/26/24 09:43 Blood Pressure Position Sitting 03/26/24 09:43 Pulse Oximetry 93 03/26/24 09:43 Oxygen Delivery Method Room Air 03/26/24 09:43 Vital Signs Temperature 96.6 F L 03/26/24 09:43 Pulse Rate 93 03/26/24 09:43 Respiratory Rate 16 03/26/24 09:43 Blood Pressure 118/79 03/26/24 09:43 Pulse Oximetry 93 03/26/24 09:43 Oxygen Delivery Method Room Air 03/26/24 09:43 Temperature 98.6 F 03/26/24 15:52 Pulse Rate 92 03/26/24 15:52 Respiratory Rate 16 03/26/24 15:52 Blood Pressure 152/106 H 03/26/24 15:52 Pulse Oximetry 96 03/26/24 15:52 Oxygen Delivery Method Room Air 03/26/24 15:52 Medications Administered Medications: Generic Name Dose Route Start Last Admin Trade Name Freq PRN Reason Stop Dose Admin Acetaminophen 650 mg 03/26/24 13:58 03/26/24 15:41 Acetaminophen 325 Mg Tablet PO 650 mg Q4H PRN Administration Insulin Aspart 0 unit 03/26/24 17:30 03/26/24 17:15 Insulin Aspart 100 Unit/Ml SUBCUT 2 unit ACHS DEVYN Administration Protocol Discontinued Medications Generic Name Dose Route Start Last Admin Trade Name Yao PRN Reason Stop Dose Admin Sodium Chloride 500 mls @ 500 mls/hr 03/26/24 10:36 03/26/24 12:16 0.9 % Sodium Chloride 500 Ml IV 03/26/24 11:35 Infused .Q1H ONE Infusion MDM - Weakness MDM Narrative Medical decision making narrative: 1. Confusion--patient has had MRI in the past 6 weeks that has been negative. I do not note any acute neurological deficits today with the exception of some Logan flexion weakness on his left lower leg that I believed is chronic. Urinalysis without evidence of UTI. He did have 1+ urinary ketones and we did give fluid today. 2. Chronic left leg pain-this has been worked up with MRI of the lumbar spine which did not show any acute nerve impingement. Previous x-rays of knee femur also and CT of the pelvis did not show any acute findings. 3. Weakness-somewhat improved proved today but this is been ongoing issue. He is supposed to be doing physical therapy per Orthopedics but unable to do so. Would ask that OT assist us in patient's ADL assessment. Patient may need home care or intermediate care. 4. Multiple myeloma-chemotherapy on hold at this time given patient's weakness. His white count and hemoglobin as well as platelets relatively normal today 5. Disposition-admit under the care of Dr. Wilner Grady for observation. Medical Records Attestation: I reviewed the patient's medical records. Lab Data Attestation: I reviewed the patient's lab results. Labs: Lab Results 03/26/24 03/26/24 Range/Units 10:36 10:55 WBC 6.35 (4.50-11.00) K/uL RBC 3.76 L (4.30-5.90) m/uL Hgb 12.0 L (13.5-17.5) gm/dL Hct 37.6 (37.0-53.0) % MCV 100 (80-100) fL MCH 32 (26-34) pg MCHC 32 (32-36) gm/dL RDW Coeff of Radha 13.3 (11.5-15.5) % Plt Count 190 (140-440) K/uL Neut % (Auto) 75.6 H (42.0-72.0) % Lymph % (Auto) 10.4 L (20-44) % [place] % (Auto) 9.6 (0.0-11.0) % Eos % (Auto) 3.8 (0.0-7.0) % Baso % (Auto) 0.6 (0.0-3.0) % Neut # (Auto) 4.80 (1.7-7.0) K/uL Lymph # (Auto) 0.70 L (0.90-2.90) K/uL [place] # (Auto) 0.60 (0.00-0.90) K/UL Eos # (Auto) 0.24 (0.00-0.50) K/uL Baso # (Auto) 0.04 (0.00-0.30) K/uL Abs Immat Gran (auto) 0.00 (0.00-0.30) K/uL Imm/Tot Granulo (auto) 0.0 % Sodium 138 (135-149) mmol/L Potassium 4.7 (3.6-5.1) mmol/L Chloride 105 (96-114) mmol/L Carbon Dioxide 25 (20-32) mmol/L Anion Gap 8 (7-15) mEq/L BUN 29 (7-30) mg/dL Creatinine 1.1 (0.5-1.5) mg/dL Estimated Creat Clear 61.73 Estimated GFR 69 ml/min Glucose 119 H (60-115) mg/dL Calcium 9.1 (8.4-10.6) mg/dL Total Bilirubin 0.6 (0.1-1.5) mg/dL AST 33 (12-35) U/L ALT 23 (4-50) U/L Alkaline Phosphatase 50 (40-150) U/L C-Reactive Protein 0.6 (0.5-1.0) mg/dL Total Protein 6.6 (6.0-8.3) g/dL Albumin 4.1 (3.3-5.0) g/dL SARS-CoV-2 (PCR) Negative SARS-CoV-2 (Negative) Influenza Type A (PCR) Negative PCR FLU A (Negative) Influenza Type B (PCR) Negative PCR FLU B (Negative) POC Troponin I 0.01 (0.01-0.04) ng/ml ECG Data Attestation: I personally reviewed and interpreted this ECG as follows: ECG interpretation date: 03/26/24 Prior ECG tracings: available for review Interpretation: EKG shows sinus rhythm at a rate of 79. There is an incomplete right bundle-branch block. Normal QT and NH intervals. Compared to EKG from February 2024 unchanged. Discharge Plan Discharge Clinical Impression: Weakness, Acute confusional state Patient Disposition: Admitted As Observation Condition: Unchanged
[2024-03-26] MEDS: 0.9 % SODIUM CHLORIDE 500 ML 500 ML IV (11:15)
[2024-03-26 11:33] LABS: Basophils Absolute Auto 0.04 K/uL (0.00-0.30); Basophils Percent Auto 0.6 % (0.0-3.0); Eosinophils Absolute Auto 0.24 K/uL (0.00-0.50); Eosinophils Percent Auto 3.8 % (0.0-7.0); Hematocrit 37.6 % (37.0-53.0); Lymphocytes Percent Auto 10.4 % (20-44); Mean Corpuscular HGB Conc 32 gm/dL (32-36); Mean Corpuscular Hemoglobin 32 pg (26-34); Mean Corpuscular Volume 100 fL (80-100); Monocytes Percent Auto 9.6 % (0.0-11.0); Neutrophils Percent Auto 75.6 % (42.0-72.0); Platelet Count* 190 K/uL (140-440); RDW Coefficient of Variation % 13.3 % (11.5-15.5); Red Blood Count 3.76 m/uL (4.30-5.90); White Blood Count* 6.35 K/uL (4.50-11.00)
[2024-03-26 11:39] LABS: Slide Review Reflex No
[2024-03-26 11:41] LABS: Troponin, Point-of-Care* 0.01 ng/ml (0.01-0.04)
[2024-03-26 11:42] LABS: Albumin* 4.1 g/dL (3.3-5.0); Chloride* 105 mmol/L (96-114)
[2024-03-26 11:43] LABS: Potassium* 4.7 mmol/L (3.6-5.1); Sodium* 138 mmol/L (135-149)
[2024-03-26 11:45] LABS: Alkaline Phosphatase* 50 U/L (40-150); Anion Gap 8 mEq/L (7-15); Aspartate Amino Transferase* 33 U/L (12-35); Bilirubin Total* 0.6 mg/dL (0.1-1.5); Carbon Dioxide* 25 mmol/L (20-32); Creatinine* 1.1 mg/dL (0.5-1.5); Est. Creatinine Clearance* 61.73; Estimated Glomerular Filt Rate 69 ml/min
[2024-03-26 11:46] LABS: Alanine Aminotransferase* 23 U/L (4-50); Blood Urea Nitrogen* 29 mg/dL (7-30); Calcium* 9.1 mg/dL (8.4-10.6); Glucose* 119 mg/dL (60-115); Total Protein* 6.6 g/dL (6.0-8.3)
[2024-03-26 11:48] LABS: C Reactive Protein* 0.6 mg/dL (0.5-1.0)
[2024-03-26 11:59] LABS: PCR FLU A Negative PCR FLU A (Negative); PCR FLU B Negative PCR FLU B (Negative); SARS PCR* Negative SARS-CoV-2 (Negative)
[2024-03-26 13:34] VITALS: BP 138/94; PULSE 93; RESP 14; TEMP 36.4; O2SAT 97; BMI 28.3
[2024-03-26 14:30] VITALS: RESP 14; O2SAT 97
[2024-03-26 15:10] LABS: Appearance Urine Clear (Clear); Bilirubin Urine Negative (Negative); Blood Urine Negative (Negative); Color Urine Yellow (Yellow); Glucose Urine Negative (Negative); Ketones Urine 1+ (Negative); Leukocyte Esterase Urine Negative (Negative); Nitrite Urine Negative (Negative); Protein Urine Negative (Negative); Urobilinogen Urine 0.2 (0.2-1.0)
[2024-03-26 15:25] LABS: RBC Urine 0-2 (0-2); WBC Urine 0-2 (0-5)
[2024-03-26] MEDS: ACETAMINOPHEN 325 MG TABLET 650 MG PO (15:41)
[2024-03-26 15:52] VITALS: BP 152/106; PULSE 92; PULSE 93; RESP 14; RESP 16; TEMP 37; O2SAT 96
--- NOTE | 2024-03-26 16:12 | P.IMHP_ITS ---
Hospitalist- H&P: HPI History of Present Illness Date Seen: 03/26/24 Chief complaint: weak and confused Narrative: Emergency department HPI: Mr. Retana is a very pleasant 78-year-old gentleman with multiple medical problems including type 2 diabetes, hypertension, multiple myeloma and left leg pain who is brought to the emergency room by his for evaluation of increasing confusion, continued weakness. History is challenging as patient cannot elaborate on any questions I may pose. His provides history he jumping from different visits different specialties and different complaints and therefore I peers together this information with notes from previous visits with oncology ED and Orthopedics. Main complaints appear to be confusion that has increased as well as weakness that was more profound yesterday. Mr. Nichols has been undergoing chemotherapy for multiple myeloma but discontinued this on March 12 due to weakness and according to Oncology note acute kidney injury. They were hoping that this would improve his weakness. However, yesterday Josy noticed that Juan seem to be much more weak. They had actually gone into a shed to get a walker and he was unable to lift his leg over the staff and fell. She describes this more as a slow fall to the ground and there were no injuries because of this fall. Josy actually notes that Alfredo seems to be walking somewhat better today but still needs assistance with walking. She describing that he appears to be more confused today but I has not had fever or chills, complaints with urination and she adamantly denies any breathing problems or a cough. There have been no complaints of chest pain. Mr. Nichols is currently on gabapentin and tramadol for discomfort. Josy states that he had been taking tramadol morning and night and she occasionally adds a 3rd dose during the mid day as instructed. She notes that he had been having problems with his appetite but that has improved since being on prednisone and he is currently tapering that at this time. He has not yet eaten today however. When asked about his leg pain over the last 2 days she states that he has not been complaining. In regards to his leg pain he underwent CT of the pelvis, x-ray of the knee and femur and had an MRI of the lumbar spine within the last 8 weeks. Lumbar MRI did not show any acute nerve impingement and patient followed up with Dr. Colon, Orthopedics who recommended physical therapy. Josy states that Mr. Nichols is too weak to do physical therapy. She notes that she is really having a hard time caring for him given his current state. Patient gives very little information other than indicating that he thinks he might be dying. History is obtained from his significant other and 40 year lifetime partner. In early January he had episodes of confusion. He did have a MRI of his head which was unremarkable. TSH was normal. No obvious acute injury to explain this. Since then he has had recurrent episodes of confusion and cognitive impairment. His significant other is now providing his medications including his insulin because he cannot figure out how to do it. He has continued to have episodes where he seems quite confused and unable to remember things or solve simple problems. He seems less verbal and more withdrawn. She believes that he is frustrated and perhaps depressed. He continues episodically to complain of left thigh pain. Notably he is not having any pain at the time I see him. He is at evaluation including radiographs of the hip, lumbar MRI and venous Doppler which are all unremarkable and do not explain left thigh pain. Orthopedic consultation and my exam today also do not show any apparent tenderness, weakness, inflammation, limitation in range of motion. He is on gabapentin at bedtime and tramadol during the day for pain. Gabapentin is helping him sleep at night. The tramadol seems to help with pain during the day but it makes him sleepy and so he is napping a lot. He has diabetes. Blood sugars were a bit of a problem with controlled due to dexamethasone for chemotherapy. He has been off of dexamethasone now for a couple weeks and blood sugars have generally been okay. He has multiple myeloma. Treatment was discontinued March 12. His last treatment was on March 05. It is not obvious that his current problems are related to his Velcade and Darzalex treatment. His multiple myeloma has recently been relatively well managed and it is not clear that he is having symptoms associated with hypercalcemia or bony lesions or widespread active disease. He has had about 20 lb of weight loss in the last 2 months. His significant other indicates that this is because he has a very poor appetite and has been eating and drinking quite poorly. She is not aware of any vomiting or bloody stools or constipation or abdominal pain. He had some diarrhea recently but that seems better today. He is independent in the toilet and so his significant other is unsure. Patient is unable to give much detail on this. He just has no appetite and she has been unable to get him to eat. He has been getting weaker. Yesterday and today he had episodes where his legs were so weak he was struggling to stand up. He had a fall yesterday and his significant other had to get the neighbor to help him get up. He almost fell while showering today and required his significant other to assist with all aspects of showering, drying off, getting dressed. At other times he seems stronger and is able to walk quite well. A few days ago he mowed the lawn on a riding mower and was walking around outside. He is very sedentary most of the time however. Recently he has been walking independently holding on to his significant other's hand for balance but not using a walker. He has had some incontinence of urine. Review of Systems Narrative: Has pending urology appointment for an elevated PSA. Has some urinary incontinence. [facility] Medical History (Updated 03/26/24 @ 16:38 by Jason Grady MD) Failure to thrive in adult ?R62.7 - Adult failure to thrive (ICD-10) Weight loss, non-intentional ?R63.4 - Abnormal weight loss (ICD-10) Eosinophilia ?D72.10 - Eosinophilia, unspecified (ICD-10) Elevated erythrocyte sedimentation rate ?R70.0 - Elevated erythrocyte sedimentation rate (ICD-10) Erectile dysfunction ?N52.9 - Male erectile dysfunction, unspecified (ICD-10) Chronic GERD ?K21.9 - Gastro-esophageal reflux disease without esophagitis (ICD-10) Colon polyps ?K63.5 - Polyp of colon (ICD-10) Acquired pes planus of left foot ?M21.42 - Flat foot [pes planus] (acquired), left foot (ICD-10) Disc degeneration, lumbar ?M51.36 - Other intervertebral disc degeneration, lumbar region (ICD-10) Facet arthritis of lumbar region ?M47.816 - Spondylosis without myelopathy or radiculopathy, lumbar region (ICD-10) HTN (hypertension) ?I10 - Essential (primary) hypertension (ICD-10) Hyperlipidemia ?E78.5 - Hyperlipidemia, unspecified (ICD-10) Monoclonal (M) protein disease, multiple 'M' protein ?D47.2 - Monoclonal gammopathy (ICD-10) Pulmonary nodule ?R91.1 - Solitary pulmonary nodule (ICD-10) Leg edema ?R60.0 - Localized edema (ICD-10) Tubular adenoma ?D36.9 - Benign neoplasm, unspecified site (ICD-10) History of basal cell carcinoma (BCC) ?Z85.828 - Personal history of other malignant neoplasm of skin (ICD-10) B12 deficiency ?E53.8 - Deficiency of other specified B group vitamins (ICD-10) COVID-19 (~01/27/22) ?U07.1 - COVID-19 (ICD-10) Gout ?M10.9 - Gout, unspecified (ICD-10) Elevated PSA ?R97.20 - Elevated prostate specific antigen [PSA] (ICD-10) Basal cell carcinoma ?C44.91 - Basal cell carcinoma of skin, unspecified (ICD-10) Surgical History History of cholecystectomy (~2021) ?Z90.49 - Acquired absence of other specified parts of digestive tract (ICD- 10) Status post right hemicolectomy ?Z90.49 - Acquired absence of other specified parts of digestive tract (ICD- 10) History of hernia repair ?Z98.890 - Other specified postprocedural states (ICD-10) ?Z87.19 - Personal history of other diseases of the digestive system (ICD-10) Social History (Updated 03/26/24 @ 16:29 by Jason Grady MD) Narrative: non-smoker, negative for drinking.? He is currently retired.? He used to work in [employer] in [place]. Lives with his significant other/partner of 40 years. What is your current living situation?: I presently have a place to live Problems where you live: no known problems Problems where you live details: none In the past 12 months, utilities in danger of being shut off: no In past 12 months, lack of transportation kept you from medical appts, meetings, work, or getting things needed for daily living: no In the past 12 mos, have been you worried that your food would run out before you had money to buy more?: never true In the past 12 mos, the food you bought just didn't last and you didn't have mon ey to buy more?: never true Highest level of school completed/degree received: high school graduate Smoking Status: Unknown if ever smoked Do you use any of these nicotine containing products: None How often do you have a drink containing alcohol: never How often do you have six or more drinks on one occasion: Never AUDIT-C Alcohol total score: 0 Non-prescribed substance use: denies use Caffeine: No How often does anyone, including family, friends and others, physically hurt you : never How often does anyone, including family, friends and others, insult or talk down to you: never How often does anyone, including family, friends and others, threaten you with harm: never How often does anyone, including family, friends and others, scream or curse at you: never Little interest or pleasure in doing things: more than half the days Feeling down, depressed, or hopeless: not at all service: Yes Meds Home Medications and Allergies Home Medications ?Medication ?Instructions ?Recorded ?Confirmed ?Type finasteride 5 mg tablet 5 mg PO DAILY 04/07/23 03/26/24 History metformin 1,000 mg tablet 1,000 mg PO DAILY 11/07/23 03/26/24 History famotidine 20 mg tablet 20 mg PO BID 01/23/24 03/26/24 History bortezomib 3.5 mg injection powder 2.9 mg subcut QWEEK 02/10/24 03/26/24 History for solution (Velcade) himptmuntkn-[id number] 20 ml subcut Q2W 02/10/24 03/26/24 History dexamethasone 20 mg tablet 20 mg PO .Q 14 Days 02/23/24 03/26/24 History hydrocodone 5 mg-acetaminophen 325 0.5 tab PO Q4H PRN 02/23/24 03/26/24 History mg tablet pen needle, diabetic 32 gauge x #100 ea 02/23/24 03/21/24 History 1/4 (BD Ultra-Fine Micro Pen Needle) dulaglutide 0.75 mg/0.5 mL 0.75 mg subcut Q7D 03/21/24 03/26/24 History subcutaneous pen injector (Trulicity) lancets (Fingerstix Lancets) 03/22/24 History aspirin 81 mg chewable tablet 81 mg PO DAILY 03/26/24 03/26/24 History (Rk Chewable Low Dose Aspirin) gabapentin 300 mg capsule 300 mg PO TID PRN 03/26/24 03/26/24 History insulin glargine-yfgn 100 unit/mL 31 unit subcut HS 03/26/24 03/26/24 History (3 mL) subcutaneous pen (Semglee (insulin glargine-yfgn) Pen) Allergies Allergy/AdvReac Type Severity Reaction Status Date / Time pollen extracts Allergy Intermediate Congested Verified 03/26/24 09:51 house dust Allergy Verified 03/26/24 09:51 iron AdvReac Intermediate diarrhea Verified 03/26/24 09:51 Exam Narrative: Exam Narrative: He is alert and appears in no distress. He is minimally verbal but fluent when he speaks. He gives very brief answers to simple questions. Eyes normal. Oropharynx normal except for small airway. Neck is supple without mass or adenopathy. Respirations are clear to auscultation. Cardiovascular: S1, S2, regular rate and rhythm. No murmur gallop or rub. Abdomen: Bowel sounds active. Abdomen is soft without tenderness or mass. External genitalia normal. Extremities normal. Left lower extremity is carefully examined especially w ith attention to the thigh area. Palpation over the hip and thigh on the left is entirely nontender palpation of the knee is also nontender. Range of motion in the hip is normal without discomfort including flexion, internal and external rotation, abduction and adduction. Range of motion in the knee he is without discomfort or limitation. Palpation over the thigh is normal without tenderness or mass no erythema or warmth. Palpation over the calf is also nontender. He has intact pedal pulses. Right lower extremity is also entirely normal. Const: Vital Signs, click to edit/add: Vital Signs - 24 hr 03/26/24 09:43 03/26/24 13:34 03/26/24 14:30 Temperature 96.6 F L 97.5 F L Pulse Rate [Left D orsalis Pedis] 93 Pulse Rate [Pulse Oximeter] 93 Respiratory Rate 16 14 14 Blood Pressure [Ri ght Arm] 138/94 H Blood Pressure [Ri ght Upper Arm] 118/79 Pulse Oximetry 93 97 97 Oxygen Delivery Me thod Room Air Room Air Room Air Documenting provider has reviewed patient's vital signs: yes Hospitalist - H&P: Result Labs Labs: Short CBC 03/26/24 Range/Units 10:55 WBC 6.35 (4.50-11.00) K/uL Hgb 12.0 L (13.5-17.5) gm/dL Hct 37.6 (37.0-53.0) % Plt Count 190 (140-440) K/uL BMP 03/26/24 10:55 Sodium 138 Potassium 4.7 Chloride 105 Carbon Dioxide 25 BUN 29 Creatinine 1.1 Glucose 119 H Calcium 9.1 Liver Function 03/26/24 Range/Units 10:55 Total Bilirubin 0.6 (0.1-1.5) mg/dL AST 33 (12-35) U/L ALT 23 (4-50) U/L Alkaline Phosphatase 50 (40-150) U/L Albumin 4.1 (3.3-5.0) g/dL Urine 03/26/24 Range/Units 15:13 Urine Color Yellow (Yellow) Urine Appearance Clear (Clear) Urine pH 5.0 (5.0-8.5) Ur Specific [place] 1.020 (1.000-1.030) Urine Protein Negative (Negative) Urine Glucose (UA) Negative (Negative) Assessment and Plan Assessment and plan (1) Weakness: Problem comment: Appears to have generalized, not focal, weakness which is somewhat intermittent. By history it sounds like he is becoming progressively weak with less activity in part due to his left thigh pain and in part due to his weight loss and poor nutrition Status: Acute (2) Weight loss, non-intentional: Problem comment: Approximately 20 lb weight loss from mid January to mid March due to loss of appetite without other obvious gastrointestinal problems. Status: Acute (3) Anorexia: Problem comment: Unclear cause Status: Acute (4) Left thigh pain: Problem comment: By history this is disabling in by examined is quite normal. Continue to evaluate as needed. Status: Acute (5) Insulin dependent type 2 diabetes mellitus: Problem comment: [id number] Trulicity; on metformin 1000 mg daily; continue on basal insulin; started mealtime insulin 04/25/2023-A1c 9.6% 02/21/2023- A1C 7.5%; Jardiance- too expensive, not taking 12/01/2023-Trulicity stopped. Too expensive; identified patient was not taking his insulin correctly. He was taking basal insulin once nightly as well as at mealtime. Re-initiated Novolin, mealtime insulin. Hold GLP 1 at this time. 02/15/2024-continue with Semglee 31 units daily; patient has not been taking mealtime insulin x1 month. Did not add or encourage restart given his level of confusion and cognitive change. A poor appetite. Higher risk for hypoglycemic event. Status: Acute (6) Monoclonal (M) protein disease, multiple 'M' protein: Problem comment: Last treatment with Velcade and Darzalex was on March 05. Treatment suspended due to declining health status. Status: Acute (7) Failure to thrive in adult: Problem comment: Progressive weight loss, weakness, cognitive decline over the past couple months. Underlying cause uncertain Status: Acute Plan Patient is admitted to the hospital for evaluation of causes of his recent progressive decline. PT and OT to evaluate functional status. Nutrition to consult. Assess his ability to live independently with his . Evaluate for treatable causes of his multiple medical problems that could be contributing. Total Time Spent Total Time Spent: Total time spent today is 80 minutes, 50 minutes in discussing with patient and other providers ongoing evaluation management he has problems and disposition.
[2024-03-26] MEDS: INSULIN ASPART 100 UNIT/ML SUBCUT (17:15)
--- NOTE | 2024-03-26 18:25 | PC.NURSE ---
End of Shift: Patient arrived to floor about 1325, alert and oriented to self/. Patient vitally stable, lungs clear, BS WNL, IV SL. Patient ambulates SBA. Patient denies pain but was given tylenol for comfort as patient does take pain medications daily. Patient tolerating regular diet and urinating, he does not drink much for fluids. Blood sugar 155.
[2024-03-26 20:13] VITALS: BP 134/92; PULSE 98; RESP 16; TEMP 37.1; O2SAT 95
[2024-03-26] MEDS: ACYCLOVIR 200 MG CAPSULE 400 MG PO (20:52)
[2024-03-26] MEDS: GABAPENTIN 300 MG CAPSULE PO (20:52)
[2024-03-26] MEDS: FAMOTIDINE 20 MG TABLET PO (20:53)
[2024-03-26] MEDS: APIXABAN 5 MG TABLET 2.5 MG PO (20:54)
[2024-03-26] MEDS: PRAVASTATIN SODIUM 20 MG TABLET 10 MG PO (20:55)
[2024-03-26] MEDS: TRAMADOL HCL 50 MG TABLET PO (21:00)
[2024-03-26] MEDS: SODIUM CHLORIDE 0.9 % (FLUSH) 10 ML SYRINGE 5 ML IVF (21:01)
--- NOTE | 2024-03-26 21:02 | PC.NURSE ---
PRN dose of Tramadol would not scan. [employer] verified med with ITZ Ramires
--- NOTE | 2024-03-26 22:55 | PC.NURSE ---
Shift note [id number]: Pt noted to be alert & oriented to self, and time this evening upon assessment. He could not identify current place when asked. Bed and chair alarms utilized due to pt confusion. VSS and pt has been afebrile. Pt able to transfer with SBA using walker and gait belt. Blood glucose of 111 at HS with meat sandwich provided for snack. PRN Tramadol given at HS per home routine per report. IV to L AC patent and SL. Pt has been denying pain when asked.
[2024-03-26 23:00] VITALS: BP 124/71; PULSE 83; RESP 18; TEMP 36.6; O2SAT 94
[2024-03-27 03:00] VITALS: BP 121/68; PULSE 81; RESP 16; TEMP 36.8; O2SAT 96
--- NOTE | 2024-03-27 06:13 | PC.NURSE ---
End of shift [id number]: Pt has been alert and oriented to self & time. Disoriented to place. He?s been cooperative with cares. Bed alarm in place since he has not been utilizing the call light. SBA with ambulation and transfers. He is continent of [place]. Overnight pt has been VSS and afebrile. He denies having any pain, nausea or dizziness. PIV dislodged early this morning with catheter intact.
[2024-03-27 07:00] VITALS: BP 116/82; PULSE 84; RESP 18; TEMP 37.1; O2SAT 96
[2024-03-27] MEDS: METFORMIN 1,000 MG TABLET 1000 MG PO (08:15)
[2024-03-27 08:39] VITALS: PULSE 84; RESP 18
[2024-03-27] MEDS: FAMOTIDINE 20 MG TABLET PO (08:55)
[2024-03-27] MEDS: ASPIRIN 81 MG TAB.CHEW PO (08:55)
[2024-03-27] MEDS: ACYCLOVIR 200 MG CAPSULE 400 MG PO (08:55)
[2024-03-27] MEDS: APIXABAN 5 MG TABLET 2.5 MG PO (08:56)
[2024-03-27] MEDS: FINASTERIDE 5 MG TABLET PO (08:56)
[2024-03-27] MEDS: CYANOCOBALAMIN (VITAMIN B-12) 500 MCG TABLET 1000 MCG PO (08:56)
[2024-03-27 10:17] VITALS: BMI 27.8
[2024-03-27 11:00] VITALS: BP 131/101; PULSE 89; RESP 18; TEMP 37.1; O2SAT 97
--- NOTE | 2024-03-27 13:20 | PM.DS1 ---
DS: Providers Provider Date Seen: 03/27/24 Date of admission: 03/26/24 13:18 Primary care physician: Stephanie Clark PA-C Admitting Clinician: Jason Grady MD Attending Physician on discharge: Jason Grady MD Date of Discharge: 03/27/24 DS: Diagnosis Discharge Diagnosis (1) Weakness: Status: Acute Problem details: Appears to have generalized, not focal, weakness which is somewhat intermittent. By history it sounds like he is becoming progressively weak with less activity in part due to his left thigh pain and in part due to his weight loss and poor nutrition (2) Weight loss, non-intentional: Status: Acute Problem details: Approximately 20 lb weight loss from mid January to mid March due to loss of appetite without other obvious gastrointestinal problems. Abdominal CT 1 month ago was unremarkable. History of cholecystectomy. (3) Anorexia: Status: Acute Problem details: Unclear cause. Eating fairly well in the hospital (4) Left thigh pain: Status: Acute Problem details: By history this is disabling in by examined is quite normal. Continue to evaluate as needed. (5) Insulin dependent type 2 diabetes mellitus: Status: Acute Problem details: [id number] Trulicity; on metformin 1000 mg daily; continue on basal insulin; started mealtime insulin 04/25/2023-A1c 9.6% 02/21/2023- A1C 7.5%; Jardiance- too expensive, not taking 12/01/2023-Trulicity stopped. Too expensive; identified patient was not taking his insulin correctly. He was taking basal insulin once nightly as well as at mealtime. Re-initiated Novolin, mealtime insulin. Hold GLP 1 at this time. 02/15/2024-continue with Semglee 31 units daily; patient has not been taking mealtime insulin x1 month. Did not add or encourage restart given his level of confusion and cognitive change. A poor appetite. Higher risk for hypoglycemic event. (6) Monoclonal (M) protein disease, multiple 'M' protein: Status: Acute Problem details: Last treatment with Velcade and Darzalex was on March 05. Treatment suspended due to declining health status. Future treatment depending on clinical course. (7) Failure to thrive in adult: Status: Acute Problem details: Progressive weight loss, weakness, cognitive decline over the past couple months. Underlying cause uncertain (8) Dementia: Status: Acute Problem details: 03/27/2024 Montague 06/27 and 01/17 on problem solving. Needs 24 hour a day supervision. Results discussed with his lifetime partner, Josy. She was advised to manage his medications as well. (9) Left foot drop: Status: Acute Problem details: Patient has weak dorsiflexion at the left ankle and great toe. He was unaware of this problem. He and his did not note any problems with tripping or stepping his toes or limping or other abnormal gait. Obtain outpatient evaluation for AFO orthotics at [facility] in [place] . Order for AFO is faxed. They will call patient to set up appointment (10) Discharge planning issues: Status: Acute Problem details: Patient and his lifetime partner, Josy, clearly need more assistance. For now will get outpatient therapy and home health nursing. Likely will need to moved to a higher level of care. (11) At risk for venous thromboembolism: Status: Acute Problem details: Started on Eliquis 2.5 mg b.i.d. by Oncology. No bleeding problems. I recommend stopping aspirin while on Eliquis. DS: Summary Hospital Course Hospital Course: Mr. Retana is a very pleasant 78-year-old gentleman with multiple medical problems including type 2 diabetes, hypertension, multiple myeloma and left leg pain who is brought to the emergency room by his for evaluation of increasing confusion, continued weakness. History is challenging as patient cannot elaborate on any questions I may pose. His provides history he jumping from different visits different specialties and different complaints and therefore I peers together this information with notes from previous visits with oncology ED and Orthopedics. Main complaints appear to be confusion that has increased as well as weakness that was more profound yesterday. Mr. Nichols has been undergoing chemotherapy for multiple myeloma but discontinued this on March 12 due to weakness and according to Oncology note acute kidney injury. They were hoping that this would improve his weakness. However, yesterday Josy noticed that Juan seem to be much more weak. They had actually gone into a shed to get a walker and he was unable to lift his leg over the staff and fell. She describes this more as a slow fall to the ground and there were no injuries because of this fall. Josy actually notes that Alfredo seems to be walking somewhat better today but still needs assistance with walking. She describing that he appears to be more confused today but I has not had fever or chills, complaints with urination and she adamantly denies any breathing problems or a cough. There have been no complaints of chest pain. Mr. Nichols is currently on gabapentin and tramadol for discomfort. Josy states that he had been taking tramadol morning and night and she occasionally adds a 3rd dose during the mid day as instructed. She notes that he had been having problems with his appetite but that has improved since being on prednisone and he is currently tapering that at this time. He has not yet eaten today however. When asked about his leg pain over the last 2 days she states that he has not been complaining. In regards to his leg pain he underwent CT of the pelvis, x-ray of the knee and femur and had an MRI of the lumbar spine within the last 8 weeks. Lumbar MRI did not show any acute nerve impingement and patient followed up with Dr. Colon, Orthopedics who recommended physical therapy. Josy states that Mr. Nichols is too weak to do physical therapy. She notes that she is really having a hard time caring for him given his current state. Patient gives very little information other than indicating that he thinks he might be dying. History is obtained from his significant other and 40 year lifetime partner. In early January he had episodes of confusion. He did have a MRI of his head which was unremarkable. TSH was normal. No obvious acute injury to explain this. Since then he has had recurrent episodes of confusion and cognitive impairment. His significant other is now providing his medications including his insulin because he cannot figure out how to do it. He has continued to have episodes where he seems quite confused and unable to remember things or solve simple problems. He seems less verbal and more withdrawn. She believes that he is frustrated and perhaps depressed. He continues episodically to complain of left thigh pain. Notably he is not having any pain at the time I see him. He is at evaluation including radiographs of the hip, lumbar MRI and venous Doppler which are all unremarkable and do not explain left thigh pain. Orthopedic consultation and my exam today also do not show any apparent tenderness, weakness, inflammation, limitation in range of motion. He is on gabapentin at bedtime and tramadol during the day for pain. Gabapentin is helping him sleep at night. The tramadol seems to help with pain during the day but it makes him sleepy and so he is napping a lot. He has diabetes. Blood sugars were a bit of a problem with controlled due to dexamethasone for chemotherapy. He has been off of dexamethasone now for a couple weeks and blood sugars have generally been okay. He has multiple myeloma. Treatment was discontinued March 12. His last treatment was on March 05. It is not obvious that his current problems are related to his Velcade and Darzalex treatment. His multiple myeloma has recently been relatively well managed and it is not clear that he is having symptoms associated with hypercalcemia or bony lesions or widespread active disease. He has had about 20 lb of weight loss in the last 2 months. His significant other indicates that this is because he has a very poor appetite and has been eating and drinking quite poorly. She is not aware of any vomiting or bloody stools or constipation or abdominal pain. He had some diarrhea recently but that seems better today. He is independent in the toilet and so his significant other is unsure. Patient is unable to give much detail on this. He just has no appetite and she has been unable to get him to eat. He has been getting weaker. Yesterday and today he had episodes where his legs were so weak he was struggling to stand up. He had a fall yesterday and his significant other had to get the neighbor to help him get up. He almost fell while showering today and required his significant other to assist with all aspects of showering, drying off, getting dressed. At other times he seems stronger and is able to walk quite well. A few days ago he mowed the lawn on a riding mower and was walking around outside. He is very sedentary most of the time however. Recently he has been walking independently holding on to his significant other's hand for balance but not using a walker. He has had some incontinence of urine. March 27: He has done quite well overnight with no significant problems with pain. He has ambulated with a walker. He does have a left footdrop which is a new diagnosis. Recommend AFO orthotic. Montague was obtained and he scored 9/25. Test of problem-solving he scored 4/17. He is recommended to have 24 hour a day supervision and his partner, Josy, managing his medications and insulin. Likely will need higher level of care and assistance in the future. Status at Discharge Overall status at discharge: patient is progressing back to baseline Time Spent with Patient Time attestation: Total time spent providing and/or coordinating discharge services:45 mins. Time spent: Greater than 30 minutes Exam Narrative: Exam Narrative: He is alert pleasant and in no distress. Examination of his left thigh and leg is entirely normal. No tenderness swelling or pain with range of motion. Left footdrop noted. Unchanged from yesterday. No significant edema. Const: Vital Signs, click to edit/add: Vital Signs - 24 hr 03/26/24 13:34 03/26/24 14:30 03/26/24 15:52 Temperature 97.5 F L Pulse Rate [Left D orsalis Pedis] 93 93 Pulse Rate [Pulse Oximeter] Respiratory Rate 14 14 14 Blood Pressure [Le ft Arm] Blood Pressure [Ri ght Arm] 138/94 H Pulse Oximetry 97 97 Oxygen Delivery Me thod Room Air Room Air 03/26/24 15:52 03/26/24 20:13 03/26/24 23:00 Temperature 98.6 F 98.7 F 97.8 F Pulse Rate [Left D orsalis Pedis] 92 98 83 Pulse Rate [Pulse Oximeter] Respiratory Rate 16 16 18 Blood Pressure [Le ft Arm] 152/106 H Blood Pressure [Ri ght Arm] 134/92 H 124/71 Pulse Oximetry 96 95 94 Oxygen Delivery Me thod Room Air Room Air Room Air 03/26/24 23:00 03/27/24 03:00 03/27/24 07:00 Temperature 98.2 F 98.7 F Pulse Rate [Left D orsalis Pedis] 83 Pulse Rate [Pulse Oximeter] 81 84 Respiratory Rate 18 16 18 Blood Pressure [Le ft Arm] 116/82 Blood Pressure [Ri ght Arm] 121/68 Pulse Oximetry 96 96 Oxygen Delivery Me thod Room Air Room Air 03/27/24 08:39 Temperature Pulse Rate [Left D orsalis Pedis] Pulse Rate [Pulse Oximeter] 84 Respiratory Rate 18 Blood Pressure [Le ft Arm] Blood Pressure [Ri ght Arm] Pulse Oximetry Oxygen Delivery Me thod Documenting provider has reviewed patient's vital signs: yes DS: Data Data Completed and Pending Completed studies during hospitalization: Procedures Release Omentum, Percutaneous Endoscopic Approach (05/31/22) Resection of Gallbladder, Percutaneous Endoscopic Approach (05/31/22) Resection of Right Large Intestine, Percutaneous Endoscopic Approach (05/31/22) Labs on day of discharge: Labs from last 24 hours 03/26/24 15:13 Urine Color Yellow Urine Appearance Clear Urine pH 5.0 Ur Specific [place] 1.020 Urine Protein Negative Urine Glucose (UA) Negative Urine Ketones 1+ A Urine Blood Negative Urine Nitrite Negative Urine Bilirubin Negative Urine Urobilinogen 0.2 Ur Leukocyte Esterase Negative Urine RBC 0-2 Urine WBC 0-2 Ur Squamous Epith Cells None Urine Bacteria None Discharge Plan Discharge Disposition: Home w/ Parent or Adult Date of Admission: 03/26/24 13:18 Attending Provider on Discharge: Jason Grady Primary Care Provider: Stephanie Clark Condition: Unchanged Anticipated Discharge Date/Time: 03/27/24 14:00 Discharge Medications: Continued acyclovir 400 mg tablet 400 mg PO BID Qty: 120 2RF calcium carbonate-vit D3-min 600 mg calcium- 400 unit tablet 1 tab PO BID Qty: 120 2RF metformin 1,000 mg tablet 1,000 mg PO DAILY Rx Instructions: for diabetes (DME) pen needle, diabetic [BD Ultra-Fine Micro Pen Needle] 32 gauge x 1/4 needle See Rx Instructions .ROUTE .MEDSUPPLY Qty: 100 Patient Comments: [NO ORIGINAL SIG] Rx Instructions: As directed Trulicity 0.75 mg/0.5 mL pen injector 0.75 mg subcut Q7D finasteride 5 mg tablet 5 mg PO DAILY apixaban 2.5 mg tablet 2.5 mg PO BID Qty: 60 3RF sulfamethoxazole-trimethoprim [Bactrim] 400-80 mg tablet 1 tab PO 3XW Qty: 12 3RF Rx Instructions: on Tyjtzu-Jqcivrbqf-Fmvtne famotidine 20 mg tablet 20 mg PO BID insulin glargine-yfgn [Semglee(insulin glarg-yfgn)Pen] 100 unit/mL (3 mL) insulin pen 31 unit subcut HS Rx Instructions: 31 units once nightly (DME) pen needle, diabetic [CareFine Pen Needle] 31 gauge x 1/4 needle See Rx Instructions .Route Qty: 100 3RF Rx Instructions: As directed- 3 x daily with meal time insulin cyanocobalamin (vitamin B-12) 1,000 mcg tablet extended release 1,000 mcg PO DAILY Qty: 90 3RF pravastatin 10 mg tablet 10 mg PO HS Qty: 90 0RF Rx Instructions: once daily for cholesterol (DME) lancets [Fingerstix Lancets] Misc See Rx Instructions .ROUTE Rx Instructions: As directed Changed gabapentin 300 mg capsule 300 mg PO HS PRNQty: 30 0RF Discontinued hydrocodone-acetaminophen 5-325 mg tablet 0.5 tab PO Q4H PRN dexamethasone 20 mg tablet 20 mg PO .Q 14 Days Hold Instructions: Order Change prednisone 5 mg tablet See Rx Instructions PO QDAY Qty: 30 0RF Rx Instructions: 10 mg QD for 3D, then 7.5 mg QD for 3D, then 5 mg QD for 3D, then 2.5 mg QD orally every day; tramadol 50 mg tablet 50 mg PO Q6H PRN (Reason: pain) Qty: 42 2RF bortezomib [Velcade] 3.5 mg recon soln 2.9 mg subcut QWEEK Hold Instructions: MD ON HOLD Rx Instructions: administer as 2.5 mg/mL final concentration dmlctpvrwta-eolwtdbsjrsnj-iwvv [Darzalex Faspro] 20 ml subcut Q2W Hold Instructions: MD ORDER HOLD aspirin [Rk Chewable Aspirin] 81 mg tablet,chewable 81 mg PO DAILY Discharge Orders: Discharge Order (Routine); Ordered 03/27/24 Ordered By: Jason Grady Additional Instructions: [facility] in [place], , will call you with an appointment for an orthotic (AFO) for the left foot/ankle. Juan has significant cognitive impairment which causes poor memory and poor problem solving. Will need help with managing medications and continuous supervision. I recommend you look into alternative living arrangements with more help and supervision for both of you. Activity Level: Activity as Tolerated and Use Walker Discharge Diet: Regular Follow Up Appointments: Stephanie Clark PA-C [Primary Care Provider] - (Follow-up next week in clinic.) Forms: [employer] Info Instructions
--- NOTE | 2024-03-27 13:52 | PC.SOCIAL ---
Discharge planning: Met with pt and caregiver/partner, Shauna in room regarding d/c plan. Shauna states they are not inteterested in placement and expect pt to return home at discharge. Shauna is requesting home care and any free services that pt is eligible for at home. farmworker animal to make referral for home health with MD zeng. Provided information on room attendant care resources that can be hired privately and [employer] [facility] [facility] information. Shared information on option to request a predatory animal exterminator care assessment through the [facility] [facility]. Shauna requested social services make the online referral for [facility] to contact them at home to complete an assessment to see if htey are eligible for any additional assistance at home through [employer] programs. farmworker animal to follow up as needed.
--- NOTE | 2024-03-27 15:17 | PC.NURSE ---
Discharge: Patient pleasant and cooperative. Alert and oriented to self only. VSS, afebrile. No IV. Discharge instructions provided, all questions answered. Discharged to home with . SBA to bathroom today.
== END 2024-03-27 14:55 | disposition home or self-care (01) ==
LOC: ED 13:03 → MEDSURG 13:18
PROVIDERS: Admitting Provider Family Medicine; Emergency Provider Family Medicine; PCP Physician Assistant Medical; Visit Provider Family Medicine
DX: R53.1 Weakness (principal); R41.0 Disorientation, unspecified; R63.4 Abnormal weight loss; D47.2 Monoclonal gammopathy; R62.7 Adult failure to thrive; C90.00 Multiple myeloma not having achieved remission; M21.372 Foot drop, left foot; F03.90 Unspecified dementia, unspecified severity, without behavioral disturbance, psychotic disturbance, mood disturbance, and anxiety; E63.9 Nutritional deficiency, unspecified; F50.89 Other specified eating disorder; E53.8 Deficiency of other specified B group vitamins; D64.9 Anemia, unspecified; Z68.27 Body mass index [BMI] 27.0-27.9, adult; N17.9 Acute kidney failure, unspecified; W19.XXXA Unspecified fall, initial encounter; D36.9 Benign neoplasm, unspecified site; I10 Essential (primary) hypertension; M79.652 Pain in left thigh; M25.562 Pain in left knee; E11.9 Type 2 diabetes mellitus without complications; E78.5 Hyperlipidemia, unspecified; M10.9 Gout, unspecified; M51.35 Other intervertebral disc degeneration, thoracolumbar region; M51.36 Other intervertebral disc degeneration, lumbar region; Z91.89 Other specified personal risk factors, not elsewhere classified; J45.909 Unspecified asthma, uncomplicated; I45.10 Unspecified right bundle-branch block; N52.9 Male erectile dysfunction, unspecified; Z79.4 Long term (current) use of insulin; Z79.84 Long term (current) use of oral hypoglycemic drugs; Z85.828 Personal history of other malignant neoplasm of skin; Z86.16 Personal history of COVID-19; Z87.19 Personal history of other diseases of the digestive system; Z90.49 Acquired absence of other specified parts of digestive tract; Z98.890 Other specified postprocedural states
CPT/HCPCS: 36415; 51798; 80053; 81001; 82962; 84484; 85025; 86140; 87631; 93005; 96360; 96372; 97112; 97116; 97161; 97165; 97535; 99284; 99285; A9270; G0378; J7030

== ENCOUNTER 2024-04-19 10:39 | Outpatient (CLI) | payer MEDICARE, BC, MEDICAID, SELFPAY ==
--- NOTE | 2024-04-19 13:00 | CRLHL7_ITS ---
For Patients: As a result of the Century Cures Act, medical imaging exams and procedure reports are released immediately into your electronic medical record. You may view this report before your referring provider. If you have questions, please contact your health care provider. Indication: Neck pain. Technique: MRI of the cervical spine was performed without the use of intravenous contrast. Comparison: None relevant available. Findings: The vertebral body heights appear maintained without evidence of fracture. No discrete T1 hypointense marrow infiltrating process. Mild multilevel disc height loss and degeneration. No abnormal cord signal. C2-3: No spinal canal or neural foraminal narrowing. C3-4: Disc degeneration. No spinal canal narrowing. Mild neural foraminal narrowing secondary to uncovertebral joint and facet hypertrophy. C4-5: Disc degeneration. No spinal canal narrowing. Mild neural foraminal narrowing secondary to uncovertebral joint and facet hypertrophy. C5-6: Disc degeneration. Minimal disc bulge without spinal canal narrowing. Moderate left and mild right neural foraminal narrowing secondary to uncovertebral joint and facet hypertrophy. C6-7: Trace anterolisthesis. No spinal canal narrowing. Mild right neural foraminal narrowing. Left neural foramen appears patent. C7-T1: No spinal canal or neural foraminal narrowing. Impression: 1. At C5-6, moderate left and mild right neural foraminal narrowing. 2. Milder spondylosis at the remaining cervical levels. 3. No abnormal cord signal. Dictated by Timoteo Acosta MD @ 04/20/2024 8:58:53 AM (Electronically Signed)
--- NOTE | 2024-04-19 15:08 | PC.SOCIAL ---
Addendum entered by JOE Masters 04/19/24 16:28: fiber glass worker assisted with pt follow-up. fiber glass worker called pt's life partner, Carmen Shields, in regard to phone numbers she had requested in today's earlier social work meeting. fiber glass worker provided pt's partner with the phone number for [facility] [employer]([facility]), which is legal examiner for [facility], # and provided the phone number for [employer] [facility] #[phone], whom provides Meals on Wheels services for [facility]. Pt's partner was thankful for the information. Social work to follow-up as needed. Original Note: Met with patient and patient's partner, Carmen, to discuss insurance information. Patient received a letter from the [facility] and was unsure what it was for. Reviewed letter that informed patient qualified and was approved for medical assistance starting on January 01. PMI number was included along with patient's [facility] worker for health. Patient's partner will call the [facility] worker to inquire on elderly waiver services to get services in the home. Patient's partner is interested in being a paid caregiver, which can be done under the waiver. Provided patient with a list of home health travel pt care options as requested by patient's partner. Patient's partner requested information on meals on wheels and legal examiner for low cost in their county. Social work will call back patient's partner with requested information.
== END 2024-04-19 10:40 | disposition home or self-care (01) ==
LOC: MRI 10:40
PROVIDERS: PCP Physician Assistant Medical; Visit Provider Family Medicine
DX: M54.2 Cervicalgia (principal); M50.222 Other cervical disc displacement at C5-C6 level; M47.892 Other spondylosis, cervical region; R29.898 Other symptoms and signs involving the musculoskeletal system
CPT/HCPCS: 36415; 72141; 80053; 85025; 96401; J9144; A9270

== ENCOUNTER 2024-06-12 09:11 | Outpatient (CLI) | payer MEDICARE, BC, MEDICAID, SELFPAY ==
--- OUTSIDE RECORDS SUMMARY | 2024-06-12 09:17 | XMS_ITS | Data Portability ---
Author Organization [facility], [facility] Address [address] [place] [address] Care Team Providers Care Information Assurance Officer Name Role Phone STANLEY CARDOSO Primary Care [...] Modified Time Details Appointments None recorded. Lab urinalysis, dipstick 2021 [facility], [address], [place], [address], 16:57:47 biopsy, prostate 2021 [facility], [address], [address], [place], [address], 15:36:13 Referral None recorded. Procedures None recorded. Surgeries None recorded. Imaging MRI, prostate, w/wo contrast - Please call patient to schedule 2021 [place] [email or web address] [facility], [address], [place], [address], 18:08:46 Medication Orders ceftriaxone 1 gram solution for injection 2021 022 [email or web address] 9 [facility], [address] [place], [address], 4 10:47:48 lidocaine (PF) 10 mg/mL (1 %) injection solution 2021 022 [email or web address] 9 [facility], [address] [place], [address], 4 10:47:45 finasteride 5 mg tablet 2022 023 [facility] [address] [place], [address], 12:07:55 Patient TargetsNo targets recorded. Patient Instructions Encounter Date Encounter Id Patient Instructions Last Modified By Organization Details Last Modified Time 03/11/2022 [id number] The patient tolerated the procedure well. We [...] contact our office. Not available 03/11/2022 14:05:30 04/07/2023 [id number] will start on finasteride and plan get PSA done in about 6 months at PCP clinic. [email or web address] Not available 04/07/2023 12:06:55 10/11/2023 [id number] continue on finasteride and plan rtc in April with PSA for PARKER and med refill. [email or web address] Not available 10/11/2023 10:54:16 Reason for Referral None Reported. Results Created Date Observation Date Name Description Value Unit Range Abnormal Flag Note LastModifiedBy Organization Detail LastModifiedTime 11/10/19 22 11/10/2021 UA DIP CS ADVAN TUS color -advantus YELLOW yellow Not Available [facility] [address], [place], [address], 11/10/2021 16:57:47 11/10/19 22 11/10/2021 UA DIP CS ADVAN TUS appearance -advantus CLOUDY clear abnormal Not Available [facility] [address] [place] [address], [place], [address], 11/10/2021 16:57:47 11/10/19 22 11/10/2021 UA DIP CS ADVAN TUS glucose -advantus NEGATI VE mg/dL negati ve Not Available [facility] [address] [place] [address], [place], [address], 11/10/2021 16:57:47 11/10/19 22 11/10/2021 UA DIP CS ADVAN TUS bilirubin -advantus NEGATI VE negati ve Not Available [facility] [address] [place] [address], [place], [address], 11/10/2021 16:57:47 11/10/19 22 11/10/2021 UA DIP CS ADVAN TUS ketones -advantus NEGATI VE mg/dL negati ve Not Available [facility] [address] [place] [address], [place], [address], 11/10/2021 16:57:47 11/10/19 22 11/10/2021 UA DIP CS ADVAN TUS sp. gravity -advantus >=1.03 0 1.010- 1.025 Not Available [facility] [address] [place] [address], [place], [address], 11/10/2021 16:57:47 11/10/19 22 11/10/2021 UA DIP CS ADVAN TUS pH -advantus 5.0 5.0-8. 0 Not Available [facility] [address] [place] [address], [place], [address], 11/10/2021 16:57:47 11/10/19 22 11/10/2021 UA DIP CS ADVAN TUS protein -advantus NEGATI VE mg/dL negati ve Not Available [facility] [address] [place] [address] [address], [place], [address], 11/10/2021 16:57:47 11/10/19 22 11/10/2021 UA DIP CS ADVAN TUS urobilinogen -advantus 0.2 normal Not Available [facility] [address], [place], [address], 11/10/2021 16:57:47 11/10/19 22 11/10/2021 UA DIP CS ADVAN TUS nitrites -advantus NEGATI VE negati ve Not Available [facility] [address] [place] [address], [place], [address], 11/10/2021 16:57:47 11/10/19 22 11/10/2021 UA DIP CS ADVAN TUS blood -advantus NEGATI VE negati ve Not Available [facility] [address] [place] [address] [address], [place], [address], 11/10/2021 16:57:47 11/10/19 22 11/10/2021 UA DIP CS ADVAN TUS leukocytes -advantus NEGATI VE negati ve Not Available [facility] [address] [place] [address], [place], [address], 11/10/2021 16:57:47 11/10/19 22 11/10/2021 UA DIP CS ADVAN TUS performed by Va X Not Available [facility] [address] [place] [address] [address], [place], [address], 11/10/2021 16:57:47 11/10/19 22 11/10/2021 UA DIP CS ADVAN TUS total urine volume (mL) 35 /mL ----- ----- ----- ----- ----- ----- ----- ----- ----- ----- ----- ----- ----- ----- ---- *Hollie oquendo note the follo wing minim um quant ities for addit ional urine testi ng: - Atypi cals: 3 mL - Cytol ogy: 20 mL - GC/CH : 2 mL - FISH: 30 mL - Atypi cals w/ GC/CH : 5 mL - Cytol ogy PLUS FISH: 50 mL - Urine Cultu re: 3 mL ----- ----- ----- ----- ----- ----- ----- ----- ----- ----- ----- ----- ----- ----- ---- Not Available [facility] [address] [facility] [address], [place], [address], 11/10/2021 16:57:47 11/10/19 22 11/10/2021 PSA, total , serum or plasm a PSA 1.94 Not Available [facility] Department [address] [place], [address], 11/12/2021 09:12:23 11/20/19 22 11/20/2021 MRI, prost ate, w/wo contr ast No observ ation record ed. Jamshid Ramírez MD [address] [place], [address], 11/20/2021 18:19:36 11/24/1911/20/2021 MRI, abdom en + pelvi s, w/wo contr ast No observ ation record ed. [email or web address] Not Available 2021 12:08:20 04/22/20 23 04/07/2023 bladd er scan (PROC ) No observ ation record ed. BARCODE Not Available 2022 12:26:10 Result Notes None recorded. Problems Name Problem SNOMED Code Status Onset Date Resolution Date Notes Provider Name and Address Organization Details Recorded Time Type 2 diabetes mellitus 14441852 Active Ele marie [facility] 10:51:10 Prostate specific antigen above reference range 784028422 Active 023 Jamshid Mann MD [address] [facility] [address], [address], [facility] 12:06:20 Problem Notes None recorded. Procedures Surgical History Date Name Laterality Status Provider Name and Address Organization Details Recorded Time 04/07/20 23 Bladder Scan completed Jamshid Mann MD [address] [place] [address],[address], [place], [address], [facility] 04/07/2023 11:53:31 03/11/20 22 Prostate Biopsy Procedure completed Kemar Lujan MD [address] [place] [address],[address], [address], [facility] 03/11/2022 14:05:02 03/11/20 22 URONAV completed Kemar Lujan MD [address] [place] [address],[address], [place], [address], [facility] 03/11/2022 14:04:59 03/11/20 22 Rocephin/Ceftri axone completed Meena Fontaine [facility] 03/11/2022 12:50:39 11/10/19 22 Bladder Scan completed Ele Mcclelland [facility] 11/10/2021 10:54:52 01/05/20 12 Diagnostic colonoscopy completed [...] prostate, w/wo contrast completed Jamshid Ramírez MD [address] [place], [address], 11/20/2021 18:19:36 11/20/2021 MRI, abdomen + pelvis, [...] Take 1 tablet by mouth once daily 2023 active Not Available Not Available Not [...] Not Available No t Available Dexcom G6 Telegraph And Teletype Operator DIRECTED FOR CONTINUOU S GLUCOSE MONITORIN G. [...] Updated DateTime 04/07/2023 177.8 cm 33 kg/m2 814632.25 g Jamshid Mann MD [address] [place] [address] [id number] [place] [address] 04/07/2023 11:54:14 Date Recorded Body height Body mass index (BMI) Body weight Provider Name and Address Organization Details Last Updated DateTime 10/11/2023 177.8 cm 21.5 kg/m2 91675.86 g Jamshid Mann MD [address] [place] [address],[address] [place] [address] 10/11/2023 10:44:48 Date Recorded Body weight Body height Body mass index (BMI) Provider Name and Address Organization Details Last Updated DateTime 01/12/2022 08841.19314 [address]20 g 180.34 cm 29.3 kg/m2 Not Available Health Note 01/12/2022 09:05:37 Date Recorded Heart rate Systolic blood pressure Diastolic blood pressure Provider Name and Address Organization Details Last Updated DateTime 03/11/2022 63 /min 158 mm[Hg] 87 mm[Hg] Meena Fontaine [facility] 03/11/2022 12:50:55 Social History Question Answer Notes [...] Nicotine? No Information not available 11/10/2021 Sex: Unknown Functional Status None recorded. Mental Status None recorded. Family History Nothing Reported. Medical History Condition Response Sexually Transmitted Infection N Diabetes Y Bleeding Disorder N Other N High Blood Pressure N Kidney [...] Encounter Closed Date Diagnosis/Indication Diagnosis SNOMED-CT Code Diagnosis ICD10 Code [id number] Kemar Lujan MD [facility] [address] [place] [address] 11/10/2021 08:36:50 11/10/2021 14:42:58 Prostate specific antigen above reference range 684361923 R97.20 [id number] Kemar Lujan MD [facility] [address] [facility] [address] [place] [address] 03/11/2022 12:25:57 03/11/2022 14:23:20 Prostate specific antigen above reference range 414096292 R97.20 [id number] Meena Fontaine [facility] [address] [facility] [facility] [place] [address] 03/11/2022 12:25:27 03/11/2022 13:27:03 Prostate specific antigen above reference range 147460122 R97.20 [id number] Jamshid Mann MD _[facility] [address] [place] [address] 04/07/2023 11:15:57 04/13/2023 09:44:11 Prostate specific antigen above reference range 962489003 R97.20 [id number] Jam[facility]id Mann MD [facility] [address] [place] [address] 10/11/2023 10:09:12 10/20/2023 17:05:23 Prostate specific antigen above reference range 432963325 R97.20 High grade prostatic intraepithelial neoplasia 476594561 D07.5 Health Concerns Section Related Observation LastModified by Organization Detai ls LastModified Time None Recorded Concern Status LastModified by Organization Details LastModified Time None Recorded Advance Directives Directive None Recorded Payers Encounter Date Sequence Insurance Name Policy Number Policy Mancuso Covered Member ID Mancuso Member ID Guarantor Name 11/10/2021 1 [place] [employer] Juan Retana [id number] Juan Retana 11/10/2021 2 [place] [id number] Juan Retana [id number] Juan Retana 03/11/2022 1 [place] [employer] Juan Retana [id number] Juan Retana 03/11/2022 2 [place] [id number] Juan Retana [id number] uJan Retana 03/11/2022 1 [place] [employer] Juan Retana [id number] Juan Retana 03/11/2022 2 [place] [id number] Juan Retana [id number] Juan Retana 04/07/2023 1 [place] [employer] Juan Retana [id number] Juan Retana 04/07/2023 2 [place] [id number] Juan Retana [id number] Juan Retana 10/11/2023 1 [place] [facility] [employer] Juan Retana [id number] Juan Retana 10/11/2023 2 [place] [id number] Juan Retana [id number] Juan Retana Notes Date Note Type Note [...] history of prostate cancer. Kemar Lujan MD [address] [place] [address],[address] [place] [address], [address], [facility] 11/10/2021 11:29:24 03/11/2022 text/html HPI Notes: [...] for Uronav prostate biopsy. Kemar Lujan MD [address] [place] [address],[address], [place], [address], [facility] 03/11/2022 14:18:53 04/07/2023 text/html HPI Notes: [...] PSA since the biopsy. 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 recent PSA was down to 1.01. taking finasteride and voiding well. no heme/dysuria. rx good until April. Jamshid Mann MD [address] [facility], [place], [address], [facility] 10/11/2023 10:56:46
[2024-06-12 09:34] VITALS: BP 122/72; PULSE 77; RESP 16; TEMP 36.9; O2SAT 98; BMI 27.4
[2024-06-12 10:34] VITALS: BP 103/68; PULSE 79; RESP 16; O2SAT 99
--- NOTE | 2024-06-12 10:37 | W.ANESCHARGE ---
Anesthesia Charges Start Date/Time Anesthesia Start Date: 06/12/24 Anesthesia Start Time: 10:15 Stop Date/Time Anesthesia Stop Date: 06/12/24 Anesthesia Stop Time: 10:35 Summary Extremes of Age - Over 70 or under 1: QUALITY ASSURANCE MONITOR BODY
[2024-06-12 10:44] VITALS: BP 120/73; PULSE 88; RESP 16; O2SAT 97
[2024-06-12 10:54] VITALS: BP 131/87; PULSE 86; RESP 16; O2SAT 97
--- NOTE | 2024-06-12 10:54 | W.ANESCHARGE ---
Anesthesia Charges Start Date/Time Anesthesia Start Date: 06/12/24 Anesthesia Start Time: 10:15 Stop Date/Time Anesthesia Stop Date: 06/12/24 Anesthesia Stop Time: 10:35 Summary Extremes of Age - Over 70 or under 1: MDA
[2024-06-12 10:59] LABS: Basophils Absolute Auto 0.03 K/uL (0.00-0.30); Basophils Percent Auto 0.6 % (0.0-3.0); Eosinophils Absolute Auto 0.24 K/uL (0.00-0.50); Eosinophils Percent Auto 5.1 % (0.0-7.0); Hematocrit 39.4 % (37.0-53.0); Hemoglobin* 12.6 gm/dL (13.5-17.5); Immature Granulocytes Abs Auto 0.01 K/uL (0.00-0.30); Immature Granulocytes Pct Auto 0.2 %; Immature Reticulocyte Fraction 7.3 % (2.3-13.4); Lymphocytes Absolute Auto 1.09 K/uL (0.90-2.90); Lymphocytes Percent Auto 22.9 % (20-44); Mean Corpuscular HGB Conc 32 gm/dL (32-36); Mean Corpuscular Hemoglobin 29 pg (26-34); Mean Corpuscular Volume 89 fL (80-100); Monocytes Percent Auto 12.8 % (0.0-11.0); Neutrophils Absolute Auto 2.77 K/uL (1.7-7.0); Neutrophils Percent Auto 58.4 % (42.0-72.0); Platelet Count* 219 K/uL (140-440); RDW Coefficient of Variation % 12.5 % (11.5-15.5); Red Blood Count 4.41 m/uL (4.30-5.90); Reticulocyte Hemoglobin Equivi 29.4 pg (29.0-35.0); Reticulocyte Percent 0.7 % (0.5-2.0); Reticulocytes Absolute 0.03 # (0.03-0.08); White Blood Count* 4.75 K/uL (4.50-11.00)
[2024-06-12 11:01] LABS: Slide Review Reflex No
== END 2024-06-12 11:21 | disposition home or self-care (01) ==
PROVIDERS: PCP Family Medicine; Visit Provider Surgery
DX: D47.2 Monoclonal gammopathy (principal)
CPT/HCPCS: 01112; 36415; 38222; 85025; 85045; 88184; 88185; 88305; 88311; 88312; 88313; 88341; 88342; 88360; 99100; J1644; J2001; J2704

== ENCOUNTER 2024-06-18 09:30 | Outpatient (RCR) | payer MEDICARE, BC, MEDICAID, SELFPAY ==
[2024-04-02 08:11] LABS: Basophils Absolute Auto 0.03 K/uL (0.00-0.30); Basophils Percent Auto 0.6 % (0.0-3.0); Eosinophils Absolute Auto 0.33 K/uL (0.00-0.50); Eosinophils Percent Auto 6.7 % (0.0-7.0); Hematocrit 37.4 % (37.0-53.0); Hemoglobin* 12.2 gm/dL (13.5-17.5); Immature Granulocytes Abs Auto 0.01 K/uL (0.00-0.30); Immature Granulocytes Pct Auto 0.2 %; Lymphocytes Percent Auto 14.1 % (20-44); Mean Corpuscular HGB Conc 33 gm/dL (32-36); Mean Corpuscular Hemoglobin 32 pg (26-34); Mean Corpuscular Volume 98 fL (80-100); Monocytes Percent Auto 10.6 % (0.0-11.0); Neutrophils Absolute Auto 3.33 K/uL (1.7-7.0); Neutrophils Percent Auto 67.8 % (42.0-72.0); Platelet Count* 188 K/uL (140-440); RDW Coefficient of Variation % 12.7 % (11.5-15.5); Red Blood Count 3.81 m/uL (4.30-5.90); White Blood Count* 4.91 K/uL (4.50-11.00)
[2024-04-02 08:25] LABS: Chloride* 107 mmol/L (96-114); Sodium* 139 mmol/L (135-149)
[2024-04-02 08:26] LABS: Potassium* 4.2 mmol/L (3.6-5.1)
[2024-04-02 08:28] LABS: Alanine Aminotransferase* 22 U/L (4-50); Alkaline Phosphatase* 50 U/L (40-150); Anion Gap 8 mEq/L (7-15); Aspartate Amino Transferase* 27 U/L (12-35); Bilirubin Total* 0.7 mg/dL (0.1-1.5); Blood Urea Nitrogen* 19 mg/dL (7-30); Carbon Dioxide* 24 mmol/L (20-32); Estimated Glomerular Filt Rate 78 ml/min; Glucose* 207 mg/dL (60-115); Total Protein* 6.7 g/dL (6.0-8.3)
[2024-04-02 08:29] LABS: Calcium* 8.7 mg/dL (8.4-10.6)
[2024-04-02 08:35] LABS: Slide Review Reflex No
[2024-04-04 23:45] LABS: Albumin 3.62 g/dL (3.75-5.01); Alpha 1 Globulin 0.28 g/dL (0.19-0.46); Alpha 2 Globulin 0.79 g/dL (0.48-1.05); Immunofixation IFE Done; Immunoglobulin A 27 mg/dL (68-408); Immunoglobulin G 952 mg/dL (768-1632); Immunoglobulin M 18 mg/dL (35-263); Kappa Qnt Free Light Chains 49.04 mg/L (3.30-19.40); Kappa/Lambda Light Chain Ratio 1.01 (0.26-1.65); Lambda Qnt Free Light Chains 48.77 mg/L (5.71-26.30); Total Protein, Serum 6.3 g/dL (6.3-8.2)
--- NOTE | 2024-04-09 08:48 | ONC.NURNOTE ---
Josy phoned in: Alfredo has been falling daily over the weekend. She states it is getting increasingly difficult to support him at home. He was getting washed up in the bathroom and he needed to go down to the floor- due to leg weakness Credit Associate informed Josy that we will postpone today's treatment- he will need to be seen in either the ER or by Dr Raya- he was seen by Dr Raya on Tuesday also prompted Josy that he may need rehab intervention, and she may need to address feasibility of Alfredo needing more care support-
--- NOTE | 2024-04-16 09:44 | ONC.NURNOTE ---
Swatcher phoned to follow up with SO and patient regarding new treatment appt Patient now has in home PT, OT, and RN services Josy states Juan has gone 4 days without falling, has a new brace and using a walker to get around Eating slightly better Josy reports Cognitive status has been less erratic the past few days patient was questioning his next appts Swatcher offered Tuesday- but is best date for Josy
[2024-04-19 11:00] LABS: Basophils Absolute Auto 0.04 K/uL (0.00-0.30); Basophils Percent Auto 0.8 % (0.0-3.0); Eosinophils Absolute Auto 0.27 K/uL (0.00-0.50); Eosinophils Percent Auto 5.1 % (0.0-7.0); Hemoglobin* 12.8 gm/dL (13.5-17.5); Immature Granulocytes Abs Auto 0.01 K/uL (0.00-0.30); Immature Granulocytes Pct Auto 0.2 %; Lymphocytes Percent Auto 16.9 % (20-44); Mean Corpuscular HGB Conc 32 gm/dL (32-36); Mean Corpuscular Hemoglobin 31 pg (26-34); Mean Corpuscular Volume 96 fL (80-100); Monocytes Percent Auto 11.5 % (0.0-11.0); Neutrophils Absolute Auto 3.49 K/uL (1.7-7.0); Neutrophils Percent Auto 65.5 % (42.0-72.0); Platelet Count* 237 K/uL (140-440); RDW Coefficient of Variation % 12.1 % (11.5-15.5); Red Blood Count 4.17 m/uL (4.30-5.90); White Blood Count* 5.32 K/uL (4.50-11.00)
[2024-04-19 11:03] LABS: Slide Review Reflex No
[2024-04-19 11:11] LABS: Chloride* 107 mmol/L (96-114); Potassium* 4.3 mmol/L (3.6-5.1); Sodium* 140 mmol/L (135-149)
[2024-04-19 11:14] LABS: Alanine Aminotransferase* 17 U/L (4-50); Alkaline Phosphatase* 62 U/L (40-150); Anion Gap 7 mEq/L (7-15); Aspartate Amino Transferase* 25 U/L (12-35); Bilirubin Total* 0.6 mg/dL (0.1-1.5); Blood Urea Nitrogen* 17 mg/dL (7-30); Carbon Dioxide* 26 mmol/L (20-32); Creatinine* 1.1 mg/dL (0.5-1.5); Estimated Glomerular Filt Rate 69 ml/min; Glucose* 214 mg/dL (60-115); Total Protein* 7.1 g/dL (6.0-8.3)
[2024-04-19 11:15] LABS: Calcium* 8.8 mg/dL (8.4-10.6)
[2024-04-19 11:45] VITALS: BP 130/90; PULSE 94; RESP 14; TEMP 36.8; O2SAT 98
[2024-04-19] MEDS: dexAMETHasone 4 MG TABLET 20 MG PO (11:54)
[2024-04-19] MEDS: ACETAMINOPHEN 325 MG TABLET 650 MG PO (11:58)
--- NOTE | 2024-04-19 12:02 | ONC.NURNOTE ---
improvement in rt leg/sciatica pain with Neurontin and mirtazapine.
[2024-04-19] MEDS: DARATUMUMAB-HYALURONIDASE-FIHJ 15 ML SUBCUT (12:33)
[2024-05-17 11:02] LABS: Basophils Absolute Auto 0.04 K/uL (0.00-0.30); Basophils Percent Auto 0.8 % (0.0-3.0); Eosinophils Percent Auto 5.7 % (0.0-7.0); Hematocrit 41.4 % (37.0-53.0); Hemoglobin* 13.2 gm/dL (13.5-17.5); Immature Granulocytes Abs Auto 0.01 K/uL (0.00-0.30); Immature Granulocytes Pct Auto 0.2 %; Lymphocytes Percent Auto 19.1 % (20-44); Mean Corpuscular HGB Conc 32 gm/dL (32-36); Mean Corpuscular Hemoglobin 29 pg (26-34); Mean Corpuscular Volume 92 fL (80-100); Monocytes Percent Auto 10.6 % (0.0-11.0); Neutrophils Absolute Auto 3.37 K/uL (1.7-7.0); Neutrophils Percent Auto 63.6 % (42.0-72.0); Platelet Count* 208 K/uL (140-440); RDW Coefficient of Variation % 12.3 % (11.5-15.5); Red Blood Count 4.51 m/uL (4.30-5.90); White Blood Count* 5.29 K/uL (4.50-11.00)
[2024-05-17 11:03] VITALS: BP 123/84; PULSE 92; RESP 16; TEMP 37.1; O2SAT 94
[2024-05-17 11:07] LABS: Slide Review Reflex No
[2024-05-17 11:12] LABS: Albumin* 3.9 g/dL (3.3-5.0); Chloride* 107 mmol/L (96-114)
[2024-05-17 11:13] LABS: Potassium* 4.4 mmol/L (3.6-5.1); Sodium* 139 mmol/L (135-149)
[2024-05-17 11:15] LABS: Anion Gap 9 mEq/L (7-15); Bilirubin Total* 0.6 mg/dL (0.1-1.5); Carbon Dioxide* 23 mmol/L (20-32); Est. Creatinine Clearance* 65.89; Estimated Glomerular Filt Rate 78 ml/min; Total Protein* 7.4 g/dL (6.0-8.3)
[2024-05-17 11:16] LABS: Alanine Aminotransferase* 17 U/L (4-50); Alkaline Phosphatase* 57 U/L (40-150); Aspartate Amino Transferase* 24 U/L (12-35); Blood Urea Nitrogen* 17 mg/dL (7-30); Calcium* 9.2 mg/dL (8.4-10.6); Glucose* 223 mg/dL (60-115)
[2024-05-17] MEDS: dexAMETHasone 4 MG TABLET 20 MG PO (11:45)
[2024-05-17] MEDS: DARATUMUMAB-HYALURONIDASE-FIHJ 15 ML SUBCUT (12:42)
--- NOTE | 2024-05-17 14:28 | ONC.NURNOTE ---
decreased appetite. down 2.7lb. quiet. states tired, rachel complexion. vague, but kind. states both feet hurt. no redness. tylenol with relief. expressed upset and saddened with increased lab results.
--- NOTE | 2024-06-07 10:45 | ONC.NURNOTE ---
Addendum entered by Ann Lovelace RN 06/18/24 11:09: Patient had an appointment scheduled today. Josy notes that she attempted to cancel this, and does not want any future appointments at this time at [facility]. They were told that they can come back if needed in the future. Original Note: Kiln Burner talked with SO Josy and patient has decided to transfer care to [facility] and is getting another bone marrow test and going to get treated there they think. Appointments to be cancelled at [facility]
== END 2024-09-29 23:59 | disposition home or self-care (01) ==
LOC: CCIC 09:30
PROVIDERS: Clinical Nurse Specialist; PCP Physician Assistant Medical; Referring Provider Physician Assistant Medical; Visit Provider Internal Medicine Hematology & Oncology
DX: D47.2 Monoclonal gammopathy (principal); E11.9 Type 2 diabetes mellitus without complications; D64.9 Anemia, unspecified; R77.9 Abnormality of plasma protein, unspecified; R97.21 Rising PSA following treatment for malignant neoplasm of prostate
CPT/HCPCS: 36415; 80053; 82784; 83520; 84153; 84155; 84165; 85025; 86334; 96401; 99214; 99215; G0463; J9144; A9270

== ENCOUNTER 2024-06-29 14:00 | Outpatient (CLI) | payer MEDICARE, BC, MEDICAID, SELFPAY | END 2024-06-29 14:01 | disposition home or self-care (01) | LOC: LKVREF 14:01 | PROVIDERS: PCP Family Medicine; Visit Provider Nurse Practitioner Family | DX: M79.671 Pain in right foot (principal); M79.672 Pain in left foot | CPT/HCPCS: 84550 ==

== ENCOUNTER 2024-08-14 08:34 | Outpatient (CLI) | payer MEDICARE, BC, MEDICAID, SELFPAY ==
--- OUTSIDE RECORDS SUMMARY | 2024-08-14 08:39 | XMS_ITS | Data Portability ---
Author Organization [facility], [facility] Address [address] [place] [address] Care Team Providers Care Police Communications Operator Name Role Phone STANLEY CARDOSO Primary [...] Appointments None recorded. Lab urinalysis, dipstick 2021 [facility], [address], [place], [address], 16:57:47 biopsy, prostate 2021 [facility], [address], [place], [address], 15:36:13 Referral None recorded. Procedures None recorded. Surgeries None recorded. Imaging MRI, prostate, w/wo contrast - Please call patient to schedule 2021 [facility], [address], [place], [address], 18:08:46 Medication Orders ceftriaxone 1 gram solution for injection 2021 022 [email or web address] 9 [facility], [address] [place], [address], 4 10:47:48 lidocaine (PF) 10 mg/mL (1 %) injection solution 2021 022 [email or web address] 9 [facility], [address] [place], [address], 4 10:47:45 finasteride 5 mg tablet 2022 023 [facility] [address] [place], [address], 12:07:55 Patient TargetsNo targets recorded. Patient Instructions Encounter Date Encounter Id Patient Instructions Last Modified By Organization Details Last Modified Time 03/11/2022 [id number] The patient tolerated the procedure well. We [...] our office. Not available 03/11/2022 14:05:30 04/07/2023 [id number] will start on finasteride and plan get PSA done in about 6 months at PCP clinic. [email or web address] Not available 04/07/2023 12:06:55 10/11/2023 [id number] continue on finasteride and plan rtc in April with PSA for PARKER and med refill. [email or web address] Not available 10/11/2023 10:54:16 Reason for Referral None Reported. Results Created Date Observation Date Name Description Value Unit Range Abnormal Flag Note LastModifiedBy Organization Detail LastModifiedTime 11/10/19 22 11/10/2021 UA DIP CS ADVAN TUS color -advantus YELLOW yellow Not Available [facility] [address] [facility] [address], [place], [address], 11/10/2021 16:57:47 11/10/19 22 11/10/2021 UA DIP CS ADVAN TUS appearance -advantus CLOUDY clear abnormal Not Available [facility] [address] [place] [address], [place], [address], 11/10/2021 16:57:47 11/10/19 22 11/10/2021 UA DIP CS ADVAN TUS glucose -advantus NEGATI VE mg/dL negati ve Not Available [facility] [address] [place] [address], [place], [address], 11/10/2021 16:57:47 11/10/19 22 11/10/2021 UA DIP CS ADVAN TUS bilirubin -advantus NEGATI VE negati ve Not Available [facility] [address] [place] [address], [place], [address], 11/10/2021 16:57:47 11/10/19 22 11/10/2021 UA DIP CS ADVAN TUS ketones -advantus NEGATI VE mg/dL negati ve Not Available [facility] [address] [place] [address], [place], [address], 11/10/2021 16:57:47 11/10/19 22 11/10/2021 UA DIP CS ADVAN TUS sp. gravity -advantus >=1.03 0 1.010- 1.025 Not Available [facility] [address] [place] [address], [place], [address], 11/10/2021 16:57:47 11/10/19 22 11/10/2021 UA DIP CS ADVAN TUS pH -advantus 5.0 5.0-8. 0 Not Available [facility] [address] [place] [address], [place], [address], 11/10/2021 16:57:47 11/10/19 22 11/10/2021 UA DIP CS ADVAN TUS protein -advantus NEGATI VE mg/dL negati ve Not Available [facility] [address] [place] [address] [address], [place], [address], 11/10/2021 16:57:47 11/10/19 22 11/10/2021 UA DIP CS ADVAN TUS urobilinogen -advantus 0.2 normal Not Available [facility] [address] [facility] [address], [place], [address], 11/10/2021 16:57:47 11/10/19 22 11/10/2021 UA DIP CS ADVAN TUS nitrites -advantus NEGATI VE negati ve Not Available [facility] [address] [place] [address], [place], [address], 11/10/2021 16:57:47 11/10/19 22 11/10/2021 UA DIP CS ADVAN TUS blood -advantus NEGATI VE negati ve Not Available [facility] [address] [place] [address], [place], [address], 11/10/2021 16:57:47 11/10/19 22 11/10/2021 UA DIP CS ADVAN TUS leukocytes -advantus NEGATI VE negati ve Not Available [facility] [address] [place] [address], [place], [address], 11/10/2021 16:57:47 11/10/19 22 11/10/2021 UA DIP CS ADVAN TUS performed by Va X Not Available [facility] [address] [place] [address], [place], [address], 11/10/2021 16:57:47 11/10/19 22 11/10/2021 UA DIP [...] ----- ----- ----- ----- ---- Not Available [facility] [address] [facility] [address], [place], [address], 11/10/2021 16:57:47 11/10/19 22 11/10/2021 PSA, total , serum or plasm a PSA 1.94 Not Available [facility]iology Department [address] [place], [address], 11/12/2021 09:12:23 11/20/19 22 11/20/2021 MRI, prost ate, w/wo contr ast No observ ation record ed. Jamshid Ramírez MD [address] [place], [address], 11/20/2021 18:19:36 11/24/1911/20/2021 MRI, abdom en + [...] Details Recorded Time Type 2 diabetes mellitus [id number] Active Ele marie [facility] 10:51:10 Prostate specific antigen above reference range 072453604 Active 023 Jamshid Mann MD [address] [facility], [place], [address], [facility] 12:06:20 Problem Notes None recorded. Procedures Surgical History Date Name Laterality Status Provider Name and Address Organization Details Recorded Time 04/07/20 23 Bladder Scan completed Jamshid Mann MD [address] [place] [address],[address], [place], [address], [facility] 04/07/2023 11:53:31 03/11/20 22 Prostate Biopsy Procedure completed Kemar Lujan MD [address] [place] [address],[address], [address], [facility] 03/11/2022 14:05:02 03/11/20 22 URONAV completed Kemar Lujan MD [address] [place] [address],[facility] [address], [place], [address], [facility] 03/11/2022 14:04:59 03/11/20 22 Rocephin/Ceftri axone completed Meena Fontaine [facility] 03/11/2022 12:50:39 11/10/19 22 Bladder Scan completed Ele [facility]cclelland [facility] 11/10/2021 10:54:52 01/05/20 12 Diagnostic colonoscopy completed [...] w/wo contrast completed Jamshid Ramírez MD [address] [place] [address], [address], 11/20/2021 18:19:36 11/20/2021 MRI, abdomen + pelvis, [...] Not Available Not Available Not Available calcium 600 mg (as carbonate)- vit D3 10 mcg (400 unit)-hand cloth examiner als tablet TAKE 1 TABLET BY MOUTH TWICE [...] Not Available No t Available Dexcom G6 Plaster Block Layer DIRECTED FOR CONTINUOU S GLUCOSE MONITORIN G. [...] Updated DateTime 04/07/2023 177.8 cm 33 kg/m2 905288.25 g Jamshid Mann MD [address] [place], [place] [address] [place] [address] 04/07/2023 11:54:14 Date Recorded Body height Body mass index (BMI) Body weight Provider Name and Address Organization Details Last Updated DateTime 10/11/2023 177.8 cm 21.5 kg/m2 88798.86 g Jamshid Mann MD [address] [place], [place] [address] [place] [address] 10/11/2023 10:44:48 Date Recorded Body weight Body height Body mass index (BMI) Provider Name and Address Organization Details Last Updated DateTime 01/12/2022 88198.89019 13932 g 180.34 cm 29.3 kg/m2 Not Available Health Note 01/12/2022 09:05:37 Date Recorded Heart rate Systolic blood pressure Diastolic blood pressure Provider Name and Address Organization Details Last Updated DateTime 03/11/2022 63 /min 158 mm[Hg] 87 mm[Hg] Meena Fontaine [facility] 03/11/2022 12:50:55 Social History Question Answer [...] Diagnosis/Indication Diagnosis SNOMED-CT Code Diagnosis ICD10 Code [id number] Kemar Lujan MD [facility] [address] [place] [address] 11/10/2021 08:36:50 11/10/2021 14:42:58 Prostate specific antigen above reference range 415767466 R97.20 [id number] Kemar Lujan MD [facility] [address] [place] [address] 03/11/2022 12:25:57 03/11/2022 14:23:20 Prostate specific antigen above reference range 174022814 R97.20 [id number] Meena Fontaine [facility] [address] [facility] [place] [address] 03/11/2022 12:25:27 03/11/2022 13:27:03 Prostate specific antigen above reference range 203401850 R97.20 [id number] Jamshid Mann MD _[facility] [address] [facility],[address] [place] [address] 04/07/2023 11:15:57 04/13/2023 09:44:11 Prostate specific antigen above reference range 641242043 R97.20 [id number] Jamshid Mann MD [facility] [address] [facility],[address] [place] [address] 10/11/2023 10:09:12 10/20/2023 17:05:23 Prostate specific antigen above reference range 985439984 R97.20 High grade prostatic intraepithelial neoplasia 272261093 D07.5 Health Concerns Section Related Observation LastModified by Organization Detai ls LastModified Time None Recorded Concern Status LastModified by Organization Details LastModified Time None Recorded Advance Directives Directive None Recorded Payers Encounter Date Sequence Insurance Name Policy Number Policy Mancuso Covered Member ID Mancuso Member ID Guarantor Name 11/10/2021 1 [place] [employer] Juan Retana [id number] Juan Retana 11/10/2021 2 [place] [id number] Juan Retana [id number] Juan Retana 03/11/2022 1 [place] [employer] Juan Retana [id number] Juan Retana 03/11/2022 2 [place] [id number] Juan Retana [id number] Juan Retana 03/11/2022 1 [place] [employer] Juan Retana [id number] Juan Retana 03/11/2022 2 [place] [id number] Juan Retana [id number] Juan Retana 04/07/2023 1 [place] [employer] Juan Retana [id number] Juan Retana 04/07/2023 2 [place] [id number] Juan Retana [id number] Juan Retana 10/11/2023 1 [place] [employer] Juan Retana [id number] Juan Retana 10/11/2023 2 [place] [id number] Juan Retana [id number] Juan Retana Notes Date Note Type Note [...] history of prostate cancer. Kemar Lujan MD [address] [place] [address],[address], [address], [facility] 11/10/2021 11:29:24 03/11/2022 text/html HPI Notes: [...] for Uronav prostate biopsy. Kemar Lujan MD [address] [place] [address],[address], [place], [address], [facility] 03/11/2022 14:18:53 04/07/2023 text/html [...] since the biopsy. 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 recent PSA was down to 1.01. taking finasteride and voiding well. no heme/dysuria. rx good until April. Jamshid Mann MD [address] [facility],[address], [place], [address], [facility] 10/11/2023 10:56:46
== END 2024-08-14 08:35 | disposition home or self-care (01) ==
LOC: WOUND 08:37
PROVIDERS: PCP Family Medicine; Visit Provider Family Medicine
DX: Z87.828 Personal history of other (healed) physical injury and trauma (principal); E11.21 Type 2 diabetes mellitus with diabetic nephropathy; Z79.4 Long term (current) use of insulin
CPT/HCPCS: G0463

== ENCOUNTER 2024-09-14 10:45 | Outpatient (RCR) | payer MEDICARE, BC, MEDICAID, SELFPAY ==
--- NOTE | 2024-06-25 12:46 | PT.OPE ---
PT [place] [facility] PT [facility] Outpatient Eval Start: 06/25/24 08:41 Freq: Status: Active Protocol: Document 06/25/24 12:44 CJT (Rec: 06/25/24 12:46 CJT [email or web address]) E-signed By Thony Jean, PT Physical Therapy Outpatient Evaluation Insurance Information Recert Due Date 09/23/24 Insurance Name Medicare B Medical Diagnosis DDD L foot drop Weakness Treating Diagnosis Unspecified abnormalities of gait and mobility Generalized weakness Referring Basilio Pierce MD Subjective Preferred Name Alfredo Subjective Pt presents with complaints of weakness and difficulty walking. Pts partner Josy provided msot of pts subjective hisotry this date as pt did not want to participate. Pts partner reports he is now cancer free. Has had some issues with memory and cognition while on his previous chemotherapy drugs. When pt had most recent bone marrow biopsy this showed that he had no more cancer. He has since stopped taking his chemotherapy drugs. Last chemo shot was on . Pt reports that his feet hurt across the top. unable to describe the quality of this pain but notes that his new shoes have made he pain worse. The pain is present whether or not he is wearing shoes. Pt had fall on 03/25/24 where his describes him falling to his knees due to lack of strength. Pt meeting with Dr. Raya on 06/26/24 for issues with foot pain. Meeting with Neurologist at [facility] in [place] (07/25/24). Pain Comments -03/12 Date of Next Physician Visit 06/26/24 Current Work Status Retired Precautions Treatment Precautions/Contraindications Active Problems (Updated 06/09 @ 11:21 by Basilio Raya MD) Pre-op examination (Acute) Z01.818 - Encounter for other preprocedural examination (ICD -10) Monoclonal (M) protein disease , multiple 'M' protein (Acute) Last treatment with Velcade and Darzalex was on March 05, 2024. Treatment suspended due to declining health status. Restarted treatments April 2024 . [facility] D47.2 - Monoclonal gammopathy (ICD-10) Insulin dependent type 2 diabetes mellitus (Acute) [id number] Trulicity; on metformin 1000 mg daily; continue on basal insulin; started mealtime insulin 04/25/2023-A1c 9.6% 02/21/2023- A1C 7.5%; Jardiance- too expensive, not taking 12/01/2023-Trulicity stopped. Too expensive; identified patient was not taking his insulin correctly. He was taking basal insulin once nightly as well as at mealtime . Re-initiated Novolin, mealtime insulin. Hold GLP 1 at this time. 02/15/2024-continue with Semglee 31 units daily; patient has not been taking mealtime insulin x1 month. 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 He was unaware of this problem. He and his did not note any problems with tripping or stepping his toes or limping or other abnormal gait. Chief Lifestyle Officer orthotics set up for an AFO brace on 04/04/24 M21.372 - Foot drop, left foot (ICD-10) Gout (Chronic) M10.9 - Gout, unspecified (ICD -10) Asthma (Chronic) 12/07/2023-switch Advair to Dulera for insurance purposes, it was then requested to switch from Dulera to Arnuity. This was too costly. Patient ended up getting a generic Advair, which is the most effective for him, through [employer]. 02/15/2024- not able to get due to cost and and poor insurance coverage. Not currently on maintenance medication J45.909 - Unspecified asthma, uncomplicated (ICD-10) B12 deficiency (Acute) 02/05/2022- started B12 supplement; B12 236; ferritin 87 06/21/2022 B12 626 02/21/2023-B12 normal, greater than 500 E53.8 - Deficiency of other specified B group vitamins ( ICD-10) Tubular adenoma (Acute) right colon D36.9 - Benign neoplasm, unspecified site (ICD-10) Anorexia (Acute) Unclear cause. Improved with Mirtazapine, but caused sedation R63.0 - Anorexia (ICD-10) At risk for venous thromboembolism (Acute) Started on Eliquis 2.5 mg b.i. d. by Oncology. No bleeding problems. I recommend stopping aspirin while on Eliquis. Z91.89 - Other specified personal risk factors, not elsewhere classified (ICD-10) Dementia (Acute) 03/27/2024 Irion 06/27 and 01/17 on problem solving. MRI of head 02/21 with microvascular changes F03.90 - Unspecified dementia, unspecified severity, without behavioral disturbance, psychotic disturbance, mood disturbance, and anxiety (ICD- 10) Failure to thrive in adult ( Acute) Progressive weight loss, weakness, cognitive decline over the past couple months. Underlying cause uncertain R62.7 - Adult failure to thrive (ICD-10) Left knee pain (Acute) 02/13/2024-knee x-ray, left femur CT scan 02/15/2024- left hip x-ray in clinic M25.562 - Pain in left knee ( ICD-10) Anemia (Acute 01/2022) Onset01/2022. B12 deficiency noted and supplemented. Mild iron deficiency component but did not tolerate iron very well. D64.9 - Anemia, unspecified ( ICD-10) Therapy Limitations/Systems Review Not Limited Objective Other/Pertinent Objective R hip flexion: 3+/5 MMT R knee flexion: 4/5 MMT R knee extension: 3+/5 MMT R ankle DF: 3+/5 MMT L hip flexion: 3/5 MMT L knee flexion: 3/5 MMT L knee extension: 3/5 MMT L ankle DF: 2/5 MMT 4-Stage Balance Test: pt refuses to attempt stages II- IV TU.12 seconds 5 Times Xjy-zo-Fahmg: 23.2 seconds 30-Second Hum-uq-Wyfow: 7 reps Monofilament testing: pt unable to detect sensation of 5.07 monofilament across entire plantar surface of L foot and lateral surface of R foot. DTRs: unable to trigger response in B patellar and Achilles tendons Assessment Assessment/Impression Alfredo is a 78 year old male who presents to our clinic for evaluation and treatment of foot drop and weakness. He does present with significant limitations in L>R LEs (see objective). His functional strength is also quite poor at this time but sounds as though he has made significant progress via home health therapy services, which is promising. Pt did make a note that his foot pain is his primary concern and that this will limit his ability to participate in PT. I was very candid with Alfredo and Josy today that I will likely not be able to help Alfredo with his neuropathy, but we will focus on functional strength and walking as much as we are able . The nature of the pts condition was explained and all questions were answered to the pts satisfaction. Skilled PT services are medically necessary to address deficits and return patient to highest level of function. Recommend physical therapy sessions 1-2/ week for 4-8 weeks. Pt agrees with this plan. Printout of HEP was given for I completion and pt gives verbal understanding of each exercise . Primary Functional Limitations Walking, transfers Plan of Care Rehabilitation Potential Fair Physical Therapy Goals STG - To be completed in 4 weeks: 1. Pt will demo ability to perform 10 cvp-go-fswhnj in 30 seconds or less as indication of improved LE functional strength. 2. Pt will perform TUG in 20 seconds or less as indication of improved mobility with use of FWW. LTG - To be completed in 8 weeks: 1. Pt will be I with HEP so that he may I manage progression of symptoms. 2. Pt will perform at least 12 tsb-at-nwfwd transfers in 30 seconds or less as indication of improve LE functional strength to reduce risk of falls. 3. Pt will demo ability to ambulate for at least 6 consecutive minutes so that he may accompany his partner during grocery store visits with minimal rest breaks. Treatment Plan/Direct Interventions Electrical Stimulation,Gait Training,Joint Mobilization, Manual Therapy,Neuromuscular Re-ed,Self-Care/Home Management,Therapeutic Activities,Therapeutic Exercises Frequency/Duration 1-2/week for 4-8 weeks Patient Will Be Discharged From Therapy Completion of LTG(s),Skills Plateau,Independent w/HEP, Independently Progressing Evaluation Billing Untimed Code Treatment Minutes 65 PT Eval No Charge No Complexity Low Certification Information Initial Certification Date 06/25/24 Ending Certification Date 09/23/24 Provider Signature Required Yes Provider Signature Shows Agreement With POC & Medical Necessity Physician NPI Number Write NPI# Here Physician Comment/Change : Physician Signature & Date Requested Please Sign/Date Here
--- NOTE | 2024-08-31 13:50 | PT.OPDN ---
PT [facility]en Outpatient Daily Note PT SHAR Outpatient Daily Note Start: 06/25/24 08:41 Freq: Status: Active Protocol: Document 08/31/24 10:51 BMS (Rec: 08/31/24 13:44 BMS [id number]) E-signed By Judy Aguirre, PT PT OP Daily Progress Note Visit Information Note Type Daily Note,Recert/Progress Note Visit Number [id number] Physician Authorized Visits eval and treat Insurance Information Recert Due Date 09/23/24 Insurance Name Medicare B Medical Diagnosis DDD L foot drop Weakness Treating Diagnosis Unspecified abnormalities of gait and mobility Generalized weakness Referring Basilio Pierce MD Subjective Subjective wiped out after all the family here yest for Thanksgiving. have been going up and down the stairs but not doing any of the exercises. use the cane when they go out, but not at home or in yard or to go get car Precautions Treatment Precautions/Contraindications Monoclonal (M) protein disease , multiple 'M' protein (Acute) Last treatment with Velcade and Darzalex was on March 05, 2024. Treatment suspended due to declining health status. Restarted treatments April 2024 . [facility] D[facility].2 - Monoclonal gammopathy (ICD-10) Insulin dependent type 2 diabetes mellitus (Acute) [id number] Trulicity; on metformin 1000 mg daily; continue on basal insulin; started mealtime insulin 04/25/2023-A1c 9.6% 02/21/2023- A1C 7.5%; Jardiance- too expensive, not taking 12/01/2023-Trulicity stopped. Too expensive; identified patient was not taking his insulin correctly. He was taking basal insulin once nightly as well as at mealtime . Re-initiated Novolin, mealtime insulin. Hold GLP 1 at this time. 02/15/2024-continue with Semglee 31 units daily; patient has not been taking mealtime insulin x1 month. 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 He was unaware of this problem. He and his did not note any problems with tripping or stepping his toes or limping or other abnormal gait. [employer] set up for an AFO brace on 04/04/24 M21.372 - Foot drop, left foot (ICD-10) Gout (Chronic) M10.9 - Gout, unspecified (ICD -10) Asthma (Chronic) 12/07/2023-switch Advair to Dulera for insurance purposes, it was then requested to switch from Dulera to Arnuity. This was too costly. Patient ended up getting a generic Advair, which is the most effective for him, through [facility]. 02/15/2024- not able to get due to cost and and poor insurance coverage. Not currently on maintenance medication J45.909 - Unspecified asthma, uncomplicated (ICD-10) B12 deficiency (Acute) 02/05/2022- started B12 supplement; B12 236; ferritin 87 06/21/2022 B12 626 02/21/2023-B12 normal, greater than 500 E53.8 - Deficiency of other specified B group vitamins ( ICD-10) Tubular adenoma (Acute) right colon D36.9 - Benign neoplasm, unspecified site (ICD-10) Anorexia (Acute) Unclear cause. Improved with Mirtazapine, but caused sedation R63.0 - Anorexia (ICD-10) At risk for venous thromboembolism (Acute) Started on Eliquis 2.5 mg b.i. d. by Oncology. No bleeding problems. I recommend stopping aspirin while on Eliquis. Z91.89 - Other specified personal risk factors, not elsewhere classified (ICD-10) Dementia (Acute) 03/27/2024 Adrian 06/27 and 01/17 on problem solving. MRI of head 02/21 with microvascular changes F03.90 - Unspecified dementia, unspecified severity, without behavioral disturbance, psychotic disturbance, mood disturbance, and anxiety (ICD- 10) Failure to thrive in adult ( Acute) Progressive weight loss, weakness, cognitive decline over the past couple months. Underlying cause uncertain R62.7 - Adult failure to thrive (ICD-10) Left knee pain (Acute) 02/13/2024-knee x-ray, left femur CT scan 02/15/2024- left hip x-ray in clinic M25.562 - Pain in left knee ( ICD-10) Anemia (Acute 01/2022) Onset01/2022. B12 deficiency noted and supplemented. Mild iron deficiency component but did not tolerate iron very well. D64.9 - Anemia, unspecified ( ICD-10) Home Exercise Home Exercise Comments see scanned copy for specific goals to be achieved in 2 weeks of daily performance. Access Code: [email or web address] URL: [email or web address]. VersionOne/ Date: 08/31/2024 Prepared by: Judy Aguirre Exercises - Sit to Stand Without Arm Support - 1-3 x daily - 5-7 x weekly - 1-3 sets - 10-20 reps - strength: 5-10 sec hold - Supine Active Straight Leg Raise - 1-3 x daily - 5-7 x weekly - 1-3 sets - 10-20 reps - strength: 5-10 sec hold - Supine Bridge - 1-3 x daily - 5-7 x weekly - 1-3 sets - 10-20 reps - strength: 5-10 sec hold - Ankle Dorsiflexion with Resistance - 1-3 x daily - 5- 7 x weekly - 1-3 sets - 10-20 reps - strength: 5-10 sec hold - Heel Raises with Counter Support - 1-3 x daily - 5-7 x weekly - 1-3 sets - 10-20 reps Objective Other/Pertinent Objective AROM: L DF neutral, R DF 4 degrees. Sit/stand requires UE assist MMT seated hip flex R 4+/5, L = 4/5 quad R = 5/5, L = 4/5 HS R= 5/5, L = 4/5 PF 4/5 seated, unable to perform even B heel raise in standing DF R 4+/5, L = 3-/5 Functional Test Performed & Score 6 min walk test 5.5x 145'=797. 5' w SPC 4x10 ' w/o spc in room Patient Instructed in Risks/Benefits Yes Therapeutic Exercise Therapeutic Exercise Minutes (minutes) 30 Therapeutic Exercise: To Restore see scanned copy for specific Functional Status goals to be achieved in 2 weeks of daily performance. Instruct, demo perform and individual handout prepared and issued: Access Code: [email or web address] URL: [email or web address]. VersionOne/ Date: 08/31/2024 Prepared by: Judy Aguirre Exercises - Sit to Stand Without Arm Support - 1-3 x daily - 5-7 x weekly - 1-3 sets - 10-20 reps - strength: 5-10 sec hold - Supine Active Straight Leg Raise - 1-3 x daily - 5-7 x weekly - 1-3 sets - 10-20 reps - strength: 5-10 sec hold - Supine Bridge - 1-3 x daily - 5-7 x weekly - 1-3 sets - 10-20 reps - strength: 5-10 sec hold - Ankle Dorsiflexion with Resistance - 1-3 x daily - 5- 7 x weekly - 1-3 sets - 10-20 reps - strength: 5-10 sec hold - Heel Raises with Counter Support - 1-3 x daily - 5-7 x weekly - 1-3 sets - 10-20 reps Gait & Stair Training Gait Training/Stairs Minutes (minutes) 11 Gait & Stair Training Comments amb 4x145' no cane stairs 3 x 10 with R ascend rail (L descent) and 1 trial with SPC in CL UE for additional balance. work on increased stride and balance reactions in gait. Neuromuscular Re-Ed Neuromuscular Reeducation Minutes ( 4 minutes) Neuromuscular Reeducation Comments stepping stones work on uneven ground with dec compensation of leaning on wall or rail Treatment Minutes Timed Code Treatment Minutes 45 Total Treatment Time 45 Billing Units Gait Training/Stairs Units 1 Therapeutic Exercise Units 2 Assessment/Impression Assessment/Impression Patient requests clearance to resume driving to get his license back. Instructed patient and this is not something PT clears as we do not do cognitive testing or have access to simulation equipment, would be from primary or our occupational therapists who perform driving testing on simulator in [place]. They state have appt w primary this afternoon. Patient has not been consistent with home exercise program, continues to walk without a cane at home or in his uneven yard despite recommendation he use minimum of cane in that situation as he demonstrates much more steadiness and speed with gait . He does use cane in clinic and per if they are going out. Refuses use of AFO obtained prior to starting therapy here as he states it really hurts with peripheral neuropathy. He does have active motion on left now able to achieve neutral in long sit antigravity position. He compensates for drop foot with steppage gait and is much more successful with this using cane, able to maintain forward gaze rather than down at feet. We have been training without assistive device to improve safe independent gait. Reiterated importance of continuing ex at home to achieve his goals. We have been able to reduce pain and paresthesia with significantly less complaints and improved ability to perform balance challenges in clinic. work on home program x 2 weeks x 2 then plan to DC before end of calendar year. Plan of Care Physical Therapy Goals STG - To be completed in 4 weeks: 1. Pt will demo ability to perform 10 ujz-ck-ejohto in 30 seconds or less as indication of improved LE functional strength. 2. Pt will perform TUG in 20 seconds or less as indication of improved mobility with use of FWW. LTG - To be completed in 8 weeks: 1. Pt will be I with HEP so that he may I manage progression of symptoms. 2. Pt will perform at least 12 xax-wb-zkshj transfers in 30 seconds or less as indication of improve LE functional strength to reduce risk of falls. 3. Pt will demo ability to ambulate for at least 6 consecutive minutes so that he may accompany his partner during grocery store visits with minimal rest breaks. Daily Plan of Care Continue per POC Daily Plan of Care Comments Ongoing POC to consist of therex, NM re-ed, gait training, manual therapy Recertification Information Recertification Start Date 08/31/24 Recertification Due Date 11/28/24 Reasons to Continue Skilled Therapy improved neuropathy, balance and gait impaired Continued Plan of Care and Interventions work on home program x 2 weeks x 2 then plan to DC before end of year. ther ex, neuro rusty, gait, ther activity Provider Signature Shows Agreement With POC & Medical Necessity Physician Comment/Change Comment or Changes
== END 2024-10-15 07:28 | disposition home or self-care (01) ==
PROVIDERS: PCP Family Medicine; Visit Provider Family Medicine
DX: M21.372 Foot drop, left foot (principal); Z51.89 Encounter for other specified aftercare
CPT/HCPCS: 97032; 97110; 97112; 97116; 97140; 97161

== ENCOUNTER 2024-09-21 16:27 | Outpatient (CLI) | payer MEDICARE, BC, SELFPAY | END 2024-09-21 16:28 | disposition home or self-care (01) | PROVIDERS: PCP Family Medicine; Visit Provider Family Medicine | DX: D47.2 Monoclonal gammopathy (principal) | CPT/HCPCS: 82164 ==

== ENCOUNTER 2024-11-23 10:23 | Outpatient (CLI) | payer MEDICARE, BC, SELFPAY | END 2024-11-23 10:24 | disposition home or self-care (01) | LOC: NFLDREF 11-27 08:17 | PROVIDERS: PCP Family Medicine; Referring Provider Family Medicine; Visit Provider Family Medicine | DX: E11.9 Type 2 diabetes mellitus without complications (principal); D47.2 Monoclonal gammopathy; I10 Essential (primary) hypertension; E78.00 Pure hypercholesterolemia, unspecified; Z79.4 Long term (current) use of insulin; Z01.818 Encounter for other preprocedural examination | CPT/HCPCS: 83520; 84165 ==

== ENCOUNTER 2024-11-28 00:42 | Outpatient (CLI) | payer MEDICARE, BC, SELFPAY | END 2024-11-28 00:43 | disposition home or self-care (01) | PROVIDERS: PCP Family Medicine; Visit Provider Family Medicine | DX: R53.1 Weakness (principal); R11.2 Nausea with vomiting, unspecified | CPT/HCPCS: A0998 ==

== ENCOUNTER 2024-11-28 17:56 | Emergency (ER) | payer MEDICARE, BC, SELFPAY ==
--- OUTSIDE RECORDS SUMMARY | 2024-11-28 17:58 | XMS_ITS ---
Author Name Interface, [id number] lity Address [address] [place] [address] [address] [place] [address] [facility] Address [address] [place] [address] [address] [place] [address] Care Team Providers Care Institute Scientist Name Role Phone Benjy Rigoberto Unavailable Unavailable Allergies and Adverse Reactions Medication/Group Name Reaction Severity Date No known allergies Plan Date Type Value 06/21/2024 APPOINTMENT OV 20 MIN 06/21/2024 APPOINTMENT LAB 10 MIN 06/21/2024 LABORDER Angiotensin conv erting enzyme (RODRÍGUEZ) polymorphism panel 12/05/2024 LABORDER Free kappa / coleman bda with K/L ratio, serum 12/05/2024 LABORDER Serum Protein El ectrophoresis (SPEP) 12/05/2024 LABORDER CBC w/ auto diff 12/05/2024 LABORDER Immunofixation, serum w/ quant IgG/A/M panel 12/05/2024 LABORDER CMP 06/21/2025 LABORDER Immunofixation, serum w/ quant IgG/A/M panel 06/21/2025 LABORDER CMP 06/21/2025 LABORDER Folate panel 06/21/2025 LABORDER Free kappa / coleman bda with K/L ratio, serum 06/21/2025 LABORDER CBC w/ auto diff 06/21/2025 LABORDER Serum Protein El ectrophoresis (SPEP) Reason for Visit LAB 10 MIN Encounters Date Name 06/21/2024 Abnormal weight loss (finding) 06/21/2024 Impaired cognition ( finding) 06/21/2024 Monoclonal gammopath y 06/21/2024 Sarcoidosis (disorde r) Diagnostic Results Date Type Test Units Lower Limit Upper Limit Result Flag Comments Status Ordered By Specimen Source Lab Address 06/21 Angio tensi n conve rting enzym e (RODRÍGUEZ) polym orphi sm panel ANGIO TENSI N-1-C ONVER TING ENZYM E U/L 9.0 67.0 32 FINAL Rigoberto Burleson * [facility] [address] [facility] [id number] [phone] Medications Date Name Route Dose Frequency Instructions Start Date End Date Status Apixaban Oral BID act nat Gabapentin Oral QD a ctive Sulfamethoxazole-Tr imethoprim Oral 400 mg-80 mg (Reg Str) 3 times weekly active Insulin Glargine-yfgn Subcutaneous Pen 100 unit/mL QD active Mirtazapine Oral QD active Pravastatin Sodium Oral QD active Finasteride Oral (Proscar) QD active Acyclovir Oral QD ac tive Calcitriol Oral QD a ctive 024 sulfamethoxazole 400 MG / trimethoprim 80 MG Oral Tablet orally 1.0 tab 3 times per week 024 active 024 folic acid 1 MG Oral Tablet orally 1.0 tablet daily 024 active 024 folic acid 1 MG Oral Tablet orally 1.0 tablet daily 024 active Problems Diagnosis Status Date of Diagnosi s Sarcoidosis (disorder) Active Impaired cognition (finding) Active Abnormal weight loss (finding) Active 0 05/24/2024 Monoclonal gammopathy Active Myeloma Active Vital Signs Date Type Value 06/21/2024 Body Temperature 98.90 06/21/2024 Heart Beat 75.00 06/21/2024 Respiratory Rate 16.00 06/21/2024 Oxygen Saturation 96.00 06/21/2024 BSA 2.09 06/21/2024 Pain Scale 0.00 06/21/2024 Weight 204.80 06/21/2024 Height 69.00 06/21/2024 BMI 30.24 06/21/2024 Intravascular Systolic 118 06/21/2024 Intravascular Diastolic 64 Notes Section * Med Onc Follow-up Note Patient Name: FRANNY ISRAEL Date Of : 1945 Today's Provider:?Rigoberto ABADBS Date of Service:?06/21/2024 Attending Physician:?Rigoberto Burleson (Medical Oncology) Referring Provider: ? HEMATOLOGY/ MEDICAL ONCOLOGY FOLLOW UP VISIT Reason for Visit * Monoclonal gammopathy. ?Multiple myeloma.?? 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 * Petty catheter deficiency.?? Assessment * Patient is a 78-year-old gentleman under care of Dr. Alda Pruitt??he is here for a second opinion. * 04/15/2023:??Patient was seen by Dr. Pruitt??for an initial consult due to elevated??protein found on routine examination.?At the time he??did not had any concerning symptoms he denied fever chills??night sweats weight loss??he denied any bone pain.?His past medical history was significant fordiabetes mellitus dyslipidemia gout asthma??he also reports some fatigue.?? * As per records: (Some lab results are not available at present)??03/29/2023 serum protein electrophoresis showed monoclonal protein at 4.46??serum??protein 9.2 g/dL monoclonal spike can be done in gamma region??immunofixation showed IgG kappa and IgG lambda biclonal protein.?Serum free kappa light chain 1367.41 mg/L??free lambda light chain 536.94 mg/L.?Urine was negative for monoclonal freelight chain.?Free light??chain:??Twilight??274.52??lambda 301.89??ratio 0.91 * 04/21/2023 patient had a PET scan which showed background heterogeneous marrow activity in spine andpelvis but no aggressive lytic or expansile osseous lesions.??There was variable uptake with then small mildly enlarged thoracic abdominal retroperitoneal and pelvic lymphadenopathy overall considered nonspecific.?? * 04/26/2023 patient had a bone marrow biopsy which was negative for plasma cell neoplasm bone marrow polyclonal plasma cell 10% bone marrow cellularity 50%.??There were no clonal plasma cell populationidentified by flow cytometry facial molecular testing. * 06/21/2023 patient had a follow-up with Dr. Pruitt.??Lab work from 06/02/2023 showed total protein has increased from 6.9-8.5 immunoglobulin IgG level increased from 1991 to 3278.?? * 07/18/2023:??Noted worsening and increasing immunoglobulin IgG level both kappa and lambda light chain beta-2 glycoprotein.??However PET scan and bone marrow biopsy ??have not??confirmed diagnosis ofmyeloma.??Patient was placed on dexamethasone Cytoxan Velcade.??Review of labs at the time showed calcium was normal at 8.7 creatinine was 1.2.??Hemoglobin was 13.1.?? * On 10/17/2003 labs showed kappa 32.06 lambda 26.2 ratio 1.2 immunoglobulin IgG 784 IgA 98 IgM 15.?? * 10/24/2023 Darzalex added to the regimen. * 11/07/2023 treatment was interrupted due to new symptoms of cough not feeling well.??Patient was treated with a course of antibiotics.?? * 01/23/2024 dexamethasone antitoxin was discontinued Darzalex was switched to every other week. * Patient continued on Velcade weekly Darzalex every other week. * 03/12/2024. to 04/09/2024 treatment held due to multiple medical complications including confusion episodes.??Also patient complaining of left knee hip pain.?? * 04/19/2024 patient started treatment again with monthly Darzalex.?? * Noted significant deterioration in performance status failure to thrive.??Other symptoms included lack of appetite generalized weakness.??Patient failed to respond to physical therapy mirtazapine.?? * 05/24/2024:??Patient was seen??for a second opinion re Myeloma Despite being on treatment and has had significant symptoms including failure to thrive lack of appetite generalized weakness without clear underlying cause identified.?? * We repeated patient's blood test.?Patient's hemoglobin white blood cell count and platelet and differential was all normal.?Creatinine was normal at 1.0Albumin was normal at 3.5 calcium was normal at 8.9.?Vitamin B12 was greater than 1000 folic acid was low at 2.7.?Thyroid function with normal??peripheral smear did not show any concerning findings in the??blood.?Serum protein electrophoresis did not show any definitive paraproteinemia.?Twilight??light chain was 7.12 lambda??lightchain??was 5.8Ratio was normal at 1.22.?? * Patient had a PET scan??whole-body on??05/30/2024??there was mildly FDG avid sclerotic lesion in left proximal humerus??and mild focal FDG uptake within the left distal??femur.?There is new mildly FDG avid left perinephric soft tissue stranding??extending to the left renal sinus.?Mildly FDG avid mediastinal and bilateral hilar??lymph nodes in pattern most typical of granulomatous inflammation. * Patient returns for planned follow-up to discuss the results of workup.?He reported after starting on folic acid his noticed improvement in his fatigue??energy levels and mental confusion.?He denies any pain today his appetite has improved.?? Plan * I reviewed the results of bone marrow biopsy and PET scan with patient,??we also reviewed all his lab test. 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 * I explained that the bone marrow biopsy showed noncaseating granulomas??and with mediastinal lymphadenopathy??raises possibility of sarcoidosis.?Which can mimic??malignancy. * I also shared my discussions with Dr. Pruitt.?? * I recommended against resuming??Darzalex,??we will do a??angiotensin- converting enzyme level.?? * I explained that patient??is symptomatic??with respiratory symptoms can receive a course of??steroids for helping??his symptoms.?? * ???He should consider a consultation with??rivers and lakes leverman or policy change clerks supervisor.?? * Would recommend that we check??serum protein electrophoresis kappa lambda light chain??in 6 months??and follow-up in 1 year.?? * Advised him to continue on folic acid. * I also advised him to keep his appointment with neurologist.?? * I reviewed patient's outside labs,??I did not have access to patients for labs and imaging studies at the time of consultation. * I also recommended a consultation with neurology to screen him for dementia.??Given recent history of confusion.?? Advanced Care Planning Not discussed at this visit. Pain Scale on Today's Visit 0 Pain Plan on Today's Visit No pain plan indicated for today's visit Smoking Status Smoking Tobacco : Never smoker; Smokeless Tobacco : none found; Vaping : none found Depression Screening Tool Status Was not screened Reason: Patient's functional Status precludes (dementia, etc.); Screening Date: 05/24/2024 History of Present Illness * 04/15/2023:??Patient was seen by Dr. Pruitt??for an initial consult due to elevated??protein found on routine examination.?At the time he??did not had any concerning symptoms he denied fever chills??night sweats weight loss??he denied any bone pain.?His past medical history was significant fordiabetes mellitus dyslipidemia gout asthma??he also reports some fatigue.?? * As per records: (Some lab results are not available at present)??03/29/2023 serum protein electrophoresis showed monoclonal protein at 4.46??serum??protein 9.2 g/dL monoclonal spike can be done in gamma region??immunofixation showed IgG kappa and IgG lambda biclonal protein.?Serum free kappa light chain 1367.41 mg/L??free lambda light chain 536.94 mg/L.?Urine was negative for monoclonal freelight chain.?Free light??chain:??Twilight??274.52??lambda 301.89??ratio 0.91 * 04/21/2023 patient had a PET scan which showed background heterogeneous marrow activity in spine andpelvis but no aggressive lytic or expansile osseous lesions.??There was variable uptake with then small mildly enlarged thoracic abdominal retroperitoneal and pelvic lymphadenopathy overall considered nonspecific.?? * 04/26/2023 patient had a bone marrow biopsy which was negative for plasma cell neoplasm bone marrow polyclonal plasma cell 10% bone marrow cellularity 50%.??There were no clonal plasma cell populationidentified by flow cytometry facial molecular testing. * 06/21/2023 patient had a follow-up with Dr. Pruitt.??Lab work from 06/02/2023 showed total protein has increased from 6.9-8.5 immunoglobulin IgG level increased from 1991 to 3278.?? * 07/18/2023:??Noted worsening and increasing immunoglobulin IgG level both kappa and lambda light chain beta-2 glycoprotein.??However PET scan and bone marrow biopsy ??have not??confirmed diagnosis ofmyeloma.??Patient was placed on dexamethasone Cytoxan Velcade.??Review of labs at the time showed calcium was normal at 8.7 creatinine was 1.2.??Hemoglobin was 13.1.?? * On 10/17/2003 labs showed kappa 32.06 lambda 26.2 ratio 1.2 immunoglobulin IgG 784 IgA 98 IgM 15.?? * 10/24/2023 Darzalex added to the regimen. * 11/07/2023 treatment was interrupted due to new symptoms of cough not feeling well.??Patient was treated with a course of antibiotics.?? * 01/23/2024 dexamethasone antitoxin was discontinued Darzalex was switched to every other week. * Patient continued on Velcade weekly Darzalex every other week. * 03/12/2024. to 04/09/2024 treatment held due to multiple medical complications including confusion episodes.??Also patient complaining of left knee hip pain.?? * 04/19/2024 patient started treatment again with monthly Darzalex.?? * Noted significant deterioration in performance status failure to thrive.??Other symptoms included lack of appetite generalized weakness.??Patient failed to respond to physical therapy mirtazapine.?? * 05/24/2024:??Patient was seen??for a second opinion despite being on treatment and has had significant symptoms including failure to thrive lack of appetite generalized weakness without clear underlying cause identified.?? * I reviewed patient's outside labs,??I did not have access to patients for labs and imaging studies at the time of consultation. * However, from review of outside medical record is not clear if patient met the definition of multiple myeloma,??there is no clear evidence of end organ damage or a neoplastic population identified inthe bone marrow although a monoclonal protein was seen at high level in the blood.??I recommended that we repeat labs a PET scan and bone marrow biopsy for a??fresh assessment.??In the interim I advised him against treatment with Darzalex. * We repeated patient's blood test.?Patient's hemoglobin white blood cell count and platelet and differential was all normal.?Creatinine was normal at 1.0Albumin was normal at 3.5 calcium was normal at 8.9.?Vitamin B12 was greater than 1000 folic acid was low at 2.7.?Thyroid function with normal??peripheral smear did not show any concerning findings in the??blood.?Serum protein electrophoresis did not show any definitive paraproteinemia.?Twilight??light chain was 7.12 lambda??lightchain??was 5.8Ratio was normal at 1.22.?? * Patient had a PET scan??whole-body on??05/30/2024??there was mildly FDG avid sclerotic lesion in left proximal humerus??and mild focal FDG uptake within the left distal??femur.?There is new mildly FDG avid left perinephric soft tissue stranding??extending to the left renal sinus.?Mildly FDG avid mediastinal and bilateral hilar??lymph nodes in pattern most typical of granulomatous inflammation. Interval History { } Review of Systems Remaining 14 point comprehensive review of systems within normal limits. NCCN Distress Thermometer and Problem List were collected and documented in the patient chart.?? Remarkable symptoms and concerns were discussed with the patient.?? Any additional follow-up is indicated in the plan. Past Medical and Surgical History Other medical problems include confusion diabetes mellitus Hypertension Dyslipidemia anorexia degenerative disc disease.?? Current Medications Medication List Name Date Semglee (insulin glargine-yf gn) (Insulin Glargine-yfgn Subcutaneous Pen 100 unit/mL) 05/24/2024 Acyclovir Oral 05/24/2024 Calcitriol Oral 05/24/2024 Pravastatin Sodium Oral 05/24/2024 Folic Acid Oral 05/30/2024 Bactrim (Sulfamethoxazole-Trimethoprim O ral 400 mg-80 mg (Reg Str)) 05/24/2024 Mirtazapine Oral 05/24/2024 Eliquis (Apixaban Oral) 05/24/2024 Finasteride Oral (Proscar) 05/24/2024 Gabapentin Oral 05/24/2024 Allergies No known medication allergies Family History { } Social History Patient does not smoke or currently drink Vital Signs Blood pressure: 118/64, Pulse: 75, Temperature: 98.9 F, Respirations: 16, O2 sat: 96%, Pain Scale: 0, Height: 69 in, Weight: 204.8 lb, BSA: 2.09, BMI: 30.24 kg/m2 Covid-19 vaccine (Pfizer) (2022), Elsewhere; Flu vaccine - Adult (2022), Elsewhere Performance Status ECOG or Karnofsky ECOG: Not recorded Karnofsky: Not recorded Physical Exam Pleasant 78-year-old gentleman using??walker.?Appears comfortable ECOG performance score 2 Genetics/Molecular/Biomarkers * Monoclonal gammopathy Lab Results CBC Lab Results 06/12/2024 06/08/2024 05/24/2024 05/18/2024 05/17/2005/03/2024 CBC WBC x 10^3/uL 6.3 RBC x 10^6/uL 4.50 NRBC % /100 wbc 0.0 HGB g/dL 13.5 HCT % 41.2 MCV fL 91.6 MCH pg 30.0 MCHC g/dL 32.8 RDW % 12.40 PLT x 10^3/uL 217 MPV fL 8.7 (L) Nuno % 68.3 LY % 15.7 MO % 10.6 EO % 4.6 IG % 0.2 Nuno # (ANC) x 10^3/uL 4.3 BA % 0.6 MO # x 10^3/uL 0.7 EO # x 10^3/uL 0.3 BA # x 10^3/uL 0.0 IG # x 10^3/uL 0.01 LY # x 10^3/uL 1.0 Chemistries Lab Results 06/12/2024 06/08/2024 05/24/2024 05/18/2024 05/17/2005/03/2024 Chemistries Glucose mg/dL 200 (H) BUN mg/dL 22.0 (H) Creatinine mg/dL 1 Sodium mmol/L 140 Potassium mmol/L 4.6 Chloride mmol/L 108 (H) CO2 mmol/L 26 Calcium mg/dL 8.9 Albumin g/dL 3.5 Total protein g/dL 6.9; 6.7 Bilirubin, total mg/dL 0.4 Alkaline phosphatase U/L 61 AST/SGOT U/L 43 ALT/SGPT U/L 23 GFR estimate mL/min/1.73m2 77.1 ? Lab Results 06/12/2024 06/08/2024 05/24/2024 05/18/2024 05/17/2005/03/2024 Anemia Labs Vitamin B12 pg/mL >1000 (H) Folate, serum ng/mL 2.7 (L) Reticulocyte count % 0.83 Reticulocyte, absolute x 10^6/mL 0.04 Immature reticulocyte fraction, % 3.90 Reticulocyte cellular hemoglobin pg 32.0 Surveys/Consents/Other Discussions TIFFANY Lai CC: Misael Pruitt MD Electronically signed by Rigoberto ALLEN 06/21/2024 11:26 CDT
--- OUTSIDE RECORDS SUMMARY | 2024-11-28 17:58 | XMS_ITS | CCD ---
Author Name Interface, [id number] lity Address [address] [place], [place] [id number] [facility] Address [address] [place] [address] Care Team Providers Care Demurrage Agent Name Role Phone Rigoberto Burleson Unavailable Unavailable Allergies and Adverse Reactions Care Plan Reason for Visit Encounters Diagnostic Results Medications Problems Procedures Social History Vital Signs
--- OUTSIDE RECORDS SUMMARY | 2024-11-28 17:58 | XMS_ITS | Data Portability ---
Author Organization [facility], [facility] Address [address] [place] [address] Care Team Providers Care Slubber Runner Name Role Phone STANLEY CARDOSO Primary Care [...] Appointments None recorded. Lab biopsy, prostate 2021 [facility], [address], [address], [address], 15:36:13 urinalysis, dipstick 2021 [facility], [address], [address], [place], [address], 16:57:47 Referral None recorded. Procedures None recorded. Surgeries None recorded. Imaging MRI, prostate, w/wo contrast - Please call patient to schedule 2021 [facility] [facility], [address], [place], [address], 18:08:46 Medication Orders finasteride 5 mg tablet 2022 023 ZEINAB [facility], [address] [place], [address], 3 12:07:55 ceftriaxone 1 gram solution for injection 2021 022 [email or web address] 9 [facility], [address] [place], [address], 4 10:47:48 lidocaine (PF) 10 mg/mL (1 %) injection solution 2021 022 [email or web address] 9 [facility], [address] [place], [address], 10:47:45 Patient TargetsNo targets recorded. Patient Instructions Encounter Date Encounter Id Patient Instructions Last Modified By Organization Details Last Modified Time 03/11/2022 [id number] The patient tolerated the procedure well. We [...] our office. Not available 03/11/2022 14:05:30 04/07/2023 [id number] will start on finasteride and plan get PSA done in about 6 months at PCP clinic. [email or web address] Not available 04/07/2023 12:06:55 10/11/2023 [id number] continue on finasteride and plan rtc in April with PSA for PARKER and med refill. [email or web address] Not available 10/11/2023 10:54:16 Reason for Referral None Reported. Results Created Date Observation Date Name Description Value Unit Range Abnormal Flag Note LastModifiedBy Organization Detail LastModifiedTime 11/10/19 22 11/10/2021 UA DIP CS ADVAN TUS color -advantus YELLOW yellow Not Available [facility] [address], [place], [address], 11/10/2021 16:57:47 11/10/19 22 11/10/2021 UA DIP CS ADVAN TUS appearance -advantus CLOUDY clear abnormal Not Available [facility] [address] [place] [address] [address], [place], [address], 11/10/2021 16:57:47 11/10/19 22 11/10/2021 UA DIP CS ADVAN TUS glucose -advantus NEGATI VE mg/dL negati ve Not Available [facility] [address] [place] [address], [place], [address], 11/10/2021 16:57:47 11/10/19 22 11/10/2021 UA DIP CS ADVAN TUS bilirubin -advantus NEGATI VE negati ve Not Available [facility] [address] [place] [address], [place], [address], 11/10/2021 16:57:47 11/10/19 22 11/10/2021 UA DIP CS ADVAN TUS ketones -advantus NEGATI VE mg/dL negati ve Not Available [facility] [address] [place] [address], [place], [address], 11/10/2021 16:57:47 11/10/19 22 11/10/2021 UA DIP CS ADVAN TUS sp. gravity -advantus >=1.03 0 1.010- 1.025 Not Available [facility] [address] [place] [address], [place], [address], 11/10/2021 16:57:47 11/10/19 22 11/10/2021 UA DIP CS ADVAN TUS pH -advantus 5.0 5.0-8. 0 Not Available [facility] [address] [place] [address], [place], [address], 11/10/2021 16:57:47 11/10/19 22 11/10/2021 UA DIP CS ADVAN TUS protein -advantus NEGATI VE mg/dL negati ve Not Available [facility] [address] [place] [address] [address], [place], [address], 11/10/2021 16:57:47 11/10/19 22 11/10/2021 UA DIP CS ADVAN TUS urobilinogen -advantus 0.2 normal Not Available [facility] [address] [facility] [address], [place], [address], 11/10/2021 16:57:47 11/10/19 22 11/10/2021 UA DIP CS ADVAN TUS nitrites -advantus NEGATI VE negati ve Not Available [facility] [address] [place] [address], [place], [address], 11/10/2021 16:57:47 11/10/19 22 11/10/2021 UA DIP CS ADVAN TUS blood -advantus NEGATI VE negati ve Not Available [facility] [address] [place] [address], [place], [address], 11/10/2021 16:57:47 11/10/19 22 11/10/2021 UA DIP CS ADVAN TUS leukocytes -advantus NEGATI VE negati ve Not Available [facility] [address] [place] [address], [place], [address], 11/10/2021 16:57:47 11/10/19 22 11/10/2021 UA DIP CS ADVAN TUS performed by Va X Not Available [facility] [address] [place] [address], [place], [address], 11/10/2021 16:57:47 11/10/19 22 11/10/2021 UA DIP [...] Available [facility] [address] [facility] [address], [place], [address], 11/10/2021 16:57:47 11/10/19 22 11/10/2021 PSA, total , serum or plasm a PSA 1.94 Not Available [facility] [address] [place], [address], 11/12/2021 09:12:23 11/20/19 22 11/20/2021 MRI, prost ate, w/wo contr ast No observ ation record ed. Jamshid Ramírez MD [address] [place], [address], 11/20/2021 18:19:36 11/24/1911/20/2021 MRI, abdom en + [...] Details Recorded Time Type 2 diabetes mellitus 83040755 Active Ele marie [facility] 10:51:10 Prostate specific antigen above reference range 165467217 Active 023 Jamshid Mann MD [address] [facility],[address], [address], [facility] 12:06:20 Problem Notes None recorded. Procedures Surgical History Date Name Laterality Status Provider Name and Address Organization Details Recorded Time 04/07/20 23 Bladder Scan completed Jamshid Mann MD [address] [place] [address],[address], [place], [address], [facility] 04/07/2023 11:53:31 03/11/20 22 Prostate Biopsy Procedure completed Kemar Lujan MD [address] [place] [address],[address], [address], [facility] 03/11/2022 14:05:02 03/11/20 22 URONAV completed Kemar Lujan MD [address] [place] [address],[facility] [address], [place], [address], [facility] 03/11/2022 14:04:59 03/11/20 22 Rocephin/Ceftri axone completed Meena Fontaine [facility] 03/11/2022 12:50:39 11/10/19 22 Bladder Scan completed Ele Mcclelland [facility] 11/10/2021 10:54:52 01/05/20 12 Diagnostic colonoscopy [...] prostate, w/wo contrast completed Jamshid Ramírez MD [address] [place] [address], [address], 11/20/2021 18:19:36 11/20/2021 MRI, abdomen + pelvis, [...] TAKE 1 TABLET BY MOUTH ONCE DAILY . 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 [...] Updated DateTime 04/07/2023 177.8 cm 33 kg/m2 532174.25 g Jamshid Mann MD [address] [place], [place] [address] [place] [address] 04/07/2023 11:54:14 Date Recorded Body height Body mass index (BMI) Body weight Provider Name and Address Organization Details Last Updated DateTime 10/11/2023 177.8 cm 21.5 kg/m2 80400.86 g Jamshid Mann MD [address] [place] [address] 10/11/2023 10:44:48 Date Recorded Body weight Body height Body mass index (BMI) Provider Name and Address Organization Details Last Updated DateTime 01/12/2022 54392.36521 93000 g 180.34 cm 29.3 kg/m2 Not Available Health Note 01/12/2022 09:05:37 Date Recorded Heart rate Systolic blood pressure Diastolic blood pressure Provider Name and Address Organization Details Last Updated DateTime 03/11/2022 63 /min 158 mm[Hg] 87 mm[Hg] Meena Fontaine [facility] 03/11/2022 12:50:55 Social History Question [...] Depression N Immunizations Vaccine Type Date Status Note Provider Nam e and Address Organization Details Recorded Time SARS-COV-2 (COVID-19) vaccine, UNSPECIFIED 1 completed Not Available Health Note 01/11/2022 11:59:30 influenza, unspecified formulation 1 completed Not Available Health Note 01/11/2022 11:59:30 Past Encounters Encounter ID Performer Location Encounter Start Date Encounter Closed Date Diagnosis/Indication Diagnosis SNOMED-CT Code Diagnosis ICD10 Code Diagnosis Note [id number] Kemar Lujan MD [facility] [address] [place] [address] 11/10/2021 08:36:50 11/10/2021 14:42:58 Prostate specific antigen above reference range 693938791 R97.20 We discussed the significan ce of an elevated PSA and its utility in screening for prostate cancer. We discussed that while the PSA may be elevated in some men due to benign causes such as trauma, recent sexual intercours e, urinary tract infections , or recent instrument ation, it may also be indicative of underlying prostate cancer. We discussed that a PSA test alone is not sufficient to determine if prostate cancer is present and further testing is warranted. We then discussed the available options for further evaluation s. One option would be to proceed with transrecta l ultrasound with prostate needle biopsy. This allows for sampling of the prostate in areas where cancer is likely to be found. This will allow for detection of underlying prostate cancer if it is present. We discussed the limitation s of this including under sampling which may lead to under diagnosis. We also discussed the risks most notably bleeding to a degree enough to require interventi on (1-2.5%) and infection which may result in hospitaliz ation (1-3%). We also discussed expected after effects of biopsy including temporary hematuria, blood per rectum, and hematosper josué which are considered normal after this procedure. A second option we discussed would be to proceed first with an MRI of the prostate. This would allow for detection of underlying lesions of the prostate which are suspicious for cancer. This informatio n could then be utilized for ultrasound -MRI fusion biopsies which may result in improved detection of underlying prostate cancer and also facilitate bed bug exterminator surveillan ce for men in which low risk prostate cancers are identified . We then discussed the role of adjunctive testing in the form (4k score, isoPSA, or ExoDx) to help better inform risk profile. While this does not tell a man whether he has prostate cancer this may be helpful in making a decision about whether to proceed with a prostate biopsy. He would like to proceed with MRI of the prostate followed by prostate biopsy. [id number] MD Carlo Stephenson_Luiz [address] [address] 03/11/2022 12:25:57 03/11/2022 14:23:20 Prostate specific antigen above reference range 740668628 R97.20 [id number] Meena RamosWovania [address] [address] 03/11/2022 12:25:27 03/11/2022 13:27:03 Prostate specific antigen above reference range 638430494 R97.20 [id number] Jamshid Mann MD [facility] [address] [facility] [place] [address] 04/07/2023 11:15:57 04/13/2023 09:44:11 Prostate specific antigen above reference range 576996857 R97.20 [id number] Jamshid Mann MD [facility] [address] [facility] [place] [address] 10/11/2023 10:09:12 10/20/2023 17:05:23 Prostate specific antigen above reference range 867629621 R97.20 High grade prostatic intraepithelial neoplasia 677705668 D07.5 Health Concerns Section Related Observation LastModified by Organization Detai ls LastModified Time None Recorded Concern Status LastModified by Organization Details LastModified Time None Recorded Advance Directives Directive None Recorded Payers Encounter Date Sequence Insurance Name Policy Number Policy Mancuso Covered Member ID Mancuso Member ID Guarantor Name 11/10/2021 1 [place] [employer] Juan Retana [id number] Juan Retana 11/10/2021 2 [place] [id number] Juan Retana [id number] Juan Retana 03/11/2022 1 [place] [employer] Juan Alejandre Retana [id number] Juan Retana 03/11/2022 2 [place] [id number] Juan Retana [id number] Juan Retana 03/11/2022 1 [place] [employer] Juan R Retana [id number] Juan Retana 03/11/2022 2 [place] [id number] Juan Retana [id number] Juan Retana 04/07/2023 1 [place] [employer] Juan Alejandre Retana [id number] Juan Retana 04/07/2023 2 [place] [id number] Juan Retana [id number] Juan Retana 10/11/2023 1 [place] [employer] Juan Alejandre Retana [id number] Juan Retana 10/11/2023 2 [place] [id number] Juan Retana [id number] Juan Retana Notes Date Note Type Note Provider Name and Address Organization Details Recorded Time 11/10/2021 text/html This is a 76 yea r old male who is referred by SHELBY Adrian for the evaluation and management of an elevated PSA. He recently underwent screening PSA as part of routine prostate cancer screening. This was noted to be elevated to 7 ng/mL. He has a prior history of PSA elevations.His PSA was 5.01 ng/mL on 10/22/2020. There is no family history of prostate cancer. Kemar Lujan MD [address] [place] [address],[address], [place], [address], [facility] 11/10/2021 11:29:24 03/11/2022 text/html This is a 76 yea r old male with an elevated prostate specific antigen here for Uronav prostate biopsy. He was noted to have an elevated prostate specific antigen of 7 ng/mL.He has a prior history of PSA elevations.His PSA was 5.01 ng/mL on 10/22/2020.There is no family history of prostate cancer.He underwent an MRI of the prostate with and without intravenous contrast on 11/20/2021 which revealed a PI-RADS 3 lesion in the left anterolateral transition zone.Volume: 84 mLHe is here today for Uronav prostate biopsy. Kemar Lujan MD [address] [place] [address],[address], [place], [address], [facility] 03/11/2022 14:18:53 04/07/2023 text/html 04/07/23: seeing for follow up had negative biopsy [...] biopsy. 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 recent PSA was down to 1.01. taking finasteride and voiding well. no heme/dysuria. rx good until April. Jamshid Mann MD [address] [facility],[address], [place], [address], [facility] 10/11/2023 10:56:46
[2024-11-28 18:12] VITALS: BP 110/78; PULSE 101; RESP 16; TEMP 36.6; O2SAT 96
[2024-11-28 20:11] VITALS: BP 129/82; PULSE 99; RESP 18; O2SAT 97
--- NOTE | 2024-11-28 20:33 | ED_ITS ---
HPI - General Adult General Date Seen: 11/28/24 Chief complaint: Nausea/Vomiting Stated complaint: nausea, vomiting Time Seen by Provider: 11/28/24 20:28 History of Present Illness HPI narrative: 79-year-old gentleman with a history of asthma, type 2 diabetes on metformin and insulin (his significant other reports that yesterday his doctor increased his dose of his long lasting insulin from 28 units to 32 units at night), hyperlipidemia, coronary artery disease, gout, history of cancer (had previously been diagnosed with multiple myeloma and had been on immunomodulatory therapy for that last year. Has a new oncologist who told them that he does not have m ultiple myeloma and that in fact he has prostate cancer. It sounds like he is not currently on chemo.), history of dementia, anemia, sarcoidosis. Per medical record: He was seen in the primary care clinic 5 days ago on 11/23 for a preop physical in anticipation of getting cataract surgery (scheduled for 11/26, 2 days ago). Per that he chin PE, ? 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 Surgeries include a right hemicolectomy due to colon polyps, cholecystectomy, ventral hernia surgery, nasal skin cancer removal, temporal artery biopsy in the past and prostate biopsy in 2021. Per clinic note from today, patient was brought in by private car with 's complaint that he was very weak and not able to stand. EMS reported that the patient was cleared to discharge home by the clinic but actually clinic notes say that the doctor advised the patient that he should go to the hospital. Per triage, the patient's significant other (not legally his ) made him come to the ER tonight. She says that he is weaker than normal and nauseous. She wanted him to be seen in clinic but he was refusing. Ultimately he relented and went to clinic. Per clinic notes he was cleared for discharge home, but was concerned so called EMS and he was transported here to the ER. Per EMS blood sugar was 104. Patient says he does not want to be here and he has no complaints per History from his significant other by phone is that he seemed well yesterday. They did start on his new dose of insulin last night at about 830 or 9:00 p.m.. Around midnight he started to have symptoms. He got up to urinate at about midnight but dropped his urinal on the floor. Fortunately did not spill. He was weak and shaky and fell back onto the bed. He was not injured in the fall. She actually called EMS last night and they came and evaluated him. She says that EMS told him his blood pressure was low with standing up but normal with laying down. He signed a refusal of transport. Slept most of the rest of the night. This morning he also had symptoms of liquid he had watery diarrhea and vomiting that started about 830. He had 1 episode of vomiting last night and a couple more episodes this morning. He had a couple of episodes of diarrhea this morning. He was very weak and shaky and was having trouble walking around the house. It sounds like his significant other called 911 again because he was weak. 1st responders and paramedics arrived and it sounds like the patient again refused to be transported to the hospital. After conversation with the phone triage line, the patient took the patient to the urgent care. There, he was told that they really could not help him and that he should come to the ER. Therefore ambulance was called to the urgent care. They did pick him up there and bring him here. Contrary to initial report, he was not actually cleared to go home by the urgent care provider. It sounds like urgent care did recommend that he come to the ER. Now that he is here in the ER he has no complaints. However he is not oriented to date. I asked him to use his own cellphone to call his significant other but he could not operate it. He does seem a bit confused. No known fever. No recent falls. No chest pain. No headache. The patient says he does not feel nauseous Related Data Home Medications ?Medication ?Instructions ?Recorded ?Confirmed pen needle, diabetic 32 gauge x #100 ea 02/23/24 11/23/2410/06 (BD Ultra-Fine Micro Pen Needle) folic acid 1 mg tablet 1 mg PO QDAY 06/26/24 11/23/24 aspirin 81 mg tablet,delayed 81 mg PO QDAY 07/27/24 11/23/24 release mirtazapine 7.5 mg tablet 7.5 mg PO QDAY 07/27/24 11/23/24 gabapentin 100 mg capsule 100 mg PO BID 08/31/24 11/23/24 gabapentin 300 mg capsule 300 mg PO QHS 09/21/24 11/23/24 Previous Rx's ?Medication ?Instructions ?Recorded pen needle, diabetic 31 gauge x #100 ea 08/09/2310/06 (CareFine Pen Needle) calcium 600 mg (as carbonate)-vit 1 tab PO BID #120 tabs 09/12/23 D3 10 mcg (400 unit)-minerals tablet cyanocobalamin (vitamin B-12) 1,000 mcg PO DAILY #90 tabs 11/09/23 1,000 mcg tablet,extended release lancets (Accu-Chek Fastclix Lancet #200 ea 04/04/24 Drum) pravastatin 10 mg tablet 10 mg PO HS #90 tabs 06/05/24 insulin glargine 100 unit/mL (3 28 unit (0.28 mL) subcut QDAY #15 10/17/24 mL) subcutaneous pen (Lantus mL Solostar U-100 Insulin) finasteride 5 mg tablet 5 mg PO QDAY #90 tabs 11/23/24 Allergies Allergy/AdvReac Type Severity Reaction Status Date / Time pollen extracts Allergy Intermediate Congested Verified 11/23/24 09:32 house dust Allergy Verified 11/23/24 09:32 iron AdvReac Intermediate diarrhea Verified 11/23/24 09:32 [facility] Medical History Insulin dependent type 2 diabetes mellitus ?E11.9 - Type 2 diabetes mellitus without complications (ICD-10) ?Z79.4 - retirement (current) use of insulin (ICD-10) HTN (hypertension) ?I10 - Essential (primary) hypertension (ICD-10) Hyperlipidemia ?E78.5 - Hyperlipidemia, unspecified (ICD-10) Prostate cancer ?C61 - Malignant neoplasm of prostate (ICD-10) Disc degeneration, lumbar ?M51.36 - Other intervertebral disc degeneration, lumbar region (ICD-10) Monoclonal (M) protein disease, multiple 'M' protein ?D47.2 - Monoclonal gammopathy (ICD-10) Left thigh pain ?M79.652 - Pain in left thigh (ICD-10) Dementia ?F03.90 - Unspecified dementia, unspecified severity, without behavioral disturbance, psychotic disturbance, mood disturbance, and anxiety (ICD-10) Left foot drop ?M21.372 - Foot drop, left foot (ICD-10) Sarcoidosis ?D86.9 - Sarcoidosis, unspecified (ICD-10) Gout ?M10.9 - Gout, unspecified (ICD-10) Insomnia ?G47.00 - Insomnia, unspecified (ICD-10) Asthma ?J45.909 - Unspecified asthma, uncomplicated (ICD-10) Neuropathy of both feet ?G57.93 - Unspecified mononeuropathy of bilateral lower limbs (ICD-10) B12 deficiency ?E53.8 - Deficiency of other specified B group vitamins (ICD-10) Tubular adenoma ?D36.9 - Benign neoplasm, unspecified site (ICD-10) At risk for venous thromboembolism ?Z91.89 - Other specified personal risk factors, not elsewhere classified (ICD-10) Left knee pain ?M25.562 - Pain in left knee (ICD-10) Anorexia ?R63.0 - Anorexia (ICD-10) Weakness ?R53.1 - Weakness (ICD-10) Erectile dysfunction ?N52.9 - Male erectile dysfunction, unspecified (ICD-10) Acquired pes planus of left foot ?M21.42 - Flat foot [pes planus] (acquired), left foot (ICD-10) Facet arthritis of lumbar region ?M47.816 - Spondylosis without myelopathy or radiculopathy, lumbar region (ICD-10) Pulmonary nodule ?R91.1 - Solitary pulmonary nodule (ICD-10) History of basal cell carcinoma (BCC) ?Z85.828 - Personal history of other malignant neoplasm of skin (ICD-10) COVID-19 (~01/27/22) ?U07.1 - COVID-19 (ICD-10) Elevated PSA ?R97.20 - Elevated prostate specific antigen [PSA] (ICD-10) Basal cell carcinoma ?C44.91 - Basal cell carcinoma of skin, unspecified (ICD-10) Surgical History History of cholecystectomy (~2021) ?Z90.49 - Acquired absence of other specified parts of digestive tract (ICD- 10) Status post right hemicolectomy ?Z90.49 - Acquired absence of other specified parts of digestive tract (ICD- 10) History of hernia repair ?Z98.890 - Other specified postprocedural states (ICD-10) ?Z87.19 - Personal history of other diseases of the digestive system (ICD-10) Social History Narrative: non-smoker, negative for drinking.? He is currently retired.? He used to work in [employer] in [place]. Lives with his significant other/partner of 40 years. What is your current living situation?: I presently have a place to live Problems where you live: no known problems Problems where you live details: none In the past 12 months, utilities in danger of being shut off: no In past 12 months, lack of transportation kept you from medical appts, meetings, work, or getting things needed for daily living: no In the past 12 mos, have been you worried that your food would run out before you had money to buy more?: never true In the past 12 mos, the food you bought just didn't last and you didn't have money to buy more?: never true Highest level of school completed/degree received: high school graduate Smoking Status: Never smoker Do you use any of these nicotine containing products: None Second hand tobacco smoke exposure: No How often do you have a drink containing alcohol: never How often do you have six or more drinks on one occasion: Never AUDIT-C Alcohol total score: 0 Non-prescribed substance use: denies use Caffeine: No How often does anyone, including family, friends and others, physically hurt you : never How often does anyone, including family, friends and others, insult or talk down to you: never How often does anyone, including family, friends and others, threaten you with harm: never How often does anyone, including family, friends and others, scream or curse at you: never service: Yes Exam Narrative: Exam Narrative: Constitutional: Appears well-developed and well-nourished. Alert. Seems co nfused and times. At times has inappropriate laughter. Not able to provide a cogent history. HENT: Head: Atraumatic. Nose: Nose normal. Mouth/Throat: Oral mucosa is clear but dry, not desiccated or cracked. When I asked him to stick out his tongue for pharyngeal exam, he does not seem to understand. Despite multiple attempts to horse riding coach or instructor him to stick out his tongue and say off, I can get him to say AH but not stick out his tongue.no trismus. Visualized Pharynx normal. Eyes: Conjunctivae normal. EOM normal. Pupils equal, round, and reactive to light. No scleral icterus. Neck: Normal range of motion. Neck supple. No tracheal deviation present. No JVD Cardiovascular: Normal rate, regular rhythm. No gallop. No friction rub. No murmur heard. Symmetric radial artery pulses Pulmonary/Chest: Effort normal. No stridor. No respiratory distress. No wheezes. No rales. No rhonchi . No tenderness. Abdominal: Soft. Bowel sounds normal. No distension. No mass. No tenderness. No rebound. No guarding. No HSM. No CVA tenderness Musculoskeletal: RUE: Normal range of motion. No tenderness. No deformity LUE: Normal range of motion. No tenderness. No deformity RLE: Normal range of motion. No edema. No tenderness. No deformity LLE: Normal range of motion. No edema. No tenderness. No deformity Neurological: Alert and oriented to person, place, but not date. Normal strength. He was ambulatory, but slow in the hallway. No focal deficits. CN II-VII intact. No sensory deficit. GCS eye subscore is 4. GCS verbal subscore is 5. GCS motor subscore is 6. Normal coordination Skin: Skin is warm and dry. No rash noted. No pallor. Normal capillary refill. Psychiatric: Patient is somewhat defiant on the phone with his significant other. He just wants to go home. To me he has a bit of an odd affect. At times he chuckles. He is generally cooperative and not defiant with medical staff. Const: Vital Signs, click to edit/add: Vital Signs - 24 hr 11/28/24 18:12 11/28/24 20:11 11/28/24 21:54 Temperature 97.9 F 99.3 F Pulse Rate 99 Pulse Rate [Pulse Oximeter] 101 H 93 Respiratory Rate 16 18 16 Blood Pressure 129/82 Blood Pressure [Ri ght Upper Arm] 110/78 113/72 Pulse Oximetry 96 97 97 Oxygen Delivery Me thod Room Air Room Air Room Air 11/28/24 22:56 Temperature 98.3 F Pulse Rate Pulse Rate [Pulse Oximeter] 85 Respiratory Rate 16 Blood Pressure Blood Pressure [Ri ght Upper Arm] 117/78 Pulse Oximetry 97 Oxygen Delivery Me thod Room Air Course Course ED Course: Recheck-feeling better after IV fluids. Strong. Ambulatory in the hallway actually made urine. No further nausea or vomiting or diarrhea. Recheck-labs reassuring. Recheck-passing p.o. challenge. Had 2 boxes of apple juice and says it tastes good. He is not nauseous. He is requesting discharge home. He does remain somewhat confused, however. Recheck-nurses called his significant other and she agrees to come pick him up from the ER [facility]. After this phone call the patient did have 1 small volume loose diarrheal stool. Imodium administered. He continues otherwise feel well. He is able to ambulate under his own power in the hallway. He will discharge home with his significant other. Vital Signs Vital signs: Initial Vital Signs Temperature 97.9 F 11/28/24 18:12 Temperature Source Temporal Artery Scan 11/28/24 18:12 Pulse Rate 101 H 11/28/24 18:12 Respiratory Rate 16 11/28/24 18:12 Blood Pressure 110/78 11/28/24 18:12 Blood Pressure Mean 88 11/28/24 18:12 Blood Pressure Position Supine 11/28/24 18:12 Pulse Oximetry 96 11/28/24 18:12 Oxygen Delivery Method Room Air 11/28/24 18:12 Vital Signs Temperature 97.9 F 11/28/24 18:12 Pulse Rate 101 H 11/28/24 18:12 Respiratory Rate 16 11/28/24 18:12 Blood Pressure 110/78 11/28/24 18:12 Pulse Oximetry 96 11/28/24 18:12 Oxygen Delivery Method Room Air 11/28/24 18:12 Temperature 98.3 F 11/28/24 22:56 Pulse Rate 85 11/28/24 22:56 Respiratory Rate 16 11/28/24 22:56 Blood Pressure 117/78 11/28/24 22:56 Pulse Oximetry 97 11/28/24 22:56 Oxygen Delivery Method Room Air 11/28/24 22:56 Medications Administered Medications: Discontinued Medications Generic Name Dose Route Start Last Admin Trade Name Freq PRN Reason Stop Dose Admin Sodium Chloride 1,000 mls @ 1,000 mls/hr 11/28/24 21:15 11/28/24 22:58 0.9 % Sodium Chloride 1000 Ml IV 11/28/24 22:14 Infused .Q1H DEVYN Infusion Loperamide HCl 4 mg 11/28/24 23:26 11/28/24 23:33 Loperamide Hcl 2 Mg Capsule PO 4 mg ONCE PRN Administration Ondansetron HCl 4 mg 11/28/24 21:02 11/28/24 21:23 Ondansetron 2 Mg/Ml Inj IVP 11/28/24 21:03 4 mg ONCE ONE Administration Medical Decision Making MDM Narrative Medical decision making narrative: This patient presents with vomiting and diarrhea that began overnight last night and into this morning. It was associated with significant generalized weakness and also some acute on chronic confusion. Patient was brought from Urgent Care this afternoon to the ER by EMS. He is not having any abdominal pain or fever. No bloody or mucousy stool. No bloody emesis. The patient's symptoms and exam could be consistent with a viral GI infection. There is no high fever, severe pain, bilious or bloody emesis, blood or mucous in the stool, severe abdominal pain, or other concerning signs for a bacterial infection. No recent travel or high risk exposure for baceraial pathogen. No recent antibiotics or risk factors for C. diff. I don't see any evidence for appendicitis, bowel obstruction, abscess, bowel perforation, or other surgical emergency. Labs show no concerning electrolyte disturbance or renal failure[]. After meds given the patient is feeling better. At this point, the patient is non-septic appearing and well hydrated. In terms of the actual day GI illness itself and hydration and electrolytes think the patient can be managed as an outpatient. Nurses note that his strength is improved the knee was ambulatory under his own power back and forth in the hallway to the bathroom. He was reported be quite weak at home, but the challenge here is his superimposed confusion, and whether not he has the ability to care for himself at home. His significant other actually had to call the ambulance on him once last night and once this morning because she was so concerned about his weakness and confusion. Ultimately, the patient is demanding discharge and does not want stay in the hospital. His significant other came here to pick him up and take him home. We have discussed the signs and symptoms of worsening dehydration. They understand the need for immediate reevaluation if any of these symptoms occur. They are also directed to obtain close outpatient follow up within 2-3 days. Lab Data Labs: Lab Results 11/28/24 11/28/24 11/28/24 Range/Units 21:02 21:26 22:05 WBC 5.28 (4.50-11.00) K/uL RBC 4.42 (4.30-5.90) m/uL Hgb 12.1 L (13.5-17.5) gm/dL Hct 38.7 (37.0-53.0) % MCV 88 (80-100) fL MCH 27 (26-34) pg MCHC 31 L (32-36) gm/dL RDW Coeff of Radha 14.3 (11.5-15.5) % Plt Count 146 (140-440) K/uL Neut % (Auto) 74.4 H (42.0-72.0) % Lymph % (Auto) 12.9 L (20-44) % [place] % (Auto) 10.8 (0.0-11.0) % Eos % (Auto) 1.3 (0.0-7.0) % Baso % (Auto) 0.2 (0.0-3.0) % Neut # (Auto) 3.90 (1.7-7.0) K/uL Lymph # (Auto) 0.70 L (0.90-2.90) K/uL Mel[place] # (Auto) 0.60 (0.00-0.90) K/UL Eos # (Auto) 0.07 (0.00-0.50) K/uL Baso # (Auto) 0.01 (0.00-0.30) K/uL Abs Immat Gran (auto) 0.02 (0.00-0.30) K/uL Imm/Tot Granulo (auto) 0.4 % INR 1.01 (0.91-1.10) VBG pH 7.414 (7.32-7.43) VBG pCO2 42 (40-50) mmHG VBG pO2 < 30.1 (25-47) mmHG VBG HCO3 27 (21-28) mmol/L Sodium 137 (135-149) mmol/L Potassium 4.4 (3.6-5.1) mmol/L Chloride 102 (96-114) mmol/L Carbon Dioxide 23 (20-32) mmol/L Anion Gap 12 (7-15) mEq/L BUN 40 H (7-30) mg/dL Creatinine 1.4 (0.5-1.5) mg/dL Estimated GFR 51 ml/min Glucose 153 H (60-115) mg/dL Lactate 1.8 (0.5-1.9) mmol/L Calcium 8.1 L (8.4-10.6) mg/dL Total Bilirubin 0.6 (0.1-1.5) mg/dL AST 29 (12-35) U/L ALT 23 (4-50) U/L Alkaline Phosphatase 81 (40-150) U/L Total Protein 8.6 H (6.0-8.3) g/dL Albumin 3.6 (3.3-5.0) g/dL Urine Color Yellow (Yellow) Urine Appearance Clear (Clear) Urine pH 5.5 (5.0-8.5) Ur Specific [place] 1.020 (1.000-1.030) Urine Protein 1+ A (Negative) Urine Glucose (UA) Negative (Negative) Urine Ketones Negative (Negative) Urine Blood Trace-lysed A (Negative) Urine Nitrite Negative (Negative) Urine Bilirubin Negative (Negative) Urine Urobilinogen 0.2 (0.2-1.0) Ur Leukocyte Esterase Negative (Negative) Urine RBC 0-2 (0-2) Urine WBC 0-2 (0-5) Ur Squamous Epith Cells None (None-Few) Urine Bacteria Few A (None) SARS-CoV-2 (PCR) Negative SARS-CoV-2 (Negative) Influenza Type A (PCR) Negative PCR FLU A (Negative) Influenza Type B (PCR) Negative PCR FLU B (Negative) RSV (PCR) Negative PCR RSV (Negative) ECG Data Attestation: I personally reviewed and interpreted this ECG as follows: Interpretation: Normal sinus rhythm with sinus arrhythmia Rate: 94 LA: 150 QRS axis: Normal axis. Low voltage. Right bundle branch block ST segment/T wave: Nonspecific T-wave flattening QTc: 482 Discharge Plan Discharge Clinical Impression: Nausea vomiting and diarrhea, Weakness Patient Disposition: Home, Self-Care Condition: Stable Instructions: Acute Nausea and Vomiting (DC), Acute Diarrhea (ED), Weakness (ED) Additional Instructions: So far it looks like the vomiting and diarrhea have subsided. Soft and bite your weakness has improved and that your able to walk. Please come back to the ER right away if you have more weakness,, fever, any more episodes of vomiting or diarrhea, or if you have any concerns. Prescriptions: No Action calcium carbonate-vit D3-min 600 mg calcium- 400 unit tablet 1 tab PO BID Qty: 120 2RF (DME) pen needle, diabetic [BD Ultra-Fine Micro Pen Needle] 32 gauge x 1/4 needle See Rx Instructions .ROUTE .MEDSUPPLY Qty: 100 Patient Comments: [NO ORIGINAL SIG] Rx Instructions: As directed gabapentin 300 mg capsule 300 mg PO QHS folic acid 1 mg tablet 1 mg PO QDAY gabapentin 100 mg capsule 100 mg PO BID finasteride 5 mg tablet 5 mg PO QDAY Qty: 90 3RF aspirin 81 mg tablet,delayed release (DR/EC) 81 mg PO QDAY mirtazapine 7.5 mg tablet 7.5 mg PO QDAY (DME) pen needle, diabetic [CareFine Pen Needle] 31 gauge x 1/4 needle See Rx Instructions .Route Qty: 100 3RF Rx Instructions: As directed- 3 x daily with meal time insulin cyanocobalamin (vitamin B-12) 1,000 mcg tablet extended release 1,000 mcg PO DAILY Qty: 90 3RF (DME) lancets [Accu-Chek Fastclix Lancet Drum] Misc See Rx Instructions .ROUTE .COMPLEX Qty: 200 1RF Dose Instruction: USE 1 TO CHECK GLUCOSE TWICE DAILY Rx Instructions: USE 1 TO CHECK GLUCOSE TWICE DAILY pravastatin 10 mg tablet 10 mg PO HS Qty: 90 2RF Rx Instructions: once daily for cholesterol insulin glargine [Lantus Solostar U-100 Insulin] 100 unit/mL (3 mL) insulin pen 28 unit subcut QDAY Qty: 15 3RF Follow Up/Referrals: Basilio Raya MD [Primary Care Provider] - Stand Alone Forms: MyHealth Info Instructions
[2024-11-28] MEDS: ONDANSETRON 2 MG/ML inj 4 MG IVP (21:23)
[2024-11-28] MEDS: 0.9 % SODIUM CHLORIDE 1000 ml 1,000 ML IV (21:23)
[2024-11-28 21:31] LABS: Lactate* 1.8 mmol/L (0.5-1.9)
[2024-11-28 21:32] LABS: Basophils Absolute Auto 0.01 K/uL (0.00-0.30); Basophils Percent Auto 0.2 % (0.0-3.0); Eosinophils Absolute Auto 0.07 K/uL (0.00-0.50); Eosinophils Percent Auto 1.3 % (0.0-7.0); Hematocrit 38.7 % (37.0-53.0); Hemoglobin* 12.1 gm/dL (13.5-17.5); Immature Granulocytes Abs Auto 0.02 K/uL (0.00-0.30); Immature Granulocytes Pct Auto 0.4 %; Lymphocytes Percent Auto 12.9 % (20-44); Mean Corpuscular HGB Conc 31 gm/dL (32-36); Mean Corpuscular Hemoglobin 27 pg (26-34); Mean Corpuscular Volume 88 fL (80-100); Monocytes Percent Auto 10.8 % (0.0-11.0); Neutrophils Percent Auto 74.4 % (42.0-72.0); Platelet Count* 146 K/uL (140-440); RDW Coefficient of Variation % 14.3 % (11.5-15.5); Red Blood Count 4.42 m/uL (4.30-5.90); White Blood Count* 5.28 K/uL (4.50-11.00)
[2024-11-28 21:33] LABS: HCO3 VBG 27 mmol/L (21-28); PCO2 VBG 42 mmHG (40-50); PO2 VBG < 30.1 mmHG (25-47); pH VBG 7.414 (7.32-7.43)
[2024-11-28 21:40] LABS: Slide Review Reflex No
[2024-11-28 21:48] LABS: Albumin* 3.6 g/dL (3.3-5.0); Chloride* 102 mmol/L (96-114); Potassium* 4.4 mmol/L (3.6-5.1); Sodium* 137 mmol/L (135-149)
--- OUTSIDE RECORDS SUMMARY | 2024-11-28 21:48 | XMS_ITS | CCD ---
Author Name Interface, [id number] lity Address [address] [place] [address] [address] [address] [facility] Address [address] [facility] [address] [place] [address] Care Team Providers Care Farm Hand Name Role Phone Rigoberto Burleson Unavailable Unavailable Allergies and Adverse Reactions Medication/Group Name Reaction Severity Date No known allergies Care Plan Date Type Value 06/21/2024 APPOINTMENT OV 20 MIN 06/21/2024 APPOINTMENT LAB 10 MIN 06/12/2024 APPOINTMENT OUTSIDE TEST 5 M IN 05/30/2024 APPOINTMENT OUTSIDE TEST 5 M IN 05/24/2024 APPOINTMENT LAB 10 MIN 05/24/2024 APPOINTMENT NEW PT CONSULT 6 0 MIN 05/24/2024 LABORDER Serum Protein El ectrophoresis (SPEP) 05/24/2024 LABORDER TSH panel 05/24/2024 LABORDER Vitamin B12 pane l 05/24/2024 LABORDER Path peripheral blood slide review panel 05/24/2024 LABORDER CMP 05/24/2024 LABORDER Cortisol panel, serum 05/24/2024 LABORDER PET/CT scan, who le body 05/24/2024 LABORDER Immunofixation, serum w/ quant IgG/A/M panel 05/24/2024 LABORDER Folate panel 05/24/2024 LABORDER Free kappa / coleman bda with K/L ratio, serum 05/24/2024 LABORDER Urine protein el ectrophoresis, random urine 05/24/2024 LABORDER CBC w/ auto diff 06/21/2024 LABORDER Angiotensin conv erting enzyme (RODRÍGUEZ) polymorphism panel 12/05/2024 LABORDER CMP 12/05/2024 LABORDER Free kappa / coleman bda with K/L ratio, serum 12/05/2024 LABORDER Serum Protein El ectrophoresis (SPEP) 12/05/2024 LABORDER CBC w/ auto diff 12/05/2024 LABORDER Immunofixation, serum w/ quant IgG/A/M panel 06/21/2025 LABORDER Serum Protein El ectrophoresis (SPEP) 06/21/2025 LABORDER CBC w/ auto diff 06/21/2025 LABORDER Free kappa / coleman bda with K/L ratio, serum 06/21/2025 LABORDER Folate panel 06/21/2025 LABORDER CMP 06/21/2025 LABORDER Immunofixation, serum w/ quant IgG/A/M panel Reason for Visit LAB 10 MIN Encounters Date Name 06/21/2024 Monoclonal gammopath y Diagnostic Results Date Type Test Units Lower Limit Upper Limit Result Flag Comments Status Ordered By Specimen Source Lab Address 05/24 TSH panel TSH uIU/mL 0.47 4.68 1.73 FINAL Rigoberto Burleson * [facility], [address] [facility] [facility] [address] [place] [address] [id number] 05/24 Folat e panel Folat e, serum ng/mL 2.8 20.0 2.7 Low FINAL Rigoberto Burleson * [facility], [address] [place] [address] [id number] [phone] 05/24 Corti stacie panel , serum CORTI STACIE, TOTAL mcg/dL 12.7 Reference Range: For 8 a.m.(7-9 a.m.) Specimen: 4.0-22.0R eference Range: For 4 p.m.(3-5 p.m.) Specimen: 3.0-17.0* Please interpret above results according ly * FINAL Rigoberotreyna Burleson * [facility] [address] [facility] [id number] 05/24 Alpha -2 globu bonnie g/dL 0.44 1.03 0.85 FINAL Rigoberto Burleson * [facility], [address] [id number] 08/22 /2024 Total prote in g/dL 6.3 8.2 6.7 FINAL Rigoberto Benjy * [facility], [facility] [address] [id number] 0 05/24 Album in, SPE g/dL 3.31 5.31 3.33 FINAL Rigoberto Benjy * [facility], [facility] [address] [id number] 0 05/24 Gamma globu bonnie g/dL 0.59 1.46 1.43 FINAL Rigoberto Benjy * [facility], [facility] [address] [id number] 05/24 Beta globu bonnie g/dL 0.52 1.05 0.82 FINAL Rigoberto Benjy * [facility], [facility] [address] [place] [address] [id number] 0 05/24 Alpha -1 globu bonnie g/dL 0.19 0.42 0.27 FINAL Rigoberto Benjy * [facility], [facility] [address] [id number] 0 05/24 Elect ropho nubia , Prote in Lab resul t note No definit nat parapro tein detecte d; however minor irregul arities noted in the gamma region. Recomme nd follow- up with immunot yping. Interpr eted and signed by Bonnie hussein MD on 024 FINAL Rigoberto Benjy * [facility], [facility] [address] [place] [address] [id number] 05/24 Immun ofixa tion, serum w/ quant IgG/A /M panel Immun ofixa tion, serum , inter preta tion Minor irregul arities in the gamma region. Monoclo nality cannot be confirm ed or ruled out. Clinica l correla tion and interva l testing recomme nded. Interpr eted and signed by Bonnie hussein MD on 024 FINAL Rigoberto Benjy * [facility] [place], [address] [facility] [place] [id number] 0 05/24 CBC w/ auto diff Nuno # (ANC) K/uL 1.6 6.6 4.3 FINAL Rigoberto Benjy [facility] [place], [address] [place] [id number] 0 Phone: () - 05/24 CBC w/ auto diff IG % % 0.0 0.5 0.2 FINAL Rigoberto Benjy [facility] [place], [address] [place] [phone] 0 Phone: () - 05/24 CBC w/ auto diff MO # K/uL 0.2 1.3 0.7 FINAL Rigoberto Benjy [facility] [place], [address] [place] [id number] 0 Phone: () - 05/24 CBC w/ auto diff MCV fL 80.0 104.0 91.6 FINAL Rigoberto Benjy [facility] [place], [address] [place] [phone] 0 Phone: () - 05/24 CBC w/ auto diff IG # K/uL 0.0 0.03 0.01 FINAL Rigoberto Benjy [facility] [place], [address] [place] [id number] 0 Phone: () - 05/24 CBC w/ auto diff MO % % 6.0 15.0 10.6 FINAL Rigoberto Benjy [facility] [place], [address] [place] [id number] 0 Phone: () - 05/24 CBC w/ auto diff EO # K/uL 0.0 0.6 0.3 FINAL Rigoberto Benjy [facility] [place], [address] [place] [phone] 0 Phone: () - 05/24 CBC w/ auto diff EO % % 0.0 7.0 4.6 FINAL Rigoberto Benjy [facility] [place], [address] [place] [id number] 0 Phone: () - 05/24 CBC w/ auto diff RBC M/uL 4.2 5.6 4.50 FINAL Rigoberto Benjy [facility] [place], [address] [place] [id number] 0 Phone: () - 05/24 CBC w/ auto diff MPV fL 9.5 13.4 8.7 Low FINAL Rigoberto Benjy [facility] [place], [address] [place] [phone] 0 Phone: () - 05/24 CBC w/ auto diff BA % % 0.0 2.0 0.6 FINAL Rigoberto Benjy [facility] [place], [address] [place] [id number] 0 Phone: () - 05/24 CBC w/ auto diff BA # K/uL 0.0 0.2 0.0 FINAL Rigoberto Benjy [facility] [place], [address] [place] [id number] 0 Phone: () - 05/24 CBC w/ auto diff HGB g/dL 12.5 16.6 13.5 FINAL Rigoberto Benjy [facility] [place], [address] [place] [id number] 0 Phone: () - 05/24 CBC w/ auto diff MCHC g/dL 30.0 35.0 32.8 FINAL Rigoberto Benjy [facility] [place], [address] [place] [id number] 0 Phone: () - 05/24 CBC w/ auto diff HCT % 39.0 49.0 41.2 FINAL Rigobertoconsuelo [facility] [place], [address] [place] [id number] 0 Phone: () - 05/24 CBC w/ auto diff WBC K/uL 3.0 8.9 6.3 FINAL Rigoberto Benjy [facility] [place], [address] [place] [phone] 0 Phone: () - 05/24 CBC w/ auto diff PLT K/uL 113.0 364.0 217 FINAL Rigobertoconsuelo [facility] [place], [address] [place] [phone] 0 Phone: () - 05/24 CBC w/ auto diff RDW % 11.3 15.6 12.40 FINAL Rigoberto Benjy [facility] [place], [address] [place] [id number] 0 Phone: () - 05/24 CBC w/ auto diff LY % % 14.0 41.0 15.7 FINAL Rigoberto Benjy [facility] [place], [address] [place] [id number] 0 Phone: () - 05/24 CBC w/ auto diff LY # K/uL 0.4 3.6 1.0 FINAL Rigoberto Benjy [facility] [place], [address] [place] [phone] 0 Phone: () - 05/24 CBC w/ auto diff MCH pg 26.0 35.0 30.0 FINAL Rigoberto Benjy [facility] [place], [address] [place] [phone] 0 Phone: () - 05/24 CBC w/ auto diff NRBC % #/100W BC 0.0 0.2 0.0 FINAL Rigoberto Burleson [facility] [place], [address] [facility] [address] [place] [id number] 0 Phone: () - 05/24 CBC w/ auto diff Nuno % % 43.0 74.0 68.3 FINAL Rigoberto Burleson [facility] [place], [address] [facility] [address] [place] [phone] 0 Phone: () - 05/24 CMP ALT/S GPT U/L 0.0 49.0 23 FINAL Rigoberto Burleson * [facility], [facility] [address] [place] [address] [id number] 0 05/24 CMP Gluco se mg/dL 74.0 100.0 200 High FINAL Rigoberto Burleson * [facility], [facility] [address] [place] [address] [id number] 0 05/24 CMP AST/S GOT U/L 17.0 59.0 43 FINAL Rigoberto Burleson * [facility], [facility] [address] [facility] [address] [place] [address] [id number] 0 05/24 CMP Bilir ubin, total mg/dL 0.2 1.3 0.4 FINAL Rigoberto Burleson * [facility], [facility] [address] [place] [address] [id number] 0 05/24 CMP Sodiu m mmol/L 137.0 145.0 140 FINAL Rigoberto Burleson * [facility], [facility] [place] [address] [id number] 0 05/24 CMP Alkal ine phosp hatas e U/L 36.0 125.0 61 FINAL Rigoberto Burleson * [facility], [address] [facility] [facility] [address] [id number] 0 05/24 CMP Calci um mg/dL 8.4 10.2 8.9 FINAL Rigoberto Burleson * [facility], [facility] [address] [id number] 0 05/24 CMP GFR estim ate ml/min /1.73m ^2 77.1 GFR is calculate d using the CKD-EPI equation. FINAL Rigoberto Burleson * [facility], [facility] [address] [id number] 0 05/24 CMP CO2 mmol/L 22.0 30.0 26 The expected total allowable error for CO2 is 5.6%. We have seen up to 10% differenc e in values if reported at the end of the 96 hour stability window. Please consider the clinical significa nce of a 2.0-2.5 mmol/L lower reported CO2 value if reported at the end of the 96 hour stability window. FINAL Rigoberto Burleson * [facility], [facility] [address] [id number] 0 05/24 CMP Chlor suzan mmol/L 96.0 107.0 108 High FINAL Rigoberto Burleson * [facility], [facility] [address] [id number] 05/24 CMP BUN mg/dL 9.0 20.0 22.0 High FINAL Rigoberto Burleson * [facility], [facility] [address] [id number] 0 05/24 CMP Creat inine mg/dL 0.66 1.25 1.00 FINAL Rigoberto Burleson * [facility], [facility] [address] [id number] 0 05/24 CMP Album in g/dL 3.5 5.0 3.5 FINAL Rigoberto Benjy [facility], [address] [facility] [id number] 0 05/24 CMP Potas sium mmol/L 3.5 5.1 4.6 FINAL Rigoberto Benjy * [facility], [address] [facility] [id number] 0 05/24 Vitam in B12 panel Vitam in B12 pg/mL 239.0 931.0 >1000 High Test performed at [facility]. [address] , [address], [place] [address] FINAL Rigoberto Benjy * [facility], [address] [facility] [id number] 0 05/24 Retic ulocy te count panel Retic ulocy te count % 0.2 1.7 0.83 FINAL Rigoberto Benjy [facility] [place] , [address] [place] [address] [address] [facility] [phone] Phone: () - 05/24 Retic ulocy te count panel Retic ulocy te cellu lar hemog lobin pg 28.0 37.0 32.0 FINAL Rigoberto Benjy [facility] [place] , [address] [place] [address] [address] [facility] [phone] 0 Phone: () - 05/24 Retic ulocy te count panel Retic ulocy te, absol coeur d'alene M/uL 0.01 0.1 0.04 FINAL Rigoberto Benjy [facility] [place] , [address] [place] [address] [address] [facility] [id number] 0 Phone: () - 05/24 Retic ulocy te count panel Immat ure retic ulocy te fract ion, % % 0.0 18.8 3.90 FINAL Rigoberto Burleson [facility], [address] [facility] [phone] 0 Phone: () - 05/24 Free kappa / lambd a with K/L ratio , serum Cooter light chain , free, serum , mg/dL mg/dL 0.33 1.94 7.12 High Test performed at [facility] on a Binding Site Optilite Analyzer that uses a turbidime tric method for analysis. Patient testing should not be performed using multiple methodolo gies due to analytica l variation seen between test methodolo gies. FINAL Rigoberto Burleson An[facility] [place], [facility] [id number] 0 05/24 Free kappa / lambd a with K/L ratio , serum K/L light chain ratio , free, serum 0.26 1.65 1.22 FINAL Rigoberto Burleson [facility] [place], [address] [id number] 0 05/24 Free kappa / lambd a with K/L ratio , serum Lambd a light chain , free, serum , mg/dL mg/dL 0.57 2.63 5.83 High Test performed at [facility] on a Binding Site Optilite Analyzer that uses a turbidime tric method for analysis. Patient testing should not be performed using multiple methodolo gies due to analytica l variation seen between test methodolo gies. FINAL Rigoberto Burleson [facility] [place], [address] [id number] 0 06/12 [facility] See clinical systems analyst d 05/24 Path perip heral blood slide revie w panel Patho logy/ Cytol ogy Morph ology SEE RESULTS BELOW CASE REPORTSpe cial Hematolog y Report Case: [id number] 8Authoriz ing Provider: Rigoberto Burleson MBBS Collected :05/24/20 24 1229Order ing Location: [facility] Received: 7Patho logist: Jermaine Hancock MDSp ecimen: BloodFINA L DIAGNOSIS PERIPHERA L BLOOD: No diagnosti c abnormali ties\X09\ \X09\\[id number] \Electron ically signed by Jermaine Hancock MD on 05/25/2024 at 11:16 AMCLINICA L INFORMATI ONThe patient is a 78-year-o ld male with monoclona l gammopath y.Prior bone marrow biopsy in April 2023 was negative for plasma cell neoplasm( [id number]). CBC AND DIFFERENT IALHEMATO LOGY PARAMETER STested at: [facility] eRESULT EXPECTED VALUESWBC : 6.3 4.5-11x10 00/cummRB C: 4.5 4.30-5.90 mil/cummH GB: 13.5 13.5-17.5 gm/diHCT: 41.2 37-53%MCV : 91.6 80-100 fl NORMOCYTI CMCH: 30.0 26-34 pgMCHC: 32.8 32-36 gm/dl NORMOCHRO MICRDW: 12.4 11.5-15.5 %PLT: 217 140-440x1 000/uLMPV : 8.7 6.5-11 flRetic: 0.8 0.5-1.5%D ifferenti alAbsolut e (%) Expected (%)(x10*9 /L) (x10*9/L) Neutrophi ls: 4.27 (68.3) 1.7-7.0 (42-72%)L ymphocyte s: 0.98 (15.7) 0.9-2.9 (20-44%)M onocytes: 0.66 (10.6) <0.9 (0-11%)Eo sinophils : 0.29 (4.6) <0.5 (0-2%)Bas ophils: 0.04 (.6) <0.3 (<3.0%)Im m Grans: 0.01 (.2) <0.3 (0-3%)(Me tas, Myelos,Pr os)MICROS COPIC DESCRIPTI ONThe final diagnosis is based on microscop ic examinati on of an appropria telystain ed blood smear.ADD ITIONAL INFORMATI ONInterpr eted at [facility] - [address], [place] [address] FINAL Rigoberto Burleson 06/21 Angio tensi n conve rting enzym e (RODRÍGUEZ) polym orphi sm panel ANGIO TENSI N-1-C ONVER TING ENZYM E U/L 9.0 67.0 32 FINAL Rigoberto Burleson * [facility] [address] [facility] [id number] 4 05/24 Immun oglob ulin measu remen t IgA, quant mg/dL 61.0 348.0 23.46 Low Test performed at [facility] on a Binding Site Optilite Analyzer that uses a turbidime tric method for analysis. Patient testing should not be performed using multiple methodolo gies due to analytica l variation seen between test methodolo gies. FINAL Rigoberto Burleson * [facility] [place], [facility] [facility] [id number] 0 05/24 Immun oglob ulin measu remen t IgG, quant mg/dL 610.0 1616.0 1502.58 Test performed at [facility] on a Binding Site Optilite Analyzer that uses a turbidime tric method for analysis. Patient testing should not be performed using multiple methodolo gies due to analytica l variation seen between test methodolo gies. FINAL Rigoberto Benjy * [facility] [place], [address] [facility] [id number] 0 05/24 Immun oglob ulin measu remen t IgM, quant mg/dL 35.0 242.0 22.94 Low Test performed at [facility] on a Binding Site Optilite Analyzer that uses a turbidime tric method for analysis. Patient testing should not be performed using multiple methodolo gies due to analytica l variation seen between test methodolo gies. FINAL Rigoberto Burleson * [facility] [place], [address] [facility] [id number] 0 05/24 Urine prote in elect karmen adhikario m urine CREAT ININE KARMENO Sal URINE mg/dL 20.0 320.0 183 FINAL Rigoberto Burleson [facility] [address] [place] [id number] 4 05/24 Urine prote in elect richie delacruz , karmeno m urine GAMMA GLOBU ANAMARIA % 18 FINAL Rigoberto Burleson [facility] [address] [place] [id number] 4 05/24 Urine prote in elect karmen adhikario m urine ALPHA -2-GL OBULI NS % 10 FINAL Rigoberto Burleson [facility] [address] [place] [id number] 4 05/24 Urine prote in elect richie delacruz , karmeno m urine INTER PRETA TION SEE NOTE Agarose electroph oresis of urine reveals albumin and variousgl obulin fractions . No abnormal protein is observed. The supplier of the testing reagents for this assay haschange d. Detection of small monoclona l proteins mayvary by test system. Urine immunofix ation is suggested if clinicall y indicated and not already ordered. FINAL Rigoberto Burleson [facility] [address] [place] [phone] 4 05/24 Urine prote in elect richie delacruz , rando m urine PROTE IN/CR EATIN INE RATIO mg/gcr eat 25.0 148.0 158 High FINAL Rigoberto Burleson [facility] [address] [place] [id number] 4 05/24 Urine prote in elect ropho resis , rando m urine ALPHA -1-GL OBULI NS % 14 FINAL Rigoberto Burleson [employer], [facility] [address] [place] [id number] 4 05/24 Urine prote in elect richie resis , rando m urine ALBUM IN % 26 FINAL Rigoberto Burleson [employer], [facility] [address] [place] [id number] 4 05/24 Urine prote in elect richie resis , rando m urine PROTE IN, TOTAL , RANDO M UR mg/dL 5.0 25.0 29 High FINAL Rigoberto Burleson [employer], [facility] [address] [place] [id number] 4 05/24 Urine prote in elect richie delacruz , karmeno m urine BETA GLOBU ANAMARIA % 33 FINAL Rigoberto Burleson [employer], [facility] [address] [place] [id number] 4 Medications Date Name Route Dose Frequency Instructions Start Date End Date Status Mirtazapine Oral QD active Insulin Glargine-yfgn Subcutaneous Pen 100 unit/mL QD active Famotidine Oral QD s topped Calcitriol Oral QD a ctive Dexamethasone Oral monthly stopped Gabapentin Oral QD a ctive Sulfamethoxazole-T rimethoprim Oral 400 mg-80 mg (Reg Str) 3 times weekly active Finasteride Oral (Proscar) QD active Daratumumab-Hyalur onidase-fihj Subcutaneous 1,800 mg-30,000 unit/15 mL monthly stopped Pravastatin Sodium Oral QD active Acyclovir Oral QD ac tive Apixaban Oral BID act nat sulfamethoxazole 400 MG / trimethoprim 80 MG Oral Tablet orally 1.0 tab 3 times per week 024 active folic acid 1 MG Oral Tablet orally 1.0 tablet daily active folic acid 1 MG Oral Tablet orally 1.0 tablet daily active Problems Diagnosis Status Date of Diagnosi s Sarcoidosis (disorder) Active Impaired cognition (finding) Active Abnormal weight loss (finding) Active 0 05/24/2024 Monoclonal gammopathy Active Myeloma Active Procedures Date Category Name Instructions Status 05/24/2024 Physician Order PET/CT scan, whole body [place] Ordered 05/24/2024 Physician Order Consultation requested re keri to neurology [facility] for work of dementia Ordered 06/12/2024 Physician Order Bone marrow biop sy and aspiration procedure [place] or VIE Ordered 06/21/2024 Physician Order RTC MD Ordered 12/05/2024 Physician Order Chart check Ordered 06/21/2025 Physician Order RTC MD Ordered Social History Date Name Value 05/24/2024 Smoking Status Never smoker 05/24/2024 Sex Male Vital Signs Date Type Value 06/21/2024 Height 69.00 06/21/2024 Weight 204.80 06/21/2024 Intravascular Systolic 118 06/21/2024 Intravascular Diastolic 64 06/21/2024 Respiratory Rate 16.00 06/21/2024 Heart Beat 75.00 06/21/2024 Body Temperature 98.90 06/21/2024 Pain Scale 0.00 06/21/2024 Oxygen Saturation 96.00 06/21/2024 BMI 30.24
--- OUTSIDE RECORDS SUMMARY | 2024-11-28 21:48 | XMS_ITS ---
Author Name Interface, [id number] lity Address [address] [place] [address] [address] [place] [address] [facility] Address [address] [place] [address] [address] [place] [address] Care Team Providers Care Viticulture Teacher Name Role Phone Benjy Rigoberto Unavailable Unavailable [...] FINAL Rigoberto Burleson * [facility] 1355 [facility] [id number] Medications Date Name Route Dose Frequency Instructions Start Date End Date Status Finasteride Oral (Proscar) QD active Gabapentin Oral QD a ctive Sulfamethoxazole-Tr imethoprim Oral 400 mg-80 mg (Reg Str) 3 times weekly active Insulin Glargine-yfgn Subcutaneous Pen 100 unit/mL QD active Mirtazapine Oral QD active Pravastatin Sodium Oral QD active Apixaban Oral BID act nat Calcitriol Oral QD a ctive Acyclovir Oral QD ac tive 024 sulfamethoxazole 400 MG / trimethoprim 80 [...] mg/L.?Urine was negative for monoclonal freelight chain.?Free light??chain:??[place]??274.52??lambda 301.89??ratio 0.91 * 04/21/2023 patient had a [...] protein electrophoresis did not show any definitive paraproteinemia.?[place]??light chain was 7.12 lambda??lightchain??was 5.8Ratio was normal [...] symptoms.?? * ???He should consider a consultation with??human resources trainer or housing inspectors.?? * Would recommend that we check??serum protein [...] mg/L.?Urine was negative for monoclonal freelight chain.?Free light??chain:??[place]??274.52??lambda 301.89??ratio 0.91 * 04/21/2023 patient had a [...] protein electrophoresis did not show any definitive paraproteinemia.?[place]??light chain was 7.12 lambda??lightchain??was 5.8Ratio was normal [...]
--- OUTSIDE RECORDS SUMMARY | 2024-11-28 21:48 | XMS_ITS ---
Author Name Interface, [id number] lity Address [address] [place] [address] [address] [place] [address] [facility] Address [address] [place] [address] [address] [place] [address] Care Team Providers Care Store Cashier Name Role Phone Benjy Rigoberto Unavailable Unavailable [...] FINAL Rigoberto Burleson * [facility] 1355 [facility] [id number] Medications Date Name Route Dose Frequency Instructions Start Date End Date Status Apixaban Oral BID act nat Gabapentin Oral QD a ctive Sulfamethoxazole-Tr imethoprim Oral 400 mg-80 mg (Reg Str) 3 times weekly active Insulin Glargine-yfgn Subcutaneous Pen 100 unit/mL QD active Mirtazapine Oral QD active Pravastatin Sodium Oral QD active Finasteride Oral (Proscar) QD active Calcitriol Oral QD a ctive Acyclovir Oral [...] mg/L.?Urine was negative for monoclonal freelight chain.?Free light??chain:??[place]??274.52??lambda 301.89??ratio 0.91 * 04/21/2023 patient had a [...] protein electrophoresis did not show any definitive paraproteinemia.?[place]??light chain was 7.12 lambda??lightchain??was 5.8Ratio was normal [...] symptoms.?? * ???He should consider a consultation with??coach or nursery manager.?? * Would recommend that we check??serum protein [...] mg/L.?Urine was negative for monoclonal freelight chain.?Free light??chain:??[place]??274.52??lambda 301.89??ratio 0.91 * 04/21/2023 patient had a [...] protein electrophoresis did not show any definitive paraproteinemia.?[place]??light chain was 7.12 lambda??lightchain??was 5.8Ratio was normal [...]
--- OUTSIDE RECORDS SUMMARY | 2024-11-28 21:48 | XMS_ITS | CCD ---
Author Name Interface, [id number] lity Address [address] [place] [address] [address] [address] [facility] Address [address] [facility] [address] [place] [address] Care Team Providers Care Shuttler Name Role Phone Rigoberto Burleson Unavailable Unavailable [...] 0.47 4.68 1.73 FINAL Rigoberto Burleson * [facility], [address] [facility] [address] [place] [address] [id number] 05/24 Folat e panel Folat e, serum ng/mL 2.8 20.0 2.7 Low FINAL Rigoberto Burleson * [facility], [address] [place] [address] [id number] 05/24 Corti stacie panel , serum CORTI STACIE, TOTAL mcg/dL 12.7 Reference Range: For 8 a.m.(7-9 a.m.) Specimen: 4.0-22.0R eference Range: For 4 p.m.(3-5 p.m.) Specimen: 3.0-17.0* Please interpret above results according ly * FINAL Rigobertoreyna Burleson * [facility] 1355 [facility] [id number] 05/24 Alpha -2 globu bonnie g/dL 0.44 1.03 0.85 FINAL Rigoberto Burleson * [facility], [address] [id number] 08/22 /2024 Total prote in g/dL 6.3 8.2 6.7 FINAL Rigoberto Benjy * [facility], [facility]0 [facility] [address] [id number] 0 05/24 Album in, SPE g/dL 3.31 5.31 3.33 FINAL Rigoberto Benjy * [facility], [facility]0 [facility] [address] [id number] 0 05/24 Gamma globu bonnie g/dL 0.59 1.46 1.43 FINAL Rigoberto Benjy * [facility], [facility] [address] [id number] 0 05/24 Beta globu bonnie g/dL 0.52 1.05 0.82 FINAL Rigoberto Benyj * [facility], [facility] [address] [place] [address] [id number] 05/24 Alpha -1 globu bonnie g/dL 0.19 0.42 0.27 FINAL Rigoberto Benjy * [facility], [facility] [address] [id number] 0 05/24 Elect ropho nubia , Prote in Lab resul t note No definit nat parapro tein detecte d; however minor irregul arities noted in the gamma region. Recomme nd follow- up with immunot yping. Interpr eted and signed by Bonnie hussein MD on 024 FINAL Rigoberto Benjy * [facility], [facility] [address] [place] [address] [id number] 0 05/24 Immun ofixa tion, serum w/ quant IgG/A /M panel Immun ofixa tion, serum , inter preta tion Minor irregul arities in the gamma region. Monoclo nality cannot be confirm ed or ruled out. Clinica l correla tion and interva l testing recomme nded. Interpr eted and signed by Bonnie hussein MD on 024 FINAL Rigoberto Benjy * [facility] [place], [address] [facility] [place] [id number] 0 05/24 CBC w/ auto diff Nuno # (ANC) K/uL 1.6 6.6 4.3 FINAL Rigoberto Benjy [facility] [place], [address] [place] [id number] 0 Phone: () - 05/24 CBC w/ auto diff IG % % 0.0 0.5 0.2 FINAL Rigoberto Benjy [facility] [place], [address] [place] [id number] 0 Phone: () - 05/24 CBC w/ auto diff MO # K/uL 0.2 1.3 0.7 FINAL Rigoberto Benjy [facility] [place], [address] [place] [id number] 0 Phone: () - 05/24 CBC w/ auto diff MCV fL 80.0 104.0 91.6 FINAL Rigoberto Benjy [facility] [place], [address] [place] [phone] 0 Phone: () - 05/24 CBC w/ auto diff IG # K/uL 0.0 0.03 0.01 FINAL Rigoberto Benjy [facility] [place], [address] [place] [id number] 0 Phone: () - 05/24 CBC w/ auto diff MO % % 6.0 15.0 10.6 FINAL Rigoberto Benjy [facility] [place], [address] [place] [id number] 0 Phone: () - 05/24 CBC w/ auto diff EO # K/uL 0.0 0.6 0.3 FINAL Rigoberto Benjy [facility] [place], [address] [place] [id number] 0 Phone: () - 05/24 CBC w/ auto diff EO % % 0.0 7.0 4.6 FINAL Rigoberto Benjy [facility] [place], [address] [place] [id number] 0 Phone: () - 05/24 CBC w/ auto diff RBC M/uL 4.2 5.6 4.50 FINAL Rigoberto Benjy [facility] [place], [address] [place] [phone] 0 Phone: () - 05/24 CBC w/ auto diff MPV fL 9.5 13.4 8.7 Low FINAL Rigoberto Benjy [facility] [place], [address] [place] [id number] 0 Phone: () - 05/24 CBC w/ auto diff BA % % 0.0 2.0 0.6 FINAL Rigoberto Benjy [facility] [place], [address] [place] [id number] 0 Phone: () - 05/24 CBC w/ auto diff BA # K/uL 0.0 0.2 0.0 FINAL Rigoberto Benjy [facility] [place], [address] [place] [id number] 0 Phone: () - 05/24 CBC w/ auto diff HGB g/dL 12.5 16.6 13.5 FINAL Rigoberto Benjy [facility] [place], [address] [place] [id number] 0 Phone: () - 05/24 CBC w/ auto diff MCHC g/dL 30.0 35.0 32.8 FINAL Rigoberto Benjy [facility] [place], [address] [place] [id number] 0 Phone: () - 05/24 CBC w/ auto diff HCT % 39.0 49.0 41.2 FINAL Rigobertoconsuelo [facility] [place], [address] [place] [id number] 0 Phone: () - 05/24 CBC w/ auto diff WBC K/uL 3.0 8.9 6.3 FINAL Rigoberto Benjy [facility] [place], [address] [place] [id number] 0 Phone: () - 05/24 CBC w/ auto diff PLT K/uL 113.0 364.0 217 FINAL Rigobertoconsuelo [facility] [place], [address] [place] [id number] 0 Phone: () - 05/24 CBC w/ auto diff RDW % 11.3 15.6 12.40 FINAL Rigoberto Benjy [facility] [place], [address] [place] [id number] 0 Phone: () - 05/24 CBC w/ auto diff LY % % 14.0 41.0 15.7 FINAL Rigoberto Benjy [facility] [place], [address] [place] [id number] 0 Phone: () - 05/24 CBC w/ auto diff LY # K/uL 0.4 3.6 1.0 FINAL Rigoberto Benjy [facility] [place], [address] [place] [id number] 0 Phone: () - 05/24 CBC w/ auto diff MCH pg 26.0 35.0 30.0 FINAL Rigoberto Benjy [facility] [place], [address] [place] [id number] 0 Phone: () - 05/24 CBC w/ auto diff NRBC % #/100W BC 0.0 0.2 0.0 FINAL Rigoberto Burleson [facility] [place], [address] [facility] [address] [place] [id number] 0 Phone: () - 05/24 CBC w/ auto diff Nuno % % 43.0 74.0 68.3 FINAL Rigoberto Burleson [facility] [place], [address] [facility] [address] [place] [phone] 0 Phone: () - 05/24 CMP ALT/S GPT U/L 0.0 49.0 23 FINAL Rigoberto Burleson * [facility], [facility] [address] [place] [address] [id number] 0 05/24 CMP Gluco se mg/dL 74.0 100.0 200 High FINAL Rigoberto Burleson * [facility], [facility]0 [address] [place] [address] [id number] 0 05/24 CMP AST/S GOT U/L 17.0 59.0 43 FINAL Rigoberto Burleson * [facility], [facility] Univers ty [facility] W [address] [place] [address] [id number] 0 05/24 CMP Bilir ubin, total mg/dL 0.2 1.3 0.4 FINAL Rigoberto Burleson * [facility], [facility] [address] [place] [address] [id number] 0 05/24 CMP Sodiu m mmol/L 137.0 145.0 140 FINAL Rigoberto Burleson * [facility], [facility] [place] [address] [id number] 0 05/24 CMP Alkal ine phosp hatas e U/L 36.0 125.0 61 FINAL Rigoberto Burleson * [facility] a [facility], [address] [facility] [address] [id number] 0 05/24 CMP Calci um mg/dL 8.4 10.2 8.9 FINAL Rigoberto Burleson * [facility], [facility] [address] [id number] 0 05/24 CMP GFR estim ate ml/min /1.73m ^2 77.1 GFR is calculate d using the CKD-EPI equation. FINAL Rigoberto Burleson * [facility], [facility] [address] [id number] 0 05/24 CMP CO2 mmol/L 22.0 30.0 [...] window. FINAL Rigoberto Burleson * [facility] ad[facility], [facility] [address] [id number] 0 05/24 CMP Chlor suzan mmol/L 96.0 107.0 108 High FINAL Rigoberto Burleson * [facility], [facility] [address] [id number] 0 05/24 CMP BUN mg/dL 9.0 20.0 22.0 High FINAL Rigoberto Burleson * [place] a [facility], [facility] [address] [id number] 0 05/24 CMP Creat inine mg/dL 0.66 1.25 1.00 FINAL Rigoberto Burleson * [place] a [facility], [facility] [address] [id number] 0 05/24 CMP Album in g/dL 3.5 5.0 3.5 FINAL Rigoberto Benjy [facility], [address] [facility] [id number] 0 05/24 CMP Potas sium mmol/L 3.5 5.1 4.6 FINAL Rigoberto Benjy * [facility], [address] [facility] [id number] 0 05/24 Vitam in B12 panel Vitam in B12 pg/mL 239.0 931.0 >1000 High Test performed at [facility]. [address] , [address], [place] [address] FINAL Rigoberto Benjy * [facility], [address] [facility] [id number] 0 05/24 Retic ulocy te count panel Retic ulocy te count % 0.2 1.7 0.83 FINAL Rigoberto Benjy [facility] [place] , [address] [place] [address] [address] [facility] [id number] 0 Phone: () - 05/24 Retic ulocy te count panel Retic ulocy te cellu lar hemog lobin pg 28.0 37.0 32.0 FINAL Rigoberto Benjy [facility] [place] , [address] [place] [address] [address] [facility] [id number] 0 Phone: () - 05/24 Retic ulocy te count panel Retic ulocy te, absol [place] M/uL 0.01 0.1 0.04 FINAL Rigoberto Benjy [facility] [place] , [address] [place] [address] [address] [facility] [id number] 0 Phone: () - 05/24 Retic ulocy te count panel Immat ure retic ulocy te fract ion, % % 0.0 18.8 3.90 FINAL Rigoberto Burleson [facility], [address] [facility] [id number] 0 Phone: () - 05/24 Free kappa / lambd a with K/L ratio , serum [place] light chain , free, serum , mg/dL mg/dL 0.33 1.94 7.12 High Test performed at [facility] on a Binding Site Optilite Analyzer that uses a turbidime tric method for analysis. Patient testing should not be performed using multiple methodolo gies due to analytica l variation seen between test methodolo gies. FINAL Rigoberto Burleson Annamaria [facility] [place], [facility] [id number] 0 05/24 Free kappa / lambd a with K/L ratio , serum K/L light chain ratio , free, serum 0.26 1.65 1.22 FINAL Rigoberto Burleson [facility] [place], [address] [id number] 0 05/24 Free kappa / lambd a with K/L ratio , serum [place] a light chain , free, serum , mg/dL mg/dL 0.57 2.63 5.83 High Test performed at [facility] on a Binding Site Optilite Analyzer that uses a turbidime tric method for analysis. Patient testing should not be performed using multiple methodolo gies due to analytica l variation seen between test methodolo gies. FINAL Rigoberto Burleson [facility] [place], [address] [id number] 0 06/12 [facility] d 05/24 Path perip heral blood slide revie w panel Patho logy/ Cytol ogy Morph ology SEE RESULTS BELOW CASE REPORTSpe cial Hematolog y Report Case: [id number] 8Authoriz ing Provider: Rigoberto Burleson MBBS Collected :05/24/20 24 1229Order ing Location: [facility] Received: 7Patho logist: Jermaine Hancock [...] AND DIFFERENT IALHEMATO LOGY PARAMETER STested at: [facility] eRESULT EXPECTED VALUESWBC : 6.3 4.5-11x10 [...] blood smear.ADD ITIONAL INFORMATI ONInterpr eted at [facility], [facility] - [address], [place] [address] FINAL Rigoberto Burleson 06/21 Angio tensi n conve rting enzym e (RODRÍGUEZ) polym orphi sm panel ANGIO TENSI N-1-C ONVER TING ENZYM E U/L 9.0 67.0 32 FINAL Rigoberto Burleson * [facility] [address] [facility] [id number] 4 05/24 Immun oglob ulin measu remen t IgA, quant mg/dL 61.0 348.0 23.46 Low Test performed at [facility] on a Binding Site Optilite Analyzer that uses a turbidime tric method for analysis. Patient testing should not be performed using multiple methodolo gies due to analytica l variation seen between test methodolo gies. FINAL Rigoberto Burleson * [facility] [place], [facility] [facility] [id number] 0 05/24 Immun oglob ulin measu remen t IgG, quant mg/dL 610.0 1616.0 1502.58 Test performed at [facility] on a Binding Site Optilite Analyzer that uses a turbidime tric method for analysis. Patient testing should not be performed using multiple methodolo gies due to analytica l variation seen between test methodolo gies. FINAL Rigoberto Benjy * [facility] [place], [address] [facility] [id number] 0 05/24 Immun oglob ulin measu remen t IgM, quant mg/dL 35.0 242.0 22.94 Low Test performed at [facility] on a Binding Site Optilite Analyzer that uses a turbidime tric method for analysis. Patient testing should not be performed using multiple methodolo gies due to analytica l variation seen between test methodolo gies. FINAL Rigoberto Burleson * [facility] [place], [address] [facility] [id number] 0 05/24 Urine prote in elect karmen adhikario m urine CREAT ININE KARMENO Sal URINE mg/dL 20.0 320.0 183 FINAL Rigoberto Burleson [facility] [address] [place] [id number] 4 05/24 Urine prote in elect richie delacruz , karmeno m urine GAMMA GLOBU ANAMARIA % 18 FINAL Rigoberto Burleson [facility] [address] [place] [id number] 4 05/24 Urine prote in elect karmen adhikario m urine ALPHA -2-GL OBULI NS % 10 FINAL Rigoberto Burleson [facility] [address] [place] [id number] 4 05/24 Urine prote in elect richie [...] ordered. FINAL Rigoberto Burleson [facility] [address] [place] [id number] 4 05/24 Urine prote in elect richie delacruz , rando m urine PROTE IN/CR EATIN INE RATIO mg/gcr eat 25.0 148.0 158 High FINAL Rigoberto Burleson [facility] [address] [place] [id number] 4 05/24 Urine prote in elect ropho resis , rando m urine ALPHA -1-GL OBULI NS % 14 FINAL Rigoberto Burleson [employer], [facility] [address] [place] [id number] 4 05/24 Urine prote in elect richie resis , rando m urine ALBUM IN % 26 FINAL Rigoberto Burleson [employer], [facility] [address] [place] [id number] 4 05/24 Urine prote in elect richie resis , rando m urine PROTE IN, TOTAL , RANDO M UR mg/dL 5.0 25.0 29 High FINAL Rigoberto Burleson [employer], [facility] [address] [place] [id number] 4 05/24 Urine prote in elect richie delacruz , karmeno m urine BETA GLOBU ANAMARIA % 33 FINAL Rigoberto Burlesno [employer], [facility] [address] [place] [id number] 4 Medications Date Name Route Dose Frequency [...] 05/24/2024 Physician Order PET/CT scan, whole body [place] Ordered 05/24/2024 Physician Order Consultation requested re keri to neurology [facility] for work of dementia Ordered 06/12/2024 Physician Order Bone marrow biop sy and aspiration procedure [place] or VIE Ordered 06/21/2024 Physician Order RTC [...]
[2024-11-28 21:50] LABS: Blood Urea Nitrogen* 40 mg/dL (7-30); Creatinine* 1.4 mg/dL (0.5-1.5); Estimated Glomerular Filt Rate 51 ml/min; INR 1.01 (0.91-1.10); Prothrombin Time 14.1 Seconds
[2024-11-28 21:51] LABS: Alanine Aminotransferase* 23 U/L (4-50); Alkaline Phosphatase* 81 U/L (40-150); Anion Gap 12 mEq/L (7-15); Aspartate Amino Transferase* 29 U/L (12-35); Bilirubin Total* 0.6 mg/dL (0.1-1.5); Calcium* 8.1 mg/dL (8.4-10.6); Carbon Dioxide* 23 mmol/L (20-32); Glucose* 153 mg/dL (60-115); Total Protein* 8.6 g/dL (6.0-8.3)
[2024-11-28 21:53] LABS: PCR FLU A Negative PCR FLU A (Negative); PCR FLU B Negative PCR FLU B (Negative); PCR RSV Negative PCR RSV (Negative); SARS PCR* Negative SARS-CoV-2 (Negative)
[2024-11-28 21:54] VITALS: BP 113/72; PULSE 93; RESP 16; TEMP 37.4; O2SAT 97
[2024-11-28 22:22] LABS: Appearance Urine Clear (Clear); Bilirubin Urine Negative (Negative); Blood Urine Trace-lysed (Negative); Color Urine Yellow (Yellow); Glucose Urine Negative (Negative); Ketones Urine Negative (Negative); Leukocyte Esterase Urine Negative (Negative); Nitrite Urine Negative (Negative); Protein Urine 1+ (Negative); Urobilinogen Urine 0.2 (0.2-1.0); pH Urine 5.5 (5.0-8.5)
[2024-11-28 22:24] LABS: Bacteria Urine Few; RBC Urine 0-2 (0-2); WBC Urine 0-2 (0-5)
[2024-11-28 22:56] VITALS: BP 117/78; PULSE 85; RESP 16; TEMP 36.8; O2SAT 97
[2024-11-28] MEDS: LOPERAMIDE HCL 2 MG CAPSULE 4 MG PO (23:33)
== END 2024-11-28 23:41 | disposition home or self-care (01) ==
PROVIDERS: Emergency Provider Emergency Medicine; PCP Family Medicine
DX: R11.2 Nausea with vomiting, unspecified (principal); R19.7 Diarrhea, unspecified; R53.1 Weakness; D47.2 Monoclonal gammopathy
CPT/HCPCS: 36415; 80053; 81001; 82803; 83605; 85025; 85610; 87086; 87493; 87631; 93005; 96361; 96374; 99283; 99284; A9270; J2405; J7030

== ENCOUNTER 2025-01-01 14:29 | Outpatient (CLI) | payer MEDICARE, BC, SELFPAY | END 2025-01-01 14:30 | disposition home or self-care (01) | LOC: LKVREF 14:31 | PROVIDERS: PCP Family Medicine; Visit Provider Emergency Medicine | DX: H66.001 Acute suppurative otitis media without spontaneous rupture of ear drum, right ear (principal); B95.3 Streptococcus pneumoniae as the cause of diseases classified elsewhere | CPT/HCPCS: 87070; 87186 ==

== ENCOUNTER 2025-01-15 09:05 | Outpatient (CLI) | payer MEDICARE, BC, SELFPAY ==
--- NOTE | 2025-01-15 10:00 | CRLHL7_ITS ---
For Patients: As a result of the Century Cures Act, medical imaging exams and procedure reports are released immediately into your electronic medical record. You may view this report before your referring provider. If you have questions, please contact your health care provider. INDICATION: Otorrhea Comparison none. TECHNIQUE: Noncontrast CT of the holiness bones. FINDINGS: Left: The left mastoid air cells and mastoid antrum are clear. Middle ear cavity is clear. Normal articulation of the ossicular chain. No opacification of sinus tympani. Normal tympanic membrane. The external auditory canal is patent. Tegmen tympani is intact. Normal mineralization of the otic capsule. Normal cochlea and vestibule. Normal internal auditory canal. Right: Complete opacification of the right mastoid air cells and mastoid antrum. There is focal marked thinning and possible dehiscence at the posterior lateral margin of the right mastoid air cells (series 4, image 38). Fluid and soft tissue prominence within the middle ear cavity predominate within the epitympanum. No erosive changes of the ossicles or scutum. Tegmen tympani remains intact. Opacification of sinus tympani. Thickening retraction of the tympanic membrane. The external auditory canal is patent. Normal mineralization of the otic capsule. Normal cochlea and vestibule. Normal internal auditory canal. Other: Mild mucosal thickening within the visualized maxillary sinuses. Remaining visualized paranasal sinuses are unremarkable. Normal orbits bilaterally. IMPRESSION: 1. Normal left temporal bone structures. 2. On the right, complete opacification of the right mastoid air cells and mastoid antrum. Fluid and soft tissue prominence within the middle ear cavity predominantly within the epitympanum. Thickening and retraction of the tympanic membrane. Overall, findings likely represent a combination of both otitis media and mastoiditis. 3. Normal right inner ear structures Please note that all CT scans at this facility use dose modulation, iterative reconstruction, and/or weight-based dosing when appropriate to reduce radiation dose to as low as reasonably achievable. Dictated by Allan Marcos MD @ 01/15/2025 1:46:07 PM (Electronically Signed)
== END 2025-01-15 09:06 | disposition home or self-care (01) ==
LOC: CT 09:07
PROVIDERS: PCP Family Medicine; Visit Provider Otolaryngology
DX: H92.10 Otorrhea, unspecified ear (principal)
CPT/HCPCS: 70480

== ENCOUNTER 2025-02-13 10:39 | Outpatient (CLI) | payer MEDICARE, BC, SELFPAY | END 2025-02-13 10:40 | disposition home or self-care (01) | PROVIDERS: PCP Physician Assistant Medical; Visit Provider Physician Assistant Medical | DX: E53.8 Deficiency of other specified B group vitamins (principal); E11.65 Type 2 diabetes mellitus with hyperglycemia; Z79.4 Long term (current) use of insulin | CPT/HCPCS: 82043; 82570; 82607; 84443 ==

== ENCOUNTER 2025-06-26 10:08 | Outpatient (CLI) | payer MEDICARE, BC, SELFPAY | END 2025-06-26 10:09 | disposition home or self-care (01) | LOC: NFLDREF 06-28 16:55 | PROVIDERS: PCP Physician Assistant Medical; Referring Provider Physician Assistant Medical; Visit Provider Physician Assistant Medical | DX: E11.9 Type 2 diabetes mellitus without complications (principal); Z79.4 Long term (current) use of insulin; E78.5 Hyperlipidemia, unspecified; C61 Malignant neoplasm of prostate; D50.9 Iron deficiency anemia, unspecified; E53.8 Deficiency of other specified B group vitamins; I10 Essential (primary) hypertension; E78.00 Pure hypercholesterolemia, unspecified; D47.2 Monoclonal gammopathy; Z12.5 Encounter for screening for malignant neoplasm of prostate | CPT/HCPCS: 80053; 80061; 82043; 82570; 82607; 82728; G0103 ==

== ENCOUNTER 2025-07-04 14:13 | Outpatient (CLI) | payer MEDICARE, BC, SELFPAY | END 2025-07-04 14:14 | disposition home or self-care (01) | LOC: NFLDREF 07-18 02:48 | PROVIDERS: PCP Physician Assistant Medical; Referring Provider Physician Assistant Medical; Visit Provider Physician Assistant Medical | DX: C95.90 Leukemia, unspecified not having achieved remission (principal) | CPT/HCPCS: 84550 ==

== ENCOUNTER 2025-07-09 10:45 | Outpatient (CLI) | payer MEDICARE, BC, SELFPAY ==
[2025-07-09 11:04] VITALS: BMI 29.8
[2025-07-09 11:11] VITALS: BP 150/87; RESP 16; TEMP 36.7; O2SAT 97
--- NOTE | 2025-07-09 11:45 | P.ANES_ITS ---
Anesthesia Charges Start Date/Time Anesthesia Start Date: 07/09/25 Anesthesia Start Time: 11:40 Stop Date/Time Anesthesia Stop Date: 07/09/25 Anesthesia Stop Time: 12:02 Summary Extremes of Age - Over 70 or under 1: MDA Coding CPT Codes CPT Codes: ANESTH BONE ASPIRATE/BX - 97392 ([id number]) P3 - PATIENT W/SEVERE SYS DISEASE, QK - FELT HAT FLANGING OPERATOR 2-4 CNCRNT ANES PROC, QX - AIRCRAFT LOAD CONTROLLER SVC W/ MD MED DIRECTION Additional Codes: Summary - Extremes of Age - Over 70 or under 1: MDA ([id number])
--- NOTE | 2025-07-09 11:45 | W.ANESCHARGE ---
Anesthesia Charges Start Date/Time Anesthesia Start Date: 07/09/25 Anesthesia Start Time: 11:40 Stop Date/Time Anesthesia Stop Date: 07/09/25 Anesthesia Stop Time: 12:02 Summary Extremes of Age - Over 70 or under 1: MDA Coding CPT Codes CPT Codes: ANESTH BONE ASPIRATE/BX - 69034 ([id number]) P3 - PATIENT W/SEVERE SYS DISEASE, QK - FRETTED STRING INSTRUMENT REPAIRER 2-4 CNCRNT ANES PROC, QX - QUARRYING MANAGER SVC W/ MD MED DIRECTION Additional Codes: Summary - Extremes of Age - Over 70 or under 1: MDA ([id number])
[2025-07-09 11:57] VITALS: BP 99/64; RESP 14; O2SAT 54
--- NOTE | 2025-07-09 12:03 | P.ANES_ITS ---
Anesthesia Charges Start Date/Time Anesthesia Start Date: 07/09/25 Anesthesia Start Time: 11:40 Stop Date/Time Anesthesia Stop Date: 07/09/25 Anesthesia Stop Time: 12:02 Coding CPT Codes CPT Codes: ANESTH BONE ASPIRATE/BX - 78556 ([id number]) P3 - PATIENT W/SEVERE SYS DISEASE, QK - FULL ROLL INSPECTOR 2-4 CNCRNT ANES PROC, QX - DATA CENTER ENGINEER SVC W/ MD MED DIRECTION
--- NOTE | 2025-07-09 12:03 | W.ANESCHARGE ---
Anesthesia Charges Start Date/Time Anesthesia Start Date: 07/09/25 Anesthesia Start Time: 11:40 Stop Date/Time Anesthesia Stop Date: 07/09/25 Anesthesia Stop Time: 12:02 Coding CPT Codes CPT Codes: ANESTH BONE ASPIRATE/BX - 66334 ([id number]) P3 - PATIENT W/SEVERE SYS DISEASE, QK - SPINDLE SETTER 2-4 CNCRNT ANES PROC, QX - LONG DISTANCE BILLING OPERATOR SVC W/ MD MED DIRECTION
[2025-07-09 12:07] VITALS: BP 104/65; RESP 14; O2SAT 98
[2025-07-09 12:17] LABS: Hematocrit* 42.9 % (37.0-53.0); Hemoglobin* 13.3 gm/dL (13.5-17.5); Immature Granulocytes Pct Auto 16.3 %; Immature Reticulocyte Fraction 16.0 % (2.3-13.4); Mean Corpuscular HGB Conc 31 gm/dL (32-36); Mean Corpuscular Hemoglobin 27 pg (26-34); Mean Corpuscular Volume 87 fL (80-100); RDW Coefficient of Variation % 15.4 % (11.5-15.5); Red Blood Count* 4.93 m/uL (4.30-5.90); Reticulocyte Hemoglobin Equivi 27.6 pg (29.0-35.0); Reticulocytes Absolute 0.07 # (0.03-0.08); White Blood Count* 23.83 K/uL (4.50-11.00)
[2025-07-09 12:49] VITALS: BP 145/83; RESP 16; O2SAT 94
[2025-07-09 13:08] LABS: Immature Granulocytes Abs Auto 3.90 K/uL (0.00-0.30); Lymphocytes Absolute Auto 3.90 K/uL (0.90-2.90)
[2025-07-09 13:09] LABS: Slide Review Reflex Yes
[2025-07-09 13:10] LABS: Slide Review Acceptable Review (Acceptable)
== END 2025-07-09 12:51 | disposition home or self-care (01) ==
PROVIDERS: PCP Physician Assistant Medical; Visit Provider Internal Medicine
DX: C92.10 Chronic myeloid leukemia, BCR/ABL-positive, not having achieved remission (principal); D86.9 Sarcoidosis, unspecified
CPT/HCPCS: 01112; 36415; 38222; 81206; 81207; 85025; 85045; 88184; 88185; 88237; 88264; 88305; 88311; 88313; 88360; 99100; J1644; J2003; J2704

== ENCOUNTER 2025-09-18 11:01 | Outpatient (CLI) | payer MEDICARE, BC, SELFPAY | END 2025-09-18 11:02 | disposition home or self-care (01) | PROVIDERS: PCP Physician Assistant Medical; Visit Provider Physician Assistant Medical | DX: C92.10 Chronic myeloid leukemia, BCR/ABL-positive, not having achieved remission (principal); E11.9 Type 2 diabetes mellitus without complications; Z79.4 Long term (current) use of insulin | CPT/HCPCS: 80053; 82607; 84550 ==